=== PATIENT | male | born 1945 | race Caucasian/White ===

== ENCOUNTER 2021-02-05 11:53 | Inpatient (IN) | payer MEDICARE, SELFPAY ==
[2021-02-05] VITALS (17 sets, daily range): BP systolic 107–157; BP diastolic 66–109; PULSE 69–83; RESP 18–24; TEMP 36.6–36.8; O2SAT 72–93
--- NOTE | 2021-02-05 12:38 | ECG_ITS ---
[facility] ED Test Date: 2021-02-05 Pat Name: Arjun Rios Department: Room: Gender: Male Pediatric Genetic Counselor: : 1945 Requested By: Brian Gann Order Number: [id number] Ramona MD: Devi Raya M.D. Measurements Intervals [place] Rate: 79 P: 47 CA: 166 QRS: 4 QRSD: 105 T: 7 QT: 376 QTc: 433 Interpretive Statements SINUS RHYTHM No previous ECG available for comparison Electronically Signed On 02-07-2021 7:43:56 CDT by Devi Raya M.D. [id number]
--- NOTE | 2021-02-05 12:38 | XRR_ITS ---
PROCEDURE INFORMATION: Exam: XR Chest Exam date and time: 02/05/2021 12:38 PM Age: 75 years old Clinical indication: Cough and dyspnea; Additional info: Dyspnea/cough TECHNIQUE: Imaging protocol: XR of the chest. Views: 1 view. COMPARISON: No relevant prior studies available. FINDINGS: Lungs: There are extensive diffuse bilateral interstitial pulmonary infiltrates. These could be due to interstitial pulmonary fibrosis but based on this 1 radiograph an interstitial pneumonia cannot be excluded. Pleural spaces: Unremarkable. No pleural effusion. No pneumothorax. Heart/Mediastinum: Unremarkable. No cardiomegaly. Bones/joints: Unremarkable. XR/XR chest 1V portable [id number] IMPRESSION: Diffuse bilateral interstitial pulmonary infiltrates which may be due to interstitial fibrosis though acute interstitial pneumonia cannot be excluded. Clinical correlation and follow-up radiographs are suggested.
--- NOTE | 2021-02-05 12:54 | W.ED.COVID ---
HPI - COVID General: Chief Complaint: COVID symptoms Stated Complaint: covid + low o2 Time Seen by Provider: 02/05/21 12:38 Triage information: Has fever, cough or shortness of breath. No known COVID + exposure last 14 days History of Present Illness: HPI Narrative: 75-year-old male presents to the emergency room with complaints of shortness of breath. Patient was diagnosed Covid +4 days ago he did so onset of symptoms 3 to 4 days prior to that he had a positive Covid test at a drive-through clinic in a [facility] in [place]. He has noticed worsening breathing since then. On arrival here he was at 70 to 73% oxygen saturation on 4 L. Patient has a history of pulmonary fibrosis but is not chronically on oxygen was started on oxygen because of his Covid. He did not receive any monoclonal antibodies nor is he been vaccinated. He does have a history of hypertension and diabetes as well as coronary artery disease and his last stenting was just 4 to 5 months ago he denies any chest pain today. He has had anosmia myalgias headache fever nonproductive cough and diarrhea although the diarrhea has relented to some degree. MD complaint: known COVID positive Prior covid testing: yes, results known Prior testing date: 02/02/21 COVID 19 common symptoms: positive fever(s), chills, cough, non-productive cough, dyspnea, fatigue, body aches, loss of sense of smell and/or taste, throat pain, nasal congestion, nausea and diarrhea COVID 19 other sytmptoms: positive requiring oxygen; negative chest pain Onset (ago): day(s) (7 to 8 days) Severity: severe Pertinent comorbid conditions: diabetes, hypertension, heart disease, COPD/respiratory disease (Interstitial pulmonary fibrosis) and immunocompromised state (Chronically on prednisone) Treatment prior to arrival: oxygen COVID Results: No Data to Display Review of Systems Const: Reports: fever(s), chills, body aches and fatigue ENMT: Reports: throat pain and nasal congestion Card: Denies: chest pain, edema, dyspnea on exertion or orthopnea Resp: Reports: dyspnea and non-productive cough GI: Reports: nausea and diarrhea : Denies: flank pain, dysuria, urinary frequency or urinary urgency Skin/Breast: Denies: rash or pruritus PFSH ED PFSH: Medical History CAD (coronary artery disease) HTN (hypertension) Type 2 diabetes mellitus Surgical History History of coronary artery stent placement Social History Smoking and tobacco status: never smoked Alcohol intake: never Substance/Drug Use: never Lives independently: Yes Household members: spouse Housing: House Physical Exam Const: COMMON NORMALS: no acute distress GENERAL APPEARANCE: cooperative and comfortable ORIENTATION/CONSCIOUSNESS: Yes awake, Yes oriented to person, Yes oriented to place and Yes oriented to time HENMT: COMMON NORMALS: normocephalic, atraumatic and hearing grossly normal bilaterally HEAD & SCALP: normocephalic and atraumatic Neck/C-Spine: COMMON NORMALS: no JVD Resp: AUSCULTATION: crackles and wheezes Cardio: COMMON NORMALS: no JVD and regular rhythm RATE: tachycardic RHYTHM: regular rhythm GI: COMMON NORMALS: Soft to palpation and No hepatosplenomegaly present AUSCULTATION: Yes normoactive bowel sounds PALPATION: Yes Soft to palpation, No Tenderness to palpation present (GI), No Guarding due to palpation present (GI) and Yes No hepatosplenomegaly present Extremity: COMMON NORMALS: normal to inspection, capillary refill normal and no calf tenderness Neuro: SENSORIUM/ORIENTATION: Yes oriented to person, Yes oriented to place and Yes oriented to time Skin: COMMON NORMALS: no rashes or lesions noted GENERAL SKIN EXAM: no rashes or lesions noted Course Vital Signs: Vital signs: Vital Signs Temperature 98.8 F 02/12/21 04:00 Pulse Rate 64 02/12/21 06:00 Respiratory Rate 20 H 02/12/21 03:46 Blood Pressure 132/80 02/12/21 06:00 Pulse Oximetry 93 02/12/21 06:00 MDM - COVID MDM Narrative: Medical decision making narrative: Reviewed findings on the chart including x-rays and laboratory studies.Patient will be admitted for Covid pneumonitis complicated by pulmonary interstitial fibrosis. Is currently on high flow oxygen. Lab Data: Labs: Lab Results 02/05/21 02/05/21 02/05/21 Range/Units 12:42 12:42 12:42 WBC 9.9 (4.0-10.0) 10^3/ uL RBC 5.16 (4.1-5.3) 10^6/u L Hgb 14.7 (11.7-16.6) g/dL Hct 46.4 (42.0-52.0) % MCV 89.9 (80-94) fL MCH 28.5 (28.0-34.0) pg MCHC 31.7 (30.0-36.0) g/dL RDW 13.9 (12.1-15.1) % Plt Count 217 (130-400) 10^3/c mm MPV 9.2 (7.4-10.4) fL Neut % (Auto) 87.9 % Lymph % (Auto) 7.3 % Norton % (Auto) 4.1 % Eos % (Auto) 0.0 % Baso % (Auto) 0.1 % Neut # (Auto) 8.67 H (1.8-7.7) 10^3/u L Lymph # (Auto) 0.7 L (0.8-4.8) 10^3/u L Norton # (Auto) 0.4 (0.2-0.9) 10^3/u L Eos # (Auto) 0.0 (0.0-0.8) 10^3/u L Baso # (Auto) 0.0 (0.0-0.1) 10^3/u L Nucleated RBC % (a uto) 0 % Nucleated RBCs # 0.0 /100WBC D-Dimer 7.21 H (0-0.59) ug/mIFE U Specimen Type Sample Site ABG pH (7.35-7.45) ABG pCO2 (35-45) mmHg ABG pO2 (80.0-100.0) mmH g ABG HCO3 (22-26) mmol/L ABG Base Excess (-2.0-2.0) mmol/ L Davion Test Hematocrit (42-52) % O2 Delivery Device O2 Liters/Min % FiO2 % Front Office Director ID Sodium 133 L (136-145) mmol/L Potassium 5.1 (3.5-5.1) mmol/L Chloride 99 (98-107) mmol/L Carbon Dioxide 25 (22-29) mmol/L Anion Gap 14.1 (5-19) BUN 21 (8-23) mg/dL Creatinine 1.0 (0.7-1.2) mg/dL GFR Calculation Not Reportable Glucose 261 H (65-115) mg/dL Calculated Osmolal ity 288 (285-295) mOsm/k g Lactic Acid (0.5-2.2) mmol/L Calcium 9.0 (8.5-10.5) mg/dL Iron (59-158) ug/dL TIBC mcg/dl % Saturation (20-50) % Unsat Iron Binding (112-347) ug/dL Total Bilirubin 0.3 (0.15-1.2) mg/dL AST 41 H (0-40) U/L ALT 13 (0-41) U/L Alkaline Phosphata se 79 (40-130) IU/L C-Reactive Protein 105.3 H (0.0-4.9) mg/L NT-Pro-B Natriuret Pep (0-125) pg/mL Total Protein 6.2 L (6.6-8.7) g/dL Albumin 3.8 (3.5-5.2) g/dL Globulin 2.4 (1.3-4.6) g/dL Procalcitonin (0-0.5) ng/mL TSH (0.27-4.20) uIU/ mL 02/05/21 02/05/21 02/05/21 Range/Units 12:42 12:42 12:42 WBC (4.0-10.0) 10^3/ uL RBC (4.1-5.3) 10^6/u L Hgb (11.7-16.6) g/dL Hct (42.0-52.0) % MCV (80-94) fL MCH (28.0-34.0) pg MCHC (30.0-36.0) g/dL RDW (12.1-15.1) % Plt Count (130-400) 10^3/c mm MPV (7.4-10.4) fL Neut % (Auto) % Lymph % (Auto) % Norton % (Auto) % Eos % (Auto) % Baso % (Auto) % Neut # (Auto) (1.8-7.7) 10^3/u L Lymph # (Auto) (0.8-4.8) 10^3/u L Norton # (Auto) (0.2-0.9) 10^3/u L Eos # (Auto) (0.0-0.8) 10^3/u L Baso # (Auto) (0.0-0.1) 10^3/u L Nucleated RBC % (a uto) % Nucleated RBCs # /100WBC D-Dimer (0-0.59) ug/mIFE U Specimen Type Sample Site ABG pH (7.35-7.45) ABG pCO2 (35-45) mmHg ABG pO2 (80.0-100.0) mmH g ABG HCO3 (22-26) mmol/L ABG Base Excess (-2.0-2.0) mmol/ L Davion Test Hematocrit (42-52) % O2 Delivery Device O2 Liters/Min % FiO2 % Front Office Director ID Sodium (136-145) mmol/L Potassium (3.5-5.1) mmol/L Chloride (98-107) mmol/L Carbon Dioxide (22-29) mmol/L Anion Gap (5-19) BUN (8-23) mg/dL Creatinine (0.7-1.2) mg/dL GFR Calculation Glucose (65-115) mg/dL Calculated Osmolal ity (285-295) mOsm/k g Lactic Acid 1.4 (0.5-2.2) mmol/L Calcium (8.5-10.5) mg/dL Iron 37 L (59-158) ug/dL TIBC 195 mcg/dl % Saturation 18.9 L (20-50) % Unsat Iron Binding 158 (112-347) ug/dL Total Bilirubin (0.15-1.2) mg/dL AST (0-40) U/L ALT (0-41) U/L Alkaline Phosphata se (40-130) IU/L C-Reactive Protein (0.0-4.9) mg/L NT-Pro-B Natriuret Pep 225 H (0-125) pg/mL Total Protein (6.6-8.7) g/dL Albumin (3.5-5.2) g/dL Globulin (1.3-4.6) g/dL Procalcitonin 0.08 (0-0.5) ng/mL TSH 1.72 (0.27-4.20) uIU/ mL 02/05/21 02/05/21 Range/Units 12:45 16:39 WBC (4.0-10.0) 10^3/ uL RBC (4.1-5.3) 10^6/u L Hgb (11.7-16.6) g/dL Hct (42.0-52.0) % MCV (80-94) fL MCH (28.0-34.0) pg MCHC (30.0-36.0) g/dL RDW (12.1-15.1) % Plt Count (130-400) 10^3/c mm MPV (7.4-10.4) fL Neut % (Auto) % Lymph % (Auto) % Norton % (Auto) % Eos % (Auto) % Baso % (Auto) % Neut # (Auto) (1.8-7.7) 10^3/u L Lymph # (Auto) (0.8-4.8) 10^3/u L Norton # (Auto) (0.2-0.9) 10^3/u L Eos # (Auto) (0.0-0.8) 10^3/u L Baso # (Auto) (0.0-0.1) 10^3/u L Nucleated RBC % (a uto) % Nucleated RBCs # /100WBC D-Dimer (0-0.59) ug/mIFE U Specimen Type Arterial Arterial Sample Site Radial, right Radial, left ABG pH 7.41 7.41 (7.35-7.45) ABG pCO2 39.7 40.2 (35-45) mmHg ABG pO2 54.2 L 59.9 L (80.0-100.0) mmH g ABG HCO3 25.1 25.1 (22-26) mmol/L ABG Base Excess 0.5 0.4 (-2.0-2.0) mmol/ L Davion Test Pos Pos Hematocrit 44.3 44.0 (42-52) % O2 Delivery Device [place]rb Hag O2 Liters/Min 10.0 45.0 % FiO2 60.0 % Front Office Director ID glc glc Sodium (136-145) mmol/L Potassium (3.5-5.1) mmol/L Chloride (98-107) mmol/L Carbon Dioxide (22-29) mmol/L Anion Gap (5-19) BUN (8-23) mg/dL Creatinine (0.7-1.2) mg/dL GFR Calculation Glucose (65-115) mg/dL Calculated Osmolal ity (285-295) mOsm/k g Lactic Acid (0.5-2.2) mmol/L Calcium (8.5-10.5) mg/dL Iron (59-158) ug/dL TIBC mcg/dl % Saturation (20-50) % Unsat Iron Binding (112-347) ug/dL Total Bilirubin (0.15-1.2) mg/dL AST (0-40) U/L ALT (0-41) U/L Alkaline Phosphata se (40-130) IU/L C-Reactive Protein (0.0-4.9) mg/L NT-Pro-B Natriuret Pep (0-125) pg/mL Total Protein (6.6-8.7) g/dL Albumin (3.5-5.2) g/dL Globulin (1.3-4.6) g/dL Procalcitonin (0-0.5) ng/mL TSH (0.27-4.20) uIU/ mL COVID Results: No Data to Display Discharge Plan Discharge Patient Disposition: Admitted As Inpatient Admit Provider: Jonny Sage Clinical Impression: Pneumonia due to 2019-nCoV, Idiopathic interstitial fibrosis Condition: Stable Coding Level of Care Code ED Business Process Manager for Chg Fwd Exam Comprehensive
[2021-02-05 12:55] LABS: Basophils % 0.1 %; Hematocrit 46.4 % (42.0-52.0); Hemoglobin 14.7 g/dL (11.7-16.6); Lymphocytes # 0.7 10^3/uL (0.8-4.8); Lymphocytes % 7.3 %; Mean Corpuscular HGB Conc 31.7 g/dL (30.0-36.0); Mean Corpuscular Hemoglobin 28.5 pg (28.0-34.0); Mean Corpuscular Volume 89.9 fL (80-94); Mean Platelet Volume 9.2 fL (7.4-10.4); Monocytes # 0.4 10^3/uL (0.2-0.9); Monocytes % 4.1 %; Neutrophils # 8.67 10^3/uL (1.8-7.7); Neutrophils % 87.9 %; Nucleated Red Blood Cells % 0 %; Platelet Count 217 10^3/cmm (130-400); Red Blood Count 5.16 10^6/uL (4.1-5.3); Red Cell Distribution Width 13.9 % (12.1-15.1); White Blood Count 9.9 10^3/uL (4.0-10.0)
[2021-02-05 12:56] LABS: ABG PCO2 39.7 mmHg (35-45); ABG PH Result 7.41 (7.35-7.45); Arterial Blood Gas Hematocrit 44.3 % (42-52); Base Excess ABG 0.5 mmol/L (-2.0-2.0); Blood Gas Allen Test Pos; Blood Gas Operator Identificat glc; Blood Gas Sample Site Radial, right; Blood Gas Sample Type Arterial; HCO3 ABG 25.1 mmol/L (22-26); Oxygen Device NRB; PO2 ABG 54.2 mmHg (80.0-100.0)
[2021-02-05 13:17] LABS: Alanine Aminotransferase 13 U/L (0-41); Albumin Level 3.8 g/dL (3.5-5.2); Alkaline Phosphatase 79 IU/L (40-130); Anion Gap 14.1 (5-19); Aspartate Amino Transferase 41 U/L (0-40); Blood Urea Nitrogen 21 mg/dL (8-23); C Reactive Protein 105.3 mg/L (0.0-4.9); Carbon Dioxide 25 mmol/L (22-29); Chloride 99 mmol/L (98-107); Globulin 2.4 g/dL (1.3-4.6); Glucose 261 mg/dL (65-115); Lactic Sepsis W/Reflex 1.4 mmol/L (0.5-2.2); Osmolality Calculated 288 mOsm/kg (285-295); Potassium 5.1 mmol/L (3.5-5.1); Sodium 133 mmol/L (136-145); Total Bilirubin 0.3 mg/dL (0.15-1.2); Total Protein 6.2 g/dL (6.6-8.7)
[2021-02-05 13:18] LABS: D Dimer 7.21 ug/mIFEU (0-0.59)
--- NOTE | 2021-02-05 13:24 | CT_ITS ---
WS: [id number] CT CHEST ANGIOGRAPHY WITH REFORMATS HISTORY: Covid, hypoxia TECHNIQUE: Contiguous axial images are obtained through the chest during arterial injection of intrav enous contrast. Images are reconstructed to evaluate the pulmonary arteries. MIP imaging also reviewe d. All CT scans at [facility] use at least one of these dose optimization techniques: aut omated exposure control; mA and/or kV adjustment per patient size (includes targeted exams where dose is matched to clinical indication); or iterative reconstruction. CONTRAST: Omnipaque 350; 95 mL IV. DLP: 640.45 mGy.cm COMPARISON: None available. Excellent opacification of the pulmonary arteries. No pulmonary embolism. Pulmonary artery size is no rmal. Moderate atherosclerotic disease within the thoracic aorta. Calcified plaque and intimal thicke evaristo with no aneurysm. Bilateral hilar lymphadenopathy. The largest lymph node on the LEFT measures 1 2 mm. Smaller paratracheal lymph nodes bilaterally. There is extensive interstitial thickening throughout both lungs. This is predominantly in the ventri cular and/or honeycombing pattern. May be superimposed: On changes of pulmonary fibrosis. There are a few scattered areas of groundglass attenuation. No areas of very dense consolidation. No pericardial or pleural effusions. Visualized upper abdominal structures are negative. No adrenal mass. Mild pancreatic fatty replacemen t. No destructive bone lesions. CT/CT angio chest PE protcl [id number] IMPRESSION: 1. No pulmonary embolism. 2. Diffusely abnormal lungs. Diffuse scattered groundglass attenuation, thicke eloy reticulations and honeycombing. Suspect superimposed Covid on chronic pulmo nary fibrosis. 3. Bilateral hilar adenopathy with the largest lymph node on the LEFT measurin g 12 mm. Probably reactive.
--- NOTE | 2021-02-05 13:38 | PC.PHAR ---
PTS COY VERIFIED MEDICATIONS-NOTES ARE MADE IN THE PHARMACY COMMENTS-PTS STATES THEY BUY THE PTS INSULIN OTC AT [facility]-PTS STATES THE PT IS NOT TAKING THE 5MG PREDNISONE WHILE TAKING THE 14 DAYS OF PREDNISONE 40MG DAILY FOR 7 DAYS THEN 20MG DAILY FOR 7 DAYS FILLED ON 02/01/21
[2021-02-05] MEDS: iohexol 350 mg/mL 100 mL Btl IV (14:15)
[2021-02-05] MEDS: dexamethasone 10 mg/mL INJ IVP (14:21)
[2021-02-05] MEDS: remdesivir 200 MG in sodium chloride 0.9% (100 ml) 100 ML 100 MG IV (14:24)
--- NOTE | 2021-02-05 16:33 | PM.HP ---
Providers/Chief Complaint Primary Care Provider: Ag Menjivar MD Chief Complaint: covid + low o2 History of Present Illness Arjun Rios is a 75 year old male with past medical history of CAD, hypertension, type 2 diabetes mellitus, interstitial pulmonary fibrosis who is not previously on supplemental oxygen other than when he has to go on high altitude at which time he requires 3 to 4 L as needed, not vaccinated for COVID-19 presents to the ER today with worsening shortness of breath for last 3 days. Patient states he has been having symptoms for last 7 days and was tested positive for COVID-[address] in [place] on Thursday. Today is Thursday. Patient states he has been using his oxygen at home up to 4 L for last 2 days and was not feeling well so came to the ER. In the ER he was saturating 70% on 4 L and was put onto heated high flow. He states he has been taking steroids at home for Covid and his sugars have been going up to 400s. Currently patient is on heated high flow 50 L 60% saturating 92%. He states he is feels feeling tight in his chest. Review of Systems General: Reports: 10 or more systems reviewed and unremarkable except in HPI and below Const: Denies: fever(s), chills, body aches, change in appetite, change in weight, malaise, night sweats, diaphoresis, change in sleep pattern, daytime sleepiness or snoring Eyes: Denies: change in vision, blurry vision, photophobia, eye discomfort or eye discharge ENMT: Denies: throat pain, enlarged tonsils, hoarseness, mouth pain, oral sores, dry mouth, tinnitus, nasal congestion or post nasal drip Card: Denies: chest pain, palpitations, irregular heart rhythm, edema, swelling of feet/ankles, lightheadedness, syncope, pre-syncope, dyspnea on exertion, orthopnea, leg pain with exertion or acrocyanosis Resp: Denies: dyspnea, productive cough, non-productive cough, wheezing, stridor, pain on inspiration, change in phlegm color, hemoptysis or chest congestion GI: Denies: abdominal pain, nausea, vomiting, hematemesis, coffee ground emesis, dysphagia, heartburn, diarrhea, constipation, bloating, GI cramping, change in bowel habits, pain on defecation, hematochezia or melena : Denies: flank pain, difficulty urinating, dysuria, urinary frequency, urinary urgency, urinary hesitancy, urinary dribbling, difficulty starting urination, change in urine stream, nocturia or hematuria Musc: Denies: neck pain, back pain, extremity pain, joint pain, joint swelling, joint redness, joint stiffness or limited range of motion Neuro: Denies: headache(s), numbness in extremities, weakness in extremities, sensory changes, lack of coordination, difficulty walking, frequent falls, dizziness, vertigo, confusion, Slurred speech present, difficulty communicating thoughts or seizure-like activity Psych: Denies: anxiety, depression, mood swings, panic attacks, hopelessness or irritability Endo: Denies: polyuria, polydipsia, tired all the time, cold intolerance, excessive sweating, flushing or heat intolerance Jarett/Lymph: Denies: easy bruising or easy bleeding All/Imm: Denies: tongue swelling, facial swelling or acute wheezing Medications/Allergies Home Medications Medication Instructions Recorded Confirmed Last Taken Type Colloidal Silver 1 ml PO BID 02/05/21 02/05/21 Unknown History Vitamin B-12 1 ml PO DAILY 02/05/21 02/05/21 Unknown History albuterol sulfate [Ventolin HFA] 2 puff INHALATION Q6H PRN 02/05/21 02/05/21 02/05/21 10:00 History 2 PUFFS alprazolam 0.25 mg PO BID PRN 02/05/21 02/05/21 02/04/21 History ascorbic acid (vitamin C) [Vitamin 500 mg PO DAILY 02/05/21 02/05/21 02/05/21 History C] aspirin [Aspir-81] 81 mg PO DAILY 02/05/21 02/05/21 Unknown History azithromycin 250 mg PO .MON,WED,FRI 02/05/21 02/05/21 02/04/21 History budesonide-formoterol [Symbicort] 2 puff INHALATION PRN 02/05/21 02/05/21 02/04/21 History carvedilol 3.125 mg PO BID 02/05/21 02/05/21 02/05/21 History cholecalciferol (vitamin D3) 125 mcg PO BID 02/05/21 02/05/21 02/04/21 History [Vitamin D3] clopidogrel 75 mg PO QAM 02/05/21 02/05/21 02/05/21 History cyanocobalamin (vitamin B-12) 1,000 mcg IM Q30D 02/05/21 02/05/21 Unknown History ezetimibe 10 mg PO DAILY 02/05/21 02/05/21 Unknown History guaifenesin 400 mg PO QID 02/05/21 02/05/21 Unknown History insulin NPH-regular hum s-syn See Rx Instructions .ROUTE .COMPLEX 02/05/21 02/05/21 Unknown History [Novolin 70/30 U-100 Insulin] insulin regular human [Novolin R See Rx Instructions .ROUTE .COMPLEX 02/05/21 02/05/21 Unknown History Regular U-100 Insuln] ipratropium-albuterol 3 ml INHALATION TID PRN 02/05/21 02/05/21 02/05/21 04:00 History levofloxacin 500 mg PO DAILY 02/05/21 02/05/21 02/05/21 History multivitamin 1 tab PO DAILY 02/05/21 02/05/21 02/05/21 History pramipexole 0.25 mg PO BEDTIME 02/05/21 02/05/21 Unknown History prednisone 5 mg PO .DAILY DIRECTED 02/05/21 02/05/21 Unknown History prednisone See Rx Instructions .ROUTE .COMPLEX 02/05/21 02/05/21 02/05/21 History 40 MG tadalafil 5 mg PO QAM 02/05/21 02/05/21 Unknown History tamsulosin 0.4 mg PO DAILY 02/05/21 02/05/21 Unknown History zinc acetate-sweetleaf [zinc 1 sarina PO DAILY 02/05/21 02/05/21 02/04/21 History (acetate) lozenges] Allergies Allergy/AdvReac Type Severity Reaction Status Date / Time Penicillins Allergy ALGY-Anaphy Verified 02/05/21 12:40 laxis PFSH Acute PFSH: Medical History (Updated 02/05/21 @ 16:35 by Jonny Sage MD) CAD (coronary artery disease) HTN (hypertension) Type 2 diabetes mellitus Surgical History (Updated 02/05/21 @ 16:35 by Jonny Sage MD) History of coronary artery stent placement Social History (Updated 02/05/21 @ 16:54 by Jonny Sage MD) Smoking and tobacco status: never smoked Alcohol intake: never Substance/Drug Use: never Lives independently: Yes Household members: spouse Housing: House Vitals/I&O/Wt Last Vital Signs Temp 97.9 F 02/05/21 12:40 Pulse 73 02/05/21 16:20 Resp 19 H 02/05/21 13:44 BP 157/109 02/05/21 16:20 Pulse Ox 92 02/05/21 16:20 02/05/21 02/05/21 02/05/21 06:59 14:59 22:59 Intake Total 100 / 100 Balance 100 / 100 Weight last 48 hrs Weight 99.79 kg Physical Exam Narrative: EXAM NARRATIVE: General: No acute distress, AO x3 HEENT: PERRLA, pupils bilaterally equal and reactive Chest: Bilateral bronchial breath sounds all over the lung mckee, occasional rhonchi over the lung mckee, crackles all over the lung mckee, decreased air entry bilaterally CVS: S1-S2 regular, no murmurs, no tachycardia, no gallops, no rubs Abdomen: Soft, nontender, no organomegaly, bowel sounds present Neuro: No focal deficits, no facial deformity, AO x3, power 5/5 in all limbs Data : 02/05/21 12:42 02/05/21 12:42 Micro: Microbiology 02/05/21 13:00 Blood Culture - Preliminary Blood SPECIMEN COLLECTED 02/05/21 12:49 Blood Culture - Preliminary Blood SPECIMEN COLLECTED A&P Assessment and plan (1) Pneumonia due to 2019-nCoV: Status: Acute (2) Idiopathic interstitial fibrosis: Status: Acute (3) ARDS (adult respiratory distress syndrome): Status: Acute (4) COVID-19 vaccination not done: Status: Acute (5) HTN (hypertension): Status: Acute (6) Type 2 diabetes mellitus: Status: Acute (7) CAD (coronary artery disease): Status: Acute Additional A&P Information ARDS secondary to COVID-19 pneumonia in setting of idiopathic interstitial pulmonary fibrosis: Severe disease Oxygen supplementation keeping saturation over 88%. Repeat ABG. Dexamethasone 6 mg daily. Remdesivir to finish a 5-day course. Vitamin C, zinc. DuoNebs every 6 hour, budesonide twice daily. Pulmonary toilet with incentive spirometry flutter valve. We will monitor inflammatory markers including ferritin, ESR, CRP, D-dimer, fibrinogen. If getting elevated will dose Actemra. Patient was made aware of the same and he has given verbal consent. D-dimer elevated. Check CTA to rule out pulmonary embolism. For now we will start patient on full dose anticoagulation as he is requiring high oxygen supplementation. Will monitor for anemia or blood loss. Check sputum culture, procalcitonin, urine Legionella, bacterial antigen, blood culture. Procalcitonin negative. Low suspicion of bacterial infection for now. For now hold off on antibiotics. Given hypoxia will try to keep patient as negative as possible. Patient history of CAD. Echocardiogram. Start patient on IV Lasix 40 mg stat. Strict input output charting, daily weights. Fluid restriction up to 1500 cc. We will monitor BMP. Ram catheterization. Hypertension: Goal blood pressure less than 140/90 mmHg. Continue to monitor blood pressures for now. Continue home dose of carvedilol. If needed will add amlodipine 10 mg daily. Type 2 diabetes mellitus: Check HbA1c. Insulin sliding scale at moderate dose. Will uptitrate insulin sliding scale oral add Lantus depending on blood sugar levels. CAD: No active chest pain. Recent stent placement. Continue with aspirin, Plavix, statin. Check lipid panel. Continue beta-too. Full code. Full dose Lovenox will help with DVT prophylaxis as well. Famotidine for PUD prophylaxis. Cardiac carb consistent diet mechanical soft. Attestations Medical Necessity Statement*: More than 2 midnights for management of ARDS secondary to COVID-19 pneumonia Time Spent in Patient Care: Greater than 35 minutes (>than 50% of time spent in counselling and/or direct pt care on unit). Coding Level of Care Code Acute [employer] Worker for [facility] Fwd Diagnoses Pneumonia due to 2019-nCoV U07.1; J12.82 Idiopathic interstitial fibrosis J84.112 ARDS (adult respiratory distress syndrome) J80 COVID-19 vaccination not done Z28.9 HTN (hypertension) I10 Type 2 diabetes mellitus E11.9 CAD (coronary artery disease) I25.10
[2021-02-05 16:44] LABS: Procalcitonin 0.08 ng/mL (0-0.5); Thyroid Stimulating Hormone 1.72 uIU/mL (0.27-4.20)
[2021-02-05 16:51] LABS: ABG PCO2 40.2 mmHg (35-45); ABG PH Result 7.41 (7.35-7.45); Base Excess ABG 0.4 mmol/L (-2.0-2.0); Blood Gas Allen Test Pos; Blood Gas Operator Identificat glc; Blood Gas Sample Site Radial, left; Blood Gas Sample Type Arterial; HCO3 ABG 25.1 mmol/L (22-26); Oxygen Device HAG; PO2 ABG 59.9 mmHg (80.0-100.0)
[2021-02-05 16:55] LABS: Iron 37 ug/dL (59-158); Percent Saturation 18.9 % (20-50); Total Iron Binding Capacity 195 mcg/dl; Unsaturated Iron Binding 158 ug/dL (112-347)
[2021-02-05] MEDS: benzonatate 100 mg Capsule PO ×2 (17:06→22:11)
[2021-02-05] MEDS: carvedilol 3.125 mg Tablet PO (17:07)
[2021-02-05] MEDS: ferrous gluconate 324 mg Tablet PO (17:09)
[2021-02-05] MEDS: FUROsemide 10 mg/mL SDV 4mL 40 MG IVP (17:17)
[2021-02-05] MEDS: enoxaparin 100 mg/mL Syringe SUBCUT (17:25)
[2021-02-05] MEDS: famotidine 20 mg/2 mL INJ IVP (17:27)
[2021-02-05 18:50] LABS: Add Urine Microscopic? NO; Charge for UA Resulting for Rev
[2021-02-05 19:02] LABS: Bilirubin Urine Neg (Negative); Blood Urine Neg (Negative); Glucose Urine UA 2+ (Normal); Ketones Urine Negative (Negative); Leukocyte Esterase Urine Negative (Negative); Nitrate Urine Negative (Negative); Protein Urine Neg (Negative); Specific Gravity, Urine 1.005 (1.005-1.030); Urine Appearance Clear (CLEAR); Urine Color Straw (Yellow); Urobilinogen Urine Norm (Negative); pH Urine 5 (5-7)
--- NOTE | 2021-02-05 19:34 | PC.NURSE ---
attempted to call report. no answer on 2a. will try again to reach unit.
[2021-02-05 19:36] LABS: NT Pro B Type Natriuretic Pept 225 pg/mL (0-125)
[2021-02-05 19:37] LABS: Potassium, Radom Urine 11 mmol/L; Urine Random Chloride 104 mmol/L; Urine Random Sodium 101 mmol/L
--- NOTE | 2021-02-05 19:48 | PC.NURSE ---
attempted to call report. no answer on unit. will reattempt calling report.
--- NOTE | 2021-02-05 19:57 | PC.NURSE ---
Report called to SUNIL Singleton
--- NOTE | 2021-02-05 20:36 | PC.NURSE ---
pt given update.
[2021-02-05] MEDS: budesonide 0.5 mg/2 mL Neb INHALATION (20:46)
[2021-02-05] MEDS: ipratropium-albuterol 3 mL Neb INHALATION (20:48)
[2021-02-05 21:35] LABS: Glucose Point of Care 378 mg/dL (70-110)
[2021-02-06] VITALS (14 sets, daily range): BP systolic 102–132; BP diastolic 65–78; PULSE 62–98; RESP 18–25; TEMP 36.3–36.8; O2SAT 79–96; BMI 32.5
--- NOTE | 2021-02-06 01:36 | PC.NURSE ---
assisted pt into bathroom at this time. pt did not get below 81%. recovered well. pt stat lock changed at this time becasue pt states it was pulling and leaking.
[2021-02-06] MEDS: ipratropium-albuterol 3 mL Neb INHALATION ×3 (02:26→19:37)
[2021-02-06] MEDS: ALPRAZolam 0.5 mg Tablet 0.25 MG PO ×2 (03:33→21:30)
--- NOTE | 2021-02-06 04:00 | USCV_ITS ---
Arjun Rios Age: 75 Gender: M : 1945 Exam Date: 02/06/2021 06:23 Ordering Phys: Jonny Sage MD Technologist: Shwetha Arzola [place] [facility] [place]: COVID BP: 124 / 65 HR: 76 Rhythm: Sinus Technical Quality: Adequate MEASUREMENTS (Male / Female) Normal Values 2D ECHO LV Diastolic Diameter PLAX 4.4 cm 4.2 - 5.9 / 3.9 - 5.3 cm LV Systolic Diameter PLAX 3.1 cm IVS Diastolic Thickness 1.3 cm 0.6 - 1.0 / 0.6 - 0.9 cm IVS Systolic Thickness 1.5 cm LVPW Diastolic Thickness 1.0 cm 0.6 - 1.0 / 0.6 - 0.9 cm LVPW Systolic Thickness 1.4 cm RV Chamber Size 2.9 cm LVOT Diameter 2.0 cm LV Ejection Fraction 2D Teich 56.5 % LV Ejection Fraction MOD 2C 59.9 % LV Ejection Fraction 2C AL 60.5 % LA Diameter 3.1 cm LA Width 3.5 cm LA Height 4.4 cm RA Width 3.8 cm RA Height 4.9 cm Aorta at Sinotubular Diameter 2.2 cm M-MODE Aortic Annulus Diameter 3.1 cm LA Ao Ratio MM 1.1 MV E Point Septal Separation 0.5 cm DOPPLER AV Peak Velocity 129.0 cm/s LVOT Peak Velocity 96.0 cm/s AV Area Cont Eq vti 2.5 cm squared AV Area Cont Eq pk 2.3 cm squared MV Area PHT 10.5 cm squared Mitral E to A Ratio 0.5 MV E' Velocity 35.0 cm/s Mitral E to MV E' Ratio 7.4 Mitral E to LV E' Lateral Ratio 9.5 Mitral E to LV E' Septal Ratio 6.0 TR Peak Velocity 326.3 cm/s TR Peak Gradient 42.6 mmHg TV Peak E Velocity 41.0 cm/s Right Atrial Pressure 3.0 mmHg Pulmonary Artery Systolic Pressu 45.6 mmHg PV Peak Velocity 100.0 cm/s RV Acceleration Time 0.1 s RV Ejection Time 0.3 s RV AcT/ET 0.4 FINDINGS Left Ventricle Normal left ventricular cavity size. Normal left ventricular systolic function. No regional wall motion abnormalities. Left ventricular ejection fraction is estimated at 60 %. Grade I/IV diastolic dysfunction (abnormal relaxation filling pattern), normal to mildly elevated filling pressures. Right Ventricle The right ventricle is normal in size and function. Moderate pulmonary hypertension, RVSP 45.6 mmHg. Right Atrium The right atrium is normal in size. Left Atrium The left atrium is normal in size. Mitral Valve Structurally normal mitral valve without significant stenosis or prolapse. There is no mitral regurgitation. Aortic Valve Moderate aortic valve calcification. No aortic valve stenosis. No aortic valve regurgitation. Tricuspid Valve Structurally normal tricuspid valve without significant stenosis or regurgitation. Pulmonic Valve Structurally normal pulmonic valve without significant stenosis. There is no pulmonic regurgitation. Pericardium Normal pericardium without effusion. Aorta Normal ascending aorta dimension. CONCLUSIONS 1-Normal left ventricular cavity size. Normal left ventricular systolic function. No regional wall motion abnormalities. Left ventricular ejection fraction is estimated at 60 %. Grade I/IV diastolic dysfunction (abnormal relaxation filling pattern), normal to mildly elevated filling pressures. 2-Moderate aortic valve calcification. No aortic valve stenosis. No aortic valve regurgitation. 3-There is no pericardial effusion. 4-The right ventricle is normal in size and function. Moderate pulmonary hypertension, RVSP 45.6 mmHg. 5-Right atrial pressure is around 5 mm of mercury. 6-There are no prior echocardiogram studies to compare. Conner Joseph MD (Electronically Signed) Final Date: 06 February 2021 19:07 S
[2021-02-06] MEDS: enoxaparin 100 mg/mL Syringe SUBCUT ×2 (05:36→15:53)
[2021-02-06] MEDS: clopidogrel 75 mg Tablet PO (05:36)
[2021-02-06] MEDS: famotidine 20 mg/2 mL INJ IVP ×2 (05:38→17:05)
[2021-02-06] MEDS: dexamethasone 4 mg/mL INJ 6 MG IVP (05:41)
--- NOTE | 2021-02-06 06:00 | XR_ITS ---
WS: [id number] Portable AP upright chest, 02/06/2021 Clinical Data: covid Comparison: Portable chest, 02/05/2021 Findings: There are extensive bilateral pulmonary opacities which have increased moderately since yes terday. The heart is at the upper limits of normal. The aortic arch shows minimal calcification and t ortuosity. XR/XR chest 1V portable [id number] Impression: 1. Moderate worsening of bilateral pulmonary opacities consistent with pneumoni a. 2. Atherosclerosis.
[2021-02-06 07:04] LABS: Glucose Point of Care 256 mg/dL (70-110)
[2021-02-06 07:05] LABS: Basophils % 0.1 %; Hemoglobin 14.3 g/dL (11.7-16.6); Lymphocytes # 0.6 10^3/uL (0.8-4.8); Lymphocytes % 8.5 %; Mean Corpuscular HGB Conc 32.5 g/dL (30.0-36.0); Mean Corpuscular Hemoglobin 29.1 pg (28.0-34.0); Mean Corpuscular Volume 89.6 fL (80-94); Mean Platelet Volume 9.5 fL (7.4-10.4); Monocytes # 0.5 10^3/uL (0.2-0.9); Monocytes % 6.8 %; Neutrophils # 6.01 10^3/uL (1.8-7.7); Nucleated Red Blood Cells % 0 %; Platelet Count 245 10^3/cmm (130-400); Red Blood Count 4.91 10^6/uL (4.1-5.3); White Blood Count 7.2 10^3/uL (4.0-10.0)
[2021-02-06 07:16] LABS: Estmated Average Glucose 223; Hemoglobin A1C 9.4 % (4.0-6.0)
[2021-02-06 07:24] LABS: D Dimer 4.85 ug/mIFEU (0-0.59)
[2021-02-06 07:27] LABS: Alanine Aminotransferase 11 U/L (0-41); Albumin Level 3.6 g/dL (3.5-5.2); Alkaline Phosphatase 80 IU/L (40-130); Anion Gap 19.3 (5-19); Aspartate Amino Transferase 27 U/L (0-40); Blood Urea Nitrogen 29 mg/dL (8-23); Calcium 8.8 mg/dL (8.5-10.5); Carbon Dioxide 24 mmol/L (22-29); Chloride 99 mmol/L (98-107); Globulin 2.7 g/dL (1.3-4.6); Glucose 262 mg/dL (65-115); Lactate Dehydrogenase 583 U/L (135-225); Magnesium 2.3 mg/dL (1.7-2.3); Osmolality Calculated 301 mOsm/kg (285-295); Phosphorus 3.3 mg/dL (2.5-4.5); Potassium 4.3 mmol/L (3.5-5.1); Sodium 138 mmol/L (136-145); Total Bilirubin 0.3 mg/dL (0.15-1.2); Total Protein 6.3 g/dL (6.6-8.7)
[2021-02-06 07:39] LABS: Chol HDL Ratio 3.16 mg/dL (1.0-5.00); Cholesterol 142 mg/dL (0-200); Creatine Phosphokinase 68 U/L (39-308); HDL Cholesterol 45 mg/dL (60-100); LDL Cholesterol Calculated 65 mg/dL (50-129); NT Pro B Type Natriuretic Pept 227 pg/mL (0-125); Triglycerides 162 mg/dL (0-150); VLDL Cholestrol Calculation 32 mg/dL (0-30)
[2021-02-06 07:53] LABS: Ferritin 1073 ng/mL (30-400)
[2021-02-06] MEDS: budesonide 0.5 mg/2 mL Neb INHALATION ×2 (08:00→19:36)
[2021-02-06] MEDS: carvedilol 3.125 mg Tablet PO ×2 (08:24→17:49)
[2021-02-06] MEDS: zinc gluconate 50 mg Tablet PO (08:24)
[2021-02-06] MEDS: ferrous gluconate 324 mg Tablet PO ×2 (08:24→17:49)
[2021-02-06] MEDS: benzonatate 100 mg Capsule PO ×3 (08:24→20:29)
[2021-02-06] MEDS: aspirin 81 mg EC Tablet PO (08:24)
[2021-02-06] MEDS: ascorbic acid 500 mg Tablet PO (08:24)
[2021-02-06] MEDS: tamsulosin 0.4 mg Capsule PO (08:24)
[2021-02-06 08:31] LABS: Erythrocyte Sedimentation Rate 24 mm/hr (0-10)
--- NOTE | 2021-02-06 08:40 | P.PN_ITS ---
Subjective Subjective: Interval history: No acute events overnight. Patient today morning had an event of desaturation when he tried to get up to go to the bathroom. Currently is on 45 L 90% saturating 91%. Denies any nausea, vomiting, headache. States he feels weak. Discussed with him in detail for need to do incentive spirometry and flutter valve. Vitals/I&O/Wt Last Vital Signs Temp 98.1 F 02/06/21 08:00 Pulse 81 02/06/21 08:00 Resp 18 02/06/21 08:00 BP 126/78 02/06/21 08:00 Pulse Ox 92 02/06/21 08:00 02/05/21 02/06/21 02/06/21 22:59 06:59 14:59 Intake Total 100 / 100 440 / 540 Output Total 1600 / 1600 Balance 100 / 100 -1160 / -1060 Weight last 48 hrs Weight 96.797 kg Weight 100.01 kg Weight 99.79 kg Physical Exam Narrative: EXAM NARRATIVE: General: No acute distress, AO x3 HEENT: PERRLA, pupils bilaterally equal and reactive Chest: Bilateral bronchial breath sounds all over the lung mckee, occasional rhonchi over the lung mckee, crackles all over the lung mckee, decreased air entry bilaterally CVS: S1-S2 regular, no murmurs, no tachycardia, no gallops, no rubs Abdomen: Soft, nontender, no organomegaly, bowel sounds present Neuro: No focal deficits, no facial deformity, AO x3, power 5/5 in all limbs Urinary Catheter Management^: Ram: Cath Placed During This Visit: yes Reason for Continuing Indwelling Catheter: Other Urinary Catheter Date of Insertion: 02/05/21 Urinary Catheter Time of Insertion: 18:34 Data : 02/06/21 05:45 02/06/21 05:45 Micro: Microbiology 02/05/21 13:00 Blood Culture - Preliminary Blood SPECIMEN COLLECTED 02/05/21 12:49 Blood Culture - Preliminary Blood SPECIMEN COLLECTED A&P Assessment and plan (1) Pneumonia due to 2019-nCoV: Status: Acute (2) Idiopathic interstitial fibrosis: Status: Acute (3) ARDS (adult respiratory distress syndrome): Status: Acute (4) COVID-19 vaccination not done: Status: Acute (5) HTN (hypertension): Status: Acute (6) Type 2 diabetes mellitus: Status: Acute (7) CAD (coronary artery disease): Status: Acute Additional A&P Information ARDS secondary to COVID-19 pneumonia in setting of idiopathic interstitial pulmonary fibrosis: Cannot rule out ILD exacerbation as well in setting of COVID-19 pneumonia. Severe disease Oxygen supplementation keeping saturation over 88%. PF ratio 67 which is worsening than yesterday. ABG results appreciated. Dexamethasone 6 mg daily. Remdesivir to finish a 5-day course. Vitamin C, zinc. DuoNebs every 4 hour, budesonide twice daily. Pulmonary toilet with incentive spirometry flutter valve. We will monitor inflammatory markers including ferritin, ESR, CRP, D-dimer, fibrinogen. If getting elevated will dose Actemra. Patient was made aware of the same and he has given verbal consent. D-dimer elevated. CTA negative for pulmonary embolism. For now we will start patient on full dose anticoagulation as he is requiring high oxygen supplementation. Will monitor for anemia or blood loss. Procalcitonin negative, urine Legionella bacterial antigen negative. Blood culture preliminary negative. Sputum culture results awaited. Given patient requiring high oxygen supplementation for now start patient on ceftriaxone. Continue with home dose of azithromycin prophylaxis. Patient has a history of idiopathic pulmonary fibrosis and has been on steroids for last 6 months. He has history of recent travel to [place] and [place]. Check PCP PCR, histoplasma antigen, Aspergillus antigen. Given hypoxia will try to keep patient as negative as possible. Patient history of CAD. Echocardiogram. 1 more dose of IV Lasix 40 mg stat. Target 1 L negative in next 24 hours. Strict input output charting, daily weights. Fluid restriction up to 1500 cc. We will monitor BMP. Ram catheterization. Hypertension: Goal blood pressure less than 140/90 mmHg. Continue to monitor blood pressures for now. Continue home dose of carvedilol. If needed will add amlodipine 10 mg daily. Type 2 diabetes mellitus: HbA1c 9.4. Insulin sliding scale at moderate dose. Add Lantus 10 units every morning. CAD: No active chest pain. Recent stent placement. Continue with aspirin, Plavix, statin. Check lipid panel. Continue beta-too. Full code. Full dose Lovenox will help with DVT prophylaxis as well. Famotidine for PUD prophylaxis. Cardiac carb consistent diet mechanical soft. Attestations Medical Necessity Statement*: Patient requires further hospitalization for management of severe ARDS secondary to COVID-19 pneumonia requiring high heated high flow oxygen supplementation. Critical Care Time: The high probability of a clinically significant, sudden or life threatening deterioration of the patient's [respiratory] system(s) required my full and direct attention, intervention and personal management. The critical care time is as shown. 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
[2021-02-06] MEDS: cefTRIAXone 1,000 MG in sodium chloride 0.9% (plus) 50 ML 100 MG IV (09:17)
[2021-02-06] MEDS: insulin glargine 100 units/1 mL 10 UNIT SUBCUT (09:22)
[2021-02-06 09:41] LABS: ABG PCO2 41.6 mmHg (35-45); ABG PH Result 7.41 (7.35-7.45); Arterial Blood Gas Hematocrit 46.4 % (42-52); Base Excess ABG 1.5 mmol/L (-2.0-2.0); Blood Gas Allen Test Pos; Blood Gas Sample Site Radial, right; Blood Gas Sample Type Arterial; HCO3 ABG 26.4 mmol/L (22-26); PO2 ABG 67.4 mmHg (80.0-100.0)
[2021-02-06] MEDS: ezetimibe 10 mg Tablet PO (10:41)
--- NOTE | 2021-02-06 10:50 | PC.CHAP ---
Pastoral Care Encounter/Spiritual Assessment Type of Contact [] Declined hatch boss visit [] Patient/Family/Request visit [] Outpatient visit [] Follow-up visit [] Physician referral [] Code/Alert [x] Routine visit [] Staff referral [] Actively dying [] Patient sleeping [] Family support [] [] Out of room [] Palliative care [] [] Receiving care in room [] Pre-surgical visit [] Trauma [] Long length of stay [] ICU visit [x] Other: 2A Relational/Emotional Strength [] Patient feels connected with others/family/visitors/staff [] Distress [] Loneliness/isolation [] Abandonment Spirituality of Patient [] Person of Heidy [] Attends Gnosticism of their Heidy [] Believes in Prayer [] Reads Bible or Alevism materials [] There are Spiritual issues to be addressed Forger Helper Interventions [x] Prayer [] Active listening [] Non-anxious presence [] Spiritual/emotional support [] Crisis/trauma care [] Spiritual counseling [] Bereavement support [] Provided bereavement packet [] Provided Bible/devotional materials [] Provided toy/stuffed animal, coloring book to patient or family member [] Provided Communion [] Anointing/[place] [] Salvation [x] Completed spiritual assessment [] Other: Impact on Illness or Injury [] Angry [] Fearful [] Anxious [] Often cries [] Exhaustion [] Unable to work [] Unable to attend jain [] Unable to walk/stand [] Unable to read [] Unable to drive [] Unable to eat/drink [] Unable to sleep [] Unable to be with family [] Patient intubated [] Other: Summary Time spent with patient
[2021-02-06 11:36] LABS: Glucose Point of Care 303 mg/dL (70-110)
[2021-02-06] MEDS: FUROsemide 10 mg/mL SDV 4mL 40 MG IVP (13:15)
--- NOTE | 2021-02-06 13:27 | PC.NURSE ---
pt has taken high flow oxygen off twice today to go into the restroom, patient has been educated on the importance of keeping oxygen on. Bed alarm has been set.
[2021-02-06] MEDS: azithromycin 250 mg Tablet PO (14:51)
--- NOTE | 2021-02-06 16:47 | PC.NURSE ---
Shift Note Frequent safety and comfort rounds continue. Orders and/or nursing care completed as indicated. Patient monitored for response to intervention and treatment(s). Education provided includes fall risk, oxygen safety, importance of using the call vincent when needing help, IS and flutter valve use. Patient and/or loan representative needs reinforcement to teaching. Will continue to monitor.
[2021-02-06 17:17] LABS: Glucose Point of Care 166 mg/dL (70-110)
--- NOTE | 2021-02-06 17:33 | PC.RESP ---
RT Shift Note Frequent safety and respiratory rounds continue. Orders completed as indicated. Patient monitored pre and post treatments throughout shift. Patient tolerated treatments appropriately. Condition did not change. Patient and/or insurance account representative educated on respiratory treatment and medications. Patient and/or insurance account representative verbalized understanding, although reinforcement needed to instruct patient to leave heated high flow oxygen in place. Will continue to monitor patient progress.
[2021-02-06] MEDS: remdesivir 100 MG in sodium chloride 0.9% (100 ml) 100 ML IV (17:50)
[2021-02-06 20:27] LABS: Glucose Point of Care 273 mg/dL (70-110)
[2021-02-06] MEDS: cetylpyridinium Lozenge 1 EACH MUCOUS MEM (20:29)
--- NOTE | 2021-02-06 20:33 | PC.RESP ---
RT Shift Note Frequent safety and respiratory rounds continue. Orders completed as indicated. Patient monitored pre and post treatments throughout shift. Patient [Did. tolerate treatments appropriately. Condition [.DidNotChange]. Patient and/or floor representative educated on respiratory treatment and medications. Patient and/or floor representative [ResponseToTeaching]. Will continue to monitor patient progress.
[2021-02-07] VITALS (23 sets, daily range): BP systolic 119–144; BP diastolic 70–92; PULSE 66–113; RESP 18–26; TEMP 36.4–36.6; O2SAT 83–96
[2021-02-07] MEDS: ipratropium-albuterol 3 mL Neb INHALATION ×7 (00:25→23:34)
[2021-02-07] MEDS: enoxaparin 100 mg/mL Syringe SUBCUT ×2 (03:39→14:28)
[2021-02-07] MEDS: cetylpyridinium Lozenge 1 EACH MUCOUS MEM (03:44)
[2021-02-07] MEDS: famotidine 20 mg/2 mL INJ IVP ×2 (06:12→17:58)
[2021-02-07 06:23] LABS: Glucose Point of Care 252 mg/dL (70-110)
[2021-02-07] MEDS: insulin glargine 100 units/1 mL 10 UNIT SUBCUT ×2 (06:26→19:43)
[2021-02-07] MEDS: clopidogrel 75 mg Tablet PO (06:26)
[2021-02-07 07:47] LABS: Creatine Phosphokinase 66 U/L (39-308); Ferritin 897 ng/mL (30-400); NT Pro B Type Natriuretic Pept 106 pg/mL (0-125)
[2021-02-07] MEDS: budesonide 0.5 mg/2 mL Neb INHALATION ×2 (08:17→20:27)
[2021-02-07] MEDS: cefTRIAXone 1,000 MG in sodium chloride 0.9% (plus) 50 ML 100 MG IV (08:27)
[2021-02-07] MEDS: aspirin 81 mg EC Tablet PO (08:27)
[2021-02-07] MEDS: ezetimibe 10 mg Tablet PO (08:28)
[2021-02-07] MEDS: carvedilol 3.125 mg Tablet PO ×2 (08:28→17:58)
[2021-02-07] MEDS: tamsulosin 0.4 mg Capsule PO (08:28)
[2021-02-07] MEDS: zinc gluconate 50 mg Tablet PO (08:28)
[2021-02-07] MEDS: benzonatate 100 mg Capsule PO ×2 (08:28→14:29)
[2021-02-07] MEDS: ferrous gluconate 324 mg Tablet PO ×2 (08:28→17:58)
[2021-02-07] MEDS: ascorbic acid 500 mg Tablet PO (08:51)
[2021-02-07] MEDS: azithromycin 250 mg Tablet 500 MG PO (08:51)
[2021-02-07 08:55] LABS: Basophils % 0.1 %; Hematocrit 46.6 % (42.0-52.0); Hemoglobin 14.9 g/dL (11.7-16.6); Lymphocytes # 0.7 10^3/uL (0.8-4.8); Lymphocytes % 7.4 %; Mean Corpuscular Hemoglobin 29.1 pg (28.0-34.0); Mean Platelet Volume 9.5 fL (7.4-10.4); Monocytes # 0.4 10^3/uL (0.2-0.9); Monocytes % 3.8 %; Neutrophils # 8.83 10^3/uL (1.8-7.7); Neutrophils % 88.1 %; Nucleated Red Blood Cells % 0 %; Platelet Count 262 10^3/cmm (130-400); Red Blood Count 5.12 10^6/uL (4.1-5.3); Red Cell Distribution Width 13.9 % (12.1-15.1)
[2021-02-07 09:14] LABS: Alanine Aminotransferase 10 U/L (0-41); Albumin Level 3.4 g/dL (3.5-5.2); Alkaline Phosphatase 80 IU/L (40-130); Anion Gap 19.5 (5-19); Aspartate Amino Transferase 27 U/L (0-40); Blood Urea Nitrogen 42 mg/dL (8-23); Calcium 8.8 mg/dL (8.5-10.5); Carbon Dioxide 24 mmol/L (22-29); Chloride 98 mmol/L (98-107); Globulin 2.8 g/dL (1.3-4.6); Glucose 286 mg/dL (65-115); Osmolality Calculated 305 mOsm/kg (285-295); Potassium 4.5 mmol/L (3.5-5.1); Sodium 137 mmol/L (136-145); Total Bilirubin 0.3 mg/dL (0.15-1.2); Total Protein 6.2 g/dL (6.6-8.7)
[2021-02-07 09:18] LABS: Procalcitonin 0.06 ng/mL (0-0.5)
[2021-02-07 11:36] LABS: Glucose Point of Care 293 mg/dL (70-110)
--- NOTE | 2021-02-07 14:49 | PM.PN ---
Subjective Subjective: Interval history: Patient seen multiple times during the day. On examination early in the morning he was on 50 L 95% saturating 91%. Desaturating down to 85 to 88% on minimal ambulation but recovering within 2 minutes. During the day patient continued to desaturate and on reexamination in the afternoon was desaturating into mid 80s even 100% heated high flow at that NRB was placed and so was transferred to ICU and he was intubated. Prior to intubation goals of care discussion were done with patient and his over the phone. As per patient he would want to be intubated for 1 week and if he is not having any clinical improvement at that point he would want to have terminal extubation. He would not want to stay on life support. Vitals/I&O/Wt Last Vital Signs Temp 97.6 F 02/07/21 11:03 Pulse 86 02/07/21 12:24 Resp 24 H 02/07/21 12:24 BP 123/75 02/07/21 11:03 Pulse Ox 91 02/07/21 12:24 02/06/21 02/07/21 02/07/21 22:59 06:59 14:59 Intake Total 460 / 1230 530 / 530 Output Total 1800 / 1800 600 / 2400 Balance -1340 / -570 -600 / -1170 530 / 530 Weight last 48 hrs Weight 95.436 kg Weight 96.797 kg Weight 100.01 kg Physical Exam Narrative: EXAM NARRATIVE: General: No acute distress, AO x3 HEENT: PERRLA, pupils bilaterally equal and reactive Chest: Bilateral bronchial breath sounds all over the lung mckee, occasional rhonchi over the lung mckee, crackles all over the lung mckee, decreased air entry bilaterally CVS: S1-S2 regular, no murmurs, no tachycardia, no gallops, no rubs Abdomen: Soft, nontender, no organomegaly, bowel sounds present Neuro: No focal deficits, no facial deformity, AO x3, power 5/5 in all limbs Urinary Catheter Management^: Ram: Cath Placed During This Visit: yes Reason for Continuing Indwelling Catheter: Other Urinary Catheter Date of Insertion: 02/05/21 Urinary Catheter Time of Insertion: 18:34 Data : 02/07/21 05:30 02/07/21 05:30 Micro: Microbiology 02/05/21 18:25 Gram Stain - Final Sputum - Expectorated Sputum 02/05/21 18:17 MRSA Culture - Final Nose 02/05/21 13:00 Blood Culture - Preliminary Blood NEGATIVE TO DATE 02/05/21 12:49 Blood Culture - Preliminary Blood NEGATIVE TO DATE 02/05/21 18:17 Bacterial Antigens - Final Urine Kidney 02/05/21 18:17 Legionella Urinary Antigen - Final Urine Catheterized A&P Assessment and plan (1) Pneumonia due to 2019-nCoV: Status: Acute (2) Idiopathic interstitial fibrosis: Status: Acute (3) ARDS (adult respiratory distress syndrome): Status: Acute (4) COVID-19 vaccination not done: Status: Acute (5) HTN (hypertension): Status: Acute (6) Type 2 diabetes mellitus: Status: Acute (7) CAD (coronary artery disease): Status: Acute Additional A&P Information ARDS secondary to COVID-19 pneumonia in setting of idiopathic interstitial pulmonary fibrosis: Cannot rule out ILD exacerbation as well in setting of COVID-19 pneumonia. Severe disease Oxygen supplementation keeping saturation over 88%. PF ratio 67 which is worsening than yesterday. ABG results appreciated. Prednisone 40 mg every 8 hourly. Remdesivir to finish a 5-day course. Vitamin C, zinc. DuoNebs every 4 hour, budesonide twice daily. Pulmonary toilet with incentive spirometry flutter valve. We will monitor inflammatory markers including ferritin, ESR, CRP, D-dimer, fibrinogen. If getting elevated will dose Actemra. Patient was made aware of the same and he has given verbal consent. D-dimer elevated. CTA negative for pulmonary embolism. For now we will start patient on full dose anticoagulation as he is requiring high oxygen supplementation. Will monitor for anemia or blood loss. Procalcitonin negative, urine Legionella bacterial antigen negative. Blood culture preliminary negative. Sputum culture results awaited. Given patient requiring high oxygen supplementation for now start patient on ceftriaxone. Continue with home dose of azithromycin prophylaxis. Patient has a history of idiopathic pulmonary fibrosis and has been on steroids for last 6 months. He has history of recent travel to [place] and [place]. Check PCP PCR, histoplasma antigen, Aspergillus antigen. Given hypoxia will try to keep patient as negative as possible. Patient history of CAD. Echocardiogram done shows an EF 60% with grade 1 diastolic dysfunction with moderate pulmonary hypertension with RVSP of 46. Hold Lasix today. Strict input output charting, daily weights. Fluid restriction up to 1500 cc. We will monitor BMP. Ram catheterization. Hypertension: Goal blood pressure less than 140/90 mmHg. Continue to monitor blood pressures for now. Continue home dose of carvedilol. If needed will add amlodipine 10 mg daily. Type 2 diabetes mellitus: HbA1c 9.4. Insulin sliding scale at moderate dose. Lantus 10 U BID. CAD: No active chest pain. Recent stent placement. Continue with aspirin, Plavix, statin. Check lipid panel. Continue beta-too. Full code. Full dose Lovenox will help with DVT prophylaxis as well. Famotidine for PUD prophylaxis. Cardiac carb consistent diet mechanical soft. Attestations Medical Necessity Statement*: Requires further hospitalization for management of ARDS secondary COVID-19 pneumonia, possible IPF exacerbation needing intubation. Critical Care Time: The high probability of a clinically significant, sudden or life threatening deterioration of the patient's [respiratory, multiple goals of care discussion] system(s) required my full and direct attention, intervention and personal management. The critical care time is as shown. 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
--- NOTE | 2021-02-07 15:28 | PC.NURSE ---
RN entered room noting that patient oxygen saturations were decreasing. Patient on high flow at 55L and 95%. Notified Dr. Sage concerning patients change in condition. Provider entered room while nurse was at bedside obtaining vital signs. Provider instructed nurse to contact and update patient's , message left. Provider notified nurse that patient will be transferring patient down to ICU.
--- NOTE | 2021-02-07 15:32 | XRR_ITS ---
PROCEDURE INFORMATION: Exam: XR Chest Exam date and time: 02/07/2021 3:32 PM Age: 75 years old Clinical indication: Device placement; Ett placement (vent status); Additional info: Post-intubation TECHNIQUE: Imaging protocol: XR of the chest. Views: 1 view. COMPARISON: CR XR chest 1V portable [id number] 02/06/2021 7:04 AM FINDINGS: Tubes, catheters and devices: Enteric tube in the gastric body. Endotracheal tube is in the proximal thoracic trachea about 9 cm above rickie. Lungs: Diffuse interstitial fibrosis. No focal airspace consolidation identified. Pleural spaces: Unremarkable. No pleural effusion. No pneumothorax. Heart/Mediastinum: Mild cardiac enlargement. Bones/joints: Unremarkable. XR/XR chest 1V portable [id number] IMPRESSION: Endotracheal tube is well above the rickie at least 9 cm.
[2021-02-07] MEDS: propofol 1,000 MG/100 ML INJ 5.73 MG IV (15:50)
[2021-02-07] MEDS: rocuronium 10 mg/mL INJ 5mL 100 MG IV (16:59)
[2021-02-07] MEDS: midazolam 1 mg/mL INJ 2 mL 5 MG IVP (16:59)
[2021-02-07] MEDS: sodium chloride 0.9% 1,000 ML 30 ML (17:00)
[2021-02-07] MEDS: sodium chloride 0.9% 500 ML XX (17:42)
--- NOTE | 2021-02-07 17:44 | PC.RESP ---
RT Shift Note Frequent safety and respiratory rounds continue. Orders completed as indicated. Patient monitored pre and post treatments throughout shift. Patient [Did.] tolerate treatments appropriately. Condition [.DidNotChange]. Patient and/or field representative/health education educated on respiratory treatment and medications. Patient and/or field representative/health education [unable to comprehend]. Will continue to monitor patient progress.
[2021-02-07 18:03] LABS: Glucose Point of Care 272 mg/dL (70-110)
[2021-02-07] MEDS: cisatracurium 100 MG in sodium chloride 0.9% 50 ML IV (18:03)
[2021-02-07] MEDS: remdesivir 100 MG in sodium chloride 0.9% (100 ml) 100 ML IV (18:06)
[2021-02-07 18:19] LABS: ABG PCO2 56.2 mmHg (35-45); ABG PH Result 7.31 (7.35-7.45); Arterial Blood Gas Hematocrit 46.1 % (42-52); Base Excess ABG 0.7 mmol/L (-2.0-2.0); Blood Gas Operator Identificat AMH; Blood Gas Sample Site Not specified; Blood Gas Sample Type Arterial; Blood Gas Tidal Volume 0.45; HCO3 ABG 28.3 mmol/L (22-26); Oxygen Device VENT; PO2 ABG 94.9 mmHg (80.0-100.0)
--- NOTE | 2021-02-07 18:41 | P.PCN_ITS ---
Procedure/Consent Time out: Time Out Performed: Yes Consent: Consent for Procedure: Consent obtained from patient (verbal), Emergency procedure, Risks & Benefits reviewed and Agrees to proceed with procedure Procedure Narrative: Time of intubation: 1530 Endotracheal Intubation Procedure Note: Indication for endotracheal intubation: Acute hypoxic respiratory failure secondary to ARDS due to COVID-19 pneumonia in patient with underlying interstitial pulmonary fibrosis Consent: The patient was in immediate danger, and required the procedure emergently, patient has given verbal consent as witnessed by the staff. Sedation: Etomidate 10, Versed 4, Paralytic: Rocuronium 100 Equipment: Westpoint scope View: Grade 1 Cricoid Pressure: No Number of attempts: 1 ETT location confirmed by colorimetric change, fogging of ET tube, bilateral breath sounds, chest x-ray. Helder DatarMD Pulm/Critical Care Medicine Acute Procedures Epistaxis Control: Time out performed: Yes
--- NOTE | 2021-02-07 18:43 | P.PCN_ITS ---
Procedure/Consent Time out: Time Out Performed: Yes Consent: Consent for Procedure: Emergency procedure Procedure Narrative: Procedure: Arterial line placement Indication: Need for invasive BP monitoring Consent: Emergency Site: Right radial Arterial line Description: Area prepped with chlorhexidine and draped in a sterile manner. Catheter inserted using Seldinger technique. Arterial waveform obtained. Ultrasound guidance used:yes. EBL: 5 cc Complications: None Helder Navarro MD Pulmonary Critical Care [facility] Acute Procedures 2 Epistaxis Control: Time out performed: Yes
--- NOTE | 2021-02-07 18:43 | P.PCN_ITS ---
Procedure/Consent Time out: Time Out Performed: Yes Consent: Consent for Procedure: Emergency procedure Procedure Narrative: Procedure time: 1600 Procedure: Right internal jugular Central venous access placement Indication: Vasopressors infusion Operations Developer(s): Helder Navarro MD Consent: Emergent Time out called. [place] precautions applied. Site: Right Internal Jugular Catheter: 7 Fr, 20 cm, Triple Lumen Sutured at: 17 cm Anesthesia: 5 cc 1% lidocaine without epinephrine Description: Area prepped with chlorhexidine and draped in a universal sterile manner. The vessel anatomy and patency was examined by ultrasound probe which was covered with sterile probe cover. The needle was inserted into the vessel under ultrasound guidance, after venous blood aspirated the guidewire was inserted through the needle and kept in situ while the needle was removed. Placement of guidewire in the vein and in relation to the adjacent artery was verified by ultrasound. Catheter was then advanced over the guidewire after dilation and guidewire successfully removed.The catheter was sutured to the skin and sterile dressing with chlorhexidine patch placed. Number of attempts:1 Dilator applied: 1 number of Dilations: 1 Placement Verified by: Blood draw from all ports and Ultrasound exam and Chest Xray EBL: 5-10 cc Complications: None Ultrasound guidance used:yes Acute Procedures Epistaxis Control: Time out performed: Yes
--- NOTE | 2021-02-07 18:43 | PM.CONSULT ---
Providers/Reason For Consult Consulting Physician/Specialty*: Helder Navarro MD / Pulmonary Critical Care Reason for Consult*: Acute hypoxic respiratory failure secondary to ARDS due to COVID-19 pneumonia and patient with underlying idiopathic pulmonary fibrosis Requesting Physician: Jonny Sage MD Attending Physician: Jonny Sage MD Primary Care Provider: Ag Menjivar MD History of Present Illness History of Present Illness Arjun Rios is a 75-year-old male diabetes, hypertension, heart disease, COPD/respiratory disease (Interstitial pulmonary fibrosis) and immunocompromised state (Chronically on prednisone) presents to the emergency room with complaints of shortness of breath. Patient was diagnosed with Covid 02/02/21 he did so onset of symptoms 3 to 4 days prior to that he had a positive Covid test at a drive-through clinic in a [facility] (formerly [facility] in [place]. He has noticed worsening breathing since then. On arrival here he was at 70 to 73% oxygen saturation on 4 L. Patient has a history of pulmonary fibrosis but is not chronically on oxygen was started on oxygen because of his Covid. He did not receive any monoclonal antibodies nor is vaccinated. He does have a history of hypertension and diabetes as well as coronary artery disease and his last stenting was just 4 to 5 months ago he denies any chest pain today. He has had anosmia myalgias headache fever nonproductive cough and diarrhea although the diarrhea has relented to some degree. Today patient was saturating in the low 80s despite being on 100% FiO2 on high flow nasal cannula. When discussed about his wishes to be intubated , patient expressed wishes to be intubated only to give a trial for 7 days and if he does not improve he wanted to be off ventilator. Pulmonary critical care consulted for acute hypoxic respiratory failure secondary to ARDS due to COVID-19 pneumonia. Review of Systems General: Reports: 10 or more systems reviewed and unremarkable except in HPI and below Const: Denies: fever(s), chills, body aches, change in appetite, change in weight, malaise, night sweats, diaphoresis, change in sleep pattern, daytime sleepiness or snoring Eyes: Denies: change in vision, blurry vision, photophobia, eye discomfort or eye discharge ENMT: Denies: throat pain, enlarged tonsils, hoarseness, mouth pain, oral sores, dry mouth, tinnitus, nasal congestion or post nasal drip Card: Denies: chest pain, palpitations, irregular heart rhythm, edema, swelling of feet/ankles, lightheadedness, syncope, pre-syncope, dyspnea on exertion, orthopnea, leg pain with exertion or acrocyanosis Resp: Denies: dyspnea, productive cough, non-productive cough, wheezing, stridor, pain on inspiration, change in phlegm color, hemoptysis or chest congestion GI: Denies: abdominal pain, nausea, vomiting, hematemesis, coffee ground emesis, dysphagia, heartburn, diarrhea, constipation, bloating, GI cramping, change in bowel habits, pain on defecation, hematochezia or melena : Denies: flank pain, difficulty urinating, dysuria, urinary frequency, urinary urgency, urinary hesitancy, urinary dribbling, difficulty starting urination, change in urine stream, nocturia or hematuria Musc: Denies: neck pain, back pain, extremity pain, joint pain, joint swelling, joint redness, joint stiffness or limited range of motion Neuro: Denies: headache(s), numbness in extremities, weakness in extremities, sensory changes, lack of coordination, difficulty walking, frequent falls, dizziness, vertigo, confusion, Slurred speech present, difficulty communicating thoughts or seizure-like activity Psych: Denies: anxiety, depression, mood swings, panic attacks, hopelessness or irritability Endo: Denies: polyuria, polydipsia, tired all the time, cold intolerance, excessive sweating, flushing or heat intolerance Jarett/Lymph: Denies: easy bruising or easy bleeding All/Imm: Denies: tongue swelling, facial swelling or acute wheezing Meds/Allergies Home Medications and Allergies Home Medications Medication Instructions Recorded Confirmed Last Taken Type Colloidal Silver 1 ml PO BID 02/05/21 02/05/21 Unknown History Vitamin B-12 1 ml PO DAILY 02/05/21 02/05/21 Unknown History albuterol sulfate [Ventolin HFA] 2 puff INHALATION Q6H PRN 02/05/21 02/05/21 02/05/21 10:00 History 2 PUFFS alprazolam 0.25 mg PO BID PRN 02/05/21 02/05/21 02/04/21 History ascorbic acid (vitamin C) [Vitamin 500 mg PO DAILY 08/04/1802/05/21 02/05/21 History C] aspirin [Aspir-81] 81 mg PO DAILY 02/05/21 02/05/21 Unknown History azithromycin 250 mg PO .MON,WED,FRI 02/05/21 02/05/21 02/04/21 History budesonide-formoterol [Symbicort] 2 puff INHALATION PRN 02/05/21 02/05/21 02/04/21 History carvedilol 3.125 mg PO BID 02/05/21 02/05/21 02/05/21 History cholecalciferol (vitamin D3) 125 mcg PO BID 02/05/21 02/05/21 02/04/21 History [Vitamin D3] clopidogrel 75 mg PO QAM 02/05/21 02/05/21 02/05/21 History cyanocobalamin (vitamin B-12) 1,000 mcg IM Q30D 02/05/21 02/05/21 Unknown History ezetimibe 10 mg PO DAILY 02/05/21 02/05/21 Unknown History guaifenesin 400 mg PO QID 02/05/21 02/05/21 Unknown History insulin NPH-regular hum s-syn See Rx Instructions .ROUTE .COMPLEX 02/05/21 02/05/21 Unknown History [Novolin 70/30 U-100 Insulin] insulin regular human [Novolin R See Rx Instructions .ROUTE .COMPLEX 02/05/21 02/05/21 Unknown History Regular U-100 Insuln] ipratropium-albuterol 3 ml INHALATION TID PRN 02/05/21 02/05/21 02/05/21 04:00 History levofloxacin 500 mg PO DAILY 02/05/21 02/05/21 02/05/21 History multivitamin 1 tab PO DAILY 02/05/21 02/05/21 02/05/21 History pramipexole 0.25 mg PO BEDTIME 02/05/21 02/05/21 Unknown History prednisone 5 mg PO .DAILY DIRECTED 02/05/21 02/05/21 Unknown History prednisone See Rx Instructions .ROUTE .COMPLEX 02/05/21 02/05/21 02/05/21 History 40 MG tadalafil 5 mg PO QAM 02/05/21 02/05/21 Unknown History tamsulosin 0.4 mg PO DAILY 02/05/21 02/05/21 Unknown History zinc acetate-sweetleaf [zinc 1 sarina PO DAILY 02/05/21 02/05/21 02/04/21 History (acetate) lozenges] Allergies Allergy/AdvReac Type Severity Reaction Status Date / Time coconut Allergy Intermediate Unknown Verified 02/07/21 12:21 Penicillins Allergy ALGY-Anaphy Verified 02/05/21 12:40 laxis Current Medications Current Medications Generic Name Dose Route Start Last Admin Trade Name Freq PRN Reason Stop Dose Admin Albuterol/Ipratropium 3 ml 02/06/21 12:00 02/07/21 17:28 Ipratropium-Albuterol 3 Ml Neb INHALATION 3 ml Q4H.RESPIRATORY CALLY Administration Alprazolam 0.25 mg 02/05/21 15:01 02/06/21 21:30 Alprazolam 0.5 Mg Tablet PO 0.25 mg BID PRN Administration Anxiety Ascorbic Acid 500 mg 02/06/21 09:00 02/07/21 08:51 Ascorbic Acid 500 Mg Tablet PO 500 mg DAILY CALLY Administration Aspirin 81 mg 02/06/21 09:00 02/07/21 08:27 Aspirin 81 Mg Ec Tablet PO 81 mg DAILY CALLY Administration Azithromycin 500 mg 02/07/21 09:00 02/07/21 08:51 Azithromycin 250 Mg Tablet PO 500 mg DAILY CALLY Administration Protocol Benzocaine 1 each 02/06/21 17:45 02/07/21 03:44 Cetylpyridinium Lozenge MUCOUS MEM 1 each Q2H PRN Administration SORE THROAT Benzonatate 100 mg 02/05/21 15:00 02/07/21 14:29 Benzonatate 100 Mg Capsule PO 100 mg TID CALLY Administration Budesonide 0.5 mg 02/05/21 18:00 02/07/21 08:17 Budesonide 0.5 Mg/2 Ml Neb INHALATION 0.5 mg BID CALLY Administration Carvedilol 3.125 mg 02/05/21 18:00 02/07/21 17:58 Carvedilol 3.125 Mg Tablet PO 3.125 mg BID CALLY Administration Clopidogrel Bisulfate 75 mg 02/06/21 06:00 02/07/21 06:26 Clopidogrel 75 Mg Tablet PO 75 mg QAM CLALY Administration Ezetimibe 10 mg 02/06/21 09:00 02/07/21 08:28 Ezetimibe 10 Mg Tablet PO 10 mg DAILY CALLY Administration Enoxaparin Sodium 100 mg 02/05/21 16:00 02/07/21 14:28 Enoxaparin 100 Mg/Ml Syringe 1 mg/kg (100 mg) 100 mg SUBCUT Administration Q12H CALLY Famotidine 20 mg 02/05/21 16:00 02/07/21 17:58 Famotidine 20 Mg/2 Ml Inj IVP 20 mg Q12H CALLY Administration Ferrous Gluconate 324 mg 02/05/21 18:00 02/07/21 17:58 Ferrous Gluconate 324 Mg Tablet PO 324 mg BIDWM CALLY Administration Remdesivir 100 mg/ Sodium 100 mls @ 100 mls/hr 02/06/21 18:00 02/07/21 18:06 Chloride IV 02/09/21 18:59 100 mls/hr Q24H CALLY Administration Ceftriaxone Sodium 1,000 mg/ 50 mls @ 100 mls/hr 02/06/21 09:00 02/07/21 08:57 Sodium Chloride IV Infused Q24H CALLY Infusion Protocol Fentanyl 1,000 mcg/ Sodium 100 mls @ 0 mls/hr 02/07/21 15:45 02/07/21 15:56 Chloride IV 25 mcg/hr .Q0M CALLY 2.5 mls/hr Administration Protocol Per Protocol Midazolam HCl 100 mg/ Sodium 100 mls @ 0 mls/hr 02/07/21 15:45 02/07/21 15:56 Chloride IV 2 mg/hr .Q0M CALLY 2 mls/hr Administration Protocol Per Protocol Norepinephrine Bitartrate 4 mg 254 mls @ 0 mls/hr 02/07/21 15:45 02/07/21 15:55 / Dextrose IV 2 mcg/min .Q0M CALLY 7.62 mls/hr Administration Protocol Per Protocol Sodium Chloride 500 mls @ 3 mls/hr 02/07/21 16:30 02/07/21 17:42 Sodium Chloride 0.9% XX 3 mls/hr .Q24H CALLY Administration Cisatracurium Besylate 100 mg/ 100 mls @ 0 mls/hr 02/07/21 17:45 02/07/21 18:03 Sodium Chloride IV 0.3 mcg/kg/min .Q0M CALLY 1.72 mls/hr Administration Protocol Per Protocol Insulin Aspart 0 unit 02/05/21 18:00 02/07/21 17:58 Insulin Aspart 100 Unit/1 Ml SUBCUT 8 unit WM&BEDTIME CALLY Administration Protocol Methylprednisolone Sodium Succinate 40 mg 02/06/21 16:00 02/07/21 17:58 Methylprednisolone Sod Succ 40 Mg/Ml Inj IVP 40 mg Q8H CALLY Administration Non-Formulary Medication 5 mg 02/06/21 06:00 02/07/21 05:57 Tadalafil PO Not Given QAM CALLY Tamsulosin HCl 0.4 mg 02/06/21 09:00 02/07/21 08:28 Tamsulosin 0.4 Mg Capsule PO 0.4 mg DAILY CALLY Administration Zinc Gluconate 50 mg 02/06/21 09:00 02/07/21 08:28 Zinc Gluconate 50 Mg Tablet PO 50 mg DAILY CALLY Administration PFSH Acute PFSH: Medical History CAD (coronary artery disease) HTN (hypertension) Type 2 diabetes mellitus Surgical History History of coronary artery stent placement Social History Smoking and tobacco status: never smoked Alcohol intake: never Substance/Drug Use: never Lives independently: Yes Household members: spouse Housing: House Vitals/I&O/Wt Last Vital Signs Temp 97.6 F 02/07/21 11:03 Pulse 113 H 02/07/21 17:29 Resp 18 02/07/21 17:29 BP 144/92 02/07/21 15:12 Pulse Ox 94 02/07/21 17:29 02/07/21 02/07/21 02/07/21 06:59 14:59 22:59 Intake Total 530 / 530 Output Total 600 / 2400 750 / 750 Balance -600 / -1170 530 / 530 -750 / -220 Weight last 48 hrs Weight 210 lb 6.4 oz Weight 213 lb 6.4 oz Weight 220 lb 7.76 oz Physical Exam Narrative: EXAM NARRATIVE: General: alert, in severe respiratory distress, saturating 84% on 100% FiO2 HEENT: conj clear, EOMI, PERRL, mmm, Neck: supple, no meningismus Heme: no cervical LAP Pulmonary: Bilateral diffuse crepitations Cardiovascular: rrr, nl s1s2, no mrg Abdomen: soft, nt, nd, no r/g, bs+ Extremities: pulses +, no edema, no c/c : no CVA tenderness Skin: intact, no rash MSK: no back or neck pain Neurologic: grossly intact Urinary Catheter Management^: Ram: Cath Placed During This Visit: yes Reason for Continuing Indwelling Catheter: Other Urinary Catheter Date of Insertion: 02/05/21 Urinary Catheter Time of Insertion: 18:34 Data Labs: Other Labs: Laboratory Results WBC 10.0 10^3/uL (4.0 -10.0) 02/07/21 05:30 RBC 5.12 10^6/uL (4.1 -5.3) 02/07/21 05:30 Hgb 14.9 g/dL (11.7-1 6.6) 02/07/21 05:30 Hct 46.6 % (42.0-52.0 ) 02/07/21 05:30 MCV 91.0 fL (80-94) 02/07/21 05:30 MCH 29.1 pg (28.0-34. 0) 02/07/21 05:30 MCHC 32.0 g/dL (30.0-3 6.0) 02/07/21 05:30 RDW 13.9 % (12.1-15.1 ) 02/07/21 05:30 Plt Count 262 10^3/cmm (130 -400) 02/07/21 05:30 MPV 9.5 fL (7.4-10.4) 02/07/21 05:30 Neut % (Auto) 88.1 % 02/07/21 05:30 Lymph % (Auto) 7.4 % 02/07/21 05:30 [place] % (Auto) 3.8 % 02/07/21 05:30 Eos % (Auto) 0.0 % 02/07/21 05:30 Baso % (Auto) 0.1 % 02/07/21 05:30 Neut # (Auto) 8.83 10^3/uL (1.8 -7.7) H 02/07/21 05:30 Lymph # (Auto) 0.7 10^3/uL (0.8- 4.8) L 02/07/21 05:30 [place] # (Auto) 0.4 10^3/uL (0.2- 0.9) 02/07/21 05:30 Eos # (Auto) 0.0 10^3/uL (0.0- 0.8) 02/07/21 05:30 Baso # (Auto) 0.0 10^3/uL (0.0- 0.1) 02/07/21 05:30 Nucleated RBC % (a uto) 0 % 02/07/21 05:30 Nucleated RBCs # 0.0 /100WBC 02/07/21 05:30 ESR 24 mm/hr (0-10) H 02/06/21 05:45 D-Dimer 2.20 ug/mIFEU (0- 0.59) H 02/07/21 05:30 Specimen Type Arterial 02/07/21 18:07 Sample Site Not specified 02/07/21 18:07 ABG pH 7.31 (7.35-7.45) L 02/07/21 18:07 ABG pCO2 56.2 mmHg (35-45) H 02/07/21 18:07 ABG pO2 94.9 mmHg (80.0-1 00.0) 02/07/21 18:07 ABG HCO3 28.3 mmol/L (22-2 6) H 02/07/21 18:07 ABG Base Excess 0.7 mmol/L (-2.0- 2.0) 02/07/21 18:07 Davion Test N/a 02/07/21 18:07 Hematocrit 46.1 % (42-52) 02/07/21 18:07 O2 Delivery Device Vent 02/07/21 18:07 O2 Liters/Min 55.0 % 02/06/21 09:30 FiO2 100.0 % 02/07/21 18:07 Tidal Volume 0.45 02/07/21 18:07 PEEP 10.0 cmH20 02/07/21 18:07 Test Borer ID Amh 02/07/21 18:07 Sodium 137 mmol/L (136-1 45) 02/07/21 05:30 Potassium 4.5 mmol/L (3.5-5 .1) 02/07/21 05:30 Chloride 98 mmol/L (98-107 ) 02/07/21 05:30 Carbon Dioxide 24 mmol/L (22-29) 02/07/21 05:30 Anion Gap 19.5 (5-19) H 02/07/21 05:30 BUN 42 mg/dL (8-23) H 02/07/21 05:30 Creatinine 1.1 mg/dL (0.7-1. 2) 02/07/21 05:30 GFR Calculation Not Reportable 02/07/21 05:30 Glucose 286 mg/dL (65-115 ) H 02/07/21 05:30 POC Glucose 337 mg/dL (70-110 ) H 02/07/21 20:21 Estimat Average Gl ucose 223 02/06/21 05:45 Hemoglobin A1c 9.4 % (4.0-6.0) H 02/06/21 05:45 Calculated Osmolal ity 305 mOsm/kg (285- 295) H 02/07/21 05:30 Lactic Acid 1.4 mmol/L (0.5-2 .2) 02/05/21 12:42 Calcium 8.8 mg/dL (8.5-10 .5) 02/07/21 05:30 Phosphorus 3.3 mg/dL (2.5-4. 5) 02/06/21 05:45 Magnesium 2.3 mg/dL (1.7-2. 3) 02/06/21 05:45 Iron 37 ug/dL (59-158) L 02/05/21 12:42 TIBC 195 mcg/dl 02/05/21 12:42 % Saturation 18.9 % (20-50) L 02/05/21 12:42 Unsat Iron Binding 158 ug/dL (112-34 7) 02/05/21 12:42 Ferritin 897 ng/mL (30-400 ) H 02/07/21 05:30 Total Bilirubin 0.3 mg/dL (0.15-1 .2) 02/07/21 05:30 AST 27 U/L (0-40) 02/07/21 05:30 ALT 10 U/L (0-41) 02/07/21 05:30 Alkaline Phosphata se 80 IU/L (40-130) 02/07/21 05:30 Lactate Dehydrogen ase 583 U/L (135-225) H 02/06/21 05:45 Creatine Kinase 66 U/L (39-308) 02/07/21 05:30 C-Reactive Protein 45.0 mg/L (0.0-4. 9) H 02/07/21 05:30 NT-Pro-B Natriuret Pep 106 pg/mL (0-125) 02/07/21 05:30 Total Protein 6.2 g/dL (6.6-8.7 ) L 02/07/21 05:30 Albumin 3.4 g/dL (3.5-5.2 ) L 02/07/21 05:30 Globulin 2.8 g/dL (1.3-4.6 ) 02/07/21 05:30 Triglycerides 162 mg/dL (0-150) H 02/06/21 05:45 Cholesterol 142 mg/dL (0-200) 02/06/21 05:45 LDL Cholesterol, C alc 65 mg/dL (50-129) 02/06/21 05:45 Total VLDL Cholest garo 32 mg/dL (0-30) H 02/06/21 05:45 HDL Cholesterol 45 mg/dL (60-100) L 02/06/21 05:45 Cholesterol/HDL Ra eduar 3.16 mg/dL (1.0-5 .00) 02/06/21 05:45 Procalcitonin 0.06 ng/mL (0-0.5 ) 02/07/21 05:30 TSH 1.72 uIU/mL (0.27 -4.20) 02/05/21 12:42 Urine Color Straw (Yellow) 02/05/21 18:17 Urine Appearance Clear (CLEAR) 02/05/21 18:17 Urine pH 5 (5-7) 02/05/21 18:17 Ur Specific Gravit y 1.005 (1.005-1.0 30) 02/05/21 18:17 Urine Protein Neg (Negative) 02/05/21 18:17 Urine Glucose (UA) 2+ (Normal) 02/05/21 18:17 Urine Ketones Negative (Negati ve) 02/05/21 18:17 Urine Blood Neg (Negative) 02/05/21 18:17 Urine Nitrate Negative (Negati ve) 02/05/21 18:17 Urine Bilirubin Neg (Negative) 02/05/21 18:17 Urine Urobilinogen Norm mg/dL (Negat amy) 02/05/21 18:17 Ur Leukocyte Lizett ase Negative (Negati ve) 02/05/21 18:17 Ur Random Sodium 101 mmol/L 02/05/21 18:17 Ur Random Potassiu m 11 mmol/L 02/05/21 18:17 Ur Random Chloride 104 mmol/L 02/05/21 18:17 Impressions Chest CTA 02/05/21 13:24 IMPRESSION: 1. No pulmonary embolism. 2. Diffusely abnormal lungs. Diffuse scattered groundglass attenuation, thickened reticulations and honeycombing. Suspect superimposed Covid on chronic pulmonary fibrosis. 3. Bilateral hilar adenopathy with the largest lymph node on the LEFT measuring 12 mm. Probably reactive. Chest X-Ray 02/07/21 15:32 IMPRESSION: Endotracheal tube is well above the rickie at least 9 cm. Micro: Micro: Microbiology 02/05/21 18:25 Gram Stain - Final Sputum - Expector ated Sputum Sputum Culture - P reliminary 02/05/21 18:17 MRSA Culture - Fin al Nose 02/05/21 13:00 Blood Culture - Pr eliminary Blood NEGATIVE TO ANGELA E A&P Assessment and plan (1) Acute respiratory failure with hypoxia: Status: Acute (2) Acute respiratory distress syndrome (ARDS) due to 2019 novel coronavirus: Status: Acute (3) Idiopathic interstitial fibrosis: Status: Acute (4) CAD (coronary artery disease): Status: Acute Qualifiers: Coronary Disease-Associated Artery/Lesion type: [place] artery Tribe vs. transplanted heart: [place] heart Associated angina: unspecified whether angina present Qualified Code(s): I25.10 - Atherosclerotic heart disease of [place] coronary artery without angina pectoris (5) Type 2 diabetes mellitus: Status: Acute Qualifiers: Diabetes mellitus [employer] insulin use: unspecified nursing home insulin use status Diabetes mellitus complication status: with other specified complication Qualified Code(s): E11.69 - Type 2 diabetes mellitus with other specified complication (6) HTN (hypertension): Status: Acute Qualifiers: Hypertension type: unspecified Qualified Code(s): I10 - Essential (primary) hypertension (7) COVID-19 vaccination not done: Status: Acute (8) WHO group 2 pulmonary arterial hypertension: Status: Acute -Patient was requiring 100% FiO2 and saturating 82%-transfer to ICU and intubated and sedated-connected to mechanical ventilator; -Plan is paralyzed and prone daily necessity for further proning -Post intubation chest x-ray ET tube was 9 cm-recommended respiratory therapist to advance at least 2 to 3 cm-already @ 27 -We will repeat chest x-ray to make sure ET tube is appropriately placed before proning -With underlying idiopathic interstitial pulmonary fibrosis:possible ILD exacerbation - Prednisone 40 mg every 8 hourly. - Remdesivir to finish a 5-day course. - DuoNebs every 4 hour, budesonide twice daily. - Pulmonary toilet with incentive spirometry flutter valve. - Monitor inflammatory markers including ferritin, ESR, CRP, D-dimer, fibrinogen - If getting elevated will dose Actemra. Patient was made aware of the same and he has given verbal consent. - CTA negative for pulmonary embolism. - on full dose anticoagulation as he is requiring high oxygen supplementation - Procalcitonin negative, urine Legionella bacterial antigen negative,Blood culture preliminary negative. Sputum culture results awaited. -On empiric ceftriaxone - Continue with home dose of azithromycin prophylaxis - Patient has a history of idiopathic pulmonary fibrosis and has been on steroids for last 6 months. He has history of recent travel to [place] and [place]. - Check PCP PCR, histoplasma antigen, Aspergillus antigen. - Given hypoxia will try to keep patient as negative as possible. - Patient history of CAD. Echocardiogram done shows an EF 60% with grade 1 diastolic dysfunction with moderate pulmonary hypertension with RVSP of 46. -Monitor monitor input and output, daily weights/ fluid restriction up to 1500 cc. - Hypertension: Goal blood pressure less than 140/90 mmHg. - Continue home dose of carvedilol - Type 2 diabetes mellitus: HbA1c 9.4.Insulin sliding scale at moderate dose. Lantus 10 U BID. - Continue with aspirin, Plavix, statin. Full code. Full dose Lovenox will help with DVT prophylaxis as well. Famotidine for PUD prophylaxis. N.p.o. for today updated Consult Attestations Medical Necessity Statement: Acute hypoxic respiratory failure secondary to ARDS due to COVID-19 pneumonia in patient with underlying group 2 pulmonary hypertension secondary to idiopathic pulmonary fibrosis and underlying CAD with recent stent placement-requiring mechanical ventilation and proning-needs close ICU monitoring Time Spent in Patient Care: Greater than 35 minutes (>than 50% of time spent in counselling and/or direct pt care on unit). Critical Care Time: The high probability of a clinically significant, sudden or life threatening deterioration of the patient's [respiratory, cardiac] system(s) required my full and direct attention, intervention and personal management. The critical care time is as shown. This time is in addition to time spent performing any reported procedures but includes the following: [x] Data and vital sign review and interpretation [x] Patient assessment, examination and intervention [x] Documentation [x] Medication orders and management Critical Care Time (min): 90 Coding Level of Care Code Acute [employer] [facility] for [facility] Fwd Diagnoses Acute respiratory failure with hypoxia J96.01 Acute respiratory distress syndrome (ARDS) due to 2019 novel coronavirus U07.1; J80 Idiopathic interstitial fibrosis J84.112 CAD (coronary artery disease) I25.10 Coronary Disease-Associated Artery/Lesion type: [place] artery [place] vs. transplanted heart: [place] heart Associated angina: unspecified whether angina present Type 2 diabetes mellitus E11.69 Diabetes mellitus [employer] insulin use: unspecified nursing home insulin use status Diabetes mellitus complication status: with other specified complication HTN (hypertension) I10 Hypertension type: unspecified COVID-19 vaccination not done Z28.9 WHO group 2 pulmonary arterial hypertension I27.22
--- NOTE | 2021-02-07 19:06 | PC.NURSE ---
Shift Note Frequent safety and comfort rounds continue. Orders and/or nursing care completed as indicated. Patient monitored for response to intervention and treatment(s). Education provided includes[intubation.]. Patient and/or auto service representative [Verbalized ResponseToTeaching before intubated]. Will continue to monitor. Patient was intubated at 1550 today. 27 armenian, 8 at the lip. Prior to intubation patient was given 5 mg of versed IVP, 10 mg of etomidate and [address] Navarro intubated patient on first attempt. Dr. Navarro also inserted a triple lumen central line right juglar space. He also placed an art line in his right wrist. Patient was also placed on Nibex for paralyzation. Report was handed off to Xenia BARBER administrative services assistant. She will continue to monitor and prone patient when indicated.
[2021-02-07 20:25] LABS: Glucose Point of Care 337 mg/dL (70-110)
[2021-02-07] MEDS: propofol 1,000 MG/100 ML INJ 28.63 MG IV (20:50)
--- NOTE | 2021-02-07 21:47 | XRR_ITS ---
PROCEDURE INFORMATION: Exam: XR Chest Exam date and time: 02/07/2021 9:47 PM Age: 75 years old Clinical indication: Device placement; Ett placement (vent status); Additional info: Et tube placement prior to proning TECHNIQUE: Imaging protocol: XR of the chest. Views: 1 view. COMPARISON: CR XR chest 1V portable [id number] 02/07/2021 4:42 PM FINDINGS: Tubes, catheters and devices: There is an endotracheal tube present, with distal tip 5 cm above the rickie. Right jugular central line and nasogastric tube are unchanged. Lungs: Diffuse bilateral infiltrates, predominantly interstitial, unchanged. Pleural spaces: No pleural effusion. No pneumothorax. Heart/Mediastinum: Mild cardiomegaly is noted. Bones/joints: Unremarkable. XR/XR chest 1V portable [id number] IMPRESSION: 1. There is an endotracheal tube present, with distal tip 5 cm above the rickie. Catheter has been advanced since the prior study of 02/07/2021 at 4:46 p.m.. 2. Mild cardiomegaly is noted. 3. Diffuse bilateral infiltrates, predominantly interstitial, unchanged.
[2021-02-08] VITALS (63 sets, daily range): BP systolic 86–146; BP diastolic 60–86; PULSE 50–65; RESP 0–20; TEMP 36.6; O2SAT 93–99; BMI 31.8
[2021-02-08] MEDS: propofol 1,000 MG/100 ML INJ 22.91 MG IV (00:59)
[2021-02-08] MEDS: enoxaparin 100 mg/mL Syringe SUBCUT ×2 (03:14→15:12)
[2021-02-08] MEDS: ipratropium-albuterol 3 mL Neb INHALATION ×6 (03:25→23:28)
[2021-02-08] MEDS: norepinephrine 8 MG in dextrose 5 % 500 ML 15.24 MG IV (04:14)
[2021-02-08 04:35] LABS: ABG PCO2 55.3 mmHg (35-45); ABG PH Result 7.32 (7.35-7.45); Arterial Blood Gas Hematocrit 46.1 % (42-52); Base Excess ABG 1.2 mmol/L (-2.0-2.0); Blood Gas Sample Site Not specified; Blood Gas Sample Type Arterial; Carboxyhemoglobin 0.4 %THgb (0.4-20.1); HCO3 ABG 28.6 mmol/L (22-26); HGB O2 Sat 97.1 % (95-100); Ionized Calcium Level - ABG 1.1 mmol/L (1.1-1.4); Methemoglobin 0.9 % (0.4-1.5); Oxygen Saturation ABG 98.4; Potassium Level - ABG 4.9 mmol/L (3.5-5.0)
[2021-02-08 04:36] LABS: Alveolar-Arterial Oxygen Gradi 68.9 mmHg (5-10); Blood Gas Operator Identificat JB; Blood Gas Tidal Volume 0.45; Oxygen Device VENT
[2021-02-08] MEDS: propofol 1,000 MG/100 ML INJ 28.63 MG IV (04:53)
[2021-02-08] MEDS: clopidogrel 75 mg Tablet PO (05:09)
[2021-02-08] MEDS: famotidine 20 mg/2 mL INJ IVP ×2 (05:09→17:28)
--- NOTE | 2021-02-08 05:55 | PC.NURSE ---
TOF 1900 - 4 2000 - 4 2100 - 2 2200 - 2 2300 - 1 0000 - 2 0100 - 2 0200 - 4 0300 - 2 0400 - 2 0500 - 2 0600 - 3
--- NOTE | 2021-02-08 06:00 | XR_ITS ---
WS: [id number] Portable AP semiupright chest, 02/08/2021 Clinical Data: covid Comparison: Portable chest, 02/07/2021 Findings: The bilateral pulmonary opacities remain the same. The endotracheal tube, nasogastric tube and right internal jugular venous catheter remain in position. The heart is slightly enlarged Monitor leads are on the chest wall. XR/XR chest 1V portable [id number] Impression: No change from yesterday's portable chest.
[2021-02-08 06:21] LABS: Basophils % 0.1 %; Hematocrit 44.9 % (42.0-52.0); Hemoglobin 14.1 g/dL (11.7-16.6); Lymphocytes # 0.8 10^3/uL (0.8-4.8); Lymphocytes % 6.6 %; Mean Corpuscular HGB Conc 31.4 g/dL (30.0-36.0); Mean Corpuscular Hemoglobin 29.1 pg (28.0-34.0); Mean Corpuscular Volume 92.6 fL (80-94); Mean Platelet Volume 9.4 fL (7.4-10.4); Monocytes # 0.6 10^3/uL (0.2-0.9); Monocytes % 4.8 %; Neutrophils # 10.62 10^3/uL (1.8-7.7); Neutrophils % 87.4 %; Nucleated Red Blood Cells % 0 %; Platelet Count 285 10^3/cmm (130-400); Red Blood Count 4.85 10^6/uL (4.1-5.3); Red Cell Distribution Width 13.9 % (12.1-15.1); White Blood Count 12.1 10^3/uL (4.0-10.0)
--- NOTE | 2021-02-08 06:24 | PC.NURSE ---
Shift Note Sedation and paralytic titrated throughout shift. BIS and TOF documented q1hr. Frequent safety and comfort rounds continue. Orders and/or nursing care completed as indicated. Patient monitored for response to intervention and treatment(s). Education provided includes vent settings and plan of care. Patient family responsive to teaching and asked questions. Will continue to monitor.
[2021-02-08 06:29] LABS: D Dimer 1.38 ug/mIFEU (0-0.59)
[2021-02-08 06:42] LABS: Alanine Aminotransferase 10 U/L (0-41); Albumin Level 3.2 g/dL (3.5-5.2); Alkaline Phosphatase 71 IU/L (40-130); Aspartate Amino Transferase 18 U/L (0-40); Blood Urea Nitrogen 50 mg/dL (8-23); Calcium 8.3 mg/dL (8.5-10.5); Carbon Dioxide 28 mmol/L (22-29); Chloride 96 mmol/L (98-107); Globulin 2.5 g/dL (1.3-4.6); Glucose 364 mg/dL (65-115); Osmolality Calculated 304 mOsm/kg (285-295); Sodium 133 mmol/L (136-145); Total Bilirubin 0.3 mg/dL (0.15-1.2); Total Protein 5.7 g/dL (6.6-8.7)
[2021-02-08 06:50] LABS: C Reactive Protein 27.3 mg/L (0.0-4.9); Creatine Phosphokinase 13 U/L (39-308); Ferritin 654 ng/mL (30-400); NT Pro B Type Natriuretic Pept 81 pg/mL (0-125)
[2021-02-08 07:36] LABS: Slide Review Slide Review Perform
[2021-02-08 07:52] LABS: Erythrocyte Sedimentation Rate 15 mm/hr (0-10)
[2021-02-08 07:57] LABS: Glucose Point of Care 336 mg/dL (70-110)
[2021-02-08] MEDS: budesonide 0.5 mg/2 mL Neb INHALATION ×2 (08:04→20:25)
[2021-02-08] MEDS: ascorbic acid 500 mg Tablet PO (08:07)
[2021-02-08] MEDS: aspirin 81 mg EC Tablet PO (08:07)
[2021-02-08] MEDS: tamsulosin 0.4 mg Capsule PO (08:07)
[2021-02-08] MEDS: zinc gluconate 50 mg Tablet PO (08:07)
[2021-02-08] MEDS: ferrous gluconate 324 mg Tablet PO ×2 (08:07→17:24)
[2021-02-08] MEDS: azithromycin 250 mg Tablet 500 MG PO (08:08)
[2021-02-08] MEDS: cefTRIAXone 1,000 MG in sodium chloride 0.9% (plus) 50 ML 100 MG IV (08:10)
[2021-02-08] MEDS: insulin glargine 100 units/1 mL 10 UNIT SUBCUT ×2 (08:13→20:27)
[2021-02-08] MEDS: carvedilol 3.125 mg Tablet PO ×2 (09:41→17:24)
[2021-02-08] MEDS: ezetimibe 10 mg Tablet PO (09:41)
[2021-02-08] MEDS: propofol 1,000 MG/100 ML INJ 14.32 MG IV (09:44)
[2021-02-08] MEDS: cisatracurium 100 MG in sodium chloride 0.9% 50 ML IV (11:30)
[2021-02-08 11:48] LABS: Glucose Point of Care 310 mg/dL (70-110)
--- NOTE | 2021-02-08 13:41 | PC.NUTR ---
Tube feeding recommendations: Orders in place for Glucerna 1.2, beginning at 20 ml/hr, increasing by 10 ml/hr q 4 hrs, with 100 H2O flushes q 4 hrs. Agree with MD goal for TF, as it will provide approximately 80% estimated kcal needs and over 90% protein needs. Suggest rate increase q6 or q8 hours rather than q4, to monitor for tolerance. Propofol at current rate providing additional 227 kcal/day--may be beneficial to hold TF at 40 ml (or lower if propofol increases) to avoid overfeeding. If renal function not improving, may consider change to Nepro. See full RD assessment for further details.
--- NOTE | 2021-02-08 14:44 | PC.SOCIAL ---
IMM update IMM not updated as patient is still intubated and not expected to Dc in the next 24-48 hours.
--- NOTE | 2021-02-08 15:07 | PM.PN ---
Subjective Subjective: Interval history: -Patient seen multiple times at bedside today -Plan is to do first proning session today -Labs and imaging reviewed Medications: Reviewed: Yes Vitals/I&O/Wt Last Vital Signs Temp 97.8 F 02/08/21 08:00 Pulse 56 L 02/08/21 14:00 Resp 16 02/08/21 14:00 BP 116/78 02/08/21 14:00 Pulse Ox 99 02/08/21 14:00 02/08/21 02/08/21 02/08/21 06:59 14:59 22:59 Intake Total 486.450 / 1310.040 247.304 / 247.304 Output Total 475 / 1225 Balance 11.450 / 85.040 247.304 / 247.304 Weight last 48 hrs Weight 216 lb Weight 210 lb 6.4 oz Physical Exam Narrative: EXAM NARRATIVE: PHYSICAL EXAM: General: lying in bed, sedated and intubated. HEENT:NCAT, PERRLA, EOMI Neck: Supple Lungs: Clear, Heart: s1/s2, RRR Abd: soft, NT, ND, BS + Normoactive Extremities: No edema STENCILER: sedated and limited STENCILER exam possible. SKIN: no rash LDA: # CVC: Right IJ line 02/07/2021 # A line: Right radial arterial line 02/07/2021 Urinary Catheter Management^: Ram: Cath Placed During This Visit: yes Reason for Continuing Indwelling Catheter: Accurate Measurement of Urinary Output in Critically Ill Patients Urinary Catheter Date of Insertion: 02/05/21 Urinary Catheter Time of Insertion: 18:34 Data : 02/08/21 05:47 02/08/21 05:47 Other Labs: Laboratory Results WBC 12.1 10^3/uL (4.0-10.0) H 02/08/21 05:47 RBC 4.85 10^6/uL (4.1-5.3) 02/08/21 05:47 Hgb 14.1 g/dL (11.7-16.6) 02/08/21 05:47 Hct 44.9 % (42.0-52.0) 02/08/21 05:47 MCV 92.6 fL (80-94) 02/08/21 05:47 MCH 29.1 pg (28.0-34.0) 02/08/21 05:47 MCHC 31.4 g/dL (30.0-36.0) 02/08/21 05:47 RDW 13.9 % (12.1-15.1) 02/08/21 05:47 Plt Count 285 10^3/cmm (130-400) 02/08/21 05:47 MPV 9.4 fL (7.4-10.4) 02/08/21 05:47 Neut % (Auto) 87.4 % 02/08/21 05:47 Lymph % (Auto) 6.6 % 02/08/21 05:47 [place] % (Auto) 4.8 % 02/08/21 05:47 Eos % (Auto) 0.0 % 02/08/21 05:47 Baso % (Auto) 0.1 % 02/08/21 05:47 Neut # (Auto) 10.62 10^3/uL (1.8-7.7) H 02/08/21 05:47 Lymph # (Auto) 0.8 10^3/uL (0.8-4.8) 02/08/21 05:47 [place] # (Auto) 0.6 10^3/uL (0.2-0.9) 02/08/21 05:47 Eos # (Auto) 0.0 10^3/uL (0.0-0.8) 02/08/21 05:47 Baso # (Auto) 0.0 10^3/uL (0.0-0.1) 02/08/21 05:47 Nucleated RBC % (auto) 0 % 02/08/21 05:47 Nucleated RBCs # 0.0 /100WBC 02/08/21 05:47 ESR 15 mm/hr (0-10) H 02/08/21 05:47 D-Dimer 1.38 ug/mIFEU (0-0.59) H 02/08/21 05:47 Specimen Type Arterial 02/08/21 04:32 Sample Site Not specified 02/08/21 04:32 ABG pH 7.32 (7.35-7.45) L 02/08/21 04:32 ABG pCO2 55.3 mmHg (35-45) H 02/08/21 04:32 ABG pO2 118.0 mmHg (80.0-100.0) H 02/08/21 04:32 ABG HCO3 28.6 mmol/L (22-26) H 02/08/21 04:32 ABG O2 Saturation 98.4 02/08/21 04:32 ABG Base Excess 1.2 mmol/L (-2.0-2.0) 02/08/21 04:32 Davion Test N/a 02/08/21 04:32 A-a O2 Gradient 68.9 mmHg (5-10) H 02/08/21 04:32 Hematocrit 46.1 % (42-52) 02/08/21 04:32 Hgb O2 Saturation 97.1 % (95-100) 02/08/21 04:32 Carboxyhemoglobin 0.4 %THgb (0.4-20.1) 02/08/21 04:32 Methemoglobin 0.9 % (0.4-1.5) 02/08/21 04:32 Total Hemoglobin 15.0 g/dL (14-18) 02/08/21 04:32 Sodium 136.0 mmol/L (131-143) 02/08/21 04:32 Potassium 4.9 mmol/L (3.5-5.0) 02/08/21 04:32 Glucose 365.0 mg/dL (70-115) H 02/08/21 04:32 Ionized Calcium 1.1 mmol/L (1.1-1.4) 02/08/21 04:32 O2 Delivery Device Vent 02/08/21 04:32 O2 Liters/Min 55.0 % 02/06/21 09:30 FiO2 100.0 % 02/08/21 04:32 Tidal Volume 0.45 02/08/21 04:32 PEEP 12.0 cmH20 02/08/21 04:32 Hand Woven Carpet And Rug Mender ID Isaias 02/08/21 04:32 Sodium 133 mmol/L (136-145) L 02/08/21 05:47 Potassium 5.0 mmol/L (3.5-5.1) 02/08/21 05:47 Chloride 96 mmol/L (98-107) L 02/08/21 05:47 Carbon Dioxide 28 mmol/L (22-29) 02/08/21 05:47 Anion Gap 14.0 (5-19) 02/08/21 05:47 BUN 50 mg/dL (8-23) H 02/08/21 05:47 Creatinine 1.4 mg/dL (0.7-1.2) H 02/08/21 05:47 GFR Calculation Not Reportable 02/08/21 05:47 Glucose 364 mg/dL (65-115) H 02/08/21 05:47 POC Glucose 310 mg/dL (70-110) H 02/08/21 11:45 Estimat Average Glucose 223 02/06/21 05:45 Hemoglobin A1c 9.4 % (4.0-6.0) H 02/06/21 05:45 Calculated Osmolality 304 mOsm/kg (285-295) H 02/08/21 05:47 Lactic Acid 1.4 mmol/L (0.5-2.2) 02/05/21 12:42 Calcium 8.3 mg/dL (8.5-10.5) L 02/08/21 05:47 Phosphorus 3.3 mg/dL (2.5-4.5) 02/06/21 05:45 Magnesium 2.3 mg/dL (1.7-2.3) 02/06/21 05:45 Iron 37 ug/dL (59-158) L 02/05/21 12:42 TIBC 195 mcg/dl 02/05/21 12:42 % Saturation 18.9 % (20-50) L 02/05/21 12:42 Unsat Iron Binding 158 ug/dL (112-347) 02/05/21 12:42 Ferritin 654 ng/mL (30-400) H 02/08/21 05:47 Total Bilirubin 0.3 mg/dL (0.15-1.2) 02/08/21 05:47 AST 18 U/L (0-40) 02/08/21 05:47 ALT 10 U/L (0-41) 02/08/21 05:47 Alkaline Phosphatase 71 IU/L (40-130) 02/08/21 05:47 Lactate Dehydrogenase 583 U/L (135-225) H 02/06/21 05:45 Creatine Kinase 13 U/L (39-308) L 02/08/21 05:47 C-Reactive Protein 27.3 mg/L (0.0-4.9) H 02/08/21 05:47 NT-Pro-B Natriuret Pep 81 pg/mL (0-125) 02/08/21 05:47 Total Protein 5.7 g/dL (6.6-8.7) L 02/08/21 05:47 Albumin 3.2 g/dL (3.5-5.2) L 02/08/21 05:47 Globulin 2.5 g/dL (1.3-4.6) 02/08/21 05:47 Triglycerides 162 mg/dL (0-150) H 02/06/21 05:45 Cholesterol 142 mg/dL (0-200) 02/06/21 05:45 LDL Cholesterol, Calc 65 mg/dL (50-129) 02/06/21 05:45 Total VLDL Cholesterol 32 mg/dL (0-30) H 02/06/21 05:45 HDL Cholesterol 45 mg/dL (60-100) L 02/06/21 05:45 Cholesterol/HDL Ratio 3.16 mg/dL (1.0-5.00) 02/06/21 05:45 Procalcitonin 0.06 ng/mL (0-0.5) 02/07/21 05:30 TSH 1.72 uIU/mL (0.27-4.20) 02/05/21 12:42 Urine Color Straw (Yellow) 02/05/21 18:17 Urine Appearance Clear (CLEAR) 02/05/21 18:17 Urine pH 5 (5-7) 02/05/21 18:17 Ur Specific [place] 1.005 (1.005-1.030) 02/05/21 18:17 Urine Protein Neg (Negative) 02/05/21 18:17 Urine Glucose (UA) 2+ (Normal) 02/05/21 18:17 Urine Ketones Negative (Negative) 02/05/21 18:17 Urine Blood Neg (Negative) 02/05/21 18:17 Urine Nitrate Negative (Negative) 02/05/21 18:17 Urine Bilirubin Neg (Negative) 02/05/21 18:17 Urine Urobilinogen Norm mg/dL (Negative) 02/05/21 18:17 Ur Leukocyte Esterase Negative (Negative) 02/05/21 18:17 Ur Random Sodium 101 mmol/L 02/05/21 18:17 Ur Random Potassium 11 mmol/L 02/05/21 18:17 Ur Random Chloride 104 mmol/L 02/05/21 18:17 Impressions Chest CTA 02/05/21 13:24 IMPRESSION: 1. No pulmonary embolism. 2. Diffusely abnormal lungs. Diffuse scattered groundglass attenuation, thickened reticulations and honeycombing. Suspect superimposed Covid on chronic pulmonary fibrosis. 3. Bilateral hilar adenopathy with the largest lymph node on the LEFT measuring 12 mm. Probably reactive. Chest X-Ray 02/08/21 06:00 Impression: No change from yesterday's portable chest. Micro: Microbiology 02/05/21 18:25 Gram Stain - Final Sputum - Expectorated Sputum Sputum Culture - Final 02/07/21 Unknown Gram Stain - Final Sputum - Endotracheal Tube Aspirate A&P Assessment and plan (1) Acute respiratory failure with hypoxia: Status: Acute (2) Acute respiratory distress syndrome (ARDS) due to 2019 novel coronavirus: Status: Acute (3) Idiopathic interstitial fibrosis: Status: Acute (4) CAD (coronary artery disease): Status: Acute Qualifiers: Coronary Disease-Associated Artery/Lesion type: [place] artery [place] vs. transplanted heart: [place] heart Associated angina: unspecified whether angina present Qualified Code(s): I25.10 - Atherosclerotic heart disease of [place] coronary artery without angina pectoris (5) Type 2 diabetes mellitus: Status: Acute Qualifiers: Diabetes mellitus intermediate designer insulin use: unspecified intermediate designer insulin use status Diabetes mellitus complication status: with other specified complication Qualified Code(s): E11.69 - Type 2 diabetes mellitus with other specified complication (6) HTN (hypertension): Status: Acute Qualifiers: Hypertension type: unspecified Qualified Code(s): I10 - Essential (primary) hypertension (7) COVID-19 vaccination not done: Status: Acute (8) WHO group 2 pulmonary arterial hypertension: Status: Acute -Intubated 02/07/2021 -Sedated and paralyzed and plan is to prone for session today -With underlying idiopathic interstitial pulmonary fibrosis:possible ILD exacerbation - Prednisone 40 mg every 8 hourly. - Remdesivir to finish a 5-day course -Patient CRP is already 27-no need for Actemra - DuoNebs every 4 hour, budesonide twice daily. - Pulmonary toilet with incentive spirometry flutter valve. - Monitor inflammatory markers including ferritin, ESR, CRP, D-dimer, fibrinogen - If getting elevated will dose Actemra. Patient was made aware of the same and he has given verbal consent. - CTA negative for pulmonary embolism. - Procalcitonin negative, urine Legionella bacterial antigen negative,Blood culture preliminary negative. Sputum culture results awaited. -On empiric ceftriaxone - Continue with home dose of azithromycin prophylaxis - Patient has a history of idiopathic pulmonary fibrosis and has been on steroids for last 6 months. He has history of recent travel to [place] and [place]. - PCP PCR, histoplasma antigen, Aspergillus antigen pending as pt his on steroids at home - Given hypoxia will try to keep patient as negative as possible. - Patient history of CAD. Echocardiogram done shows an EF 60% with grade 1 diastolic dysfunction with moderate pulmonary hypertension with RVSP of 46. -Monitor monitor input and output, daily weights - Hypertension: Goal blood pressure less than 140/90 mmHg. - Continue home dose of carvedilol - Type 2 diabetes mellitus: HbA1c 9.4.Insulin sliding scale at moderate dose. Lantus 10 U BID. - Continue with aspirin, Plavix, statin. Full code. Lovenox DVT prophylaxis Famotidine for PUD prophylaxis. trickle tube feeding today as pt will proned and goal feeding when supine updated Recommendations conveyed to hospitalist, RN, RT taking care of the patient Attestations Medical Necessity Statement*: Acute hypoxic respiratory failure secondary to ARDS due to COVID-19 pneumonia in patient with underlying interstitial fibrosis Time Spent in Patient Care: Greater than 35 minutes (>than 50% of time spent in counselling and/or direct pt care on unit). Critical Care Time: The high probability of a clinically significant, sudden or life threatening deterioration of the patient's [respiratory] system(s) required my full and direct attention, intervention and personal management. The critical care time is as shown. This time is in addition to time spent performing any reported procedures but includes the following: [x] Data and vital sign review and interpretation [x] Patient assessment, examination and intervention [x] Documentation [x] Medication orders and management Critical Care Time (min): 45 Coding Level of Care Code Established Pt Acute Incoming Inspector for Chg Fwd Patient Type Established History Comprehensive Exam Comprehensive Medical Decision Making High Complexity Diagnoses Acute respiratory failure with hypoxia J96.01 Acute respiratory distress syndrome (ARDS) due to 2019 novel coronavirus U07.1; J80 Idiopathic interstitial fibrosis J84.112 CAD (coronary artery disease) I25.10 Coronary Disease-Associated Artery/Lesion type: [place] artery [place] vs. transplanted heart: [place] heart Associated angina: unspecified whether angina present Type 2 diabetes mellitus E11.69 Diabetes mellitus intermediate designer insulin use: unspecified [facility] insulin use status Diabetes mellitus complication status: with other specified complication HTN (hypertension) I10 Hypertension type: unspecified COVID-19 vaccination not done Z28.9 WHO group 2 pulmonary arterial hypertension I27.22 Time Spent (min) 45
--- NOTE | 2021-02-08 15:12 | PC.RESP ---
RT Shift Note Frequent safety and respiratory rounds continue. Orders completed as indicated. Patient monitored pre and post treatments throughout shift. Patient [Did.] tolerate treatments appropriately. Condition DidNotChange]. Patient and/or financial sales representative educated on respiratory treatment and medications. Patient and/or financial sales representative [unable to comprehend]. Will continue to monitor patient progress.
--- NOTE | 2021-02-08 16:44 | PM.PN ---
Subjective Subjective: Interval history: In last 24 hours patient was intubated yesterday because of persistent hypoxia even though he was 100% heated high flow along with additional nonrebreather 15 L. She tolerated the procedure well. Overnight patient has remained hemodynamically stable with saturations over 90%. ABG appreciated. Currently on sedation with fentanyl and propofol and plan paralyzed. Currently on ventilator setting off 100% FiO2, tidal volume 450, PEEP of 12 Medications: Reviewed: Yes Vitals/I&O/Wt Last Vital Signs Temp 97.8 F 02/08/21 08:00 Pulse 55 L 02/08/21 15:07 Resp 20 H 02/08/21 15:07 BP 116/78 02/08/21 14:00 Pulse Ox 99 02/08/21 15:07 02/08/21 02/08/21 02/08/21 06:59 14:59 22:59 Intake Total 486.450 / 1310.040 324.286 / 324.286 19 / 343.286 Output Total 475 / 1225 Balance 11.450 / 85.040 324.286 / 324.286 19 / 343.286 Weight last 48 hrs Weight 97.976 kg Weight 95.436 kg Physical Exam Narrative: EXAM NARRATIVE: General: Intubated, paralyzed HEENT: PERRLA, pupils bilaterally equal and reactive Chest: Bilateral bronchial breath sounds all over the lung [place], occasional rhonchi over the lung [place], crackles all over the lung [place], decreased air entry bilaterally CVS: S1-S2 regular, no murmurs, no tachycardia, no gallops, no rubs Abdomen: Soft, nontender, no organomegaly, bowel sounds present Neuro: Intubated, paralyzed Urinary Catheter Management^: Ram: Cath Placed During This Visit: yes Reason for Continuing Indwelling Catheter: Accurate Measurement of Urinary Output in Critically Ill Patients Urinary Catheter Date of Insertion: 02/05/21 Urinary Catheter Time of Insertion: 18:34 Data : 02/08/21 05:47 02/08/21 05:47 Micro: Microbiology 02/05/21 18:25 Gram Stain - Final Sputum - Expectorated Sputum Sputum Culture - Final 02/07/21 Unknown Gram Stain - Final Sputum - Endotracheal Tube Aspirate A&P Assessment and plan (1) Pneumonia due to 2019-nCoV: Status: Acute (2) Idiopathic interstitial fibrosis: Status: Acute (3) ARDS (adult respiratory distress syndrome): Status: Acute (4) COVID-19 vaccination not done: Status: Acute (5) HTN (hypertension): Status: Acute Qualifiers: Hypertension type: unspecified Qualified Code(s): I10 - Essential (primary) hypertension (6) Type 2 diabetes mellitus: Status: Acute Qualifiers: Diabetes mellitus rat exterminator insulin use: unspecified longterm insulin use status Diabetes mellitus complication status: with other specified complication Qualified Code(s): E11.69 - Type 2 diabetes mellitus with other specified complication (7) CAD (coronary artery disease): Status: Acute Qualifiers: Coronary Disease-Associated Artery/Lesion type: [place] artery [place] vs. transplanted heart: [place] heart Associated angina: unspecified whether angina present Qualified Code(s): I25.10 - Atherosclerotic heart disease of [place] coronary artery without angina pectoris Additional A&P Information ARDS secondary to COVID-19 pneumonia in setting of idiopathic interstitial pulmonary fibrosis: Cannot rule out ILD exacerbation as well in setting of COVID-19 pneumonia. Severe disease. Intubated on February 07. Continue with Solu-Medrol 40 mg every 8 hourly. Remdesivir to finish a 5-day course. Vitamin C, zinc. DuoNebs every 4 hour, budesonide twice daily. Pulmonary toilet with incentive spirometry flutter valve. We will monitor inflammatory markers including ferritin, ESR, CRP, D-dimer, fibrinogen. Patient's inflammatory markers are trending down. D-dimer elevated. CTA negative for pulmonary embolism. For now continue with full dose anticoagulation as he is requiring high oxygen supplementation. Will monitor for anemia or blood loss. Procalcitonin negative, urine Legionella, MRSA negative, bacterial antigen negative. Blood culture preliminary negative. Sputum culture results awaited. Additional testing for atypical pneumonia, fungal pneumonia awaited. For now continue with ceftriaxone and azithromycin. Will ask to bring in home dose of tadalafil. Given hypoxia will try to keep patient as negative as possible. Patient history of CAD. Echocardiogram done shows an EF 60% with grade 1 diastolic dysfunction with moderate pulmonary hypertension with RVSP of 46. Hold Lasix today. Strict input output charting, daily weights. Fluid restriction up to 1500 cc. We will monitor BMP. Ram catheterization. Hypertension: Goal blood pressure less than 140/90 mmHg. Continue to monitor blood pressures for now. Continue home dose of carvedilol. If needed will add amlodipine 10 mg daily. Type 2 diabetes mellitus: HbA1c 9.4. Insulin sliding scale at moderate dose. Lantus 10 U BID. CAD: No active chest pain. Recent stent placement. Continue with aspirin, Plavix, statin. Check lipid panel. Continue beta-too. Full code. Full dose Lovenox will help with DVT prophylaxis as well. Famotidine for PUD prophylaxis. Cardiac carb consistent diet mechanical soft. Attestations Medical Necessity Statement*: For management of ARDS secondary to COVID-19 pneumonia, possible IPF exacerbation, ventilator dependent Critical Care Time: The high probability of a clinically significant, sudden or life threatening deterioration of the patient's [pulmonary] system(s) required my full and direct attention, intervention and personal management. The critical care time is as shown. This time is in addition to time spent performing any reported procedures but includes the following: [x] Data and vital sign review and interpretation [x] Patient assessment, examination and intervention [x] Documentation [x] Medication orders and management Critical Care Time (min): 40 Coding Level of Care Code Acute [place] [employer] Weaver for [facility] Fwd Diagnoses Pneumonia due to 2019-nCoV U07.1; J12.82 Idiopathic interstitial fibrosis J84.112 ARDS (adult respiratory distress syndrome) J80 COVID-19 vaccination not done Z28.9 HTN (hypertension) I10 Hypertension type: unspecified Type 2 diabetes mellitus E11.69 Diabetes mellitus rat exterminator insulin use: unspecified rat exterminator insulin use status Diabetes mellitus complication status: with other specified complication CAD (coronary artery disease) I25.10 Coronary Disease-Associated Artery/Lesion type: [place] artery [place] vs. transplanted heart: elim [place] heart Associated angina: unspecified whether angina present
--- NOTE | 2021-02-08 17:12 | PC.NURSE ---
Feeding pump alarming when room entered. Tube feeding noted pooling around pt's face while he is proning. OG to LIS. Tube feeding off. Pt cleaned up as needed. Artline not reading on monitor. Flushing difficult. repositioned arm, flushed art line, monitor now reading. Noted art line insertion site and central line oozing, dressing filling with blood. Dr Navarro in unit, notified of tube feeding pooling and suction, also notified of oozing blood around CVL and Art line. Dr Dale OG to suction, low intermittent. and going to decrease Lovenox administrations. Primary nurse notified and assisted.
[2021-02-08 17:23] LABS: Glucose Point of Care 266 mg/dL (70-110)
[2021-02-08] MEDS: remdesivir 100 MG in sodium chloride 0.9% (100 ml) 100 ML IV (17:25)
--- NOTE | 2021-02-08 18:33 | PC.NURSE ---
Shift Note Frequent safety and comfort rounds continue. Orders and nursing care completed as indicated. Pt started on tube feedings today. Pt turned prone at 1000. Lovenox order changed from BID to Once a day. Patient monitored for response to intervention and treatments. Education provided to about patient's status. verbalized understanding. Will continue to monitor.
--- NOTE | 2021-02-08 18:52 | PC.NURSE ---
TOF BIS 0700- 0 12 0800- 2 28 0900- 3 38 1000- 2 42 1100-3 38 1200- 2 40 1300-2 48 1400-2 40 1500-1 46 1600-4 49 1700-3 51 1800-3 38
[2021-02-08 20:24] LABS: Glucose Point of Care 224 mg/dL (70-110)
[2021-02-09] VITALS (66 sets, daily range): BP systolic 122–192; BP diastolic 64–94; PULSE 63–99; RESP 0–20; TEMP 35.1–36.9; O2SAT 90–95
--- NOTE | 2021-02-09 01:29 | PC.NURSE ---
Patient placed in supine position with RT and 4 nurses. Patient tolerated well. Tube feeding restarted at 20 mL/hr. Will continue to monitor.
--- NOTE | 2021-02-09 02:15 | PC.NURSE ---
Dr. Waite at bedside notified of high blood pressure, new orders received and followed through. Will continue to monitor.
[2021-02-09] MEDS: hyDRALAzine 20 mg/mL INJ 1 mL 10 MG IVP (02:28)
[2021-02-09] MEDS: ipratropium-albuterol 3 mL Neb INHALATION ×5 (03:37→19:57)
[2021-02-09 04:07] LABS: Basophils % 0.1 %; Hematocrit 50.3 % (42.0-52.0); Lymphocytes # 0.4 10^3/uL (0.8-4.8); Lymphocytes % 4.9 %; Mean Corpuscular HGB Conc 31.8 g/dL (30.0-36.0); Mean Corpuscular Hemoglobin 28.8 pg (28.0-34.0); Mean Corpuscular Volume 90.6 fl (80-94); Mean Platelet Volume 9.3 fL (7.4-10.4); Monocytes # 0.6 10^3/uL (0.2-0.9); Monocytes % 7.2 %; Neutrophils # 7.64 10^3/uL (1.8-7.7); Neutrophils % 86.9 %; Nucleated Red Blood Cells % 0 %; Platelet Count 259 10^3/cmm (130-400); Red Blood Count 5.55 10^6/uL (4.1-5.3); Red Cell Distribution Width 13.8 % (12.1-15.1); White Blood Count 8.8 10^3/uL (4.0-10.0)
[2021-02-09 04:57] LABS: Alanine Aminotransferase 15 U/L (0-41); Albumin Level 3.3 g/dL (3.5-5.2); Alkaline Phosphatase 84 IU/L (40-130); Anion Gap 16.1 (5-19); Aspartate Amino Transferase 24 U/L (0-40); Blood Urea Nitrogen 43 mg/dL (8-23); Calcium 8.5 mg/dL (8.5-10.5); Carbon Dioxide 25 mmol/L (22-29); Chloride 103 mmol/L (98-107); Globulin 2.6 g/dL (1.3-4.6); Glucose 221 mg/dL (65-115); Osmolality Calculated 308 mOsm/kg (285-295); Potassium 4.1 mmol/L (3.5-5.1); Sodium 140 mmol/L (136-145); Total Bilirubin 0.3 mg/dL (0.15-1.2); Total Protein 5.9 g/dL (6.6-8.7)
[2021-02-09] MEDS: famotidine 20 mg/2 mL INJ IVP ×2 (05:48→17:28)
[2021-02-09] MEDS: clopidogrel 75 mg Tablet PO (05:48)
--- NOTE | 2021-02-09 06:17 | PC.NURSE ---
Shift Note Frequent safety and comfort rounds continue. Orders and/or nursing care completed as indicated. Patient monitored for response to intervention and treatment(s). Education provided includes[]. Patient and/or charter representative [ResponseToTeaching]. Will continue to monitor. Unable to educate patient at this time, patient is sedated and paralyzed on the vent. TOF BIS 2 45 3 41 3 40 3 41 3 47 3 42 4 65 4 47 3 41 3 50 4 53
[2021-02-09 07:18] LABS: Glucose Point of Care 243 mg/dL (70-110)
[2021-02-09] MEDS: insulin glargine 100 units/1 mL 10 UNIT SUBCUT (07:33)
[2021-02-09] MEDS: ferrous gluconate 324 mg Tablet PO ×2 (07:34→17:28)
[2021-02-09] MEDS: cefTRIAXone 1,000 MG in sodium chloride 0.9% (plus) 50 ML 100 MG IV (07:59)
[2021-02-09] MEDS: tamsulosin 0.4 mg Capsule PO (07:59)
[2021-02-09] MEDS: azithromycin 250 mg Tablet 500 MG PO (07:59)
[2021-02-09] MEDS: ascorbic acid 500 mg Tablet PO (07:59)
[2021-02-09] MEDS: aspirin 81 mg EC Tablet PO (07:59)
[2021-02-09] MEDS: carvedilol 3.125 mg Tablet PO ×2 (07:59→17:28)
[2021-02-09] MEDS: zinc gluconate 50 mg Tablet PO (07:59)
[2021-02-09] MEDS: propofol 1,000 MG/100 ML INJ 8.59 MG IV ×2 (08:00→19:41)
[2021-02-09] MEDS: enoxaparin 40 mg/0.4 mL Syringe SUBCUT (08:00)
[2021-02-09] MEDS: ezetimibe 10 mg Tablet PO (08:01)
--- NOTE | 2021-02-09 08:53 | PM.PN ---
Subjective Subjective: Interval history: - afebrile - -1.1 L last 24 hours/ - 3.3 L since admission - drips: proprofol - 15, versed 2, fentanyl 50, nimbex 0.75 - due for second proing session - 11 am - sugars uncontrolled - started on home medication tadalafil 5 mg daily once for pulmonary hypertension and pirfenidone for his IPF -Labs and imaging reviewed Medications: Reviewed: Yes Vitals/I&O/Wt Last Vital Signs Temp 97.8 F 02/08/21 08:00 Pulse 95 02/09/21 08:30 Resp 16 02/09/21 08:16 BP 150/77 02/09/21 08:30 Pulse Ox 91 02/09/21 08:16 02/08/21 02/09/21 02/09/21 22:59 06:59 14:59 Intake Total 137.891 / 462.177 Output Total 1000 / 1000 650 / 1650 Balance -862.109 / -537.823 -650 / -1187.823 Weight last 48 hrs Weight 216 lb Weight 216 lb Physical Exam Narrative: EXAM NARRATIVE: PHYSICAL EXAM: General: lying in bed, sedated and intubated. HEENT:NCAT, PERRLA, EOMI Neck: Supple Lungs: Clear, Heart: s1/s2, RRR Abd: soft, NT, ND, BS + Normoactive Extremities: No edema REGIONAL ACCOUNT EXECUTIVE: sedated and limited REGIONAL ACCOUNT EXECUTIVE exam possible. SKIN: no rash LDA: # CVC: Right IJ line 02/07/2021 # A line: Right radial arterial line 02/07/2021 Urinary Catheter Management^: Ram: Cath Placed During This Visit: yes Reason for Continuing Indwelling Catheter: Accurate Measurement of Urinary Output in Critically Ill Patients Urinary Catheter Date of Insertion: 02/05/21 Urinary Catheter Time of Insertion: 18:34 Data : 02/10/21 03:16 02/10/21 12:10 Other Labs: Laboratory Results WBC 8.8 10^3/uL (4.0-10.0) 02/09/21 03:20 RBC 5.55 10^6/uL (4.1-5.3) H 02/09/21 03:20 Hgb 16.0 g/dL (11.7-16.6) 02/09/21 03:20 Hct 50.3 % (42.0-52.0) 02/09/21 03:20 MCV 90.6 fl (80-94) 02/09/21 03:20 MCH 28.8 pg (28.0-34.0) 02/09/21 03:20 MCHC 31.8 g/dL (30.0-36.0) 02/09/21 03:20 RDW 13.8 % (12.1-15.1) 02/09/21 03:20 Plt Count 259 10^3/cmm (130-400) 02/09/21 03:20 MPV 9.3 fL (7.4-10.4) 02/09/21 03:20 Neut % (Auto) 86.9 % 02/09/21 03:20 Lymph % (Auto) 4.9 % 02/09/21 03:20 [place] % (Auto) 7.2 % 02/09/21 03:20 Eos % (Auto) 0.0 % 02/09/21 03:20 Baso % (Auto) 0.1 % 02/09/21 03:20 Neut # (Auto) 7.64 10^3/uL (1.8-7.7) 02/09/21 03:20 Lymph # (Auto) 0.4 10^3/uL (0.8-4.8) L 02/09/21 03:20 [place] # (Auto) 0.6 10^3/uL (0.2-0.9) 02/09/21 03:20 Eos # (Auto) 0.0 10^3/uL (0.0-0.8) 02/09/21 03:20 Baso # (Auto) 0.0 10^3/uL (0.0-0.1) 02/09/21 03:20 Nucleated RBC % (auto) 0 % 02/09/21 03:20 Nucleated RBCs # 0.0 /100WBC 02/09/21 03:20 ESR 15 mm/hr (0-10) H 02/08/21 05:47 D-Dimer 1.38 ug/mIFEU (0-0.59) H 02/08/21 05:47 Specimen Type Arterial 02/09/21 13:56 Sample Site Not specified 02/09/21 13:56 ABG pH 7.36 (7.35-7.45) 02/09/21 13:56 ABG pCO2 52.9 mmHg (35-45) H 02/09/21 13:56 ABG pO2 81.8 mmHg (80.0-100.0) 02/09/21 13:56 ABG HCO3 29.9 mmol/L (22-26) H 02/09/21 13:56 ABG O2 Saturation 96.0 02/09/21 13:56 ABG Base Excess 3.0 mmol/L (-2.0-2.0) H 02/09/21 13:56 [place] Test N/a 02/09/21 13:56 A-a O2 Gradient 22.9 mmHg (5-10) H 02/09/21 13:56 Hematocrit 50.1 % (42-52) 02/09/21 13:56 Hgb O2 Saturation 94.6 % (95-100) L 02/09/21 13:56 Carboxyhemoglobin 0.6 %THgb (0.4-20.1) 02/09/21 13:56 Methemoglobin 0.9 % (0.4-1.5) 02/09/21 13:56 Total Hemoglobin 16.3 g/dL (14-18) 02/09/21 13:56 Sodium 139.0 mmol/L (131-143) 02/09/21 13:56 Potassium 4.4 mmol/L (3.5-5.0) 02/09/21 13:56 Glucose 306.0 mg/dL (70-115) H 02/09/21 13:56 Ionized Calcium 1.2 mmol/L (1.1-1.4) 02/09/21 13:56 O2 Delivery Device Vent 02/09/21 13:56 O2 Liters/Min 55.0 % 02/06/21 09:30 FiO2 45.0 % 02/09/21 13:56 Tidal Volume 0.45 02/09/21 13:56 PEEP 12.0 cmH20 02/09/21 13:56 Cardboard Cutter ID Ck 02/09/21 13:56 Sodium 140 mmol/L (136-145) 02/09/21 03:20 Potassium 4.1 mmol/L (3.5-5.1) 02/09/21 03:20 Chloride 103 mmol/L (98-107) 02/09/21 03:20 Carbon Dioxide 25 mmol/L (22-29) 02/09/21 03:20 Anion Gap 16.1 (5-19) 02/09/21 03:20 BUN 43 mg/dL (8-23) H 02/09/21 03:20 Creatinine 0.9 mg/dL (0.7-1.2) 02/09/21 03:20 GFR Calculation Not Reportable 02/09/21 03:20 Glucose 221 mg/dL (65-115) H 02/09/21 03:20 POC Glucose 264 mg/dL (70-110) H 02/09/21 19:34 Estimat Average Glucose 223 02/06/21 05:45 Hemoglobin A1c 9.4 % (4.0-6.0) H 02/06/21 05:45 Calculated Osmolality 308 mOsm/kg (285-295) H 02/09/21 03:20 Lactic Acid 1.4 mmol/L (0.5-2.2) 02/05/21 12:42 Calcium 8.5 mg/dL (8.5-10.5) 02/09/21 03:20 Phosphorus 3.3 mg/dL (2.5-4.5) 02/06/21 05:45 Magnesium 2.3 mg/dL (1.7-2.3) 02/06/21 05:45 Iron 37 ug/dL (59-158) L 02/05/21 12:42 TIBC 195 mcg/dl 02/05/21 12:42 % Saturation 18.9 % (20-50) L 02/05/21 12:42 Unsat Iron Binding 158 ug/dL (112-347) 02/05/21 12:42 Ferritin 654 ng/mL (30-400) H 02/08/21 05:47 Total Bilirubin 0.3 mg/dL (0.15-1.2) 02/09/21 03:20 AST 24 U/L (0-40) 02/09/21 03:20 ALT 15 U/L (0-41) 02/09/21 03:20 Alkaline Phosphatase 84 IU/L (40-130) 02/09/21 03:20 Lactate Dehydrogenase 583 U/L (135-225) H 02/06/21 05:45 Creatine Kinase 13 U/L (39-308) L 02/08/21 05:47 C-Reactive Protein 27.3 mg/L (0.0-4.9) H 02/08/21 05:47 NT-Pro-B Natriuret Pep 81 pg/mL (0-125) 02/08/21 05:47 Total Protein 5.9 g/dL (6.6-8.7) L 02/09/21 03:20 Albumin 3.3 g/dL (3.5-5.2) L 02/09/21 03:20 Globulin 2.6 g/dL (1.3-4.6) 02/09/21 03:20 Triglycerides 162 mg/dL (0-150) H 02/06/21 05:45 Cholesterol 142 mg/dL (0-200) 02/06/21 05:45 LDL Cholesterol, Calc 65 mg/dL (50-129) 02/06/21 05:45 Total VLDL Cholesterol 32 mg/dL (0-30) H 02/06/21 05:45 HDL Cholesterol 45 mg/dL (60-100) L 02/06/21 05:45 Cholesterol/HDL Ratio 3.16 mg/dL (1.0-5.00) 02/06/21 05:45 Procalcitonin 0.06 ng/mL (0-0.5) 02/07/21 05:30 TSH 1.72 uIU/mL (0.27-4.20) 02/05/21 12:42 Urine Color Straw (Yellow) 02/05/21 18:17 Urine Appearance Clear (CLEAR) 02/05/21 18:17 Urine pH 5 (5-7) 02/05/21 18:17 Ur Specific [place] 1.005 (1.005-1.030) 02/05/21 18:17 Urine Protein Neg (Negative) 02/05/21 18:17 Urine Glucose (UA) 2+ (Normal) 02/05/21 18:17 Urine Ketones Negative (Negative) 02/05/21 18:17 Urine Blood Neg (Negative) 02/05/21 18:17 Urine Nitrate Negative (Negative) 02/05/21 18:17 Urine Bilirubin Neg (Negative) 02/05/21 18:17 Urine Urobilinogen Norm mg/dL (Negative) 02/05/21 18:17 Ur Leukocyte Esterase Negative (Negative) 02/05/21 18:17 Ur Random Sodium 101 mmol/L 02/05/21 18:17 Ur Random Potassium 11 mmol/L 02/05/21 18:17 Ur Random Chloride 104 mmol/L 02/05/21 18:17 Impressions Chest CTA 02/05/21 13:24 IMPRESSION: 1. No pulmonary embolism. 2. Diffusely abnormal lungs. Diffuse scattered groundglass attenuation, thickened reticulations and honeycombing. Suspect superimposed Covid on chronic pulmonary fibrosis. 3. Bilateral hilar adenopathy with the largest lymph node on the LEFT measuring 12 mm. Probably reactive. Chest X-Ray 02/09/21 09:03 IMPRESSION: Stable extensive bilateral pulmonary infiltrates. Micro: Microbiology 02/05/21 18:25 Gram Stain - Final Sputum - Expectorated Sputum Sputum Culture - Final 02/07/21 Unknown Gram Stain - Final Sputum - Endotracheal Tube Aspirate A&P Assessment and plan (1) Acute respiratory failure with hypoxia: Status: Acute (2) Acute respiratory distress syndrome (ARDS) due to 2019 novel coronavirus: Status: Acute (3) Idiopathic interstitial fibrosis: Status: Acute (4) CAD (coronary artery disease): Status: Acute Qualifiers: Coronary Disease-Associated Artery/Lesion type: [place] artery [place] vs. 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 insulin use: unspecified halfway insulin use status Diabetes mellitus complication status: with other specified complication Qualified Code(s): E11.69 - Type 2 diabetes mellitus with other specified complication (6) HTN (hypertension): Status: Acute Qualifiers: Hypertension type: unspecified Qualified Code(s): I10 - Essential (primary) hypertension (7) COVID-19 vaccination not done: Status: Acute (8) WHO group 2 pulmonary arterial hypertension: Status: Acute -Intubated 02/07/2021 -Sedated and paralyzed and plan is to prone for second session today - drips: proprofol - 15, versed 2, fentanyl 50, nimbex 0.75 -ABG 7.3 /81/20 9/96% on 45% FiO2/450/12 -With underlying idiopathic interstitial pulmonary fibrosis:possible ILD exacerbation - started on home medication tadalafil 5 mg daily once for pulmonary hypertension and pirfenidone for his IPF - Prednisone 40 mg every 8 hourly. - Remdesivir to finish a 5-day course - Patient CRP is already low-no need for Actemra - DuoNebs every 4 hour, budesonide twice daily. - Pulmonary toilet with incentive spirometry flutter valve. - Monitor inflammatory markers including ferritin, ESR, CRP, D-dimer, fibrinogen every 48 hour - CTA negative for pulmonary embolism. - afebrile , Procalcitonin negative, urine Legionella bacterial antigen negative,Blood culture preliminary negative. Sputum culture results awaited. -On empiric ceftriaxone and Continue with home dose of azithromycin prophylaxis - Patient has a history of idiopathic pulmonary fibrosis and has been on steroids for last 6 months. He has history of recent travel to [place] and [place]. - PCP PCR, histoplasma antigen, Aspergillus antigen pending as pt his on steroids at home - Given hypoxia will try to keep patient as negative as possible.-1.1 L last 24 hours/ - 3.3 L since admission - Patient history of CAD. Echocardiogram done shows an EF 60% with grade 1 diastolic dysfunction with moderate pulmonary hypertension with RVSP of 46. -Monitor monitor input and output, daily weights - Hypertension: Goal blood pressure less than 140/90 mmHg. - Continue home dose of carvedilol - Type 2 diabetes mellitus: HbA1c 9.4.Insulin sliding scale at moderate dose. sugars uncontrolled , Lantus 10 U BID. - Continue with aspirin, Plavix, statin. Full code. Lovenox DVT prophylaxis Famotidine for PUD prophylaxis. To restart feeding when patient is in supine position updated Recommendations conveyed to hospitalist, RN, RT taking care of the patient Attestations Medical Necessity Statement*: Acute hypoxic respiratory failure secondary to ARDS due to COVID-19 pneumonia in patient with underlying interstitial fibrosis requiring mechanical ventilation Time Spent in Patient Care: Greater than 35 minutes (>than 50% of time spent in counselling and/or direct pt care on unit). Critical Care Time: The high probability of a clinically significant, sudden or life threatening deterioration of the patient's [pulmonary, endocrine, neurological] system(s) required my full and direct attention, intervention and personal management. The critical care time is as shown. This time is in addition to time spent performing any reported procedures but includes the following: [x] Data and vital sign review and interpretation [x] Patient assessment, examination and intervention [x] Documentation [x] Medication orders and management Critical Care Time (min): 45 Coding Level of Care Code Established Pt Acute General Teller for Chg Fwd Patient Type Established History Comprehensive Exam Comprehensive Medical Decision Making High Complexity Diagnoses Acute respiratory failure with hypoxia J96.01 Acute respiratory distress syndrome (ARDS) due to 2019 novel coronavirus U07.1; J80 Idiopathic interstitial fibrosis J84.112 CAD (coronary artery disease) I25.10 Coronary Disease-Associated Artery/Lesion type: [place] artery [place] vs. transplanted heart: [place] heart Associated angina: unspecified whether angina present Type 2 diabetes mellitus E11.69 Diabetes mellitus intermediate school teacher insulin use: unspecified intermediate school teacher insulin use status Diabetes mellitus complication status: with other specified complication HTN (hypertension) I10 Hypertension type: unspecified COVID-19 vaccination not done Z28.9 WHO group 2 pulmonary arterial hypertension I27.22 Time Spent (min) 45
--- NOTE | 2021-02-09 09:03 | XRR_ITS ---
PROCEDURE INFORMATION: Exam: XR Chest Exam date and time: 02/09/2021 9:03 AM Age: 75 years old Clinical indication: Condition or disease; Lung condition and disease; Pneumonia; Viral TECHNIQUE: Imaging protocol: XR of the chest. Views: 1 view. COMPARISON: CR XR chest 1V portable [id number] 02/08/2021 5:28 AM FINDINGS: Tubes, catheters and devices: An endotracheal tube, nasogastric tube and central venous catheter projects in satisfactory position. Lungs: There are extensive bilateral pulmonary infiltrates which have not significantly changed since previous study. Pleural spaces: Unremarkable. No pleural effusion. No pneumothorax. Heart/Mediastinum: Unremarkable. No cardiomegaly. Bones/joints: Unremarkable. XR/XR chest 1V portable [id number] IMPRESSION: Stable extensive bilateral pulmonary infiltrates.
[2021-02-09] MEDS: budesonide 0.5 mg/2 mL Neb INHALATION ×2 (09:37→19:53)
[2021-02-09] MEDS: insulin glargine 100 units/1 mL 5 UNIT SUBCUT (10:11)
[2021-02-09 11:07] LABS: Glucose Point of Care 288 mg/dL (70-110)
[2021-02-09] MEDS: cisatracurium 100 MG in sodium chloride 0.9% 50 ML 5.73 MG IV (13:05)
[2021-02-09 14:15] LABS: ABG PCO2 52.9 mmHg (35-45); ABG PH Result 7.36 (7.35-7.45); Alveolar-Arterial Oxygen Gradi 22.9 mmHg (5-10); Arterial Blood Gas Hematocrit 50.1 % (42-52); Blood Gas Operator Identificat CK; Blood Gas Sample Site Not specified; Blood Gas Sample Type Arterial; Blood Gas Tidal Volume 0.45; Carboxyhemoglobin 0.6 %THgb (0.4-20.1); HCO3 ABG 29.9 mmol/L (22-26); HGB O2 Sat 94.6 % (95-100); Ionized Calcium Level - ABG 1.2 mmol/L (1.1-1.4); Methemoglobin 0.9 % (0.4-1.5); Oxygen Device VENT; PO2 ABG 81.8 mmHg (80.0-100.0); Potassium Level - ABG 4.4 mmol/L (3.5-5.0); Total Hemoglobin 16.3 g/dL (14-18)
--- NOTE | 2021-02-09 15:47 | PM.PN ---
Subjective Subjective: Interval history: No acute events overnight. Patient has remained hemodynamically stable. Ventilator settings coming down. Currently he is on 45% FiO2, tidal volume 450, PEEP of 12. Patient is been prone today. Maintaining saturation over 90%. Hemodynamically stable. Documented urine output in last 24 hours 1100 cc. Currently on propofol of 15, Versed 2, fentanyl 50, Nimbex of 0.75. Medications: Reviewed: Yes Vitals/I&O/Wt Last Vital Signs Temp 97.6 F 02/09/21 11:30 Pulse 88 02/09/21 14:00 Resp 20 H 02/09/21 14:39 BP 153/91 02/09/21 14:00 Pulse Ox 94 02/09/21 14:39 02/09/21 02/09/21 02/09/21 06:59 14:59 22:59 Intake Total 193.833 / 193.833 Output Total 650 / 1650 Balance -650 / -1087.823 193.833 / 193.833 Weight last 48 hrs Weight 97.976 kg Weight 97.976 kg Physical Exam Narrative: EXAM NARRATIVE: General: Intubated, paralyzed HEENT: PERRLA, pupils bilaterally equal and reactive Chest: Bilateral bronchial breath sounds all over the lung [place], occasional rhonchi over the lung [place], crackles all over the lung [place], decreased air entry bilaterally CVS: S1-S2 regular, no murmurs, no tachycardia, no gallops, no rubs Abdomen: Soft, nontender, no organomegaly, bowel sounds present Neuro: Intubated, paralyzed Urinary Catheter Management^: Ram: Cath Placed During This Visit: yes Reason for Continuing Indwelling Catheter: Accurate Measurement of Urinary Output in Critically Ill Patients Urinary Catheter Date of Insertion: 02/05/21 Urinary Catheter Time of Insertion: 18:34 Data : 02/09/21 03:20 02/09/21 03:20 Micro: Microbiology 02/07/21 Unknown Gram Stain - Final Sputum - Endotracheal Tube Aspirate 02/05/21 18:25 Gram Stain - Final Sputum - Expectorated Sputum Sputum Culture - Final A&P Assessment and plan (1) Pneumonia due to 2019-nCoV: Status: Acute (2) Idiopathic interstitial fibrosis: Status: Acute (3) ARDS (adult respiratory distress syndrome): Status: Acute (4) COVID-19 vaccination not done: Status: Acute (5) HTN (hypertension): Status: Acute Qualifiers: Hypertension type: unspecified Qualified Code(s): I10 - Essential (primary) hypertension (6) Type 2 diabetes mellitus: Status: Acute Qualifiers: Diabetes mellitus halfway insulin use: unspecified halfway insulin use status Diabetes mellitus complication status: with other specified complication Qualified Code(s): E11.69 - Type 2 diabetes mellitus with other specified complication (7) CAD (coronary artery disease): Status: Acute Qualifiers: Coronary Disease-Associated Artery/Lesion type: [place] artery [place] vs. transplanted heart: [place] heart Associated angina: unspecified whether angina present Qualified Code(s): I25.10 - Atherosclerotic heart disease of [place] coronary artery without angina pectoris Additional A&P Information ARDS secondary to COVID-19 pneumonia in setting of idiopathic interstitial pulmonary fibrosis: Cannot rule out ILD exacerbation as well in setting of COVID-19 pneumonia. Severe disease. Intubated on February 07. Patient being prone today. Continue with Solu-Medrol 40 mg every 8 hourly. Remdesivir to finish a 5-day course. Vitamin C, zinc. DuoNebs every 4 hour, budesonide twice daily. Pulmonary toilet with incentive spirometry flutter valve. We will monitor inflammatory markers including ferritin, ESR, CRP, D-dimer, fibrinogen. Patient's inflammatory markers are trending down. D-dimer elevated. CTA negative for pulmonary embolism. Lovenox changed to prophylactic dose. We will continue to monitor D-dimer trending up. Will monitor for anemia or blood loss. Procalcitonin negative, urine Legionella, MRSA negative, bacterial antigen negative. Blood culture preliminary negative. Sputum culture results awaited. Additional testing for atypical pneumonia, fungal pneumonia awaited. For now continue with ceftriaxone and azithromycin. Will ask to bring in home dose of tadalafil. Given hypoxia will try to keep patient as negative as possible. Patient history of CAD. Echocardiogram done shows an EF 60% with grade 1 diastolic dysfunction with moderate pulmonary hypertension with RVSP of 46. Hold Lasix today. Net 3 L negative since admission. Strict input output charting, daily weights. Fluid restriction up to 1500 cc. We will monitor BMP. Ram catheterization. Hypertension: Goal blood pressure less than 140/90 mmHg. Continue to monitor blood pressures for now. Continue home dose of carvedilol. If needed will add amlodipine 10 mg daily. Type 2 diabetes mellitus: HbA1c 9.4. Insulin sliding scale at high-dose protocol. Increase Lantus to 15 units twice daily. CAD: No active chest pain. Recent stent placement. Continue with aspirin, Plavix, statin. Check lipid panel. Continue beta-too. Full code. Full dose Lovenox will help with DVT prophylaxis as well. Famotidine for PUD prophylaxis. Cardiac carb consistent diet mechanical soft. Attestations Medical Necessity Statement*: Patient requires further hospitalization for management of severe ARDS secondary COVID-19 pneumonia, IPF exacerbation, ventilator dependent while proning sessions were done. Critical Care Time: The high probability of a clinically significant, sudden or life threatening deterioration of the patient's [pulmonary] system(s) required my full and direct attention, intervention and personal management. The critical care time is as shown. 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 [facility] Fwd Diagnoses Pneumonia due to 2019-nCoV U07.1; J12.82 Idiopathic interstitial fibrosis J84.112 ARDS (adult respiratory distress syndrome) J80 COVID-19 vaccination not done Z28.9 HTN (hypertension) I10 Hypertension type: unspecified Type 2 diabetes mellitus E11.69 Diabetes mellitus tank terminal gauger insulin use: unspecified tank terminal gauger insulin use status Diabetes mellitus complication status: with other specified complication CAD (coronary artery disease) I25.10 Coronary Disease-Associated Artery/Lesion type: [place] artery [place] vs. transplanted heart: [place] heart Associated angina: unspecified whether angina present
[2021-02-09 17:24] LABS: Glucose Point of Care 264 mg/dL (70-110)
[2021-02-09] MEDS: remdesivir 100 MG in sodium chloride 0.9% (100 ml) 100 ML IV (17:29)
--- NOTE | 2021-02-09 19:05 | PC.NURSE ---
TOF AND BIS RECORDED ON WINDOW OF DOOR. 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
[2021-02-09 19:37] LABS: Glucose Point of Care 264 mg/dL (70-110)
[2021-02-09] MEDS: insulin glargine 100 units/1 mL 15 UNIT SUBCUT (20:03)
--- NOTE | 2021-02-09 20:28 | PC.NURSE ---
During my assessment patient was noted to have a rectal temperature of 95.2. This nurse inserted rectal temp probe and place bear hugger on patient. Will continue to monitor.
--- NOTE | 2021-02-09 23:56 | PC.NURSE ---
Addendum entered by Pam Barba RN 02/09/21 23:57: Will continue to monitor. Original Note: Rectal temp 98.4, bear hugger removed.
[2021-02-10] VITALS (64 sets, daily range): BP systolic 97–154; BP diastolic 54–80; PULSE 76–106; RESP 16–22; TEMP 36.1–37.3; O2SAT 90–94
[2021-02-10] MEDS: ipratropium-albuterol 3 mL Neb INHALATION ×5 (00:43→20:31)
--- NOTE | 2021-02-10 02:25 | PC.NURSE ---
Patient placed in supine position with RT and 4 nursess. Patient tolerated well. Tube feed restarted at 20 ml/hr. Full bed bath linen change luz care completed. Will continue to monitor.
[2021-02-10 03:58] LABS: Basophils % 0.1 %; Hematocrit 51.7 % (42.0-52.0); Hemoglobin 15.9 g/dL (11.7-16.6); Lymphocytes # 0.3 10^3/uL (0.8-4.8); Lymphocytes % 1.8 %; Mean Corpuscular HGB Conc 30.8 g/dL (30.0-36.0); Mean Corpuscular Hemoglobin 28.8 pg (28.0-34.0); Mean Corpuscular Volume 93.5 fl (80-94); Mean Platelet Volume 9.3 fL (7.4-10.4); Monocytes # 1.1 10^3/uL (0.2-0.9); Monocytes % 7.1 %; Neutrophils % 89.9 %; Nucleated Red Blood Cells % 0 %; Platelet Count 307 10^3/cmm (130-400); Red Blood Count 5.53 10^6/uL (4.1-5.3); Red Cell Distribution Width 13.9 % (12.1-15.1); White Blood Count 14.8 10^3/uL (4.0-10.0)
[2021-02-10 04:29] LABS: NT Pro B Type Natriuretic Pept 110 pg/mL (0-125); Procalcitonin 0.09 ng/mL (0-0.5)
[2021-02-10 04:41] LABS: Alanine Aminotransferase 19 U/L (0-41); Albumin Level 3.2 g/dL (3.5-5.2); Alkaline Phosphatase 91 IU/L (40-130); Anion Gap 13.5 (5-19); Aspartate Amino Transferase 25 U/L (0-40); Blood Urea Nitrogen 50 mg/dL (8-23); C Reactive Protein 14.3 mg/L (0.0-4.9); Calcium 8.6 mg/dL (8.5-10.5); Carbon Dioxide 28 mmol/L (22-29); Chloride 102 mmol/L (98-107); Globulin 2.7 g/dL (1.3-4.6); Glucose 221 mg/dL (65-115); Osmolality Calculated 306 mOsm/kg (285-295); Potassium 5.5 mmol/L (3.5-5.1); Sodium 138 mmol/L (136-145); Total Bilirubin 0.3 mg/dL (0.15-1.2); Total Protein 5.9 g/dL (6.6-8.7)
[2021-02-10 04:44] LABS: Erythrocyte Sedimentation Rate 10 mm/hr (0-10)
[2021-02-10] MEDS: NON-FORMULARY MEDICATION (Tadalafil 5 mg tablet) 5 EACH PO (05:46)
[2021-02-10] MEDS: clopidogrel 75 mg Tablet PO (05:46)
[2021-02-10] MEDS: famotidine 20 mg/2 mL INJ IVP ×2 (05:46→17:33)
--- NOTE | 2021-02-10 06:00 | XRR_ITS ---
PROCEDURE INFORMATION: Exam: XR Chest Exam date and time: 02/10/2021 6:00 AM Age: 75 years old Clinical indication: Shortness of breath; Additional info: Covid TECHNIQUE: Imaging protocol: XR of the chest. Views: 1 view. Total images: 1 COMPARISON: CR (CHEST, ) 02/09/2021 10:31 AM FINDINGS: Tubes, catheters and devices: Tubes and catheters are unchanged from the prior exam. Lungs: Click pulmonary opacities unchanged Pleural spaces: Unremarkable. No pleural effusion. No pneumothorax. Heart/Mediastinum: Heart size is stable when compared to the prior exam. Bones/joints: Osseous structures are unchanged from the prior exam. XR/XR chest 1V portable [id number] IMPRESSION: Tubes and catheters are unchanged from the prior exam.
--- NOTE | 2021-02-10 06:13 | PC.NURSE ---
Shift Note Frequent safety and comfort rounds continue. Orders and/or nursing care completed as indicated. Patient monitored for response to intervention and treatment(s). Unable to educate patient at this time, he remains paralyzed and sedated on vent. Will continue to monitor. TOF BIS 19 4 45 20 4 41 21 4 53 22 4 45 23 3 52 00 4 42 01 4 38 02 4 61 03 4 38 04 4 34 05 4 37 06 4 40
[2021-02-10] MEDS: ferrous gluconate 324 mg Tablet PO ×2 (08:55→17:32)
[2021-02-10] MEDS: enoxaparin 40 mg/0.4 mL Syringe SUBCUT (08:55)
[2021-02-10] MEDS: aspirin 81 mg EC Tablet PO (08:56)
[2021-02-10] MEDS: tamsulosin 0.4 mg Capsule PO (08:56)
[2021-02-10] MEDS: zinc gluconate 50 mg Tablet PO (08:56)
[2021-02-10] MEDS: azithromycin 250 mg Tablet 500 MG PO (08:56)
[2021-02-10] MEDS: insulin glargine 100 units/1 mL 15 UNIT SUBCUT (08:56)
[2021-02-10] MEDS: ascorbic acid 500 mg Tablet PO (08:56)
[2021-02-10] MEDS: carvedilol 3.125 mg Tablet PO ×2 (08:56→17:32)
[2021-02-10 08:57] LABS: Glucose Point of Care 265 mg/dL (70-110)
[2021-02-10] MEDS: propofol 1,000 MG/100 ML INJ 8.59 MG IV (08:57)
[2021-02-10] MEDS: dextrose 50% syringe 50 mL IVP (08:57)
[2021-02-10] MEDS: cefTRIAXone 1,000 MG in sodium chloride 0.9% (plus) 50 ML 100 MG IV (08:57)
[2021-02-10] MEDS: insulin regular-human 10 UNIT in SYRINGE 1 EACH IVP (08:58)
[2021-02-10] MEDS: ezetimibe 10 mg Tablet PO (08:58)
[2021-02-10] MEDS: budesonide 0.5 mg/2 mL Neb INHALATION ×2 (09:46→20:31)
[2021-02-10 11:03] LABS: ABG PCO2 57.6 mmHg (35-45); ABG PH Result 7.34 (7.35-7.45); Alveolar-Arterial Oxygen Gradi 24.6 mmHg (5-10); Arterial Blood Gas Hematocrit 40.6 % (42-52); Base Excess ABG 3.4 mmol/L (-2.0-2.0); Blood Gas Allen Test Pos; Blood Gas Operator Identificat CAK; Blood Gas Sample Site ALINE; Blood Gas Sample Type Arterial; Blood Gas Tidal Volume 0.43; Carboxyhemoglobin 0.8 %THgb (0.4-20.1); HCO3 ABG 30.7 mmol/L (22-26); HGB O2 Sat 91.4 % (95-100); Ionized Calcium Level - ABG 1.1 mmol/L (1.1-1.4); Methemoglobin 0.5 % (0.4-1.5); Oxygen Device VENT; Oxygen Saturation ABG 92.6; PO2 ABG 63.5 mmHg (80.0-100.0); Potassium Level - ABG 4.9 mmol/L (3.5-5.0); Total Hemoglobin 13.2 g/dL (14-18)
--- NOTE | 2021-02-10 12:40 | PC.SOCIAL ---
IMM not updated IMM not updated. Patient is still intubated and not expected to D/c in the next 24-48 hours.
[2021-02-10 13:00] LABS: Glucose Point of Care 298 mg/dL (70-110)
[2021-02-10 13:01] LABS: Anion Gap 12.6 (5-19); Blood Urea Nitrogen 68 mg/dL (8-23); Calcium 8.2 mg/dL (8.5-10.5); Carbon Dioxide 30 mmol/L (22-29); Chloride 101 mmol/L (98-107); Glucose 356 mg/dL (65-115); Osmolality Calculated 320 mOsm/kg (285-295); Potassium 5.6 mmol/L (3.5-5.1); Sodium 138 mmol/L (136-145)
--- NOTE | 2021-02-10 13:31 | PM.PN ---
Subjective Subjective: Interval history: No acute events overnight. Patient was proned yesterday. Has remained hemodynamically stable and afebrile. Currently on 45% FiO2, 430 of tidal volume with PEEP of 10 saturating 92%. Appropriate urine output. Creatinine 1.3 today. Documented urine output of 1175 in last 24 hours. Medications: Reviewed: Yes Vitals/I&O/Wt Last Vital Signs Temp 97.7 F 02/10/21 08:30 Pulse 89 02/10/21 13:01 Resp 16 02/10/21 12:59 BP 133/62 02/10/21 09:30 Pulse Ox 93 02/10/21 12:59 02/09/21 02/10/21 02/10/21 22:59 06:59 14:59 Intake Total 700 / 893.833 468.627 / 468.627 Output Total 700 / 700 475 / 1175 Balance 0 / 193.833 -475 / -281.167 468.627 / 468.627 Weight last 48 hrs Weight 89.953 kg Weight 97.976 kg Physical Exam Narrative: EXAM NARRATIVE: General: Intubated, paralyzed HEENT: PERRLA, pupils bilaterally equal and reactive Chest: Bilateral bronchial breath sounds all over the lung [place], occasional rhonchi over the lung [place], crackles all over the lung [place], decreased air entry bilaterally CVS: S1-S2 regular, no murmurs, no tachycardia, no gallops, no rubs Abdomen: Soft, nontender, no organomegaly, bowel sounds present Neuro: Intubated, paralyzed Urinary Catheter Management^: Ram: Cath Placed During This Visit: yes Reason for Continuing Indwelling Catheter: Accurate Measurement of Urinary Output in Critically Ill Patients Urinary Catheter Date of Insertion: 02/05/21 Urinary Catheter Time of Insertion: 18:34 Data : 02/10/21 03:16 02/10/21 12:10 Micro: Microbiology 02/05/21 12:49 Blood Culture - Final Blood NO GROWTH AFTER 5 DAYS 02/07/21 Unknown Gram Stain - Final Sputum - Endotracheal Tube Aspirate Sputum Culture - Final A&P Assessment and plan (1) Pneumonia due to 2019-nCoV: Status: Acute (2) Idiopathic interstitial fibrosis: Status: Acute (3) ARDS (adult respiratory distress syndrome): Status: Acute (4) COVID-19 vaccination not done: Status: Acute (5) HTN (hypertension): Status: Acute Qualifiers: Hypertension type: unspecified Qualified Code(s): I10 - Essential (primary) hypertension (6) Type 2 diabetes mellitus: Status: Acute Qualifiers: Diabetes mellitus joint terminal attack controller insulin use: unspecified joint terminal attack controller insulin use status Diabetes mellitus complication status: with other specified complication Qualified Code(s): E11.69 - Type 2 diabetes mellitus with other specified complication (7) CAD (coronary artery disease): Status: Acute Qualifiers: Coronary Disease-Associated Artery/Lesion type: [place] artery [place] vs. transplanted heart: [place] heart Associated angina: unspecified whether angina present Qualified Code(s): I25.10 - Atherosclerotic heart disease of [place] coronary artery without angina pectoris (8) WHO group 2 pulmonary arterial hypertension: Status: Acute (9) Acute respiratory distress syndrome (ARDS) due to 2019 novel coronavirus: Status: Acute Additional A&P Information ARDS secondary to COVID-19 pneumonia in setting of idiopathic interstitial pulmonary fibrosis: Cannot rule out ILD exacerbation as well in setting of COVID-19 pneumonia. Severe disease. Intubated on February 07. Plan for sedation vacation and waking up trial for possible extubation soon. Continue with Solu-Medrol 40 mg every 8 hourly. Remdesivir to finish a 5-day course. Vitamin C, zinc. DuoNebs every 4 hour, budesonide twice daily. Pulmonary toilet with incentive spirometry flutter valve. We will monitor inflammatory markers including ferritin, ESR, CRP, D-dimer, fibrinogen. Patient's inflammatory markers are trending down. D-dimer elevated. CTA negative for pulmonary embolism. Lovenox changed to prophylactic dose. We will continue to monitor D-dimer trending up. Will monitor for anemia or blood loss. Procalcitonin negative, urine Legionella, MRSA negative, bacterial antigen negative. Blood culture preliminary negative. Sputum culture results awaited. Additional testing for atypical pneumonia, fungal pneumonia awaited. For now continue with ceftriaxone and azithromycin. Will ask to bring in home dose of tadalafil. Given hypoxia will try to keep patient as negative as possible. Patient history of CAD. Echocardiogram done shows an EF 60% with grade 1 diastolic dysfunction with moderate pulmonary hypertension with RVSP of 46. Hold Lasix today. Net 3 L negative since admission. Strict input output charting, daily weights. Fluid restriction up to 1500 cc. We will monitor BMP. Ram catheterization. Hypertension: Goal blood pressure less than 140/90 mmHg. Continue to monitor blood pressures for now. Continue home dose of carvedilol. If needed will add amlodipine 10 mg daily. Type 2 diabetes mellitus: HbA1c 9.4. Insulin sliding scale at high-dose protocol. Increase Lantus to 15 units twice daily. CAD: No active chest pain. Recent stent placement. Continue with aspirin, Plavix, statin. Check lipid panel. Continue beta-too. Plan for today: Gradual weaning of sedation, waking trials for possible extubation within next 24 hours. Continue supportive care and tube feeds. Full code. Full dose Lovenox will help with DVT prophylaxis as well. Famotidine for PUD prophylaxis. Tube feeds. Attestations Medical Necessity Statement*: Requires further hospitalization for management of ARDS secondary COVID-19 pneumonia in setting of idiopathic pulmonary fibrosis, stage II pulmonary hypertension, waking up trials Time Spent in Patient Care: Greater than 35 minutes (>than 50% of time spent in counselling and/or direct pt care on unit). 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 transplanted heart: [place] heart Associated angina: unspecified whether angina present WHO group 2 pulmonary arterial hypertension I27.22 Acute respiratory distress syndrome (ARDS) due to 2019 novel coronavirus U07.1; J80
[2021-02-10] MEDS: sodium polystyrene sulfonate 15 gm/60 mL Btl 30 GM PO (13:48)
--- NOTE | 2021-02-10 17:10 | P.PN_ITS ---
Subjective Subjective: Interval history: -Patient completed to proning patient -FiO2 down to 45% -Today we will plan to decrease sedation and awaken patient -Labs and imaging reviewed Medications: Reviewed: Yes Vitals/I&O/Wt Last Vital Signs Temp 98.6 F 02/10/21 12:30 Pulse 90 02/10/21 15:00 Resp 19 H 02/10/21 15:41 BP 116/73 02/10/21 15:00 Pulse Ox 94 02/10/21 15:41 02/10/21 02/10/21 02/10/21 06:59 14:59 22:59 Intake Total 468.627 / 468.627 Output Total 475 / 1175 425 / 425 Balance -475 / -281.167 468.627 / 468.627 -425 / 43.627 Weight last 48 hrs Weight 198 lb 5 oz Weight 216 lb Physical Exam Narrative: EXAM NARRATIVE: PHYSICAL EXAM: General: lying in bed, sedated and intubated. HEENT:NCAT, PERRLA, EOMI Neck: Supple Lungs: Bilateral coarse crepitations and intermittent crackles Heart: s1/s2, RRR Abd: soft, NT, ND, BS + Normoactive Extremities: No edema RN MDS COORDINATOR: sedated and limited RN MDS COORDINATOR exam possible. SKIN: no rash Urinary Catheter Management^: Ram: Cath Placed During This Visit: yes Reason for Continuing Indwelling Catheter: Accurate Measurement of Urinary Output in Critically Ill Patients Urinary Catheter Date of Insertion: 02/05/21 Urinary Catheter Time of Insertion: 18:34 Data : 02/10/21 03:16 02/10/21 12:10 Other Labs: Laboratory Results WBC 14.8 10^3/uL (4.0-10.0) H 02/10/21 03:16 RBC 5.53 10^6/uL (4.1-5.3) H 02/10/21 03:16 Hgb 15.9 g/dL (11.7-16.6) 02/10/21 03:16 Hct 51.7 % (42.0-52.0) 02/10/21 03:16 MCV 93.5 fl (80-94) 02/10/21 03:16 MCH 28.8 pg (28.0-34.0) 02/10/21 03:16 MCHC 30.8 g/dL (30.0-36.0) 02/10/21 03:16 RDW 13.9 % (12.1-15.1) 02/10/21 03:16 Plt Count 307 10^3/cmm (130-400) 02/10/21 03:16 MPV 9.3 fL (7.4-10.4) 02/10/21 03:16 Neut % (Auto) 89.9 % 02/10/21 03:16 Lymph % (Auto) 1.8 % 02/10/21 03:16 [place] % (Auto) 7.1 % 02/10/21 03:16 Eos % (Auto) 0.0 % 02/10/21 03:16 Baso % (Auto) 0.1 % 02/10/21 03:16 Neut # (Auto) 13.30 10^3/uL (1.8-7.7) H 02/10/21 03:16 Lymph # (Auto) 0.3 10^3/uL (0.8-4.8) L 02/10/21 03:16 [place] # (Auto) 1.1 10^3/uL (0.2-0.9) H 02/10/21 03:16 Eos # (Auto) 0.0 10^3/uL (0.0-0.8) 02/10/21 03:16 Baso # (Auto) 0.0 10^3/uL (0.0-0.1) 02/10/21 03:16 Nucleated RBC % (auto) 0 % 02/10/21 03:16 Nucleated RBCs # 0.0 /100WBC 02/10/21 03:16 ESR 10 mm/hr (0-10) 02/10/21 03:16 D-Dimer 1.38 ug/mIFEU (0-0.59) H 02/08/21 05:47 Specimen Type Arterial 02/10/21 10:49 Sample Site Marilyn 02/10/21 10:49 ABG pH 7.34 (7.35-7.45) L 02/10/21 10:49 ABG pCO2 57.6 mmHg (35-45) H 02/10/21 10:49 ABG pO2 63.5 mmHg (80.0-100.0) L 02/10/21 10:49 ABG HCO3 30.7 mmol/L (22-26) H 02/10/21 10:49 ABG O2 Saturation 92.6 02/10/21 10:49 ABG Base Excess 3.4 mmol/L (-2.0-2.0) H 02/10/21 10:49 Davion Test Pos 02/10/21 10:49 A-a O2 Gradient 24.6 mmHg (5-10) H 02/10/21 10:49 Hematocrit 40.6 % (42-52) L 02/10/21 10:49 Hgb O2 Saturation 91.4 % (95-100) L 02/10/21 10:49 Carboxyhemoglobin 0.8 %THgb (0.4-20.1) 02/10/21 10:49 Methemoglobin 0.5 % (0.4-1.5) 02/10/21 10:49 Total Hemoglobin 13.2 g/dL (14-18) L 02/10/21 10:49 Sodium 140.0 mmol/L (131-143) 02/10/21 10:49 Potassium 4.9 mmol/L (3.5-5.0) 02/10/21 10:49 Glucose 350.0 mg/dL (70-115) H 02/10/21 10:49 Ionized Calcium 1.1 mmol/L (1.1-1.4) 02/10/21 10:49 O2 Delivery Device Vent 02/10/21 10:49 O2 Liters/Min 55.0 % 02/06/21 09:30 FiO2 45.0 % 02/10/21 10:49 Tidal Volume 0.43 02/10/21 10:49 PEEP 10.0 cmH20 02/10/21 10:49 Brigadier ID Cak 02/10/21 10:49 Sodium 138 mmol/L (136-145) 02/10/21 12:10 Potassium 5.6 mmol/L (3.5-5.1) H 02/10/21 12:10 Chloride 101 mmol/L (98-107) 02/10/21 12:10 Carbon Dioxide 30 mmol/L (22-29) H 02/10/21 12:10 Anion Gap 12.6 (5-19) 02/10/21 12:10 BUN 68 mg/dL (8-23) H 02/10/21 12:10 Creatinine 1.3 mg/dL (0.7-1.2) H 02/10/21 12:10 GFR Calculation Not Reportable 02/10/21 12:10 Glucose 356 mg/dL (65-115) H 02/10/21 12:10 POC Glucose 298 mg/dL (70-110) H 02/10/21 12:56 Estimat Average Glucose 223 02/06/21 05:45 Hemoglobin A1c 9.4 % (4.0-6.0) H 02/06/21 05:45 Calculated Osmolality 320 mOsm/kg (285-295) H 02/10/21 12:10 Lactic Acid 1.4 mmol/L (0.5-2.2) 02/05/21 12:42 Calcium 8.2 mg/dL (8.5-10.5) L 02/10/21 12:10 Phosphorus 3.3 mg/dL (2.5-4.5) 02/06/21 05:45 Magnesium 2.3 mg/dL (1.7-2.3) 02/06/21 05:45 Iron 37 ug/dL (59-158) L 02/05/21 12:42 TIBC 195 mcg/dl 02/05/21 12:42 % Saturation 18.9 % (20-50) L 02/05/21 12:42 Unsat Iron Binding 158 ug/dL (112-347) 02/05/21 12:42 Ferritin 654 ng/mL (30-400) H 02/08/21 05:47 Total Bilirubin 0.3 mg/dL (0.15-1.2) 02/10/21 03:16 AST 25 U/L (0-40) 02/10/21 03:16 ALT 19 U/L (0-41) 02/10/21 03:16 Alkaline Phosphatase 91 IU/L (40-130) 02/10/21 03:16 Lactate Dehydrogenase 583 U/L (135-225) H 02/06/21 05:45 Creatine Kinase 13 U/L (39-308) L 02/08/21 05:47 C-Reactive Protein 14.3 mg/L (0.0-4.9) H 02/10/21 03:16 NT-Pro-B Natriuret Pep 110 pg/mL (0-125) 02/10/21 03:16 Total Protein 5.9 g/dL (6.6-8.7) L 02/10/21 03:16 Albumin 3.2 g/dL (3.5-5.2) L 02/10/21 03:16 Globulin 2.7 g/dL (1.3-4.6) 02/10/21 03:16 Triglycerides 162 mg/dL (0-150) H 02/06/21 05:45 Cholesterol 142 mg/dL (0-200) 02/06/21 05:45 LDL Cholesterol, Calc 65 mg/dL (50-129) 02/06/21 05:45 Total VLDL Cholesterol 32 mg/dL (0-30) H 02/06/21 05:45 HDL Cholesterol 45 mg/dL (60-100) L 02/06/21 05:45 Cholesterol/HDL Ratio 3.16 mg/dL (1.0-5.00) 02/06/21 05:45 Procalcitonin 0.09 ng/mL (0-0.5) 02/10/21 03:16 TSH 1.72 uIU/mL (0.27-4.20) 02/05/21 12:42 Urine Color Straw (Yellow) 02/05/21 18:17 Urine Appearance Clear (CLEAR) 02/05/21 18:17 Urine pH 5 (5-7) 02/05/21 18:17 Ur Specific [place] 1.005 (1.005-1.030) 02/05/21 18:17 Urine Protein Neg (Negative) 02/05/21 18:17 Urine Glucose (UA) 2+ (Normal) 02/05/21 18:17 Urine Ketones Negative (Negative) 02/05/21 18:17 Urine Blood Neg (Negative) 02/05/21 18:17 Urine Nitrate Negative (Negative) 02/05/21 18:17 Urine Bilirubin Neg (Negative) 02/05/21 18:17 Urine Urobilinogen Norm mg/dL (Negative) 02/05/21 18:17 Ur Leukocyte Esterase Negative (Negative) 02/05/21 18:17 Ur Random Sodium 101 mmol/L 02/05/21 18:17 Ur Random Potassium 11 mmol/L 02/05/21 18:17 Ur Random Chloride 104 mmol/L 02/05/21 18:17 Impressions Chest CTA 02/05/21 13:24 IMPRESSION: 1. No pulmonary embolism. 2. Diffusely abnormal lungs. Diffuse scattered groundglass attenuation, thickened reticulations and honeycombing. Suspect superimposed Covid on chronic pulmonary fibrosis. 3. Bilateral hilar adenopathy with the largest lymph node on the LEFT measuring 12 mm. Probably reactive. Chest X-Ray 02/10/21 06:00 IMPRESSION: Tubes and catheters are unchanged from the prior exam. ADDENDUM: 02/10/21 0834 Bilateral pulmonary opacities are again noted and appear unchanged. Micro: Microbiology 02/05/21 13:00 Blood Culture - Final Blood NO GROWTH AFTER 5 DAYS 02/05/21 12:49 Blood Culture - Final Blood NO GROWTH AFTER 5 DAYS 02/07/21 Unknown Gram Stain - Final Sputum - Endotracheal Tube Aspirate Sputum Culture - Final A&P Assessment and plan (1) Acute respiratory failure with hypoxia: Status: Acute (2) Acute respiratory distress syndrome (ARDS) due to 2019 novel coronavirus: Status: Acute (3) Idiopathic interstitial fibrosis: Status: Acute (4) CAD (coronary artery disease): Status: Acute Qualifiers: Coronary Disease-Associated Artery/Lesion type: [place] artery [place] vs. transplanted heart: [place] heart Associated angina: unspecified whether angina present Qualified Code(s): I25.10 - Atherosclerotic heart disease of [place] coronary artery without angina pectoris (5) Type 2 diabetes mellitus: Status: Acute Qualifiers: Diabetes mellitus care home insulin use: unspecified care home insulin use status Diabetes mellitus complication status: with other specified complica tion Qualified Code(s): E11.69 - Type 2 diabetes mellitus with other specified complication (6) HTN (hypertension): Status: Acute Qualifiers: Hypertension type: unspecified Qualified Code(s): I10 - Essential (primary) hypertension (7) COVID-19 vaccination not done: Status: Acute (8) WHO group 2 pulmonary arterial hypertension: Status: Acute (9) Hyperkalemia: Status: Acute (10) MIKA (acute kidney injury): Status: Acute -Intubated 02/07/2021 -Sedated and paralyzed and completed 2 proning sessions - drips: proprofol - 15, versed 2, fentanyl 50, nimbex 0.75-Taper off sedation and start awakening trial -ABG 7.3 4/57/63/30/92% on CMV 45% FiO2/430/10 -With underlying idiopathic interstitial pulmonary fibrosis:possible ILD exacerbation - on home medication tadalafil 5 mg daily once for pulmonary hypertension and pirfenidone for his IPF - Prednisone 40 mg every 8 hourly-taper down to 40 every 12 daily -Completed on remdesivir 5 days - Patient CRP is already low and oxygenation improved after 2 proning sessions- no need for Actemra - DuoNebs every 4 hour, budesonide twice daily. - Pulmonary toilet with incentive spirometry flutter valve. - Monitor inflammatory markers including ferritin, ESR, CRP, D-dimer, fibrinogen every 48 hour - CTA negative for pulmonary embolism. - afebrile , Procalcitonin negative, urine Legionella bacterial antigen negative,Blood culture preliminary negative. Sputum culture results awaited. - On empiric ceftriaxone and Continue with home dose of azithromycin prophylaxis - Patient has a history of idiopathic pulmonary fibrosis and has been on steroids for last 6 months. He has history of recent travel to [place] and [place]. - PCP PCR, histoplasma antigen, Aspergillus antigen pending as pt his on steroids at home - MIKA-likely secondary to COVID-19 pneumonia versus prerenal - Given hypoxia will try to keep patient as negative as possible. -280 cc last 24 hours / -3.4 L since admission; will hold off Lasix - Potassium 5.6-s/p insulin regular 10 units given and D50 given, Kayexalate 30 g p.o. given once-repeat BMP & CK pending - Patient history of CAD. Echocardiogram done shows an EF 60% with grade 1 diastolic dysfunction with moderate pulmonary hypertension with RVSP of 46. -Monitor monitor input and output, daily weights - Hypertension: Goal blood pressure less than 140/90 mmHg. - Continue home dose of carvedilol - Type 2 diabetes mellitus: HbA1c 9.4.Insulin sliding scale at moderate dose. sugars uncontrolled , increase Lantus to 20 units twice daily - Continue with aspirin, Plavix, statin. Full code. Lovenox DVT prophylaxis Famotidine for PUD prophylaxis. To restart feeding when patient is in supine position updated Recommendations conveyed to hospitalist, RN, RT taking care of the patient Attestations Medical Necessity Statement*: Acute hypoxic respiratory failure secondary to ARDS due to COVID-19 pneumonia in patient with underlying interstitial fibrosis requiring mechanical ventilation Time Spent in Patient Care: Greater than 35 minutes (>than 50% of time spent in counselling and/or direct pt care on unit) . Critical Care Time: The high probability of a clinically significant, sudden or life threatening deterioration of the patient's [pulmonary, endocrine, renal, neurological] system(s) required my full and direct attention, intervention and personal management. The critical care time is as shown. 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 transplanted heart: [place] heart Associated angina: unspecified whether angina present Type 2 diabetes mellitus E11.69 Diabetes mellitus care home insulin use: unspecified long term care phlebotomist insulin use status Diabetes mellitus complication status: with other specified complication HTN (hypertension) I10 Hypertension type: unspecified COVID-19 vaccination not done Z28.9 WHO group 2 pulmonary arterial hypertension I27.22 Hyperkalemia E87.5 MIKA (acute kidney injury) N17.9 Time Spent (min) 45
[2021-02-10 17:12] LABS: Glucose Point of Care 346 mg/dL (70-110)
[2021-02-10 17:34] LABS: Anion Gap 13.2 (5-19); Blood Urea Nitrogen 69 mg/dL (8-23); Calcium 8.4 mg/dL (8.5-10.5); Carbon Dioxide 30 mmol/L (22-29); Chloride 103 mmol/L (98-107); Creatine Phosphokinase 113 U/L (39-308); Glucose 338 mg/dL (65-115); Osmolality Calculated 325 mOsm/kg (285-295); Potassium 5.2 mmol/L (3.5-5.1); Sodium 141 mmol/L (136-145)
[2021-02-10 18:12] LABS: Aspergillus AG,EIA,Serum NOT DETECTED; Aspergillus Galactomannan Inde <0.50
--- NOTE | 2021-02-10 19:15 | PC.NURSE ---
Shift Note Frequent safety and comfort rounds continue. Orders and/or nursing care completed as indicated. Patient monitored for response to intervention and treatment. Uneventful shift. Patient rested in bed thorughout the day. Decision was made by Dr Navarro to discontinue proning sessions at this time. Nimbex was stopped. Nurse started Sedation vacation. During the sedation vacation the nurse was as able to turn off versed and keep fentanyl at 50 and propofol at 10 with patient being comfortable. After vacation completed fentanyl was increased to 75, and propofol to 20. Versed remains off. Tube feeds were restarted and we have reached our goal rate of 50cc/hour. Residuals throughout the day were 50cc or less. Family has been updated on pt condition and treatment plan.
--- NOTE | 2021-02-10 19:24 | PC.NURSE ---
Nurse Peyman Em witnessed wasting of 18.167 mL of versed.
[2021-02-10 19:57] LABS: Glucose Point of Care 303 mg/dL (70-110)
[2021-02-10] MEDS: benzonatate 100 mg Capsule PO (20:17)
[2021-02-10] MEDS: insulin glargine 100 units/1 mL 20 UNIT SUBCUT (20:17)
[2021-02-10] MEDS: propofol 1,000 MG/100 ML INJ 11.45 MG IV (21:31)
[2021-02-11] VITALS (69 sets, daily range): BP systolic 74–162; BP diastolic 46–97; PULSE 58–108; RESP 16–24; TEMP 36.3–37.3; O2SAT 87–96
[2021-02-11 00:06] LABS: Glucose Point of Care 245 mg/dL (70-110)
[2021-02-11] MEDS: ipratropium-albuterol 3 mL Neb INHALATION ×7 (00:28→23:47)
--- NOTE | 2021-02-11 03:21 | PC.NURSE ---
Complete bath, linen change and luz care done. Patient tolerated well, will continue to monitor.
[2021-02-11 03:54] LABS: Glucose Point of Care 218 mg/dL (70-110)
[2021-02-11] MEDS: propofol 1,000 MG/100 ML INJ 17.18 MG IV (04:12)
[2021-02-11 05:20] LABS: ABG PCO2 56.9 mmHg (35-45); ABG PH Result 7.39 (7.35-7.45); Arterial Blood Gas Hematocrit 45.8 % (42-52); Base Excess ABG 7.1 mmol/L (-2.0-2.0); Blood Gas Sample Type Arterial; Blood Gas Tidal Volume 0.43; HCO3 ABG 34.2 mmol/L (22-26); Oxygen Device VENT; PO2 ABG 63.8 mmHg (80.0-100.0)
[2021-02-11] MEDS: clopidogrel 75 mg Tablet PO (05:53)
[2021-02-11] MEDS: famotidine 20 mg/2 mL INJ IVP ×2 (05:53→19:04)
[2021-02-11] MEDS: NON-FORMULARY MEDICATION (Tadalafil 5 mg tablet) 5 EACH PO (05:54)
[2021-02-11 05:59] LABS: C Reactive Protein 11.3 mg/L (0.0-4.9); NT Pro B Type Natriuretic Pept 130 pg/mL (0-125)
[2021-02-11 07:40] LABS: Glucose Point of Care 185 mg/dL (70-110)
[2021-02-11] MEDS: budesonide 0.5 mg/2 mL Neb INHALATION ×2 (07:45→19:51)
[2021-02-11] MEDS: aspirin 81 mg EC Tablet PO (08:23)
[2021-02-11] MEDS: zinc gluconate 50 mg Tablet PO (08:23)
[2021-02-11] MEDS: enoxaparin 40 mg/0.4 mL Syringe SUBCUT (08:23)
[2021-02-11] MEDS: azithromycin 250 mg Tablet 500 MG PO (08:23)
[2021-02-11] MEDS: cefTRIAXone 1,000 MG in sodium chloride 0.9% (plus) 50 ML 100 MG IV (08:23)
[2021-02-11] MEDS: carvedilol 3.125 mg Tablet PO ×2 (08:23→19:04)
[2021-02-11] MEDS: tamsulosin 0.4 mg Capsule PO (08:23)
[2021-02-11] MEDS: ascorbic acid 500 mg Tablet PO (08:23)
[2021-02-11] MEDS: ferrous gluconate 324 mg Tablet PO ×2 (08:23→19:04)
[2021-02-11] MEDS: ezetimibe 10 mg Tablet PO (08:29)
[2021-02-11] MEDS: insulin glargine 100 units/1 mL 20 UNIT SUBCUT ×2 (08:36→20:32)
--- NOTE | 2021-02-11 08:52 | PC.CHAP ---
Pastoral Care Encounter/Spiritual Assessment Type of Contact [] Declined sack sewer visit [] Patient/Family/Request visit [] Outpatient visit [] Follow-up visit [] Physician referral [] Code/Alert [x] Routine visit [] Staff referral [] Actively dying [] Patient sleeping [] Family support [] [] Out of room [] Palliative care [] [] Receiving care in room [] Pre-surgical visit [] Trauma [] Long length of stay [x] ICU visit [x] Other: vent Relational/Emotional Strength [] Patient feels connected with others/family/visitors/staff [] Distress [] Loneliness/isolation [] Abandonment Spirituality of Patient [] Person of Heidy [] Attends Anglican of their Heidy [] Believes in Prayer [] Reads Bible or Lutheran materials [] There are Spiritual issues to be addressed P[place] Interventions [x] Prayer [] Active listening [] Non-anxious presence [] Spiritual/emotional support [] Crisis/trauma care [] Spiritual counseling [] Bereavement support [] Provided bereavement packet [] Provided Bible/devotional materials [] Provided toy/stuffed animal, coloring book to patient or family member [] Provided Communion [] Anointing/[place] [] Salvation [x] Completed spiritual assessment [] Other: Impact on Illness or Injury [] Angry [] Fearful [] Anxious [] Often cries [] Exhaustion [] Unable to work [] Unable to attend anglican [] Unable to walk/stand [] Unable to read [] Unable to drive [] Unable to eat/drink [] Unable to sleep [] Unable to be with family [] Patient intubated [] Other: Summary Time spent with patient
[2021-02-11 09:50] LABS: Basophils % 0.1 %; Hematocrit 45.8 % (42.0-52.0); Hemoglobin 14.5 g/dL (11.7-16.6); Lymphocytes # 0.6 10^3/uL (0.8-4.8); Lymphocytes % 3.6 %; Mean Corpuscular HGB Conc 31.7 g/dL (30.0-36.0); Mean Corpuscular Hemoglobin 29.3 pg (28.0-34.0); Mean Corpuscular Volume 92.5 fl (80-94); Mean Platelet Volume 9.3 fL (7.4-10.4); Monocytes # 1.7 10^3/uL (0.2-0.9); Monocytes % 10.3 %; Neutrophils # 13.86 10^3/uL (1.8-7.7); Neutrophils % 85.1 %; Nucleated Red Blood Cells % 0 %; Platelet Count 252 10^3/cmm (130-400); Red Blood Count 4.95 10^6/uL (4.1-5.3); Red Cell Distribution Width 14.3 % (12.1-15.1); White Blood Count 16.3 10^3/uL (4.0-10.0)
[2021-02-11 10:21] LABS: Alanine Aminotransferase 23 U/L (0-41); Albumin Level 3.1 g/dL (3.5-5.2); Alkaline Phosphatase 87 IU/L (40-130); Anion Gap 11.6 (5-19); Aspartate Amino Transferase 28 U/L (0-40); Blood Urea Nitrogen 71 mg/dL (8-23); Calcium 8.4 mg/dL (8.5-10.5); Carbon Dioxide 33 mmol/L (22-29); Chloride 105 mmol/L (98-107); Globulin 2.2 g/dL (1.3-4.6); Glucose 211 mg/dL (65-115); Osmolality Calculated 327 mOsm/kg (285-295); Potassium 4.6 mmol/L (3.5-5.1); Sodium 145 mmol/L (136-145); Total Bilirubin 0.3 mg/dL (0.15-1.2); Total Protein 5.3 g/dL (6.6-8.7)
[2021-02-11] MEDS: propofol 1,000 MG/100 ML INJ 14.32 MG IV (10:28)
--- NOTE | 2021-02-11 11:01 | PC.NURSE ---
Per Dr Navarro, possible extubation today. Nurse paused the tube feeding and has started reducing sedation.
[2021-02-11] MEDS: dexmedetomidine 400 MCG in sodium chloride 0.9% (100 ml) 100 ML IV (12:07)
[2021-02-11 12:48] LABS: Glucose Point of Care 217 mg/dL (70-110)
--- NOTE | 2021-02-11 16:19 | PC.RESP ---
PULMONARY REHAB INFORMATION SENT TO PATIENT.
[2021-02-11 16:37] LABS: Glucose Point of Care 225 mg/dL (70-110)
[2021-02-11 18:06] LABS: Fungitell 1-3-B Glucan Assay <31 pg/mL; Interpretation NEGATIVE
[2021-02-11] MEDS: docusate sodium 100 mg Capsule PO (19:04)
--- NOTE | 2021-02-11 19:28 | PC.NURSE ---
Shift Note Frequent safety and comfort rounds continue. Orders and/or nursing care completed as indicated. Patient monitored for response to intervention and treatment. Uneventful shift. Started weaning process. Propofol reduced, fentanyl reduced, and preceex started. At shift change, propofol is at a rate of 15 mcg, and fentanyl at 50, and precedex at 0.3. pt rested in bed throughout the day. fmaily has been updated.
[2021-02-11 19:56] LABS: Glucose Point of Care 207 mg/dL (70-110)
[2021-02-11] MEDS: benzonatate 100 mg Capsule PO (20:33)
[2021-02-11] MEDS: sennosides-docusate Tablet 1 TAB PO (20:33)
--- NOTE | 2021-02-11 21:46 | P.PN_ITS ---
Subjective Subjective: Interval history: Intubated, sedated. Vitals/I&O/Wt Last Vital Signs Temp 97.3 F L 02/11/21 20:00 Pulse 61 02/11/21 21:00 Resp 18 02/11/21 19:54 BP 108/55 02/11/21 21:00 Pulse Ox 91 02/11/21 21:00 02/11/21 02/11/21 02/11/21 06:59 14:59 22:59 Intake Total 1312.715 / 2276.805 71.181 / 71.181 192.390 / 263.571 Output Total 550 / 550 Balance 1312.715 / 1701.805 -478.819 / -478.819 192.390 / -286.429 Weight last 48 hrs Weight 90.7 kg Weight 90.2 kg Weight 89.953 kg Physical Exam Const: COMMON NORMALS: no acute distress GENERAL APPEARANCE: patient mechanically ventilated HENMT: COMMON NORMALS: oropharynx normal Neck/C-Spine: COMMON NORMALS: no JVD Resp: COMMON NORMALS: normal respiratory effort and clear to auscultation bilaterally AUSCULTATION: clear to auscultation bilaterally Cardio: COMMON NORMALS: no JVD, regular rhythm, S1 normal heart sound present, S2 normal heart sound present and No murmurs present (Cardio) RHYTHM: regular rhythm HEART SOUNDS: S1 normal heart sound present and S2 normal heart sound present GI: COMMON NORMALS: Normal to inspection, nondistended, normoactive bowel sounds present and Soft to palpation PALPATION: Yes Soft to palpation Extremity: COMMON NORMALS: no joint enlargement and no pedal edema Neuro: COMMON NORMALS: moves all extremities Skin: COMMON NORMALS: no rashes or lesions noted GENERAL SKIN EXAM: no ra shes or lesions noted Urinary Catheter Management^: Ram: Cath Placed During This Visit: yes Reason for Continuing Indwelling Catheter: Accurate Measurement of Urinary Output in Critically Ill Patients Urinary Catheter Date of Insertion: 02/05/21 Urinary Catheter Time of Insertion: 18:34 Data : 02/11/21 09:35 02/11/21 09:35 Micro: Microbiology 02/10/21 18:45 Gram Stain - Final Sputum - Endotracheal Tube Aspirate A&P Assessment and plan (1) Pneumonia due to 2019-nCoV: Continue prednisone with taper. He has completed a course of remdesivir. Prophylactic Lovenox. Illness complicated by underlying ILD with possible exacerbation. Wean mechanical ventilatory support. Status: Acute (2) Idiopathic interstitial fibrosis: Continue prednisone with taper as above. Continue [place] ceftriaxone, azithromycin prophylaxis. Status: Acute (3) ARDS (adult respiratory distress syndrome): Weaning trial with aggressive sedation, spontaneous breathing trial in the morning. Status: Acute (4) COVID-19 vaccination not done: Status: Acute (5) HTN (hypertension): Status: Acute Qualifiers: Hypertension type: unspecified Qualified Code(s): I10 - Essential (primary) hypertension (6) Type 2 diabetes mellitus: Status: Acute Qualifiers: Diabetes mellitus intermediate accountant insulin use: unspecified assisted insulin use status Diabetes mellitus complication status: with other specified complication Qualified Code(s): E11.69 - Type 2 diabetes mellitus with other specified complication (7) CAD (coronary artery disease): Recent stent placement. Continue aspirin, Plavix, beta-too, statin. Status: Acute Qualifiers: Coronary Disease-Associated Artery/Lesion type: [place] artery [place] vs. transplanted heart: [place] heart Associated angina: unspecified whether angina present Qualified Code(s): I25.10 - Atherosclerotic heart disease of [place] coronary artery without angina pectoris (8) WHO group 2 pulmonary arterial hypertension: Status: Acute (9) Acute respiratory distress syndrome (ARDS) due to 2019 novel coronavirus: Status: Acute Attestations Medical Necessity Statement*: Continue admission for weaning of mechanical ventilatory support, sedation with hypoxic respiratory failure secondary to severe COVID-19 with underlying angiopathic interstitial fibrosis with possible exacerbation, with underlying CAD and a number of additional comorbidities. Coding Level of Care Code Acute Wood Router for [facility] Diagnoses Pneumonia due to 2019-nCoV U07.1; J12.82 Idiopathic interstitial fibrosis J84.112 ARDS (adult respiratory distress syndrome) J80 COVID-19 vaccination not done Z28.9 HTN (hypertension) I10 Hypertension type: unspecified Type 2 diabetes mellitus E11.69 Diabetes mellitus assisted insulin use: unspecified intermediate accountant insulin use status Diabetes mellitus complication status: with other specified complication CAD (coronary artery disease) I25.10 Coronary Disease-Associated Artery/Lesion type: [place] artery [place] vs. transplanted heart: [place] heart Associated angina: unspecified whether angina present WHO group 2 pulmonary arterial hypertension I27.22 Acute respiratory distress syndrome (ARDS) due to 2019 novel coronavirus U07.1; J80
--- NOTE | 2021-02-11 23:06 | PM.PN ---
Subjective Subjective: Interval history: -Patient completed 2 proning sessions and FiO2 down to 45% -We will taper off sedation and and try spontaneous awakening trial -Labs and imaging reviewed Medications: Reviewed: Yes Vitals/I&O/Wt Last Vital Signs Temp 97.3 F L 02/11/21 20:00 Pulse 61 02/11/21 21:00 Resp 18 02/11/21 19:54 BP 108/55 02/11/21 21:00 Pulse Ox 91 02/11/21 21:00 02/11/21 02/11/21 02/12/21 14:59 22:59 06:59 Intake Total 71.181 / 71.181 192.390 / 263.571 Output Total 550 / 550 Balance -478.819 / -478.819 192.390 / -286.429 Weight last 48 hrs Weight 199 lb 15.348 oz Weight 198 lb 13.711 oz Weight 198 lb 5 oz Physical Exam Narrative: EXAM NARRATIVE: General: lying in bed, sedated and intubated. HEENT:NCAT, PERRLA, EOMI Neck: Supple Lungs: Bilateral coarse crepitations and intermittent crackles Heart: s1/s2, RRR Abd: soft, NT, ND, BS + Normoactive Extremities: No edema DIRECTOR OF PEDIATRIC REHABILITATION: sedated and limited DIRECTOR OF PEDIATRIC REHABILITATION exam possible. SKIN: no rash Urinary Catheter Management^: Ram: Cath Placed During This Visit: yes Reason for Continuing Indwelling Catheter: Accurate Measurement of Urinary Output in Critically Ill Patients Urinary Catheter Date of Insertion: 02/05/21 Urinary Catheter Time of Insertion: 18:34 Data : 02/12/21 04:56 02/12/21 04:56 Other Labs: Laboratory Results WBC 16.3 10^3/uL (4.0-10.0) H 02/11/21 09:35 RBC 4.95 10^6/uL (4.1-5.3) 02/11/21 09:35 Hgb 14.5 g/dL (11.7-16.6) 02/11/21 09:35 Hct 45.8 % (42.0-52.0) 02/11/21 09:35 MCV 92.5 fl (80-94) 02/11/21 09:35 MCH 29.3 pg (28.0-34.0) 02/11/21 09:35 MCHC 31.7 g/dL (30.0-36.0) 02/11/21 09:35 RDW 14.3 % (12.1-15.1) 02/11/21 09:35 Plt Count 252 10^3/cmm (130-400) 02/11/21 09:35 MPV 9.3 fL (7.4-10.4) 02/11/21 09:35 Neut % (Auto) 85.1 % 02/11/21 09:35 Lymph % (Auto) 3.6 % 02/11/21 09:35 [place] % (Auto) 10.3 % 02/11/21 09:35 Eos % (Auto) 0.0 % 02/11/21 09:35 Baso % (Auto) 0.1 % 02/11/21 09:35 Neut # (Auto) 13.86 10^3/uL (1.8-7.7) H 02/11/21 09:35 Lymph # (Auto) 0.6 10^3/uL (0.8-4.8) L 02/11/21 09:35 [place] # (Auto) 1.7 10^3/uL (0.2-0.9) H 02/11/21 09:35 Eos # (Auto) 0.0 10^3/uL (0.0-0.8) 02/11/21 09:35 Baso # (Auto) 0.0 10^3/uL (0.0-0.1) 02/11/21 09:35 Nucleated RBC % (auto) 0 % 02/11/21 09:35 Nucleated RBCs # 0.0 /100WBC 02/11/21 09:35 ESR 10 mm/hr (0-10) 02/10/21 03:16 D-Dimer 1.38 ug/mIFEU (0-0.59) H 02/08/21 05:47 Specimen Type Arterial 02/11/21 05:10 Sample Site [place] 02/10/21 10:49 ABG pH 7.39 (7.35-7.45) 02/11/21 05:10 ABG pCO2 56.9 mmHg (35-45) H 02/11/21 05:10 ABG pO2 63.8 mmHg (80.0-100.0) L 02/11/21 05:10 ABG HCO3 34.2 mmol/L (22-26) H 02/11/21 05:10 ABG O2 Saturation 92.6 02/10/21 10:49 ABG Base Excess 7.1 mmol/L (-2.0-2.0) H 02/11/21 05:10 [place] Test N/a 02/11/21 05:10 A-a O2 Gradient 24.6 mmHg (5-10) H 02/10/21 10:49 Hematocrit 45.8 % (42-52) 02/11/21 05:10 Hgb O2 Saturation 91.4 % (95-100) L 02/10/21 10:49 Carboxyhemoglobin 0.8 %THgb (0.4-20.1) 02/10/21 10:49 Methemoglobin 0.5 % (0.4-1.5) 02/10/21 10:49 Total Hemoglobin 13.2 g/dL (14-18) L 02/10/21 10:49 Sodium 140.0 mmol/L (131-143) 02/10/21 10:49 Potassium 4.9 mmol/L (3.5-5.0) 02/10/21 10:49 Glucose 350.0 mg/dL (70-115) H 02/10/21 10:49 Ionized Calcium 1.1 mmol/L (1.1-1.4) 02/10/21 10:49 O2 Delivery Device Vent 02/11/21 05:10 O2 Liters/Min 55.0 % 02/06/21 09:30 FiO2 45.0 % 02/11/21 05:10 Tidal Volume 0.43 02/11/21 05:10 PEEP 10.0 cmH20 02/11/21 05:10 Deck Steward ID Hinja 02/11/21 05:10 Sodium 145 mmol/L (136-145) 02/11/21 09:35 Potassium 4.6 mmol/L (3.5-5.1) 02/11/21 09:35 Chloride 105 mmol/L (98-107) 02/11/21 09:35 Carbon Dioxide 33 mmol/L (22-29) H 02/11/21 09:35 Anion Gap 11.6 (5-19) 02/11/21 09:35 BUN 71 mg/dL (8-23) H 02/11/21 09:35 Creatinine 1.1 mg/dL (0.7-1.2) 02/11/21 09:35 GFR Calculation Not Reportable 02/11/21 09:35 Glucose 211 mg/dL (65-115) H 02/11/21 09:35 POC Glucose 207 mg/dL (70-110) H 02/11/21 19:51 Estimat Average Glucose 223 02/06/21 05:45 Hemoglobin A1c 9.4 % (4.0-6.0) H 02/06/21 05:45 Calculated Osmolality 327 mOsm/kg (285-295) H 02/11/21 09:35 Lactic Acid 1.4 mmol/L (0.5-2.2) 02/05/21 12:42 Calcium 8.4 mg/dL (8.5-10.5) L 02/11/21 09:35 Phosphorus 3.3 mg/dL (2.5-4.5) 02/06/21 05:45 Magnesium 2.3 mg/dL (1.7-2.3) 02/06/21 05:45 Iron 37 ug/dL (59-158) L 02/05/21 12:42 TIBC 195 mcg/dl 02/05/21 12:42 % Saturation 18.9 % (20-50) L 02/05/21 12:42 Unsat Iron Binding 158 ug/dL (112-347) 02/05/21 12:42 Ferritin 654 ng/mL (30-400) H 02/08/21 05:47 Total Bilirubin 0.3 mg/dL (0.15-1.2) 02/11/21 09:35 AST 28 U/L (0-40) 02/11/21 09:35 ALT 23 U/L (0-41) 02/11/21 09:35 Alkaline Phosphatase 87 IU/L (40-130) 02/11/21 09:35 Lactate Dehydrogenase 583 U/L (135-225) H 02/06/21 05:45 Creatine Kinase 113 U/L (39-308) 02/10/21 16:50 C-Reactive Protein 11.3 mg/L (0.0-4.9) H 02/11/21 05:10 NT-Pro-B Natriuret Pep 130 pg/mL (0-125) H 02/11/21 05:10 Total Protein 5.3 g/dL (6.6-8.7) L 02/11/21 09:35 Albumin 3.1 g/dL (3.5-5.2) L 02/11/21 09:35 Globulin 2.2 g/dL (1.3-4.6) 02/11/21 09:35 Triglycerides 162 mg/dL (0-150) H 02/06/21 05:45 Cholesterol 142 mg/dL (0-200) 02/06/21 05:45 LDL Cholesterol, Calc 65 mg/dL (50-129) 02/06/21 05:45 Total VLDL Cholesterol 32 mg/dL (0-30) H 02/06/21 05:45 HDL Cholesterol 45 mg/dL (60-100) L 02/06/21 05:45 Cholesterol/HDL Ratio 3.16 mg/dL (1.0-5.00) 02/06/21 05:45 Procalcitonin 0.09 ng/mL (0-0.5) 02/10/21 03:16 TSH 1.72 uIU/mL (0.27-4.20) 02/05/21 12:42 Urine Color Straw (Yellow) 02/05/21 18:17 Urine Appearance Clear (CLEAR) 02/05/21 18:17 Urine pH 5 (5-7) 02/05/21 18:17 Ur Specific [place] 1.005 (1.005-1.030) 02/05/21 18:17 Urine Protein Neg (Negative) 02/05/21 18:17 Urine Glucose (UA) 2+ (Normal) 02/05/21 18:17 Urine Ketones Negative (Negative) 02/05/21 18:17 Urine Blood Neg (Negative) 02/05/21 18:17 Urine Nitrate Negative (Negative) 02/05/21 18:17 Urine Bilirubin Neg (Negative) 02/05/21 18:17 Urine Urobilinogen Norm mg/dL (Negative) 02/05/21 18:17 Ur Leukocyte Esterase Negative (Negative) 02/05/21 18:17 Ur Random Sodium 101 mmol/L 02/05/21 18:17 Ur Random Potassium 11 mmol/L 02/05/21 18:17 Ur Random Chloride 104 mmol/L 02/05/21 18:17 A. galactomannan Ag EIA Not detected 02/05/21 18:25 A. galactomannan Ag Idx <0.50 02/05/21 18:25 Beta-(1,3)-D-Glucan <31 pg/mL 02/07/21 05:30 B-(1,3)-D-Glucan Intrp Negative 02/07/21 05:30 Impressions Chest CTA 02/05/21 13:24 IMPRESSION: 1. No pulmonary embolism. 2. Diffusely abnormal lungs. Diffuse scattered groundglass attenuation, thickened reticulations and honeycombing. Suspect superimposed Covid on chronic pulmonary fibrosis. 3. Bilateral hilar adenopathy with the largest lymph node on the LEFT measuring 12 mm. Probably reactive. Chest X-Ray 02/10/21 06:00 IMPRESSION: Tubes and catheters are unchanged from the prior exam. ADDENDUM: 02/10/21 0834 Bilateral pulmonary opacities are again noted and appear unchanged. Micro: Microbiology 02/10/21 18:45 Gram Stain - Final Sputum - Endotracheal Tube Aspirate A&P Assessment and plan (1) Acute respiratory failure with hypoxia: Status: Acute (2) Acute respiratory distress syndrome (ARDS) due to 2019 novel coronavirus: Status: Acute (3) Idiopathic interstitial fibrosis: Status: Acute (4) CAD (coronary artery disease): Status: Acute Qualifiers: Coronary Disease-Associated Artery/Lesion type: [place] artery [place] vs. transplanted heart: [place] heart Associated angina: unspecified whether angina present Qualified Code(s): I25.10 - Atherosclerotic heart disease of [place] coronary artery without angina pectoris (5) Type 2 diabetes mellitus: Status: Acute Qualifiers: Diabetes mellitus intermediate teacher insulin use: unspecified skilled nursing insulin use status Diabetes mellitus complication status: with other specified complication Qualified Code(s): E11.69 - Type 2 diabetes mellitus with other specified complication (6) HTN (hypertension): Status: Acute Qualifiers: Hypertension type: unspecified Qualified Code(s): I10 - Essential (primary) hypertension (7) COVID-19 vaccination not done: Status: Acute (8) WHO group 2 pulmonary arterial hypertension: Status: Acute (9) Hyperkalemia: Status: Acute (10) MIKA (acute kidney injury): Status: Acute -Intubated 02/07/2021 -Sedated and paralyzed and completed 2 proning sessions - drips: proprofol - 15, versed 2, fentanyl 50, nimbex 0.75-Taper off sedation and start awakening trial -ABG 7.3 9/53/63/34 on CMV 45% FiO2/430/10 -With underlying idiopathic interstitial pulmonary fibrosis:possible ILD exacerbation - on home medication tadalafil 5 mg daily once for pulmonary hypertension and pirfenidone for his IPF - Prednisone 40 mg every 8 hourly-taper down to 40 every 12 daily -Completed on remdesivir 5 days - Patient CRP is already low and oxygenation improved after 2 proning sessions-no need for Actemra - DuoNebs every 4 hour, budesonide twice daily. - Pulmonary toilet with incentive spirometry flutter valve. - Monitor inflammatory markers including ferritin, ESR, CRP, D-dimer, fibrinogen every 48 hour - CTA negative for pulmonary embolism. - afebrile , Procalcitonin negative, urine Legionella bacterial antigen negative,Blood culture preliminary negative. Sputum culture results awaited. - On empiric ceftriaxone and Continue with home dose of azithromycin prophylaxis - Patient has a history of idiopathic pulmonary fibrosis and has been on steroids for last 6 months. He has history of recent travel to [place] and [place]. - PCP PCR, histoplasma antigen, Aspergillus antigen pending as pt his on steroids at home - MIKA-likely secondary to COVID-19 pneumonia versus prerenal - Given hypoxia will try to keep patient as negative as possible. +1.7 L 24 hours / -3.4 L since admission; 1 dose Lasix 40 mg given - Patient history of CAD. Echocardiogram done shows an EF 60% with grade 1 diastolic dysfunction with moderate pulmonary hypertension with RVSP of 46. -Monitor monitor input and output, daily weights - Hypertension: Goal blood pressure less than 140/90 mmHg. - Continue home dose of carvedilol - Type 2 diabetes mellitus: HbA1c 9.4.Insulin sliding scale at moderate dose. sugars uncontrolled , increase Lantus to 20 units twice daily - Continue with aspirin, Plavix, statin.-Recent cardiac stent placement Full code. Lovenox DVT prophylaxis Famotidine for PUD prophylaxis. To restart feeding when patient is in supine position updated Recommendations conveyed to hospitalist, RN, RT taking care of the patient Attestations Medical Necessity Statement*: Acute hypoxic respiratory failure secondary to ARDS due to COVID-19 pneumonia in patient with underlying interstitial fibrosis requiring mechanical ventilation Time Spent in Patient Care: Greater than 35 minutes (>than 50% of time spent in counselling and/or direct pt care on unit). Critical Care Time: The high probability of a clinically significant, sudden or life threatening deterioration of the patient's [pulmonary, endocrine, renal, neurological] system(s) required my full and direct attention, intervention and personal management. The critical care time is as shown. This time is in addition to time spent performing any reported procedures but includes the following: [x] Data and vital sign review and interpretation [x] Patient assessment, examination and intervention [x] Documentation [x] Medication orders and management Critical Care Time (min): 45 Coding Level of Care Code Established Pt Acute Supervisor [employer] for [facility] Patient Type Established History Comprehensive Exam Comprehensive Medical Decision Making High Complexity Diagnoses Acute respiratory failure with hypoxia J96.01 Acute respiratory distress syndrome (ARDS) due to 2019 novel coronavirus U07.1; J80 Idiopathic interstitial fibrosis J84.112 CAD (coronary artery disease) I25.10 Coronary Disease-Associated Artery/Lesion type: [place] artery [place] vs. transplanted heart: [place] heart Associated angina: unspecified whether angina present Type 2 diabetes mellitus E11.69 Diabetes mellitus intermediate teacher insulin use: unspecified intermediate teacher insulin use status Diabetes mellitus complication status: with other specified complication HTN (hypertension) I10 Hypertension type: unspecified COVID-19 vaccination not done Z28.9 WHO group 2 pulmonary arterial hypertension I27.22 Hyperkalemia E87.5 MIKA (acute kidney injury) N17.9 Time Spent (min) 45
[2021-02-11] MEDS: propofol 1,000 MG/100 ML INJ 11.45 MG IV (23:24)
[2021-02-12] VITALS (60 sets, daily range): BP systolic 104–144; BP diastolic 57–85; PULSE 56–74; RESP 18–20; TEMP 36.4–37.4; O2SAT 88–94
[2021-02-12] MEDS: dexmedetomidine 400 MCG in sodium chloride 0.9% (100 ml) 100 ML 7.08 MCG IV (01:19)
[2021-02-12 02:11] LABS: Glucose Point of Care 202 mg/dL (70-110)
[2021-02-12] MEDS: ipratropium-albuterol 3 mL Neb INHALATION ×5 (03:40→23:36)
[2021-02-12 04:16] LABS: Glucose Point of Care 210 mg/dL (70-110)
[2021-02-12 04:44] LABS: ABG PCO2 52.7 mmHg (35-45); ABG PH Result 7.43 (7.35-7.45); Arterial Blood Gas Hematocrit 43.7 % (42-52); Base Excess ABG 8.6 mmol/L (-2.0-2.0); Blood Gas Allen Test Pos; Blood Gas Sample Type Arterial; Carboxyhemoglobin 0.5 %THgb (0.4-20.1); HCO3 ABG 34.8 mmol/L (22-26); HGB O2 Sat 94.8 % (95-100); Ionized Calcium Level - ABG 1.2 mmol/L (1.1-1.4); Methemoglobin 0.5 % (0.4-1.5); Oxygen Saturation ABG 95.7; PO2 ABG 73.4 mmHg (80.0-100.0); Total Hemoglobin 14.3 g/dL (14-18)
[2021-02-12 04:46] LABS: Alveolar-Arterial Oxygen Gradi 26.5 mmHg (5-10); Blood Gas Operator Identificat MONRO; Blood Gas Sample Site ARTLINE; Blood Gas Tidal Volume 0.43; Oxygen Device VENT
[2021-02-12 05:27] LABS: Basophils % 0.2 %; Hematocrit 44.9 % (42.0-52.0); Hemoglobin 13.9 g/dL (11.7-16.6); Lymphocytes # 0.5 10^3/uL (0.8-4.8); Mean Corpuscular Volume 93.7 fl (80-94); Monocytes # 0.9 10^3/uL (0.2-0.9); Neutrophils # 10.09 10^3/uL (1.8-7.7); Neutrophils % 86.9 %; Nucleated Red Blood Cells % 0 %; Platelet Count 207 10^3/cmm (130-400); Red Blood Count 4.79 10^6/uL (4.1-5.3); Red Cell Distribution Width 14.2 % (12.1-15.1); White Blood Count 11.6 10^3/uL (4.0-10.0)
[2021-02-12 05:45] LABS: Alanine Aminotransferase 22 U/L (0-41); Albumin Level 2.9 g/dL (3.5-5.2); Alkaline Phosphatase 81 IU/L (40-130); Aspartate Amino Transferase 28 U/L (0-40); Blood Urea Nitrogen 71 mg/dL (8-23); Calcium 8.5 mg/dL (8.5-10.5); Carbon Dioxide 33 mmol/L (22-29); Chloride 104 mmol/L (98-107); Globulin 2.8 g/dL (1.3-4.6); Glucose 238 mg/dL (65-115); Osmolality Calculated 327 mOsm/kg (285-295); Sodium 144 mmol/L (136-145); Total Bilirubin 0.4 mg/dL (0.15-1.2); Total Protein 5.7 g/dL (6.6-8.7)
[2021-02-12] MEDS: clopidogrel 75 mg Tablet PO (05:53)
[2021-02-12] MEDS: famotidine 20 mg/2 mL INJ IVP ×2 (05:54→18:15)
[2021-02-12] MEDS: NON-FORMULARY MEDICATION (Tadalafil 5 mg tablet) 5 EACH PO (05:55)
--- NOTE | 2021-02-12 06:00 | XRR_ITS ---
PROCEDURE INFORMATION: Exam: XR Chest Exam date and time: 02/12/2021 6:00 AM Age: 75 years old Clinical indication: Condition or disease; Lung condition and disease; Patient HX: F/u covid. Intubated. TECHNIQUE: Imaging protocol: XR of the chest. Views: 1 view. COMPARISON: CR (CHEST, ) 02/10/2021 7:45 AM FINDINGS: Tubes, catheters and devices: NG tube courses below the diaphragm with nonvisualization of the tip. Right IJ catheter tip projects over the SVC. Endotracheal tube projects above the level of the rickie. Lungs: Bilateral ground-glass opacities in keeping with viral pneumonia, slightly decreased allowing for differences in technique. Pleural spaces: Unremarkable. No pleural effusion. No pneumothorax. Heart/Mediastinum: No cardiomegaly. Bones/joints: No acute fracture. XR/XR chest 1V portable [id number] IMPRESSION: Bilateral ground-glass opacities in keeping with viral pneumonia, slightly decreased allowing for differences in technique.
[2021-02-12 06:08] LABS: C Reactive Protein 10.8 mg/L (0.0-4.9); Magnesium 3.4 mg/dL (1.7-2.3); NT Pro B Type Natriuretic Pept 90 pg/mL (0-125)
[2021-02-12 06:12] LABS: Erythrocyte Sedimentation Rate 14 mm/hr (0-10)
[2021-02-12 08:13] LABS: Glucose Point of Care 194 mg/dL (70-110)
[2021-02-12] MEDS: budesonide 0.5 mg/2 mL Neb INHALATION ×2 (08:13→20:10)
[2021-02-12] MEDS: propofol 1,000 MG/100 ML INJ 11.45 MG IV (08:23)
[2021-02-12] MEDS: cefTRIAXone 1,000 MG in sodium chloride 0.9% (plus) 50 ML 100 MG IV (08:24)
[2021-02-12] MEDS: insulin glargine 100 units/1 mL 20 UNIT SUBCUT (08:24)
[2021-02-12] MEDS: enoxaparin 40 mg/0.4 mL Syringe SUBCUT (08:25)
--- NOTE | 2021-02-12 09:05 | PC.SOCIAL ---
IMM update IMM not updated as patient is still intubated and not expected to Dc in the next 24-48 hours.
--- NOTE | 2021-02-12 09:37 | PC.CHAP ---
Pastoral Care Encounter/Spiritual Assessment Type of Contact [] Declined product applications engineer visit [] Patient/Family/Request visit [] Outpatient visit [] Follow-up visit [] Physician referral [] Code/Alert [x] Routine visit [] Staff referral [] Actively dying [] Patient sleeping [] Family support [] [] Out of room [] Palliative care [] [] Receiving care in room [] Pre-surgical visit [] Trauma [] Long length of stay [x] ICU visit [x] Other: vent Relational/Emotional Strength [] Patient feels connected with others/family/visitors/staff [] Distress [] Loneliness/isolation [] Abandonment Spirituality of Patient [] Person of Heidy [] Attends Nondenominational of their Heidy [] Believes in Prayer [] Reads Bible or Catholic materials [] There are Spiritual issues to be addressed Intake Nurse Interventions [x] Prayer [] Active listening [] Non-anxious presence [] Spiritual/emotional support [] Crisis/trauma care [] Spiritual counseling [] Bereavement support [] Provided bereavement packet [] Provided Bible/devotional materials [] Provided toy/stuffed animal, coloring book to patient or family member [] Provided Communion [] Anointing/[place] [] Salvation [x] Completed spiritual assessment [] Other: Impact on Illness or Injury [] Angry [] Fearful [] Anxious [] Often cries [] Exhaustion [] Unable to work [] Unable to attend anabaptism [] Unable to walk/stand [] Unable to read [] Unable to drive [] Unable to eat/drink [] Unable to sleep [] Unable to be with family [] Patient intubated [] Other: Summary Time spent with patient
--- NOTE | 2021-02-12 10:08 | PC.NUTR ---
Tube feeding follow up: Nurse reports feeding currently held and pt receiving low intermittent suction, as large amount of tube feeding was found in the tubing. Unclear plan for restarting feeds at this time. When appropriate, recommend resume Glucerna 1.2 at 20 ml/hr, increasing as tolerated to goal rate of 50 ml/hr, with 100 mL H2O flushes q 4 hours. to provide 1440 kcal, 72 g protein, 1566 ml H2O. Currently receiving additional 378 kcal/day from propofol at current rate. Recommend check Phos and triglycerides when possible. See full RD assessment for further details.
--- NOTE | 2021-02-12 11:07 | XRR_ITS ---
PROCEDURE INFORMATION: Exam: XR Chest Exam date and time: 02/12/2021 11:07 AM Age: 75 years old Clinical indication: Device placement; Other: Verify og tube placement TECHNIQUE: Imaging protocol: XR of the chest. Views: 1 view. Total images: 1 COMPARISON: CR XR chest 1V portable [id number] 02/12/2021 5:48 AM FINDINGS: Tubes, catheters and devices: Nasogastric tube has its proximal port in the lower esophagus, recommend advancement by 7-10 cm. Tubes and catheters are otherwise unchanged from the prior exam. Lungs: Bilateral pulmonary opacities are again noted and appear unchanged. Pleural spaces: Unremarkable. No pleural effusion. No pneumothorax. Heart/Mediastinum: Heart size is stable when compared to the prior exam. Bones/joints: Osseous structures are unchanged from the prior exam. XR/XR chest 1V portable [id number] IMPRESSION: 1. Nasogastric tube has its proximal port in the lower esophagus, recommend advancement by 7-10 cm. Tubes and catheters are otherwise unchanged from the prior exam. 2. Bilateral pulmonary opacities are again noted and appear unchanged.
[2021-02-12] MEDS: aztreonam 1,000 MG in sodium chloride 0.9% (plus) 50 ML 100 MG IV (12:01)
[2021-02-12 12:03] LABS: Glucose Point of Care 152 mg/dL (70-110)
--- NOTE | 2021-02-12 12:18 | XRR_ITS ---
PROCEDURE INFORMATION: Exam: XR Chest Exam date and time: 02/12/2021 12:18 PM Age: 75 years old Clinical indication: Device placement; Patient HX: Og tube placement, on vent, covid; Additional info: Og tube advanced TECHNIQUE: Imaging protocol: XR of the chest. Views: 1 view. COMPARISON: 1. CR (CHEST, ) 02/10/2021 7:45:55 AM 2. CR XR chest 1V portable [id number] 02/07/2021 4:42:30 PM 3. CR XR chest 1V portable [id number] 02/12/2021 11:[address] angio chest PE protcl [id number] 02/05/2021 2:09:52 PM FINDINGS: Tubes, catheters and devices: A nasogastric tube is seen terminating within the stomach. A right internal jugular central venous catheter terminates within the SVC. An endotracheal tube is present, terminating approximately 5.5 cm above the rickie. Lungs: Severe interstitial lung disease and centrilobular emphysema is again noted. Superimposed edema or infection is difficult to exclude. Overall, the appearance has not significantly changed in the past seven days given differences in technique between exams. Pleural spaces: Unremarkable. No pleural effusion. No pneumothorax. Heart/Mediastinum: Unremarkable. No cardiomegaly. Bones/joints: Unremarkable. XR/XR chest 1V portable [id number] IMPRESSION: Stable appearance of the chest as discussed above
--- NOTE | 2021-02-12 13:00 | PC.NURSE ---
[address] Navarro. Reported tube feeding in vent tubing. Orders to replace OGT. ABX changed. Orders to hold tube feeding at this time. [address] Navarro. Reviewed labs and medications. Discussed plan of care.
[2021-02-12] MEDS: propofol 1,000 MG/100 ML INJ 20.04 MG IV ×3 (13:04→23:47)
[2021-02-12] MEDS: tamsulosin 0.4 mg Capsule PO (14:17)
[2021-02-12] MEDS: zinc gluconate 50 mg Tablet PO (14:17)
[2021-02-12] MEDS: aspirin 81 mg EC Tablet PO (14:17)
[2021-02-12] MEDS: ascorbic acid 500 mg Tablet PO (14:17)
[2021-02-12] MEDS: ezetimibe 10 mg Tablet PO (14:19)
--- NOTE | 2021-02-12 14:50 | PC.NURSE ---
Patient Pain Assessment Patient sedated and ventilated. Patient unable to report pain at this time.
[2021-02-12 16:38] LABS: Glucose Point of Care 163 mg/dL (70-110)
[2021-02-12 17:18] LABS: P. Jirovecii DNA QL PCR NOT DETECTED; P. Jirovecii DNA QL PCR Source SPUTUM
--- NOTE | 2021-02-12 17:29 | P.PN_ITS ---
Subjective Subjective: Interval history: Intubated, sedated. Vitals/I&O/Wt Last Vital Signs Temp 98.8 F 02/12/21 11:00 Pulse 57 L 02/12/21 14:30 Resp 18 02/12/21 10:41 BP 124/78 02/12/21 14:30 Pulse Ox 92 02/12/21 14:30 02/12/21 02/12/21 02/12/21 06:59 14:59 22:59 Intake Total 45.133 / 360.682 382.548 / 382.548 Output Total 250 / 800 400 / 400 Balance -204.867 / -439.318 -17.452 / -17.452 Weight last 48 hrs Weight 90.1 kg Weight 90.7 kg Weight 90.2 kg Physical Exam Const: COMMON NORMALS: no acute distress GENERAL APPEARANCE: patient mechanically ventilated HENMT: COMMON NORMALS: oropharynx normal Neck/C-Spine: COMMON NORMALS: no JVD Resp: COMMON NORMALS: normal respiratory effort and clear to auscultation bilaterally AUSCULTATION: clear to auscultation bilaterally Cardio: COMMON NORMALS: no JVD, regular rhythm, S1 normal heart sound present, S2 normal heart sound present and No murmurs present (Cardio) RHYTHM: regular rhythm HEART SOUNDS: S1 normal heart sound present and S2 normal heart sound present GI: COMMON NORMALS: Normal to inspection, nondistended, normoactive bowel sounds present and Soft to palpation PALPATION: Yes Soft to palpation Extremity: COMMON NORMALS: no joint enlargement and no pedal edema Skin: COMMON NORMALS: no rashes or lesions noted GENERAL SKIN EXAM: no rashes or lesions noted Urinary Catheter Management^: Ram: Cath Placed During This Visit: yes Reason for Continuing Indwelling Catheter: Accurate Measurement of Urinary Output in Critically Ill Patients Urinary Catheter Date of Insertion: 02/05/21 Urinary Catheter Time of Insertion: 18:34 Data : 02/12/21 04:56 02/12/21 04:56 Micro: Microbiology 02/10/21 18:45 Gram Stain - Final Sputum - Endotracheal Tube Aspirate Sputum Culture - Preliminary A&P Assessment and plan (1) Pneumonia due to 2019-nCoV: Requiring 48% FiO2. Continue to wean of ventilatory support as tolerating. Wake up and breathe in the morning. Continue Solu-Medrol. He has completed a course of remdesivir. Prophylactic Lovenox. Illness complicated by underlying ILD with possible exacerbation. Wean mechanical ventilatory support. Status: Acute (2) Idiopathic interstitial fibrosis: Continue prednisone with taper as above. Continue [place] ceftriaxone, azithromycin prophylaxis. Status: Acute (3) ARDS (adult respiratory distress syndrome): Weaning trial with aggressive sedation, spontaneous breathing trial in the morning. Status: Acute (4) COVID-19 vaccination not done: Status: Acute (5) HTN (hypertension): Status: Acute Qualifiers: Hypertension type: unspecified Qualified Code(s): I10 - Essential (primary) hypertension (6) Type 2 diabetes mellitus: Status: Acute Qualifiers: Diabetes mellitus complication status: with other specified complication Diabetes mellitus joint terminal attack controller insulin use: unspecified joint terminal attack controller insulin use status Qualified Code(s): E11.69 - Type 2 diabetes mellitus with other specified complication (7) CAD (coronary artery disease): Recent stent placement. Continue aspirin, Plavix, beta-too, statin. Status: Acute Qualifiers: Associated angina: unspecified whether angina present Coronary Disease- Associated Artery/Lesion type: [place] artery [place] vs. transplanted heart: [place] heart Qualified Code(s): I25.10 - Atherosclerotic heart disease of [place] coronary artery without angina pectoris (8) WHO group 2 pulmonary arterial hypertension: Status: Acute (9) Acute respiratory distress syndrome (ARDS) due to 2019 novel coronavirus: Status: Acute Attestations Medical Necessity Statement*: Continue admission for hypoxic respite failure, weaning of mechanical ventilatory support, in the setting of severe COVID-19, ARDS. Underlying ILD. 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 Exam Comprehensive Diagnoses Pneumonia due to 2019-nCoV U07.1; J12.82 Idiopathic interstitial fibrosis J84.112 ARDS (adult respiratory distress syndrome) J80 COVID-19 vaccination not done Z28.9 HTN (hypertension) I10 Hypertension type: unspecified Type 2 diabetes mellitus E11.69 Diabetes mellitus complication status: with other specified complication Diabetes mellitus joint terminal attack controller insulin use: unspecified retirement insulin use status CAD (coronary artery disease) I25.10 Associated angina: unspecified whether angina present Coronary Disease-Associated Artery/Lesion type: [place] artery [place] vs. transplanted heart: [place] heart WHO group 2 pulmonary arterial hypertension I27.22 Acute respiratory distress syndrome (ARDS) due to 2019 novel coronavirus U07.1; J80
[2021-02-12 20:16] LABS: Glucose Point of Care 158 mg/dL (70-110)
[2021-02-12] MEDS: sennosides-docusate Tablet 1 TAB PO (20:29)
[2021-02-12] MEDS: benzonatate 100 mg Capsule PO (20:29)
[2021-02-12] MEDS: insulin glargine 100 units/1 mL 25 UNIT SUBCUT (20:30)
--- NOTE | 2021-02-12 20:50 | PC.NURSE ---
Pt is on Plavix and Eliquis for VTE. SCD not required at this time. Will be taken off worklist
[2021-02-12] MEDS: dexmedetomidine 400 MCG in sodium chloride 0.9% (100 ml) 100 ML IV (21:31)
--- NOTE | 2021-02-12 22:07 | PM.PN ---
Subjective Subjective: Interval history: -Patient seen multiple times at bedside today -Off paralytic and Versed yesterday: Moves all his limbs but does not follow commands -Taper off fentanyl and propofol today and continue with awakening trial -Patient had tube feeds aspirated into the ET tube and ventilator circuit yesterday night. ventilator circuit changed -Tube feeds held and the antibiotic coverage broadened to vancomycin and aztreonam; ceftriaxone and azithromycin discontinued -Labs and imaging reviewed Medications: Reviewed: Yes Vitals/I&O/Wt Last Vital Signs Temp 98.0 F 02/12/21 20:00 Pulse 63 02/12/21 20:21 Resp 20 H 02/12/21 20:08 BP 112/72 02/12/21 20:00 Pulse Ox 89 L 02/12/21 20:08 02/12/21 02/12/21 02/12/21 06:59 14:59 22:59 Intake Total 45.133 / 360.682 382.548 / 382.548 199.295 / 581.843 Output Total 250 / 800 400 / 400 Balance -204.867 / -439.318 -17.452 / -17.452 199.295 / 181.843 Weight last 48 hrs Weight 198 lb 10.184 oz Weight 199 lb 15.348 oz Physical Exam Narrative: EXAM NARRATIVE: General: lying in bed, sedated and intubated. HEENT:NCAT, PERRLA, EOMI Neck: Supple Lungs: Bilateral coarse crepitations and intermittent crackles Heart: s1/s2, RRR Abd: soft, NT, ND, BS + Normoactive Extremities: No edema AIRFREIGHT OPERATIONS AGENT: sedated and limited AIRFREIGHT OPERATIONS AGENT exam possible. SKIN: no rash LDA: # CVC: Right IJ line 02/07/2021 # A line: Right radial arterial line 02/07/2021 Urinary Catheter Management^: Ram: Cath Placed During This Visit: yes Reason for Continuing Indwelling Catheter: Accurate Measurement of Urinary Output in Critically Ill Patients Urinary Catheter Date of Insertion: 02/05/21 Urinary Catheter Time of Insertion: 18:34 Data : 02/12/21 04:56 02/12/21 04:56 Other Labs: Laboratory Results WBC 11.6 10^3/uL (4.0-10.0) H 02/12/21 04:56 RBC 4.79 10^6/uL (4.1-5.3) 02/12/21 04:56 Hgb 13.9 g/dL (11.7-16.6) 02/12/21 04:56 Hct 44.9 % (42.0-52.0) 02/12/21 04:56 MCV 93.7 fl (80-94) 02/12/21 04:56 MCH 29.0 pg (28.0-34.0) 02/12/21 04:56 MCHC 31.0 g/dL (30.0-36.0) 02/12/21 04:56 RDW 14.2 % (12.1-15.1) 02/12/21 04:56 Plt Count 207 10^3/cmm (130-400) 02/12/21 04:56 MPV 10.0 fL (7.4-10.4) 02/12/21 04:56 Neut % (Auto) 86.9 % 02/12/21 04:56 Lymph % (Auto) 4.0 % 02/12/21 04:56 [place] % (Auto) 8.0 % 02/12/21 04:56 Eos % (Auto) 0.0 % 02/12/21 04:56 Baso % (Auto) 0.2 % 02/12/21 04:56 Neut # (Auto) 10.09 10^3/uL (1.8-7.7) H 02/12/21 04:56 Lymph # (Auto) 0.5 10^3/uL (0.8-4.8) L 02/12/21 04:56 [place] # (Auto) 0.9 10^3/uL (0.2-0.9) 02/12/21 04:56 Eos # (Auto) 0.0 10^3/uL (0.0-0.8) 02/12/21 04:56 Baso # (Auto) 0.0 10^3/uL (0.0-0.1) 02/12/21 04:56 Nucleated RBC % (auto) 0 % 02/12/21 04:56 Nucleated RBCs # 0.0 /100WBC 02/12/21 04:56 ESR 14 mm/hr (0-10) H 02/12/21 04:56 D-Dimer 1.38 ug/mIFEU (0-0.59) H 02/08/21 05:47 Specimen Type Arterial 02/12/21 04:32 Sample Site Artline 02/12/21 04:32 ABG pH 7.43 (7.35-7.45) 02/12/21 04:32 ABG pCO2 52.7 mmHg (35-45) H 02/12/21 04:32 ABG pO2 73.4 mmHg (80.0-100.0) L 02/12/21 04:32 ABG HCO3 34.8 mmol/L (22-26) H 02/12/21 04:32 ABG O2 Saturation 95.7 02/12/21 04:32 ABG Base Excess 8.6 mmol/L (-2.0-2.0) H 02/12/21 04:32 [place] Test Pos 02/12/21 04:32 A-a O2 Gradient 26.5 mmHg (5-10) H 02/12/21 04:32 Hematocrit 43.7 % (42-52) 02/12/21 04:32 Hgb O2 Saturation 94.8 % (95-100) L 02/12/21 04:32 Carboxyhemoglobin 0.5 %THgb (0.4-20.1) 02/12/21 04:32 Methemoglobin 0.5 % (0.4-1.5) 02/12/21 04:32 Total Hemoglobin 14.3 g/dL (14-18) 02/12/21 04:32 Sodium 146.0 mmol/L (131-143) H 02/12/21 04:32 Potassium 5.0 mmol/L (3.5-5.0) 02/12/21 04:32 Glucose 244.0 mg/dL (70-115) H 02/12/21 04:32 Ionized Calcium 1.2 mmol/L (1.1-1.4) 02/12/21 04:32 O2 Delivery Device Vent 02/12/21 04:32 O2 Liters/Min 55.0 % 02/06/21 09:30 FiO2 48.0 % 02/12/21 04:32 Tidal Volume 0.43 02/12/21 04:32 PEEP 10.0 cmH20 02/12/21 04:32 Heel [place] ID [place] 02/12/21 04:32 Sodium 144 mmol/L (136-145) 02/12/21 04:56 Potassium 5.0 mmol/L (3.5-5.1) 02/12/21 04:56 Chloride 104 mmol/L (98-107) 02/12/21 04:56 Carbon Dioxide 33 mmol/L (22-29) H 02/12/21 04:56 Anion Gap 12.0 (5-19) 02/12/21 04:56 BUN 71 mg/dL (8-23) H 02/12/21 04:56 Creatinine 1.2 mg/dL (0.7-1.2) 02/12/21 04:56 GFR Calculation Not Reportable 02/12/21 04:56 Glucose 238 mg/dL (65-115) H 02/12/21 04:56 POC Glucose 158 mg/dL (70-110) H 02/12/21 20:02 Estimat Average Glucose 223 02/06/21 05:45 Hemoglobin A1c 9.4 % (4.0-6.0) H 02/06/21 05:45 Calculated Osmolality 327 mOsm/kg (285-295) H 02/12/21 04:56 Lactic Acid 1.4 mmol/L (0.5-2.2) 02/05/21 12:42 Calcium 8.5 mg/dL (8.5-10.5) 02/12/21 04:56 Phosphorus 3.3 mg/dL (2.5-4.5) 02/06/21 05:45 Magnesium 3.4 mg/dL (1.7-2.3) H 02/12/21 04:56 Iron 37 ug/dL (59-158) L 02/05/21 12:42 TIBC 195 mcg/dl 02/05/21 12:42 % Saturation 18.9 % (20-50) L 02/05/21 12:42 Unsat Iron Binding 158 ug/dL (112-347) 02/05/21 12:42 Ferritin 654 ng/mL (30-400) H 02/08/21 05:47 Total Bilirubin 0.4 mg/dL (0.15-1.2) 02/12/21 04:56 AST 28 U/L (0-40) 02/12/21 04:56 ALT 22 U/L (0-41) 02/12/21 04:56 Alkaline Phosphatase 81 IU/L (40-130) 02/12/21 04:56 Lactate Dehydrogenase 583 U/L (135-225) H 02/06/21 05:45 Creatine Kinase 113 U/L (39-308) 02/10/21 16:50 C-Reactive Protein 10.8 mg/L (0.0-4.9) H 02/12/21 04:56 NT-Pro-B Natriuret Pep 90 pg/mL (0-125) 02/12/21 04:56 Total Protein 5.7 g/dL (6.6-8.7) L 02/12/21 04:56 Albumin 2.9 g/dL (3.5-5.2) L 02/12/21 04:56 Globulin 2.8 g/dL (1.3-4.6) 02/12/21 04:56 Triglycerides 162 mg/dL (0-150) H 02/06/21 05:45 Cholesterol 142 mg/dL (0-200) 02/06/21 05:45 LDL Cholesterol, Calc 65 mg/dL (50-129) 02/06/21 05:45 Total VLDL Cholesterol 32 mg/dL (0-30) H 02/06/21 05:45 HDL Cholesterol 45 mg/dL (60-100) L 02/06/21 05:45 Cholesterol/HDL Ratio 3.16 mg/dL (1.0-5.00) 02/06/21 05:45 Procalcitonin 0.09 ng/mL (0-0.5) 02/10/21 03:16 TSH 1.72 uIU/mL (0.27-4.20) 02/05/21 12:42 Urine Color Straw (Yellow) 02/05/21 18:17 Urine Appearance Clear (CLEAR) 02/05/21 18:17 Urine pH 5 (5-7) 02/05/21 18:17 Ur Specific [place] 1.005 (1.005-1.030) 02/05/21 18:17 Urine Protein Neg (Negative) 02/05/21 18:17 Urine Glucose (UA) 2+ (Normal) 02/05/21 18:17 Urine Ketones Negative (Negative) 02/05/21 18:17 Urine Blood Neg (Negative) 02/05/21 18:17 Urine Nitrate Negative (Negative) 02/05/21 18:17 Urine Bilirubin Neg (Negative) 02/05/21 18:17 Urine Urobilinogen Norm mg/dL (Negative) 02/05/21 18:17 Ur Leukocyte Esterase Negative (Negative) 02/05/21 18:17 Ur Random Sodium 101 mmol/L 02/05/21 18:17 Ur Random Potassium 11 mmol/L 02/05/21 18:17 Ur Random Chloride 104 mmol/L 02/05/21 18:17 Pneumocystis Source Sputum 02/05/21 18:25 Pneumocyst jiroveci PCR Not detected 02/05/21 18:25 A. galactomannan Ag EIA Not detected 02/05/21 18:25 A. galactomannan Ag Idx <0.50 02/05/21 18:25 Beta-(1,3)-D-Glucan <31 pg/mL 02/07/21 05:30 B-(1,3)-D-Glucan Intrp Negative 02/07/21 05:30 Impressions Chest CTA 02/05/21 13:24 IMPRESSION: 1. No pulmonary embolism. 2. Diffusely abnormal lungs. Diffuse scattered groundglass attenuation, thickened reticulations and honeycombing. Suspect superimposed Covid on chronic pulmonary fibrosis. 3. Bilateral hilar adenopathy with the largest lymph node on the LEFT measuring 12 mm. Probably reactive. Chest X-Ray 02/12/21 12:18 IMPRESSION: Stable appearance of the chest as discussed above Micro: Microbiology 02/10/21 18:45 Gram Stain - Final Sputum - Endotracheal Tube Aspirate Sputum Culture - Preliminary A&P Assessment and plan (1) Acute respiratory failure with hypoxia: Status: Acute (2) Acute respiratory distress syndrome (ARDS) due to 2019 novel coronavirus: Status: Acute (3) Idiopathic interstitial fibrosis: Status: Acute (4) CAD (coronary artery disease): Status: Acute Qualifiers: Coronary Disease-Associated Artery/Lesion type: [place] artery [place] vs. transplanted heart: [place] heart Associated angina: unspecified whether angina present Qualified Code(s): I25.10 - Atherosclerotic heart disease of [place] coronary artery without angina pectoris (5) Type 2 diabetes mellitus: Status: Acute Qualifiers: Diabetes mellitus buttermaker continuous churn insulin use: unspecified buttermaker continuous churn insulin use status Diabetes mellitus complication status: with other specified complication Qualified Code(s): E11.69 - Type 2 diabetes mellitus with other specified complication (6) HTN (hypertension): Status: Acute Qualifiers: Hypertension type: unspecified Qualified Code(s): I10 - Essential (primary) hypertension (7) COVID-19 vaccination not done: Status: Acute (8) WHO group 2 pulmonary arterial hypertension: Status: Acute (9) Hyperkalemia: Status: Acute (10) IMKA (acute kidney injury): Status: Acute -Intubated 02/07/2021 -Sedated and paralyzed and completed 2 proning sessions -Off paralytic and Versed yesterday, taper of fentanyl and propofol today and start awakening trial -ABG 7.4 3/73/30 4/95% on CMV 430/10/40 8% FiO2 -With underlying idiopathic interstitial pulmonary fibrosis:possible ILD exacerbation - on home medication tadalafil 5 mg daily once for pulmonary hypertension and pirfenidone for his IPF - Prednisone 40 mg every 12 daily -will taper down to dexamethasone 6 mg IV daily from tomorrow -Completed on remdesivir 5 days - Patient CRP is already low and oxygenation improved after 2 proning sessions-no need for Actemra - DuoNebs every 4 hour, budesonide twice daily. - Pulmonary toilet with incentive spirometry flutter valve. - Monitor inflammatory markers including ferritin, ESR, CRP, D-dimer, fibrinogen every 48 hour - CTA negative for pulmonary embolism. - afebrile , Procalcitonin negative, urine Legionella bacterial antigen negative,Blood culture preliminary negative. Sputum culture results-preliminary negative - On empiric ceftriaxone and Continue with home dose of azithromycin prophylaxis; discontinued and started on aztreonam as patient has significant aspiration event yesterday night-patient is allergic to penicillin could not give Zosyn - Patient has a history of idiopathic pulmonary fibrosis and has been on steroids for last 6 months. He has history of recent travel to [place] and [place]. - PCP PCR, histoplasma antigen, Aspergillus antigen pending as pt his on steroids at home - MIKA-likely secondary to COVID-19 pneumonia versus prerenal-improving - Given hypoxia will try to keep patient as negative as possible. -430 cc 24 hours /-2.2 L since admission; - Patient history of CA Recent cardiac stent placement. Echocardiogram done shows an EF 60% with grade 1 diastolic dysfunction with moderate pulmonary hypertension with RVSP of 46. - Continue with aspirin, Plavix, statin.- -Monitor monitor input and output, daily weights - Hypertension: Goal blood pressure less than 140/90 mmHg. - Continue home dose of carvedilol - Type 2 diabetes mellitus: HbA1c 9.4.Insulin sliding scale at moderate dose. sugars uncontrolled , increase Lantus to 20 units twice daily Full code. Lovenox DVT prophylaxis Famotidine for PUD prophylaxis. To restart feeding when patient is in supine position updated Recommendations conveyed to hospitalist, RN, RT taking care of the patient Attestations Medical Necessity Statement*: Acute hypoxic respiratory failure secondary to ARDS due to COVID-19 pneumonia in patient with underlying interstitial fibrosis requiring mechanical ventilation Time Spent in Patient Care: Greater than 35 minutes (>than 50% of time spent in counselling and/or direct pt care on unit). Critical Care Time: The high probability of a clinically significant, sudden or life threatening deterioration of the patient's [pulmonary, endocrine, renal, neurological] system(s) required my full and direct attention, intervention and personal management. The critical care time is as shown. 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 transplanted heart: [place] heart Associated angina: unspecified whether angina present Type 2 diabetes mellitus E11.69 Diabetes mellitus alf insulin use: unspecified alf insulin use status Diabetes mellitus complication status: with other specified complication HTN (hypertension) I10 Hypertension type: unspecified COVID-19 vaccination not done Z28.9 WHO group 2 pulmonary arterial hypertension I27.22 Hyperkalemia E87.5 MIKA (acute kidney injury) N17.9 Time Spent (min) 45
[2021-02-13] VITALS (58 sets, daily range): BP systolic 99–156; BP diastolic 64–80; PULSE 60–86; RESP 18–19; TEMP 36.4–37.6; O2SAT 88–96
--- NOTE | 2021-02-13 02:31 | PC.NURSE ---
spoke with pt . Answered all questions. At this time when suctioning, there is evident tube feeding still being removed from lungs. light cream in color. will continue to monitor.
[2021-02-13 02:49] LABS: Glucose Point of Care 137 mg/dL (70-110)
[2021-02-13] MEDS: aztreonam 1,000 MG in sodium chloride 0.9% (plus) 50 ML 100 MG IV ×3 (02:49→23:56)
[2021-02-13] MEDS: ipratropium-albuterol 3 mL Neb INHALATION ×5 (03:05→20:31)
[2021-02-13 04:34] LABS: Basophils % 0.1 %; Hematocrit 44.9 % (42.0-52.0); Hemoglobin 14.3 g/dL (11.7-16.6); Lymphocytes # 0.4 10^3/uL (0.8-4.8); Lymphocytes % 2.3 %; Mean Corpuscular HGB Conc 31.8 g/dL (30.0-36.0); Mean Corpuscular Hemoglobin 29.1 pg (28.0-34.0); Mean Corpuscular Volume 91.3 fl (80-94); Mean Platelet Volume 9.7 fL (7.4-10.4); Monocytes # 1.3 10^3/uL (0.2-0.9); Monocytes % 7.7 %; Neutrophils # 14.53 10^3/uL (1.8-7.7); Nucleated Red Blood Cells % 0 %; Platelet Count 189 10^3/cmm (130-400); Red Blood Count 4.92 10^6/uL (4.1-5.3); Red Cell Distribution Width 14.3 % (12.1-15.1); White Blood Count 16.3 10^3/uL (4.0-10.0)
[2021-02-13] MEDS: famotidine 20 mg/2 mL INJ IVP ×2 (04:45→17:33)
[2021-02-13] MEDS: clopidogrel 75 mg Tablet PO (04:45)
[2021-02-13] MEDS: NON-FORMULARY MEDICATION (Tadalafil 5 mg tablet) 5 EACH PO (04:46)
[2021-02-13] MEDS: propofol 1,000 MG/100 ML INJ 20.04 MG IV ×3 (04:50→19:09)
[2021-02-13 04:52] LABS: Alanine Aminotransferase 19 U/L (0-41); Albumin Level 2.9 g/dL (3.5-5.2); Alkaline Phosphatase 76 IU/L (40-130); Anion Gap 10.2 (5-19); Aspartate Amino Transferase 21 U/L (0-40); Blood Urea Nitrogen 57 mg/dL (8-23); Calcium 8.6 mg/dL (8.5-10.5); Carbon Dioxide 34 mmol/L (22-29); Chloride 109 mmol/L (98-107); Globulin 3.1 g/dL (1.3-4.6); Glucose 160 mg/dL (65-115); Magnesium 3.3 mg/dL (1.7-2.3); Osmolality Calculated 325 mOsm/kg (285-295); Potassium 5.2 mmol/L (3.5-5.1); Sodium 148 mmol/L (136-145); Total Bilirubin 0.4 mg/dL (0.15-1.2)
[2021-02-13 05:14] LABS: Glucose Point of Care 145 mg/dL (70-110)
[2021-02-13 06:45] LABS: ABG PCO2 55.3 mmHg (35-45); Arterial Blood Gas Hematocrit 44.6 % (42-52); Base Excess ABG 7.5 mmol/L (-2.0-2.0); Blood Gas Operator Identificat JB; Blood Gas Sample Type Arterial; HCO3 ABG 34.2 mmol/L (22-26); PO2 ABG 57.5 mmHg (80.0-100.0)
[2021-02-13 06:46] LABS: Blood Gas Tidal Volume 0.43; Oxygen Device VENT
[2021-02-13 07:44] LABS: Glucose Point of Care 155 mg/dL (70-110)
[2021-02-13] MEDS: budesonide 0.5 mg/2 mL Neb INHALATION ×2 (08:19→20:31)
[2021-02-13] MEDS: zinc gluconate 50 mg Tablet PO (08:54)
[2021-02-13] MEDS: enoxaparin 40 mg/0.4 mL Syringe SUBCUT (08:54)
[2021-02-13] MEDS: tamsulosin 0.4 mg Capsule PO (08:54)
[2021-02-13] MEDS: ascorbic acid 500 mg Tablet PO (08:54)
[2021-02-13] MEDS: aspirin 81 mg EC Tablet PO (08:54)
[2021-02-13] MEDS: insulin glargine 100 units/1 mL 25 UNIT SUBCUT ×2 (08:55→20:58)
[2021-02-13] MEDS: ezetimibe 10 mg Tablet PO (09:04)
[2021-02-13 11:54] LABS: Glucose Point of Care 172 mg/dL (70-110)
[2021-02-13] MEDS: propofol 1,000 MG/100 ML INJ 22.91 MG IV ×2 (13:49→23:55)
[2021-02-13] MEDS: cisatracurium 100 MG in sodium chloride 0.9% 50 ML IV (14:04)
--- NOTE | 2021-02-13 15:20 | PC.RESP ---
RT Shift Note Frequent safety and respiratory rounds continue. Orders completed as indicated. Patient monitored pre and post treatments throughout shift. Patient [Did.] tolerate treatments appropriately. Condition [.DidNotChange]. Patient and/or event representative educated on respiratory treatment and medications. Patient and/or event representative unable to comprehend. Will continue to monitor patient progress.
--- NOTE | 2021-02-13 16:00 | PM.PN ---
Subjective Subjective: Interval history: Intubated, sedated, paralyzed. Vitals/I&O/Wt Last Vital Signs Temp 97.7 F 02/13/21 11:30 Pulse 66 02/13/21 15:19 Resp 18 02/13/21 15:19 BP 112/68 02/13/21 13:00 Pulse Ox 91 02/13/21 15:19 02/13/21 02/13/21 02/13/21 06:59 14:59 22:59 Intake Total 250 / 831.843 406.998 / 406.998 4.621 / 411.619 Output Total 450 / 850 550 / 550 Balance -200 / -18.157 -143.002 / -143.002 4.621 / -138.381 Weight last 48 hrs Weight 90.322 kg Weight 90.1 kg Physical Exam Const: COMMON NORMALS: no acute distress GENERAL APPEARANCE: patient mechanically ventilated HENMT: COMMON NORMALS: oropharynx normal Neck/C-Spine: COMMON NORMALS: no JVD Resp: COMMON NORMALS: clear to auscultation bilaterally AUSCULTATION: clear to auscultation bilaterally Cardio: COMMON NORMALS: no JVD, regular rhythm, S1 normal heart sound present, S2 normal heart sound present and No murmurs present (Cardio) RHYTHM: regular rhythm HEART SOUNDS: S1 normal heart sound present and S2 normal heart sound present GI: COMMON NORMALS: Normal to inspection, nondistended, normoactive bowel sounds present and Soft to palpation PALPATION: Yes Soft to palpation Extremity: COMMON NORMALS: no joint enlargement and no pedal edema Skin: COMMON NORMALS: no rashes or lesions noted GENERAL SKIN EXAM: no rashes or lesions noted Urinary Catheter Management^: Ram: Cath Placed During This Visit: yes Reason for Continuing Indwelling Catheter: Accurate Measurement of Urinary Output in Critically Ill Patients Urinary Catheter Date of Insertion: 02/05/21 Urinary Catheter Time of Insertion: 18:34 Data : 02/13/21 04:30 02/13/21 04:30 Micro: Microbiology 02/10/21 18:45 Gram Stain - Final Sputum - Endotracheal Tube Aspirate Sputum Culture - Final A&P Assessment and plan (1) Pneumonia due to 2019-nCoV: Worsened FiO2 requirement, increasing leukocytosis. Additional session of proning with paralytics. Yesterday also noted to have regurgitation of tube feeding with possible aspiration. These had to be held. Started on aztreonam. Sputum cultures requested. Continue Solu-Medrol. He has completed a course of remdesivir. Prophylactic Lovenox. Illness complicated by underlying ILD with possible exacerbation. Wean mechanical ventilatory support. Status: Acute (2) Idiopathic interstitial fibrosis: Continue prednisone with taper as above. Antibiotic changed to Azactam. Previously also on azithromycin prophylaxis. Status: Acute (3) ARDS (adult respiratory distress syndrome): Weaning trial with aggressive sedation, spontaneous breathing trial in the morning. Status: Acute (4) COVID-19 vaccination not done: Status: Acute (5) HTN (hypertension): Status: Acute Qualifiers: Hypertension type: unspecified Qualified Code(s): I10 - Essential (primary) hypertension (6) Type 2 diabetes mellitus: Status: Acute Qualifiers: Diabetes mellitus middle or intermediate school principal insulin use: unspecified middle or intermediate school principal insulin use status Diabetes mellitus complication status: with other specified complication Qualified Code(s): E11.69 - Type 2 diabetes mellitus with other specified complication (7) CAD (coronary artery disease): Recent stent placement. Continue aspirin, Plavix, beta-too, statin. Status: Acute Qualifiers: Coronary Disease-Associated Artery/Lesion type: [place] artery [place] vs. transplanted heart: [place] heart Associated angina: unspecified whether angina present Qualified Code(s): I25.10 - Atherosclerotic heart disease of [place] coronary artery without angina pectoris (8) WHO group 2 pulmonary arterial hypertension: Status: Acute (9) Acute respiratory distress syndrome (ARDS) due to 2019 novel coronavirus: Status: Acute Attestations Medical Necessity Statement*: Continue admission for assessment management of hypoxic respiratory failure with severe COVID-19, possible aspiration requiring continued mechanical ventilator support, proning, paralytics. Coding Level of Care Code Acute Foreign Languages Department Chair for [facility] Diagnoses Pneumonia due to 2019-nCoV U07.1; J12.82 Idiopathic interstitial fibrosis J84.112 ARDS (adult respiratory distress syndrome) J80 COVID-19 vaccination not done Z28.9 HTN (hypertension) I10 Hypertension type: unspecified Type 2 diabetes mellitus E11.69 Diabetes mellitus middle or intermediate school principal insulin use: unspecified middle or intermediate school principal insulin use status Diabetes mellitus complication status: with other specified complication CAD (coronary artery disease) I25.10 Coronary Disease-Associated Artery/Lesion type: [place] artery [place] vs. transplanted heart: [place] heart Associated angina: unspecified whether angina present WHO group 2 pulmonary arterial hypertension I27.22 Acute respiratory distress syndrome (ARDS) due to 2019 novel coronavirus U07.1; J80
[2021-02-13 16:37] LABS: Glucose Point of Care 181 mg/dL (70-110)
[2021-02-13 18:04] LABS: Histoplasma Antigen (Quant) NONE DETECTED; Histoplasma Antigen Interpreta NEGATIVE; Histoplasma Antigen Specimen URINE
--- NOTE | 2021-02-13 18:37 | PC.NURSE ---
BIS TOF [id number] 80 [id number] 88 1300 66 4/4 1400 52 3/4 1500 38 1530 20 1600 24 3/4 1700 26 4/4 1800 39 2/4
[2021-02-13] MEDS: benzonatate 100 mg Capsule PO (20:57)
[2021-02-13 20:58] LABS: Glucose Point of Care 181 mg/dL (70-110)
[2021-02-13] MEDS: sennosides-docusate Tablet 1 TAB PO (21:00)
--- NOTE | 2021-02-13 21:47 | PM.PN ---
Subjective Subjective: Interval history: -Patient seen at bedside today morning -Plan is to prone 1 more time today -Labs and imaging reviewed Medications: Reviewed: Yes Vitals/I&O/Wt Last Vital Signs Temp 97.5 F L 02/13/21 15:00 Pulse 75 02/13/21 20:31 Resp 18 02/13/21 20:31 BP 119/69 02/13/21 18:30 Pulse Ox 96 02/13/21 20:31 02/13/21 02/13/21 02/13/21 06:59 14:59 22:59 Intake Total 250 / 831.843 406.998 / 406.998 114.422 / 521.420 Output Total 450 / 850 550 / 550 200 / 750 Balance -200 / -18.157 -143.002 / -143.002 -85.578 / -228.580 Weight last 48 hrs Weight 199 lb 2 oz Weight 198 lb 10.184 oz Physical Exam Narrative: EXAM NARRATIVE: General: lying in bed, sedated and intubated. HEENT:NCAT, PERRLA, EOMI Neck: Supple Lungs: Bilateral coarse crepitations and intermittent crackles Heart: s1/s2, RRR Abd: soft, NT, ND, BS + Normoactive Extremities: No edema PROGRAM MANAGEMENT ANALYST: sedated and limited PROGRAM MANAGEMENT ANALYST exam possible. SKIN: no rash LDA: # CVC: Right IJ line 02/07/2021 # A line: Right radial arterial line 02/07/2021 Urinary Catheter Management^: Ram: Cath Placed During This Visit: yes Reason for Continuing Indwelling Catheter: Accurate Measurement of Urinary Output in Critically Ill Patients Urinary Catheter Date of Insertion: 02/05/21 Urinary Catheter Time of Insertion: 18:34 Data : 02/13/21 04:30 02/13/21 04:30 Other Labs: Laboratory Results WBC 16.3 10^3/uL (4.0-10.0) H 02/13/21 04:30 RBC 4.92 10^6/uL (4.1-5.3) 02/13/21 04:30 Hgb 14.3 g/dL (11.7-16.6) 02/13/21 04:30 Hct 44.9 % (42.0-52.0) 02/13/21 04:30 MCV 91.3 fl (80-94) 02/13/21 04:30 MCH 29.1 pg (28.0-34.0) 02/13/21 04:30 MCHC 31.8 g/dL (30.0-36.0) 02/13/21 04:30 RDW 14.3 % (12.1-15.1) 02/13/21 04:30 Plt Count 189 10^3/cmm (130-400) 02/13/21 04:30 MPV 9.7 fL (7.4-10.4) 02/13/21 04:30 Neut % (Auto) 89.0 % 02/13/21 04:30 Lymph % (Auto) 2.3 % 02/13/21 04:30 Cook % (Auto) 7.7 % 02/13/21 04:30 Eos % (Auto) 0.0 % 02/13/21 04:30 Baso % (Auto) 0.1 % 02/13/21 04:30 Neut # (Auto) 14.53 10^3/uL (1.8-7.7) H 02/13/21 04:30 Lymph # (Auto) 0.4 10^3/uL (0.8-4.8) L 02/13/21 04:30 Cook # (Auto) 1.3 10^3/uL (0.2-0.9) H 02/13/21 04:30 Eos # (Auto) 0.0 10^3/uL (0.0-0.8) 02/13/21 04:30 Baso # (Auto) 0.0 10^3/uL (0.0-0.1) 02/13/21 04:30 Nucleated RBC % (auto) 0 % 02/13/21 04:30 Nucleated RBCs # 0.0 /100WBC 02/13/21 04:30 ESR 14 mm/hr (0-10) H 02/12/21 04:56 D-Dimer 1.38 ug/mIFEU (0-0.59) H 02/08/21 05:47 Specimen Type Arterial 02/13/21 06:30 Sample Site Artline 02/12/21 04:32 ABG pH 7.40 (7.35-7.45) 02/13/21 06:30 ABG pCO2 55.3 mmHg (35-45) H 02/13/21 06:30 ABG pO2 57.5 mmHg (80.0-100.0) L 02/13/21 06:30 ABG HCO3 34.2 mmol/L (22-26) H 02/13/21 06:30 ABG O2 Saturation 95.7 02/12/21 04:32 ABG Base Excess 7.5 mmol/L (-2.0-2.0) H 02/13/21 06:30 Davion Test N/a 02/13/21 06:30 A-a O2 Gradient 26.5 mmHg (5-10) H 02/12/21 04:32 Hematocrit 44.6 % (42-52) 02/13/21 06:30 Hgb O2 Saturation 94.8 % (95-100) L 02/12/21 04:32 Carboxyhemoglobin 0.5 %THgb (0.4-20.1) 02/12/21 04:32 Methemoglobin 0.5 % (0.4-1.5) 02/12/21 04:32 Total Hemoglobin 14.3 g/dL (14-18) 02/12/21 04:32 Sodium 146.0 mmol/L (131-143) H 02/12/21 04:32 Potassium 5.0 mmol/L (3.5-5.0) 02/12/21 04:32 Glucose 244.0 mg/dL (70-115) H 02/12/21 04:32 Ionized Calcium 1.2 mmol/L (1.1-1.4) 02/12/21 04:32 O2 Delivery Device Vent 02/13/21 06:30 O2 Liters/Min 55.0 % 02/06/21 09:30 Mechanical Rate 18.0 02/13/21 06:30 FiO2 48.0 % 02/13/21 06:30 Tidal Volume 0.43 02/13/21 06:30 PEEP 10.0 cmH20 02/13/21 06:30 Organizational Research Consultant ID Isaias 02/13/21 06:30 Sodium 148 mmol/L (136-145) H 02/13/21 04:30 Potassium 5.2 mmol/L (3.5-5.1) H 02/13/21 04:30 Chloride 109 mmol/L (98-107) H 02/13/21 04:30 Carbon Dioxide 34 mmol/L (22-29) H 02/13/21 04:30 Anion Gap 10.2 (5-19) 02/13/21 04:30 BUN 57 mg/dL (8-23) H 02/13/21 04:30 Creatinine 0.9 mg/dL (0.7-1.2) 02/13/21 04:30 GFR Calculation Not Reportable 02/13/21 04:30 Glucose 160 mg/dL (65-115) H 02/13/21 04:30 POC Glucose 181 mg/dL (70-110) H 02/13/21 20:47 Estimat Average Glucose 223 02/06/21 05:45 Hemoglobin A1c 9.4 % (4.0-6.0) H 02/06/21 05:45 Calculated Osmolality 325 mOsm/kg (285-295) H 02/13/21 04:30 Lactic Acid 1.4 mmol/L (0.5-2.2) 02/05/21 12:42 Calcium 8.6 mg/dL (8.5-10.5) 02/13/21 04:30 Phosphorus 3.3 mg/dL (2.5-4.5) 02/06/21 05:45 Magnesium 3.3 mg/dL (1.7-2.3) H 02/13/21 04:30 Iron 37 ug/dL (59-158) L 02/05/21 12:42 TIBC 195 mcg/dl 02/05/21 12:42 % Saturation 18.9 % (20-50) L 02/05/21 12:42 Unsat Iron Binding 158 ug/dL (112-347) 02/05/21 12:42 Ferritin 654 ng/mL (30-400) H 02/08/21 05:47 Total Bilirubin 0.4 mg/dL (0.15-1.2) 02/13/21 04:30 AST 21 U/L (0-40) 02/13/21 04:30 ALT 19 U/L (0-41) 02/13/21 04:30 Alkaline Phosphatase 76 IU/L (40-130) 02/13/21 04:30 Lactate Dehydrogenase 583 U/L (135-225) H 02/06/21 05:45 Creatine Kinase 113 U/L (39-308) 02/10/21 16:50 C-Reactive Protein 10.8 mg/L (0.0-4.9) H 02/12/21 04:56 NT-Pro-B Natriuret Pep 90 pg/mL (0-125) 02/12/21 04:56 Total Protein 6.0 g/dL (6.6-8.7) L 02/13/21 04:30 Albumin 2.9 g/dL (3.5-5.2) L 02/13/21 04:30 Globulin 3.1 g/dL (1.3-4.6) 02/13/21 04:30 Triglycerides 162 mg/dL (0-150) H 02/06/21 05:45 Cholesterol 142 mg/dL (0-200) 02/06/21 05:45 LDL Cholesterol, Calc 65 mg/dL (50-129) 02/06/21 05:45 Total VLDL Cholesterol 32 mg/dL (0-30) H 02/06/21 05:45 HDL Cholesterol 45 mg/dL (60-100) L 02/06/21 05:45 Cholesterol/HDL Ratio 3.16 mg/dL (1.0-5.00) 02/06/21 05:45 Procalcitonin 0.09 ng/mL (0-0.5) 02/10/21 03:16 TSH 1.72 uIU/mL (0.27-4.20) 02/05/21 12:42 Urine Color Straw (Yellow) 02/05/21 18:17 Urine Appearance Clear (CLEAR) 02/05/21 18:17 Urine pH 5 (5-7) 02/05/21 18:17 Ur Specific [place] 1.005 (1.005-1.030) 02/05/21 18:17 Urine Protein Neg (Negative) 02/05/21 18:17 Urine Glucose (UA) 2+ (Normal) 02/05/21 18:17 Urine Ketones Negative (Negative) 02/05/21 18:17 Urine Blood Neg (Negative) 02/05/21 18:17 Urine Nitrate Negative (Negative) 02/05/21 18:17 Urine Bilirubin Neg (Negative) 02/05/21 18:17 Urine Urobilinogen Norm mg/dL (Negative) 02/05/21 18:17 Ur Leukocyte Esterase Negative (Negative) 02/05/21 18:17 Ur Random Sodium 101 mmol/L 02/05/21 18:17 Ur Random Potassium 11 mmol/L 02/05/21 18:17 Ur Random Chloride 104 mmol/L 02/05/21 18:17 Histoplasma Antigen Urine 02/06/21 10:23 Histoplasma Ag (Qnt) None detected ng/mL 02/06/21 10:23 Histoplasma Ag Interp Negative 02/06/21 10:23 Pneumocystis Source Sputum 02/05/21 18:25 Pneumocyst jiroveci PCR Not detected 02/05/21 18:25 A. galactomannan Ag EIA Not detected 02/05/21 18:25 A. galactomannan Ag Idx <0.50 02/05/21 18:25 Beta-(1,3)-D-Glucan <31 pg/mL 02/07/21 05:30 B-(1,3)-D-Glucan Intrp Negative 02/07/21 05:30 Impressions Chest CTA 02/05/21 13:24 IMPRESSION: 1. No pulmonary embolism. 2. Diffusely abnormal lungs. Diffuse scattered groundglass attenuation, thickened reticulations and honeycombing. Suspect superimposed Covid on chronic pulmonary fibrosis. 3. Bilateral hilar adenopathy with the largest lymph node on the LEFT measuring 12 mm. Probably reactive. Chest X-Ray 02/12/21 12:18 IMPRESSION: Stable appearance of the chest as discussed above Micro: Microbiology 02/10/21 18:45 Gram Stain - Final Sputum - Endotracheal Tube Aspirate Sputum Culture - Final A&P Assessment and plan (1) Acute respiratory failure with hypoxia: Status: Acute (2) Acute respiratory distress syndrome (ARDS) due to 2019 novel coronavirus: Status: Acute (3) Idiopathic interstitial fibrosis: Status: Acute (4) CAD (coronary artery disease): Status: Acute Qualifiers: Coronary Disease-Associated Artery/Lesion type: [place] artery [place] vs. transplanted heart: [place] heart Associated angina: unspecified whether angina present Qualified Code(s): I25.10 - Atherosclerotic heart disease of [place] coronary artery without angina pectoris (5) Type 2 diabetes mellitus: Status: Acute Qualifiers: Diabetes mellitus marine oil terminal superintendent insulin use: unspecified chcf insulin use status Diabetes mellitus complication status: with other specified complication Qualified Code(s): E11.69 - Type 2 diabetes mellitus with other specified complication (6) HTN (hypertension): Status: Acute Qualifiers: Hypertension type: unspecified Qualified Code(s): I10 - Essential (primary) hypertension (7) COVID-19 vaccination not done: Status: Acute (8) WHO group 2 pulmonary arterial hypertension: Status: Acute (9) Hyperkalemia: Status: Acute (10) MIKA (acute kidney injury): Status: Acute -Intubated 02/07/2021 -Sedated and paralyzed and completed 2 proning sessions-plan is to prone 1 more session today -Started back on Versed and paralytic for proning -ABG 7.4 0/55/57/34/95% on 18/48%/430/10 CMV -With underlying idiopathic interstitial pulmonary fibrosis:possible ILD exacerbation - on home medication tadalafil 5 mg daily once for pulmonary hypertension and pirfenidone for his IPF - Prednisone 40 mg every 12 daily -tapered to dexamethasone 6 mg IV daily -Completed on remdesivir 5 days - Patient CRP is already low and oxygenation improved after 2 proning sessions-no need for Actemra - DuoNebs every 4 hour, budesonide twice daily. - Pulmonary toilet with incentive spirometry flutter valve. - Monitor inflammatory markers including ferritin, ESR, CRP, D-dimer, fibrinogen every 48 hour - CTA negative for pulmonary embolism. - afebrile , Procalcitonin negative, urine Legionella bacterial antigen negative,Blood culture preliminary negative. Sputum culture results-preliminary negative - On empiric ceftriaxone and Continue with home dose of azithromycin prophylaxis; discontinued and started on aztreonam as patient has significant aspiration event yesterday night-patient is allergic to penicillin could not give Zosyn -I will follow x-rays and repeat sputum culture tomorrow and if negative will DC aztreonam - Patient has a history of idiopathic pulmonary fibrosis and has been on steroids for last 6 months. He has history of recent travel to [place] and [place]. - PCP PCR, histoplasma antigen, Aspergillus antigen, beta D glucan negative - MIKA-likely secondary to COVID-19 pneumonia versus prerenal-improving - Given hypoxia will try to keep patient as negative as possible. Please 380 cc over 24 hours / -1.8 L since admission -Sodium 148-Free water 150 every 6 hour; - Patient history of CAD Recent cardiac stent placement. Echocardiogram done shows an EF 60% with grade 1 diastolic dysfunction with moderate pulmonary hypertension with RVSP of 46. - Continue with aspirin, Plavix, statin.- -Monitor monitor input and output, daily weights - Hypertension: Goal blood pressure less than 140/90 mmHg. - Continue home dose of carvedilol - Type 2 diabetes mellitus: HbA1c 9.4.Insulin sliding scale at moderate dose. sugars uncontrolled , Lantus to 20 units twice daily Full code. Lovenox DVT prophylaxis Famotidine for PUD prophylaxis. To restart feeding when patient is in supine position updated Recommendations conveyed to hospitalist, RN, RT taking care of the patient Attestations Medical Necessity Statement*: Acute hypoxic respiratory failure secondary to ARDS due to COVID-19 pneumonia in patient with underlying interstitial fibrosis requiring mechanical ventilation Time Spent in Patient Care: Greater than 35 minutes (>than 50% of time spent in counselling and/or direct pt care on unit). Critical Care Time: The high probability of a clinically significant, sudden or life threatening deterioration of the patient's [pulmonary, endocrine, renal, neurological] system(s) required my full and direct attention, intervention and personal management. The critical care time is as shown. This time is in addition to time spent performing any reported procedures but includes the following: [x] Data and vital sign review and interpretation [x] Patient assessment, examination and intervention [x] Documentation [x] Medication orders and management Critical Care Time (min): 45 Coding Level of Care Code Established Pt Acute Furnace Combustion Analyst for Chg Fwd Patient Type Established History Comprehensive Exam Comprehensive Medical Decision Making High Complexity Diagnoses Acute respiratory failure with hypoxia J96.01 Acute respiratory distress syndrome (ARDS) due to 2019 novel coronavirus U07.1; J80 Idiopathic interstitial fibrosis J84.112 CAD (coronary artery disease) I25.10 Coronary Disease-Associated Artery/Lesion type: [place] artery [place] vs. transplanted heart: [place] heart Associated angina: unspecified whether angina present Type 2 diabetes mellitus E11.69 Diabetes mellitus marine oil terminal superintendent insulin use: unspecified chcf insulin use status Diabetes mellitus complication status: with other specified complication HTN (hypertension) I10 Hypertension type: unspecified COVID-19 vaccination not done Z28.9 WHO group 2 pulmonary arterial hypertension I27.22 Hyperkalemia E87.5 MIKA (acute kidney injury) N17.9 Time Spent (min) 45
[2021-02-14] VITALS (61 sets, daily range): BP systolic 98–169; BP diastolic 59–82; PULSE 81–101; RESP 16–18; TEMP 36.2–36.6; O2SAT 91–96
[2021-02-14 00:07] LABS: Glucose Point of Care 143 mg/dL (70-110)
[2021-02-14] MEDS: ipratropium-albuterol 3 mL Neb INHALATION ×6 (00:38→19:55)
[2021-02-14] MEDS: cisatracurium 100 MG in sodium chloride 0.9% 50 ML 8.13 MG IV ×2 (02:27→15:01)
[2021-02-14 03:46] LABS: Basophils % 0.2 %; Hematocrit 47.3 % (42.0-52.0); Hemoglobin 14.2 g/dL (11.7-16.6); Lymphocytes # 0.2 10^3/uL (0.8-4.8); Lymphocytes % 1.3 %; Mean Corpuscular Hemoglobin 28.8 pg (28.0-34.0); Mean Corpuscular Volume 95.9 fl (80-94); Mean Platelet Volume 9.9 fL (7.4-10.4); Monocytes # 1.2 10^3/uL (0.2-0.9); Neutrophils # 15.96 10^3/uL (1.8-7.7); Neutrophils % 90.7 %; Nucleated Red Blood Cells % 0 %; Platelet Count 199 10^3/cmm (130-400); Red Blood Count 4.93 10^6/uL (4.1-5.3); Red Cell Distribution Width 14.3 % (12.1-15.1); White Blood Count 17.6 10^3/uL (4.0-10.0)
[2021-02-14 03:47] LABS: Glucose Point of Care 131 mg/dL (70-110)
[2021-02-14 04:07] LABS: Alanine Aminotransferase 16 U/L (0-41); Albumin Level 2.8 g/dL (3.5-5.2); Alkaline Phosphatase 79 IU/L (40-130); Aspartate Amino Transferase 18 U/L (0-40); Blood Urea Nitrogen 51 mg/dL (8-23); Calcium 8.6 mg/dL (8.5-10.5); Carbon Dioxide 33 mmol/L (22-29); Chloride 108 mmol/L (98-107); Globulin 3.1 g/dL (1.3-4.6); Glucose 131 mg/dL (65-115); Magnesium 3.2 mg/dL (1.7-2.3); Osmolality Calculated 319 mOsm/kg (285-295); Sodium 147 mmol/L (136-145); Total Bilirubin 0.3 mg/dL (0.15-1.2); Total Protein 5.9 g/dL (6.6-8.7)
[2021-02-14 04:08] LABS: Anion Gap 11.2 (5-19); Potassium 5.2 mmol/L (3.5-5.1)
[2021-02-14 04:13] LABS: ABG PH Result 7.37 (7.35-7.45); Arterial Blood Gas Hematocrit 44.8 % (42-52); Base Excess ABG 9.2 mmol/L (-2.0-2.0); Blood Gas Sample Type Arterial; Blood Gas Tidal Volume 0.43; HCO3 ABG 37.3 mmol/L (22-26); Oxygen Device VENT; PO2 ABG 74.1 mmHg (80.0-100.0)
[2021-02-14] MEDS: propofol 1,000 MG/100 ML INJ 20.04 MG IV ×4 (05:10→21:17)
[2021-02-14] MEDS: NON-FORMULARY MEDICATION (Tadalafil 5 mg tablet) 5 EACH PO (05:30)
[2021-02-14] MEDS: clopidogrel 75 mg Tablet PO (05:30)
[2021-02-14] MEDS: famotidine 20 mg/2 mL INJ IVP ×2 (05:30→18:27)
[2021-02-14 06:12] LABS: ABG PCO2 65.1 mmHg (35-45)
--- NOTE | 2021-02-14 06:32 | PC.NURSE ---
Shift Note Frequent safety and comfort rounds continue. Orders and/or nursing care completed as indicated. Patient monitored for response to intervention and treatment(s). Education provided includes vent management, pronation and supination, current medications. Patient and/or data entry representative Unable to teach patient at present, no family present, patient sedated and intubated. Will continue to monitor. 2000 BIZ 32 TOF 2/4 2200 BIZ 35 TOF 2/4 0000 BIZ 20 TOF 2/4 0200 BIZ 24 TOF 2/4 0400 BIZ 26 TOF 2/4 0600 BIZ 21 TOF 2/4
[2021-02-14 07:45] LABS: Glucose Point of Care 122 mg/dL (70-110)
[2021-02-14] MEDS: budesonide 0.5 mg/2 mL Neb INHALATION ×2 (08:16→19:55)
[2021-02-14] MEDS: carvedilol 3.125 mg Tablet PO ×2 (10:23→18:27)
[2021-02-14] MEDS: dexamethasone 10 mg/mL INJ 6 MG IVP (10:23)
[2021-02-14] MEDS: ascorbic acid 500 mg Tablet PO (10:23)
[2021-02-14] MEDS: aspirin 81 mg EC Tablet PO (10:23)
[2021-02-14] MEDS: enoxaparin 40 mg/0.4 mL Syringe SUBCUT (10:23)
[2021-02-14] MEDS: docusate sodium 100 mg Capsule PO ×2 (10:24→18:27)
[2021-02-14] MEDS: tamsulosin 0.4 mg Capsule PO (10:25)
[2021-02-14] MEDS: zinc gluconate 50 mg Tablet PO (10:25)
[2021-02-14] MEDS: ezetimibe 10 mg Tablet PO (10:27)
[2021-02-14] MEDS: insulin glargine 100 units/1 mL 25 UNIT SUBCUT ×2 (10:27→20:21)
--- NOTE | 2021-02-14 11:12 | PC.NURSE ---
Sclera, whites of eyes, blood shot bilaterally.
[2021-02-14] MEDS: aztreonam 1,000 MG in sodium chloride 0.9% (plus) 50 ML 100 MG IV ×2 (11:44→23:56)
[2021-02-14 11:54] LABS: Glucose Point of Care 164 mg/dL (70-110)
--- NOTE | 2021-02-14 14:07 | PC.SOCIAL ---
IMM not Updated IMM not updated. Pt is still intubated & not expected to discharge within the next 24-48hrs.
--- NOTE | 2021-02-14 15:00 | XR_ITS ---
WS: [id number] Portable AP upright chest, 02/14/2021 Clinical Data: covid Comparison: Portable chest, 02/12/2021 Findings: The patchy bilateral pulmonary opacities remain the same. The endotracheal tube nasogastric tube and right internal jugular venous catheter remain in same position. Monitor leads are on the ch est wall. The heart size is normal. XR/XR chest 1V portable [id number] Impression: 1. No change in patchy bilateral pulmonary opacities. 2. No change in multiple tubes.
--- NOTE | 2021-02-14 15:30 | PC.NURSE ---
Supine at 1520 x5 staff members. No complications.
--- NOTE | 2021-02-14 15:55 | PC.NURSE ---
Teeth Noticed several front bottom teeth loose after placing patient supine. Patient has poor dental hygiene.
[2021-02-14 16:17] LABS: Glucose Point of Care 241 mg/dL (70-110)
[2021-02-14] MEDS: ferrous gluconate 324 mg Tablet PO (18:27)
[2021-02-14 19:39] LABS: Blood Urea Nitrogen 49 mg/dL (8-23); Calcium 8.4 mg/dL (8.5-10.5); Carbon Dioxide 33 mmol/L (22-29); Chloride 109 mmol/L (98-107); Glucose 202 mg/dL (65-115); Osmolality Calculated 325 mOsm/kg (285-295); Sodium 148 mmol/L (136-145)
[2021-02-14 19:47] LABS: Anion Gap 11.7 (5-19)
[2021-02-14 19:48] LABS: Potassium 5.7 mmol/L (3.5-5.1)
[2021-02-14 20:02] LABS: Glucose Point of Care 205 mg/dL (70-110)
[2021-02-14] MEDS: sennosides-docusate Tablet 1 TAB PO (20:16)
[2021-02-14] MEDS: benzonatate 100 mg Capsule PO (20:16)
--- NOTE | 2021-02-14 20:32 | P.PN_ITS ---
Subjective Subjective: Interval history: -Patient is prone in the morning -Plan is to supine him and after 8/2 for the prone exertion -Labs and reviewed imaging reviewed Vitals/I&O/Wt Last Vital Signs Temp 97.7 F 02/14/21 20:00 Pulse 86 02/14/21 20:22 Resp 18 02/14/21 20:00 BP 106/66 02/14/21 20:00 Pulse Ox 93 02/14/21 20:00 02/14/21 02/14/21 02/14/21 06:59 14:59 22:59 Intake Total 395.338 / 916.758 350 / 350 160.15 / 510.15 Output Total 800 / 1550 1000 / 1000 Balance -404.662 / -633.242 350 / 350 -839.85 / -489.85 Weight last 48 hrs Weight 187 lb Weight 199 lb 2 oz Physical Exam Narrative: EXAM NARRATIVE: EXAM NARRATIVE: General: lying in bed, sedated and intubated. HEENT:NCAT, PERRLA, EOMI Neck: Supple Lungs: Bilateral coarse crepitations and intermittent crackles Heart: s1/s2, RRR Abd: soft, NT, ND, BS + Normoactive Extremities: No edema CREATIVE RESOURCE MANAGER: sedated and limited CREATIVE RESOURCE MANAGER exam possible. SKIN: no rash LDA: # CVC: Right IJ line 02/07/2021 # A line: Right radial arterial line 02/07/2021 Urinary Catheter Management^: Ram: Cath Placed During This Visit: yes Reason for Continuing Indwelling Catheter: Accurate Measurement of Urinary Output in Critically Ill Patients Urinary Catheter Date of Insertion: 02/05/21 Urinary Catheter Time of Insertion: 18:34 Data : 02/14/21 03:37 02/14/21 18:30 Other Labs: Laboratory Results WBC 17.6 10^3/uL (4.0-10.0) H 02/14/21 03:37 RBC 4.93 10^6/uL (4.1-5.3) 02/14/21 03:37 Hgb 14.2 g/dL (11.7-16.6) 02/14/21 03:37 Hct 47.3 % (42.0-52.0) 02/14/21 03:37 MCV 95.9 fl (80-94) H D 02/14/21 03:37 MCH 28.8 pg (28.0-34.0) 02/14/21 03:37 MCHC 30.0 g/dL (30.0-36.0) D 02/14/21 03:37 RDW 14.3 % (12.1-15.1) 02/14/21 03:37 Plt Count 199 10^3/cmm (130-400) 02/14/21 03:37 MPV 9.9 fL (7.4-10.4) 02/14/21 03:37 Neut % (Auto) 90.7 % 02/14/21 03:37 Lymph % (Auto) 1.3 % 02/14/21 03:37 [place] % (Auto) 7.0 % 02/14/21 03:37 Eos % (Auto) 0.0 % 02/14/21 03:37 Baso % (Auto) 0.2 % 02/14/21 03:37 Neut # (Auto) 15.96 10^3/uL (1.8-7.7) H 02/14/21 03:37 Lymph # (Auto) 0.2 10^3/uL (0.8-4.8) L 02/14/21 03:37 [place] # (Auto) 1.2 10^3/uL (0.2-0.9) H 02/14/21 03:37 Eos # (Auto) 0.0 10^3/uL (0.0-0.8) 02/14/21 03:37 Baso # (Auto) 0.0 10^3/uL (0.0-0.1) 02/14/21 03:37 Nucleated RBC % (auto) 0 % 02/14/21 03:37 Nucleated RBCs # 0.0 /100WBC 02/14/21 03:37 ESR 14 mm/hr (0-10) H 02/12/21 04:56 D-Dimer 1.38 ug/mIFEU (0-0.59) H 02/08/21 05:47 Specimen Type Arterial 02/14/21 04:00 Sample Site Artline 02/12/21 04:32 ABG pH 7.37 (7.35-7.45) 02/14/21 04:00 ABG pCO2 65.1 mmHg (35-45) H* 02/14/21 04:00 ABG pO2 74.1 mmHg (80.0-100.0) L 02/14/21 04:00 ABG HCO3 37.3 mmol/L (22-26) H 02/14/21 04:00 ABG O2 Saturation 95.7 02/12/21 04:32 ABG Base Excess 9.2 mmol/L (-2.0-2.0) H 02/14/21 04:00 Davion Test N/a 02/14/21 04:00 A-a O2 Gradient 26.5 mmHg (5-10) H 02/12/21 04:32 Hematocrit 44.8 % (42-52) 02/14/21 04:00 Hgb O2 Saturation 94.8 % (95-100) L 02/12/21 04:32 Carboxyhemoglobin 0.5 %THgb (0.4-20.1) 02/12/21 04:32 Methemoglobin 0.5 % (0.4-1.5) 02/12/21 04:32 Total Hemoglobin 14.3 g/dL (14-18) 02/12/21 04:32 Sodium 146.0 mmol/L (131-143) H 02/12/21 04:32 Potassium 5.0 mmol/L (3.5-5.0) 02/12/21 04:32 Glucose 244.0 mg/dL (70-115) H 02/12/21 04:32 Ionized Calcium 1.2 mmol/L (1.1-1.4) 02/12/21 04:32 O2 Delivery Device Vent 02/14/21 04:00 O2 Liters/Min 55.0 % 02/06/21 09:30 Mechanical Rate 18.0 02/13/21 06:30 FiO2 50.0 % 02/14/21 04:00 Tidal Volume 0.43 02/14/21 04:00 PEEP 10.0 cmH20 02/14/21 04:00 Organic Extractions Technician ID Teresa 02/14/21 04:00 Sodium 148 mmol/L (136-145) H 02/14/21 18:30 Potassium 5.7 mmol/L (3.5-5.1) H 02/14/21 18:30 Chloride 109 mmol/L (98-107) H 02/14/21 18:30 Carbon Dioxide 33 mmol/L (22-29) H 02/14/21 18:30 Anion Gap 11.7 (5-19) 02/14/21 18:30 BUN 49 mg/dL (8-23) H 02/14/21 18:30 Creatinine 0.9 mg/dL (0.7-1.2) 02/14/21 18:30 GFR Calculation Not Reportable 02/14/21 18:30 Glucose 202 mg/dL (65-115) H 02/14/21 18:30 POC Glucose 205 mg/dL (70-110) H 02/14/21 19:40 Estimat Average Glucose 223 02/06/21 05:45 Hemoglobin A1c 9.4 % (4.0-6.0) H 02/06/21 05:45 Calculated Osmolality 325 mOsm/kg (285-295) H 02/14/21 18:30 Lactic Acid 1.4 mmol/L (0.5-2.2) 02/05/21 12:42 Calcium 8.4 mg/dL (8.5-10.5) L 02/14/21 18:30 Phosphorus 3.3 mg/dL (2.5-4.5) 02/06/21 05:45 Magnesium 3.2 mg/dL (1.7-2.3) H 02/14/21 03:37 Iron 37 ug/dL (59-158) L 02/05/21 12:42 TIBC 195 mcg/dl 02/05/21 12:42 % Saturation 18.9 % (20-50) L 02/05/21 12:42 Unsat Iron Binding 158 ug/dL (112-347) 02/05/21 12:42 Ferritin 654 ng/mL (30-400) H 02/08/21 05:47 Total Bilirubin 0.3 mg/dL (0.15-1.2) 02/14/21 03:37 AST 18 U/L (0-40) 02/14/21 03:37 ALT 16 U/L (0-41) 02/14/21 03:37 Alkaline Phosphatase 79 IU/L (40-130) 02/14/21 03:37 Lactate Dehydrogenase 583 U/L (135-225) H 02/06/21 05:45 Creatine Kinase 113 U/L (39-308) 02/10/21 16:50 C-Reactive Protein 10.8 mg/L (0.0-4.9) H 02/12/21 04:56 NT-Pro-B Natriuret Pep 90 pg/mL (0-125) 02/12/21 04:56 Total Protein 5.9 g/dL (6.6-8.7) L 02/14/21 03:37 Albumin 2.8 g/dL (3.5-5.2) L 02/14/21 03:37 Globulin 3.1 g/dL (1.3-4.6) 02/14/21 03:37 Triglycerides 162 mg/dL (0-150) H 02/06/21 05:45 Cholesterol 142 mg/dL (0-200) 02/06/21 05:45 LDL Cholesterol, Calc 65 mg/dL (50-129) 02/06/21 05:45 Total VLDL Cholesterol 32 mg/dL (0-30) H 02/06/21 05:45 HDL Cholesterol 45 mg/dL (60-100) L 02/06/21 05:45 Cholesterol/HDL Ratio 3.16 mg/dL (1.0-5.00) 02/06/21 05:45 Procalcitonin 0.09 ng/mL (0-0.5) 02/10/21 03:16 TSH 1.72 uIU/mL (0.27-4.20) 02/05/21 12:42 Urine Color Straw (Yellow) 02/05/21 18:17 Urine Appearance Clear (CLEAR) 02/05/21 18:17 Urine pH 5 (5-7) 02/05/21 18:17 Ur Specific [place] 1.005 (1.005-1.030) 02/05/21 18:17 Urine Protein Neg (Negative) 02/05/21 18:17 Urine Glucose (UA) 2+ (Normal) 02/05/21 18:17 Urine Ketones Negative (Negative) 02/05/21 18:17 Urine Blood Neg (Negative) 02/05/21 18:17 Urine Nitrate Negative (Negative) 02/05/21 18:17 Urine Bilirubin Neg (Negative) 02/05/21 18:17 Urine Urobilinogen Norm mg/dL (Negative) 02/05/21 18:17 Ur Leukocyte Esterase Negative (Negative) 02/05/21 18:17 Ur Random Sodium 101 mmol/L 02/05/21 18:17 Ur Random Potassium 11 mmol/L 02/05/21 18:17 Ur Random Chloride 104 mmol/L 02/05/21 18:17 Histoplasma Antigen Urine 02/06/21 10:23 Histoplasma Ag (Qnt) None detected ng/mL 02/06/21 10:23 Histoplasma Ag Interp Negative 02/06/21 10:23 Pneumocystis Source Sputum 02/05/21 18:25 Pneumocyst jiroveci PCR Not detected 02/05/21 18:25 A. galactomannan Ag EIA Not detected 02/05/21 18:25 A. galactomannan Ag Idx <0.50 02/05/21 18:25 Beta-(1,3)-D-Glucan <31 pg/mL 02/07/21 05:30 B-(1,3)-D-Glucan Intrp Negative 02/07/21 05:30 Impressions Chest CTA 02/05/21 13:24 IMPRESSION: 1. No pulmonary embolism. 2. Diffusely abnormal lungs. Diffuse scattered groundglass attenuation, thicke eloy reticulations and honeycombing. Suspect superimposed Covid on chronic pulmonary fibrosis. 3. Bilateral hilar adenopathy with the largest lymph node on the LEFT measuring 12 mm. Probably reactive. Chest X-Ray 02/14/21 15:00 Impression: 1. No change in patchy bilateral pulmonary opacities. 2. No change in multiple tubes. Micro: Microbiology 02/13/21 13:10 Sputum Culture - Preliminary Sputum - Endotracheal Tube Aspirate A&P Assessment and plan (1) Acute respiratory failure with hypoxia: Status: Acute (2) Acute respiratory distress syndrome (ARDS) due to 2019 novel coronavirus: Status: Acute (3) Idiopathic interstitial fibrosis: Status: Acute (4) CAD (coronary artery disease): Status: Acute Qualifiers: Coronary Disease-Associated Artery/Lesion type: [place] artery [place] vs. transplanted heart: [place] heart Associated angina: unspecified whether angina present Qualified Code(s): I25.10 - Atherosclerotic heart disease of [place] coronary artery without angina pectoris (5) Type 2 diabetes mellitus: Status: Acute Qualifiers: Diabetes mellitus oil heaterman insulin use: unspecified oil heaterman insulin use status Diabetes mellitus complication status: with other specified complication Qualified Code(s): E11.69 - Type 2 diabetes mellitus with other specified complication (6) HTN (hypertension): Status: Acute Qualifiers: Hypertension type: unspecified Qualified Code(s): I10 - Essential (primary) hypertension (7) COVID-19 vaccination not done: Status: Acute (8) WHO group 2 pulmonary arterial hypertension: Status: Acute (9) Hyperkalemia: Status: Acute (10) MIKA (acute kidney injury): Status: Acute -Intubated 02/07/2021 -Sedated and paralyzed and completed 3 proning sessions-plan is to prone 1 more session today -On Versed, Nimbex, fentanyl and propofol -ABG 7.3 //30 7/90%-on CMV 430/04/15/50 percent- -With underlying idiopathic interstitial pulmonary fibrosis:possible ILD exacerbation - on home medication tadalafil 5 mg daily once for pulmonary hypertension and pirfenidone for his IPF -Started with prednisone 40 every 8 hours-gradually tapered to dexamethasone 6 mg IV daily -Completed on remdesivir 5 days - DuoNebs every 4 hour, budesonide twice daily. - Monitor inflammatory markers including ferritin, ESR, CRP, D-dimer, fibrinogen every 48 hour - CTA negative for pulmonary embolism. - afebrile , Procalcitonin negative, urine Legionella bacterial antigen negative,Blood culture negative. - Sputum culture 02/13/2021 results-preliminary negative - started on aztreonam as patient has significant aspiration event yesterday night-patient is allergic to penicillin could not give Zosyn; I will repeat sputum culture tomorrow and if negative will DC aztreonam - Patient has a history of idiopathic pulmonary fibrosis and has been on steroids for last 6 months. He has history of recent travel to [place] and [place]. - PCP PCR, histoplasma antigen, Aspergillus antigen, beta D glucan negative - MIKA-likely secondary to COVID-19 pneumonia versus prerenal-improving - Given hypoxia will try to keep patient as negative as possible. -633 cc over 24 hours /-2.9 L since admission -Sodium 147-Free water 150 every 6 hour; K 5.2 repeat BMP in am - Patient history of CAD Recent cardiac stent placement. Echocardiogram done shows an EF 60% with grade 1 diastolic dysfunction with moderate pulmonary hypertension with RVSP of 46. - Continue with aspirin, Plavix, statin.- -Monitor monitor input and output, daily weights - Hypertension: Goal blood pressure less than 140/90 mmHg. - Continue home dose of carvedilol - Type 2 diabetes mellitus: HbA1c 9.4.Insulin sliding scale at moderate dose. sugars uncontrolled , Lantus increased to 25 units twice daily Full code. Lovenox DVT prophylaxis Famotidine for PUD prophylaxis. To restart feeding when patient is in supine position updated Recommendations conveyed to hospitalist, RN, RT taking care of the patient Attestations Medical Necessity Statement*: Acute hypoxic respiratory failure secondary to ARDS due to COVID-19 pneumonia in patient with underlying interstitial fibrosis requiring mechanical ventilation Time Spent in Patient Care: Greater than 35 minutes (>than 50% of time spent in counselling and/or direct pt care on unit) . Critical Care Time: The high probability of a clinically significant, sudden or life threatening deterioration of the patient's [pulmonary, endocrine, renal, neurological] system(s) required my full and direct attention, intervention and personal management. The critical care time is as shown. This time is in addition to time spent performing any reported procedures but includes the following: [x] Data and vital sign review and interpretation [x] Patient assessment, examination and intervention [x] Documentation [x] Medication orders and management Critical Care Time (min): 45 Coding Level of Care Code Established Pt Acute Senior Product Development Manager for [facility] Patient Type Established History Comprehensive Exam Comprehensive Medical Decision Making High Complexity Diagnoses Acute respiratory failure with hypoxia J96.01 Acute respiratory distress syndrome (ARDS) due to 2019 novel coronavirus U07.1; J80 Idiopathic interstitial fibrosis J84.112 CAD (coronary artery disease) I25.10 Coronary Disease-Associated Artery/Lesion type: [place] artery [place] vs. transplanted heart: [place] heart Associated angina: unspecified whether angina present Type 2 diabetes mellitus E11.69 Diabetes mellitus residential insulin use: unspecified oil heaterman insulin use status Diabetes mellitus complication status: with other specified complication HTN (hypertension) I10 Hypertension type: unspecified COVID-19 vaccination not done Z28.9 WHO group 2 pulmonary arterial hypertension I27.22 Hyperkalemia E87.5 MIKA (acute kidney injury) N17.9 Time Spent (min) 45
--- NOTE | 2021-02-14 20:39 | PM.PN ---
Subjective Subjective: Interval history: Intubated, sedated. Paralyzed. Vitals/I&O/Wt Last Vital Signs Temp 97.7 F 02/14/21 20:00 Pulse 86 02/14/21 20:22 Resp 18 02/14/21 20:00 BP 106/66 02/14/21 20:00 Pulse Ox 93 02/14/21 20:00 02/14/21 02/14/21 02/14/21 06:59 14:59 22:59 Intake Total 395.338 / 916.758 350 / 350 160.15 / 510.15 Output Total 800 / 1550 1000 / 1000 Balance -404.662 / -633.242 350 / 350 -839.85 / -489.85 Weight last 48 hrs Weight 84.822 kg Weight 90.322 kg Physical Exam Const: COMMON NORMALS: no acute distress GENERAL APPEARANCE: patient mechanically ventilated HENMT: COMMON NORMALS: oropharynx normal Neck/C-Spine: COMMON NORMALS: no JVD Resp: COMMON NORMALS: clear to auscultation bilaterally AUSCULTATION: clear to auscultation bilaterally Cardio: COMMON NORMALS: no JVD, regular rhythm, S1 normal heart sound present, S2 normal heart sound present and No murmurs present (Cardio) RHYTHM: regular rhythm HEART SOUNDS: S1 normal heart sound present and S2 normal heart sound present GI: COMMON NORMALS: Normal to inspection, nondistended, normoactive bowel sounds present and Soft to palpation PALPATION: Yes Soft to palpation Extremity: COMMON NORMALS: no joint enlargement and no pedal edema Skin: COMMON NORMALS: no rashes or lesions noted GENERAL SKIN EXAM: no rashes or lesions noted Urinary Catheter Management^: Ram: Cath Placed During This Visit: yes Reason for Continuing Indwelling Catheter: Accurate Measurement of Urinary Output in Critically Ill Patients Urinary Catheter Date of Insertion: 02/05/21 Urinary Catheter Time of Insertion: 18:34 Data : 02/14/21 03:37 02/14/21 18:30 Micro: Microbiology 02/13/21 13:10 Sputum Culture - Preliminary Sputum - Endotracheal Tube Aspirate A&P Assessment and plan (1) Pneumonia due to 2019-nCoV: Continue mechanical ventilatory support. Additional proning session tonight. Caution with tube feeds due to episode of regurgitation on 02/12. Aztreonam. Sputum cultures requested. So far moderate mixed upper respiratory siobhan. Continue Solu-Medrol. He has completed a course of remdesivir. Prophylactic Lovenox. Illness complicated by underlying ILD with possible exacerbation. Wean mechanical ventilatory support. Status: Acute (2) Idiopathic interstitial fibrosis: Continue dexamethasone. Antibiotic changed to Azactam. Previously also on azithromycin prophylaxis. Status: Acute (3) ARDS (adult respiratory distress syndrome): As above. Status: Acute (4) COVID-19 vaccination not done: Status: Acute (5) HTN (hypertension): Status: Acute Qualifiers: Hypertension type: unspecified Qualified Code(s): I10 - Essential (primary) hypertension (6) Type 2 diabetes mellitus: Status: Acute Qualifiers: Diabetes mellitus long filler cigar roller machine insulin use: unspecified nursing home insulin use status Diabetes mellitus complication status: with other specified complication Qualified Code(s): E11.69 - Type 2 diabetes mellitus with other specified complication (7) CAD (coronary artery disease): Recent stent placement. Continue aspirin, Plavix, beta-too, statin. Status: Acute Qualifiers: Coronary Disease-Associated Artery/Lesion type: [place] artery [place] vs. transplanted heart: [place] heart Associated angina: unspecified whether angina present Qualified Code(s): I25.10 - Atherosclerotic heart disease of [place] coronary artery without angina pectoris (8) WHO group 2 pulmonary arterial hypertension: Status: Acute (9) Acute respiratory distress syndrome (ARDS) due to 2019 novel coronavirus: Status: Acute Additional A&P Information Hyperkalemia: Received insulin, calcium gluconate, dose of Kayexalate. Change tube feeds to Nepro. Attestations Medical Necessity Statement*: Continue admission for additional proning, mechanical ventilatory support with severe COVID-19, underlying ILD. Coding Level of Care Code Acute Coach Cleaner for [facility] Diagnoses Pneumonia due to 2019-nCoV U07.1; J12.82 Idiopathic interstitial fibrosis J84.112 ARDS (adult respiratory distress syndrome) J80 COVID-19 vaccination not done Z28.9 HTN (hypertension) I10 Hypertension type: unspecified Type 2 diabetes mellitus E11.69 Diabetes mellitus long filler cigar roller machine insulin use: unspecified long filler cigar roller machine insulin use status Diabetes mellitus complication status: with other specified complication CAD (coronary artery disease) I25.10 Coronary Disease-Associated Artery/Lesion type: [place] artery [place] vs. transplanted heart: [place] heart Associated angina: unspecified whether angina present WHO group 2 pulmonary arterial hypertension I27.22 Acute respiratory distress syndrome (ARDS) due to 2019 novel coronavirus U07.1; J80
[2021-02-14] MEDS: sodium polystyrene sulfonate 15 gm/60 mL Btl 30 GM PO (20:59)
[2021-02-14] MEDS: calcium chloride 10% Syr 10 mL 1 GM IVP (20:59)
[2021-02-14] MEDS: artificial tears Op Oint 3.5 gm 1 APPLIC EYE-BOTH (20:59)
--- NOTE | 2021-02-14 23:37 | PC.NURSE ---
2330 - Proned patient with RT and other nursing staff. Tolerated well.
[2021-02-14 23:58] LABS: Glucose Point of Care 134 mg/dL (70-110)
[2021-02-15] VITALS (58 sets, daily range): BP systolic 95–180; BP diastolic 54–113; PULSE 89–111; RESP 14–23; TEMP 35.7–37; O2SAT 91–97
--- NOTE | 2021-02-15 00:02 | PC.NURSE ---
Late Entry -- 02/13/21 @ 2300. Patient proned with RT and nursing staff. Tolerated well, v/s remain stable.
[2021-02-15] MEDS: ipratropium-albuterol 3 mL Neb INHALATION ×7 (00:20→23:45)
[2021-02-15] MEDS: propofol 1,000 MG/100 ML INJ 17.18 MG IV ×4 (02:25→23:19)
[2021-02-15 03:21] LABS: ABG PH Result 7.38 (7.35-7.45); Base Excess ABG 10.3 mmol/L (-2.0-2.0); Blood Gas Sample Type Arterial; Blood Gas Tidal Volume 0.43; HCO3 ABG 37.8 mmol/L (22-26); Oxygen Device VENT; PO2 ABG 72.7 mmHg (80.0-100.0)
[2021-02-15 03:47] LABS: ABG PCO2 63.7 mmHg (35-45)
[2021-02-15 03:51] LABS: Basophils % 0.2 %; Hematocrit 47.2 % (42.0-52.0); Hemoglobin 14.3 g/dL (11.7-16.6); Lymphocytes # 0.4 10^3/uL (0.8-4.8); Mean Corpuscular HGB Conc 30.3 g/dL (30.0-36.0); Mean Corpuscular Hemoglobin 29.2 pg (28.0-34.0); Mean Corpuscular Volume 96.3 fl (80-94); Mean Platelet Volume 10.5 fL (7.4-10.4); Monocytes # 1.5 10^3/uL (0.2-0.9); Monocytes % 10.5 %; Neutrophils # 11.95 10^3/uL (1.8-7.7); Neutrophils % 85.2 %; Nucleated Red Blood Cells % 0 %; Platelet Count 195 10^3/cmm (130-400); Red Cell Distribution Width 14.4 % (12.1-15.1)
[2021-02-15 03:57] LABS: Glucose Point of Care 129 mg/dL (70-110)
[2021-02-15 04:09] LABS: Alanine Aminotransferase 42 U/L (0-41); Albumin Level 2.7 g/dL (3.5-5.2); Alkaline Phosphatase 112 IU/L (40-130); Aspartate Amino Transferase 96 U/L (0-40); Blood Urea Nitrogen 51 mg/dL (8-23); Carbon Dioxide 35 mmol/L (22-29); Chloride 113 mmol/L (98-107); Globulin 3.1 g/dL (1.3-4.6); Glucose 145 mg/dL (65-115); Osmolality Calculated 328 mOsm/kg (285-295); Sodium 151 mmol/L (136-145); Total Bilirubin 0.5 mg/dL (0.15-1.2); Total Protein 5.8 g/dL (6.6-8.7)
[2021-02-15 04:11] LABS: Anion Gap 8.3 (5-19); Potassium 5.3 mmol/L (3.5-5.1)
[2021-02-15] MEDS: cisatracurium 100 MG in sodium chloride 0.9% 50 ML 8.13 MG IV (04:14)
[2021-02-15] MEDS: NON-FORMULARY MEDICATION (Tadalafil 5 mg tablet) 5 EACH PO (05:37)
[2021-02-15] MEDS: clopidogrel 75 mg Tablet PO (05:37)
[2021-02-15] MEDS: famotidine 20 mg/2 mL INJ IVP ×2 (05:37→17:40)
--- NOTE | 2021-02-15 07:19 | PC.NURSE ---
Shift Note Frequent safety and comfort rounds continue. Orders and/or nursing care completed as indicated. Patient monitored for response to intervention and treatment(s). Education provided includes plan of care, current medications, prone and supine schedule, and current v/s. Patient and/or pharmacy sales representative unable to teach patient, intubated and sedated. educated and updated on patient status via phone call. Will continue to monitor.
[2021-02-15] MEDS: budesonide 0.5 mg/2 mL Neb INHALATION ×2 (08:13→19:38)
[2021-02-15 08:19] LABS: Glucose Point of Care 155 mg/dL (70-110)
[2021-02-15] MEDS: dexamethasone 10 mg/mL INJ 6 MG IVP (08:22)
[2021-02-15] MEDS: enoxaparin 40 mg/0.4 mL Syringe SUBCUT (08:22)
[2021-02-15] MEDS: insulin glargine 100 units/1 mL 25 UNIT SUBCUT ×2 (08:31→20:26)
--- NOTE | 2021-02-15 10:50 | PC.NUTR ---
Tube Feeding FU: EMR showed Pt's NPO status 02/12 and 02/13 plus TF rate of zero on 02/14. When medically appropriate recommend resuming TF with Nepro 1.8 Carb Steady @ 20 ml/ hr with FW 150 Q6H with a 1500 ml fluid restiction, which will provide patient with 1276 kcal (864 kcal from Nepro and 412 kcals from Propofol 17.18. mls/hr), 39 g protein, 948 ml fluid (348 ml from Nepro plus 600 ml from FW).
[2021-02-15] MEDS: aztreonam 1,000 MG in sodium chloride 0.9% (plus) 50 ML 100 MG IV ×2 (11:32→23:19)
[2021-02-15 11:42] LABS: Glucose Point of Care 187 mg/dL (70-110)
[2021-02-15] MEDS: sodium chloride 0.9% 500 ML IV (11:51)
[2021-02-15] MEDS: benzonatate 100 mg Capsule PO ×2 (15:33→20:26)
[2021-02-15 16:03] LABS: Glucose Point of Care 207 mg/dL (70-110)
--- NOTE | 2021-02-15 16:14 | PC.NURSE ---
Patient placed supine at 1430. Turn was uneventful. Per Dr collins, nurse is starting to titrate down sedatives. Started tube feedings. ubaldo was updated.
[2021-02-15] MEDS: carvedilol 3.125 mg Tablet PO (17:40)
[2021-02-15] MEDS: docusate sodium 100 mg Capsule PO (17:40)
[2021-02-15] MEDS: ferrous gluconate 324 mg Tablet PO (17:40)
[2021-02-15 18:43] LABS: Anion Gap 11.1 (5-19); Blood Urea Nitrogen 50 mg/dL (8-23); Calcium 8.6 mg/dL (8.5-10.5); Carbon Dioxide 33 mmol/L (22-29); Chloride 110 mmol/L (98-107); Glucose 260 mg/dL (65-115); Osmolality Calculated 330 mOsm/kg (285-295); Potassium 5.1 mmol/L (3.5-5.1); Sodium 149 mmol/L (136-145)
--- NOTE | 2021-02-15 18:49 | P.PN_ITS ---
Subjective Subjective: Interval history: Intubated, sedated, paralyzed, just placed in supine positioning. Vitals/I&O/Wt Last Vital Signs Temp 98.6 F 02/15/21 17:00 Pulse 106 H 02/15/21 18:00 Resp 21 H 02/15/21 18:00 BP 121/54 02/15/21 18:00 Pulse Ox 94 02/15/21 18:00 02/15/21 02/15/21 02/15/21 06:59 14:59 22:59 Intake Total 735.878 / 1453.910 200 / 200 548.774 / 748.774 Output Total 725 / 1725 450 / 450 350 / 800 Balance 10.878 / -271.090 -250 / -250 198.774 / -51.226 Weight last 48 hrs Weight 86.545 kg Weight 84.822 kg Physical Exam Const: COMMON NORMALS: no acute distress GENERAL APPEARANCE: patient mechanically ventilated HENMT: COMMON NORMALS: oropharynx normal Neck/C-Spine: COMMON NORMALS: no JVD Resp: COMMON NORMALS: clear to auscultation bilaterally AUSCULTATION: clear to auscultation bilaterally Cardio: COMMON NORMALS: no JVD, regular rhythm, S1 normal heart sound present, S2 normal heart sound present and No murmurs present (Cardio) RHYTHM: regular rhythm HEART SOUNDS: S1 normal heart sound present and S2 normal heart sound present GI: COMMON NORMALS: Normal to inspection, nondistended, normoactive bowel sounds present and Soft to palpation PALPATION: Yes Soft to palpation Extremity: COMMON NORMALS: no joint enlargement and no pedal edema Skin: COMMON NORMALS: no rashes or lesions noted GENERAL SKIN EXAM: no rashes or lesions noted Urinary Catheter Management^: Ram: Cath Placed During This Visit: yes Reason for Continuing Indwelling Catheter: Accurate Measurement of Urinary Output in Critically Ill Patients Urinary Catheter Date of Insertion: 02/05/21 Urinary Catheter Time of Insertion: 18:34 Data : 02/15/21 03:05 02/15/21 17:45 Micro: Microbiology 02/13/21 13:10 Sputum Culture - Final Sputum - Endotracheal Tube Aspirate 02/15/21 05:35 Gram Stain - Final Sputum - Expectorated Sputum A&P Assessment and plan (1) Pneumonia due to 2019-nCoV: Underwent additional proning. Plan is for wean of paralytics, sedation, reassessment of mental status, oxygenation, weaning of mechanical ventilatory support. Caution with tube feeds due to episode of regurgitation on 02/12. Aztreonam. Sputum cultures requested. So far moderate mixed upper respiratory siobhan. Continue Decadron. He has completed a course of remdesivir. Prophylactic Lovenox. Illness complicated by underlying ILD with possible exacerbation. Wean mechanical ventilatory support. Status: Acute (2) Idiopathic interstitial fibrosis: Continue dexamethasone. Azactam. Previously also on azithromycin prophylaxis. Status: Acute (3) ARDS (adult respiratory distress syndrome): As above. Status: Acute (4) COVID-19 vaccination not done: Status: Acute (5) HTN (hypertension): Status: Acute Qualifiers: Hypertension type: unspecified Qualified Code(s): I10 - Essential (primary) hypertension (6) Type 2 diabetes mellitus: Status: Acute Qualifiers: Diabetes mellitus care home insulin use: unspecified care home insulin use status Diabetes mellitus complication status: with other specified c omplication Qualified Code(s): E11.69 - Type 2 diabetes mellitus with other specified complication (7) CAD (coronary artery disease): Recent stent placement. Continue aspirin, Plavix, beta-too, statin. Status: Acute Qualifiers: Coronary Disease-Associated Artery/Lesion type: [place] artery [place] vs. transplanted heart: [place] heart Associated angina: unspecified whether angina present Qualified Code(s): I25.10 - Atherosclerotic heart disease of [place] coronary artery without angina pectoris (8) WHO group 2 pulmonary arterial hypertension: Status: Acute (9) Acute respiratory distress syndrome (ARDS) due to 2019 novel coronavirus: Status: Acute Additional A&P Information Hyperkalemia: Improved. Received insulin, calcium gluconate, dose of Kayexalate. Changed tube feeds to Nepro. Attestations Medical Necessity Statement*: Continue admission for hypoxic respiratory failure with severe COVID-19, weaning of paralytics, sedation and mechanical ventilatory support. Coding Level of Care Code Acute Pit Manager for [facility] Diagnoses Pneumonia due to 2019-nCoV U07.1; J12.82 Idiopathic interstitial fibrosis J84.112 ARDS (adult respiratory distress syndrome) J80 COVID-19 vaccination not done Z28.9 HTN (hypertension) I10 Hypertension type: unspecified Type 2 diabetes mellitus E11.69 Diabetes mellitus termite exterminator helper insulin use: unspecified care home insulin use status Diabetes mellitus complication status: with other specified complication CAD (coronary artery disease) I25.10 Coronary Disease-Associated Artery/Lesion type: [place] artery [place] vs. transplanted heart: [place] heart Associated angina: unspecified whether angina present WHO group 2 pulmonary arterial hypertension I27.22 Acute respiratory distress syndrome (ARDS) due to 2019 novel coronavirus U07.1; J80
--- NOTE | 2021-02-15 18:59 | PC.NURSE ---
TO4/ BIS: 0700: 0900: 1100: 1300:
--- NOTE | 2021-02-15 19:05 | PC.NURSE ---
Shift Note Frequent safety and comfort rounds continue. Orders and/or nursing care completed as indicated. Patient monitored for response to intervention and treatment. Patient was placed supine today. Nurse started titrating down on sedation per Dr datar order. Tube feedings restarted. overall uneventful shift. Nurse updated Annita.
[2021-02-15] MEDS: sennosides-docusate Tablet 1 TAB PO (20:26)
[2021-02-15 20:44] LABS: Glucose Point of Care 216 mg/dL (70-110)
--- NOTE | 2021-02-15 21:25 | PC.NURSE ---
[employer] call done with , daughter, and grandson.
--- NOTE | 2021-02-15 22:18 | PM.PN ---
Subjective Subjective: Interval history: -Patient seen at bedside today -Proned for fourth time and plan is to make him supine today afternoon -Labs and imaging reviewed -Taper off paralytic and start feeding when not prone Medications: Reviewed: Yes Vitals/I&O/Wt Last Vital Signs Temp 97.7 F 02/15/21 20:00 Pulse 111 H 02/15/21 21:00 Resp 23 H 02/15/21 20:00 BP 137/79 02/15/21 21:00 Pulse Ox 93 02/15/21 21:00 02/15/21 02/15/21 02/15/21 06:59 14:59 22:59 Intake Total 735.878 / 1453.910 200 / 200 548.774 / 748.774 Output Total 725 / 1725 450 / 450 350 / 800 Balance 10.878 / -271.090 -250 / -250 198.774 / -51.226 Weight last 48 hrs Weight 190 lb 12.8 oz Weight 187 lb Physical Exam Narrative: EXAM NARRATIVE: General: lying in bed, sedated and intubated and proned. HEENT:NCAT, PERRLA, EOMI Neck: Supple Lungs: Bilateral coarse crepitations and intermittent crackles Heart: s1/s2, RRR Abd: soft, NT, ND, BS + Normoactive Extremities: No edema MANUFACTURING TEAM MEMBER: sedated and limited MANUFACTURING TEAM MEMBER exam possible. SKIN: no rash LDA: # CVC: Right IJ line 02/07/2021 # A line: Right radial arterial line 02/07/2021 Urinary Catheter Management^: Ram: Cath Placed During This Visit: yes Reason for Continuing Indwelling Catheter: Accurate Measurement of Urinary Output in Critically Ill Patients Urinary Catheter Date of Insertion: 02/05/21 Urinary Catheter Time of Insertion: 18:34 Data : 02/15/21 03:05 02/15/21 17:45 Other Labs: Laboratory Results WBC 14.0 10^3/uL (4.0-10.0) H 02/15/21 03:05 RBC 4.90 10^6/uL (4.1-5.3) 02/15/21 03:05 Hgb 14.3 g/dL (11.7-16.6) 02/15/21 03:05 Hct 47.2 % (42.0-52.0) 02/15/21 03:05 MCV 96.3 fl (80-94) H 02/15/21 03:05 MCH 29.2 pg (28.0-34.0) 02/15/21 03:05 MCHC 30.3 g/dL (30.0-36.0) 02/15/21 03:05 RDW 14.4 % (12.1-15.1) 02/15/21 03:05 Plt Count 195 10^3/cmm (130-400) 02/15/21 03:05 MPV 10.5 fL (7.4-10.4) H 02/15/21 03:05 Neut % (Auto) 85.2 % 02/15/21 03:05 Lymph % (Auto) 3.0 % 02/15/21 03:05 Mccone % (Auto) 10.5 % 02/15/21 03:05 Eos % (Auto) 0.0 % 02/15/21 03:05 Baso % (Auto) 0.2 % 02/15/21 03:05 Neut # (Auto) 11.95 10^3/uL (1.8-7.7) H 02/15/21 03:05 Lymph # (Auto) 0.4 10^3/uL (0.8-4.8) L 02/15/21 03:05 Mccone # (Auto) 1.5 10^3/uL (0.2-0.9) H 02/15/21 03:05 Eos # (Auto) 0.0 10^3/uL (0.0-0.8) 02/15/21 03:05 Baso # (Auto) 0.0 10^3/uL (0.0-0.1) 02/15/21 03:05 Nucleated RBC % (auto) 0 % 02/15/21 03:05 Nucleated RBCs # 0.0 /100WBC 02/15/21 03:05 ESR 14 mm/hr (0-10) H 02/12/21 04:56 D-Dimer 1.38 ug/mIFEU (0-0.59) H 02/08/21 05:47 Specimen Type Arterial 02/15/21 03:10 Sample Site artline 02/15/21 03:10 ABG pH 7.38 (7.35-7.45) 02/15/21 03:10 ABG pCO2 63.7 mmHg (35-45) H* 02/15/21 03:10 ABG pO2 72.7 mmHg (80.0-100.0) L 02/15/21 03:10 ABG HCO3 37.8 mmol/L (22-26) H 02/15/21 03:10 ABG O2 Saturation 95.7 02/12/21 04:32 ABG Base Excess 10.3 mmol/L (-2.0-2.0) H 02/15/21 03:10 Davion Test N/a 02/15/21 03:10 A-a O2 Gradient 26.5 mmHg (5-10) H 02/12/21 04:32 Hematocrit 39.0 % (42-52) L 02/15/21 03:10 Hgb O2 Saturation 94.8 % (95-100) L 02/12/21 04:32 Carboxyhemoglobin 0.5 %THgb (0.4-20.1) 02/12/21 04:32 Methemoglobin 0.5 % (0.4-1.5) 02/12/21 04:32 Total Hemoglobin 14.3 g/dL (14-18) 02/12/21 04:32 Sodium 146.0 mmol/L (131-143) H 02/12/21 04:32 Potassium 5.0 mmol/L (3.5-5.0) 02/12/21 04:32 Glucose 244.0 mg/dL (70-115) H 02/12/21 04:32 Ionized Calcium 1.2 mmol/L (1.1-1.4) 02/12/21 04:32 O2 Delivery Device Vent 02/15/21 03:10 O2 Liters/Min 55.0 % 02/06/21 09:30 Mechanical Rate 18.0 02/13/21 06:30 FiO2 45.0 % 02/15/21 03:10 Tidal Volume 0.43 02/15/21 03:10 PEEP 10.0 cmH20 02/15/21 03:10 Chief Juvenile Probation Officer ID Hinja 02/15/21 03:10 Sodium 149 mmol/L (136-145) H 02/15/21 17:45 Potassium 5.1 mmol/L (3.5-5.1) 02/15/21 17:45 Chloride 110 mmol/L (98-107) H 02/15/21 17:45 Carbon Dioxide 33 mmol/L (22-29) H 02/15/21 17:45 Anion Gap 11.1 (5-19) 02/15/21 17:45 BUN 50 mg/dL (8-23) H 02/15/21 17:45 Creatinine 0.9 mg/dL (0.7-1.2) 02/15/21 17:45 GFR Calculation Not Reportable 02/15/21 17:45 Glucose 260 mg/dL (65-115) H 02/15/21 17:45 POC Glucose 216 mg/dL (70-110) H 02/15/21 20:19 Estimat Average Glucose 223 02/06/21 05:45 Hemoglobin A1c 9.4 % (4.0-6.0) H 02/06/21 05:45 Calculated Osmolality 330 mOsm/kg (285-295) H 02/15/21 17:45 Lactic Acid 1.4 mmol/L (0.5-2.2) 02/05/21 12:42 Calcium 8.6 mg/dL (8.5-10.5) 02/15/21 17:45 Phosphorus 3.3 mg/dL (2.5-4.5) 02/06/21 05:45 Magnesium 3.2 mg/dL (1.7-2.3) H 02/14/21 03:37 Iron 37 ug/dL (59-158) L 02/05/21 12:42 TIBC 195 mcg/dl 02/05/21 12:42 % Saturation 18.9 % (20-50) L 02/05/21 12:42 Unsat Iron Binding 158 ug/dL (112-347) 02/05/21 12:42 Ferritin 654 ng/mL (30-400) H 02/08/21 05:47 Total Bilirubin 0.5 mg/dL (0.15-1.2) 02/15/21 03:05 AST 96 U/L (0-40) H 02/15/21 03:05 ALT 42 U/L (0-41) H 02/15/21 03:05 Alkaline Phosphatase 112 IU/L (40-130) 02/15/21 03:05 Lactate Dehydrogenase 583 U/L (135-225) H 02/06/21 05:45 Creatine Kinase 113 U/L (39-308) 02/10/21 16:50 C-Reactive Protein 10.8 mg/L (0.0-4.9) H 02/12/21 04:56 NT-Pro-B Natriuret Pep 90 pg/mL (0-125) 02/12/21 04:56 Total Protein 5.8 g/dL (6.6-8.7) L 02/15/21 03:05 Albumin 2.7 g/dL (3.5-5.2) L 02/15/21 03:05 Globulin 3.1 g/dL (1.3-4.6) 02/15/21 03:05 Triglycerides 162 mg/dL (0-150) H 02/06/21 05:45 Cholesterol 142 mg/dL (0-200) 02/06/21 05:45 LDL Cholesterol, Calc 65 mg/dL (50-129) 02/06/21 05:45 Total VLDL Cholesterol 32 mg/dL (0-30) H 02/06/21 05:45 HDL Cholesterol 45 mg/dL (60-100) L 02/06/21 05:45 Cholesterol/HDL Ratio 3.16 mg/dL (1.0-5.00) 02/06/21 05:45 Procalcitonin 0.09 ng/mL (0-0.5) 02/10/21 03:16 TSH 1.72 uIU/mL (0.27-4.20) 02/05/21 12:42 Urine Color Straw (Yellow) 02/05/21 18:17 Urine Appearance Clear (CLEAR) 02/05/21 18:17 Urine pH 5 (5-7) 02/05/21 18:17 Ur Specific [place] 1.005 (1.005-1.030) 02/05/21 18:17 Urine Protein Neg (Negative) 02/05/21 18:17 Urine Glucose (UA) 2+ (Normal) 02/05/21 18:17 Urine Ketones Negative (Negative) 02/05/21 18:17 Urine Blood Neg (Negative) 02/05/21 18:17 Urine Nitrate Negative (Negative) 02/05/21 18:17 Urine Bilirubin Neg (Negative) 02/05/21 18:17 Urine Urobilinogen Norm mg/dL (Negative) 02/05/21 18:17 Ur Leukocyte Esterase Negative (Negative) 02/05/21 18:17 Ur Random Sodium 101 mmol/L 02/05/21 18:17 Ur Random Potassium 11 mmol/L 02/05/21 18:17 Ur Random Chloride 104 mmol/L 02/05/21 18:17 Histoplasma Antigen Urine 02/06/21 10:23 Histoplasma Ag (Qnt) None detected ng/mL 02/06/21 10:23 Histoplasma Ag Interp Negative 02/06/21 10:23 Pneumocystis Source Sputum 02/05/21 18:25 Pneumocyst jiroveci PCR Not detected 02/05/21 18:25 A. galactomannan Ag EIA Not detected 02/05/21 18:25 A. galactomannan Ag Idx <0.50 02/05/21 18:25 Beta-(1,3)-D-Glucan <31 pg/mL 02/07/21 05:30 B-(1,3)-D-Glucan Intrp Negative 02/07/21 05:30 Impressions Chest CTA 02/05/21 13:24 IMPRESSION: 1. No pulmonary embolism. 2. Diffusely abnormal lungs. Diffuse scattered groundglass attenuation, thickened reticulations and honeycombing. Suspect superimposed Covid on chronic pulmonary fibrosis. 3. Bilateral hilar adenopathy with the largest lymph node on the LEFT measuring 12 mm. Probably reactive. Chest X-Ray 02/14/21 15:00 Impression: 1. No change in patchy bilateral pulmonary opacities. 2. No change in multiple tubes. Micro: Microbiology 02/13/21 13:10 Sputum Culture - Final Sputum - Endotracheal Tube Aspirate 02/15/21 05:35 Gram Stain - Final Sputum - Expectorated Sputum A&P Assessment and plan (1) Acute respiratory failure with hypoxia: Status: Acute (2) Acute respiratory distress syndrome (ARDS) due to 2019 novel coronavirus: Status: Acute (3) Idiopathic interstitial fibrosis: Status: Acute (4) CAD (coronary artery disease): Status: Acute Qualifiers: Coronary Disease-Associated Artery/Lesion type: [place] artery [place] vs. transplanted heart: [place] heart Associated angina: unspecified whether angina present Qualified Code(s): I25.10 - Atherosclerotic heart disease of [place] coronary artery without angina pectoris (5) Type 2 diabetes mellitus: Status: Acute Qualifiers: Diabetes mellitus moth exterminator insulin use: unspecified halfway insulin use status Diabetes mellitus complication status: with other specified complication Qualified Code(s): E11.69 - Type 2 diabetes mellitus with other specified complication (6) HTN (hypertension): Status: Acute Qualifiers: Hypertension type: unspecified Qualified Code(s): I10 - Essential (primary) hypertension (7) COVID-19 vaccination not done: Status: Acute (8) WHO group 2 pulmonary arterial hypertension: Status: Acute (9) Hyperkalemia: Status: Acute (10) MIKA (acute kidney injury): Status: Acute -Intubated 02/07/2021 -Sedated and paralyzed and completed 4 proning sessions -On Versed, Nimbex, fentanyl and propofol -Taper off paralytic and Versed followed by fentanyl -ABG 7.3 / on CMV 430/45%/10 -With underlying idiopathic interstitial pulmonary fibrosis:possible ILD exacerbation - on home medication tadalafil 5 mg daily once for pulmonary hypertension and pirfenidone for his IPF -Started with prednisone 40 every 8 hours-gradually tapered to dexamethasone 6 mg IV daily -Completed on remdesivir 5 days - DuoNebs every 4 hour, budesonide twice daily. - Monitor inflammatory markers including ferritin, ESR, CRP, D-dimer, fibrinogen every 48 hour - CTA negative for pulmonary embolism. - afebrile , Procalcitonin negative, urine Legionella bacterial antigen negative,Blood culture negative. - Sputum culture 02/13/2021 results-negative; - started on aztreonam as patient has significant aspiration event 02/14/2021-patient is allergic to penicillin could not give Zosyn; if repeat sputum culture is negative will DC aztreonam - Patient has a history of idiopathic pulmonary fibrosis and has been on steroids for last 6 months. He has history of recent travel to [place] and [place]. - PCP PCR, histoplasma antigen, Aspergillus antigen, beta D glucan negative - MIKA-likely secondary to COVID-19 pneumonia versus prerenal-improving - Given hypoxia will try to keep patient as negative as possible. -271 cc over 24 hours /-3 L since admission -Sodium 151-Free water 150 every 6 hour; K 5.3; patient receiving scale coverage insulin-repeat BMP in late afternoon potassium 5.1 and sodium 149-we will monitor - Patient history of CAD Recent cardiac stent placement. Echocardiogram done shows an EF 60% with grade 1 diastolic dysfunction with moderate pulmonary hypertension with RVSP of 46. - Continue with aspirin, Plavix, statin.- -Monitor monitor input and output, daily weights - Hypertension: Goal blood pressure less than 140/90 mmHg. - Continue home dose of carvedilol - Type 2 diabetes mellitus: HbA1c 9.4.Insulin sliding scale at moderate dose. sugars uncontrolled , Lantus increased to 25 units twice daily Full code. Lovenox DVT prophylaxis Famotidine for PUD prophylaxis. To restart feeding when patient is in supine position Updated medical condition to the Recommendations conveyed to hospitalist, RN, RT taking care of the patient Attestations Medical Necessity Statement*: Acute hypoxic respiratory failure secondary to ARDS due to COVID-19 pneumonia in patient with underlying interstitial fibrosis requiring mechanical ventilation Time Spent in Patient Care: Greater than 35 minutes (>than 50% of time spent in counselling and/or direct pt care on unit). Critical Care Time: The high probability of a clinically significant, sudden or life threatening deterioration of the patient's [pulmonary, endocrine, renal, neurological] system(s) required my full and direct attention, intervention and personal management. The critical care time is as shown. This time is in addition to time spent performing any reported procedures but includes the following: [x] Data and vital sign review and interpretation [x] Patient assessment, examination and intervention [x] Documentation [x] Medication orders and management Critical Care Time (min): 45 Coding Level of Care Code Established Pt Acute Processing Archivist for Chg Fwd Patient Type Established History Comprehensive Exam Comprehensive Medical Decision Making High Complexity Diagnoses Acute respiratory failure with hypoxia J96.01 Acute respiratory distress syndrome (ARDS) due to 2019 novel coronavirus U07.1; J80 Idiopathic interstitial fibrosis J84.112 CAD (coronary artery disease) I25.10 Coronary Disease-Associated Artery/Lesion type: [place] artery [place] vs. transplanted heart: [place] heart Associated angina: unspecified whether angina present Type 2 diabetes mellitus E11.69 Diabetes mellitus halfway insulin use: unspecified halfway insulin use status Diabetes mellitus complication status: with other specified complication HTN (hypertension) I10 Hypertension type: unspecified COVID-19 vaccination not done Z28.9 WHO group 2 pulmonary arterial hypertension I27.22 Hyperkalemia E87.5 MIKA (acute kidney injury) N17.9 Time Spent (min) 45
[2021-02-15] MEDS: artificial tears Op Oint 3.5 gm 1 APPLIC EYE-BOTH (22:59)
[2021-02-16] VITALS (43 sets, daily range): BP systolic 99–159; BP diastolic 58–89; PULSE 72–117; RESP 16–24; TEMP 36.3–36.9; O2SAT 90–95
[2021-02-16 00:04] LABS: Glucose Point of Care 184 mg/dL (70-110)
[2021-02-16] MEDS: ipratropium-albuterol 3 mL Neb INHALATION ×5 (04:27→21:32)
[2021-02-16 04:35] LABS: Glucose Point of Care 126 mg/dL (70-110)
[2021-02-16 04:47] LABS: ABG PH Result 7.42 (7.35-7.45); Arterial Blood Gas Hematocrit 46.3 % (42-52); Base Excess ABG 11.5 mmol/L (-2.0-2.0); Blood Gas Allen Test Pos; Blood Gas Sample Type Arterial; HCO3 ABG 38.9 mmol/L (22-26); PO2 ABG 74.8 mmHg (80.0-100.0)
[2021-02-16 04:49] LABS: Blood Gas Tidal Volume 0.43; Oxygen Device VENT
[2021-02-16 04:52] LABS: ABG PCO2 60.3 mmHg (35-45)
[2021-02-16 05:14] LABS: Basophils % 0.1 %; Eosinophils % 0.2 %; Hematocrit 48.6 % (42.0-52.0); Hemoglobin 14.4 g/dL (11.7-16.6); Lymphocytes # 0.5 10^3/uL (0.8-4.8); Lymphocytes % 3.7 %; Mean Corpuscular HGB Conc 29.6 g/dL (30.0-36.0); Mean Corpuscular Hemoglobin 29.1 pg (28.0-34.0); Mean Corpuscular Volume 98.2 fl (80-94); Mean Platelet Volume 10.4 fL (7.4-10.4); Monocytes # 1.5 10^3/uL (0.2-0.9); Monocytes % 10.2 %; Neutrophils # 12.22 10^3/uL (1.8-7.7); Nucleated Red Blood Cells % 0 %; Platelet Count 189 10^3/cmm (130-400); Red Blood Count 4.95 10^6/uL (4.1-5.3); Red Cell Distribution Width 14.5 % (12.1-15.1); White Blood Count 14.4 10^3/uL (4.0-10.0)
[2021-02-16] MEDS: propofol 1,000 MG/100 ML INJ 17.18 MG IV (05:15)
[2021-02-16] MEDS: famotidine 20 mg/2 mL INJ IVP ×2 (05:39→18:22)
[2021-02-16] MEDS: clopidogrel 75 mg Tablet PO (05:39)
[2021-02-16 05:40] LABS: Alanine Aminotransferase 42 U/L (0-41); Albumin Level 2.5 g/dL (3.5-5.2); Alkaline Phosphatase 110 IU/L (40-130); Anion Gap 7.6 (5-19); Aspartate Amino Transferase 59 U/L (0-40); Blood Urea Nitrogen 52 mg/dL (8-23); Calcium 8.9 mg/dL (8.5-10.5); Carbon Dioxide 35 mmol/L (22-29); Chloride 114 mmol/L (98-107); Globulin 3.3 g/dL (1.3-4.6); Glucose 133 mg/dL (65-115); Osmolality Calculated 330 mOsm/kg (285-295); Potassium 4.6 mmol/L (3.5-5.1); Sodium 152 mmol/L (136-145); Total Bilirubin 0.4 mg/dL (0.15-1.2); Total Protein 5.8 g/dL (6.6-8.7)
[2021-02-16] MEDS: NON-FORMULARY MEDICATION (Tadalafil 5 mg tablet) 5 EACH PO (05:42)
--- NOTE | 2021-02-16 06:41 | PC.NURSE ---
Shift Note Frequent safety and comfort rounds continue. Orders and/or nursing care completed as indicated. Patient monitored for response to intervention and treatment(s). Education provided includes current plan of care and current medications. Patient and/or fundraising sale representative patient sedated and intubated, no family at bedside. Will continue to monitor.
--- NOTE | 2021-02-16 07:46 | XRR_ITS ---
PROCEDURE INFORMATION: Exam: XR Chest Exam date and time: 02/16/2021 7:46 AM Age: 75 years old Clinical indication: Shortness of breath; Additional info: Pneumonia TECHNIQUE: Imaging protocol: XR of the chest. Views: 1 view. COMPARISON: CR XR chest 1V portable [id number] 02/14/2021 3:20 PM FINDINGS: Tubes, catheters and devices: Endotracheal tube is in satisfactory position. Feeding tube is in satisfactory position. Right IJ approach central line is in satisfactory position, with distal tip in the SVC, approximately 4 cm above the SVC/RA junction. Lungs: Persistent bilateral reticular opacities involving mainly the lower lungs. There is increased ground-glass opacification in the right lower lobe. Pleural spaces: Unremarkable. No pleural effusion. No pneumothorax. Heart/Mediastinum: Stable cardiomediastinal silhouette. Bones/joints: Unremarkable. XR/XR chest 1V portable [id number] IMPRESSION: Imaging findings concerning for pneumonia, in a background of interstitial lung disease.
[2021-02-16] MEDS: budesonide 0.5 mg/2 mL Neb INHALATION ×2 (08:09→21:32)
[2021-02-16] MEDS: aspirin 81 mg EC Tablet PO (09:17)
[2021-02-16] MEDS: enoxaparin 40 mg/0.4 mL Syringe SUBCUT (09:17)
[2021-02-16] MEDS: ascorbic acid 500 mg Tablet PO (09:17)
[2021-02-16] MEDS: docusate sodium 100 mg Capsule PO ×2 (09:17→18:22)
[2021-02-16] MEDS: zinc gluconate 50 mg Tablet PO (09:17)
[2021-02-16] MEDS: tamsulosin 0.4 mg Capsule PO (09:17)
[2021-02-16] MEDS: carvedilol 3.125 mg Tablet PO ×2 (09:17→18:22)
[2021-02-16] MEDS: ferrous gluconate 324 mg Tablet PO ×2 (09:18→18:22)
[2021-02-16] MEDS: sodium chloride 0.9% 250 ML IV (09:18)
[2021-02-16] MEDS: benzonatate 100 mg Capsule PO ×3 (09:19→20:49)
[2021-02-16] MEDS: insulin glargine 100 units/1 mL 25 UNIT SUBCUT ×2 (09:21→20:49)
[2021-02-16] MEDS: ezetimibe 10 mg Tablet PO (09:21)
[2021-02-16] MEDS: dexmedetomidine 400 MCG in sodium chloride 0.9% (100 ml) 100 ML IV (10:52)
--- NOTE | 2021-02-16 12:00 | PC.NURSE ---
Annita, called with an update.
[2021-02-16 12:14] LABS: Glucose Point of Care 142 mg/dL (70-110)
[2021-02-16] MEDS: artificial tears Op Oint 3.5 gm 1 APPLIC EYE-BOTH (13:07)
[2021-02-16] MEDS: aztreonam 1,000 MG in sodium chloride 0.9% (plus) 50 ML 100 MG IV (13:07)
--- NOTE | 2021-02-16 13:10 | PC.NURSE ---
Versed gtt that was just hanging in room, wasted. 68.5ml. Witnessed by BRYSON Louie RN.
--- NOTE | 2021-02-16 13:12 | PC.SOCIAL ---
IMM update IMM not updated. Patient is still intubated and no expected to dc in the next 24-48 hours.
--- NOTE | 2021-02-16 16:00 | PC.NURSE ---
Tube Feeding Patient coughed; suctioned thick shin secretions out of mouth. Airway suctioned, no secretions noted. Tube feeding stopped at this time.
[2021-02-16 16:05] LABS: Glucose Point of Care 115 mg/dL (70-110)
--- NOTE | 2021-02-16 16:20 | PC.RESP ---
RT Shift Note Frequent safety and respiratory rounds continue. Orders completed as indicated. Patient monitored pre and post treatments throughout shift. Patient tolerated treatments appropriately. Condition did not change. Patient and/or district sales representative educated on respiratory treatment and medications. Patient and/or district sales representative unable to comprehend. Will continue to monitor patient progress.
--- NOTE | 2021-02-16 17:20 | PC.NURSE ---
Annita called for an update. Pt remains intubated. Precede at 0.5mcg/kg/hr. Fentanyl at 25mcg/hr. He started yawnng and shaking his head , so sedation increased a little.
[2021-02-16 17:37] LABS: Blood Gas Sample Site ART LINE
--- NOTE | 2021-02-16 18:05 | PC.NURSE ---
Tube feedng restarted. Residual 5ml.
--- NOTE | 2021-02-16 19:09 | P.PN_ITS ---
Subjective Subjective: Interval history: Intubated, sedated. Intermittent cough. Intermittently turning his head. Vitals/I&O/Wt Last Vital Signs Temp 97.4 F L 02/16/21 00:00 Pulse 103 H 02/16/21 16:00 Resp 23 H 02/16/21 18:02 BP 137/71 02/16/21 16:00 Pulse Ox 92 02/16/21 18:02 02/16/21 02/16/21 02/16/21 06:59 14:59 22:59 Intake Total 807.860 / 1666.645 86.210 / 86.210 68.841 / 155.051 Output Total 725 / 1525 Balance 82.860 / 141.645 86.210 / 86.210 68.841 / 155.051 Weight last 48 hrs Weight 63.458 kg Weight 86.545 kg Physical Exam Const: COMMON NORMALS: no acute distress GENERAL APPEARANCE: patient mechanically ventilated OTHER: Weaning down on sedation. HENMT: COMMON NORMALS: oropharynx normal Neck/C-Spine: COMMON NORMALS: no JVD Resp: COMMON NORMALS: normal respiratory effort and clear to auscultation bilaterally AUSCULTATION: clear to auscultation bilaterally Cardio: COMMON NORMALS: no JVD, regular rhythm, S1 normal heart sound present, S2 normal heart sound present and No murmurs present (Cardio) RHYTHM: regular rhythm HEART SOUNDS: S1 normal heart sound present and S2 normal heart sound present GI: COMMON NORMALS: Normal to inspection, nondistended, normoactive bowel sounds present and Soft to palpation PALPATION: Yes Soft to palpation Extremity: COMMON NORMALS: no joint enlargement and no pedal edema Neuro: COMMON NORMALS: moves all extremities Skin: COMMON NORMALS: no rashes or lesions noted GENERAL SKIN EXAM: no rashes or lesions noted Urinary Catheter Management^: Ram: Cath Placed During This Visit: yes Reason for Continuing Indwelling Catheter: Accurate Measurement of Urinary Output in Critically Ill Patients Urinary Catheter Date of Insertion: 02/05/21 Urinary Catheter Time of Insertion: 18:34 Data : 02/16/21 04:20 02/16/21 04:20 Micro: Microbiology 02/15/21 05:35 Gram Stain - Final Sputum - Expectorated Sputum Sputum Culture - Preliminary Yeast 02/13/21 13:10 Sputum Culture - Final Sputum - Endotracheal Tube Aspirate A&P Assessment and plan (1) Pneumonia due to 2019-nCoV: After additional proning, trial of weaning down sedation. Copious secretions. Continue aztreonam. Yeast and respiratory culture. Add Diflucan. Caution with tube feeds due to episode of regurgitation on 02/12. Continue Decadron. He has completed a course of remdesivir. Prophylactic Lovenox. Illness complicated by underlying ILD with possible exacerbation. Wean mechanical ventilatory support. Status: Acute (2) Idiopathic interstitial fibrosis: Continue dexamethasone. Azactam. Previously also on azithromycin prophylaxis. Status: Acute (3) ARDS (adult respiratory distress syndrome): As above. Status: Acute (4) COVID-19 vaccination not done: Status: Acute (5) HTN (hypertension): Status: Acute Qualifiers: Hypertension type: unspecified Qualified Code(s): I10 - Essential (primary) hypertension (6) Type 2 diabetes mellitus: Status: Acute Qualifiers: Diabetes mellitus complication status: with other specified complication Diabetes mellitus fdc insulin use: unspecified director long term care insulin use status Qualified Code(s): E11.69 - Type 2 diabetes mellitus with other specified complication (7) CAD (coronary artery disease): Recent stent placement. Continue aspirin, Plavix, beta-too, statin. Status: Acute Qualifiers: Associated angina: unspecified whether angina present Coronary Disease- Associated Artery/Lesion type: [place] artery [place] vs. transplanted heart: [place] heart Qualified Code(s): I25.10 - Atherosclerotic heart disease of [place] coronary artery without angina pectoris (8) WHO group 2 pulmonary arterial hypertension: Status: Acute (9) Acute respiratory distress syndrome (ARDS) due to 2019 novel coronavirus: Status: Acute Additional A&P Information Hyperkalemia: Improved. Attestations Medical Necessity Statement*: Continue admission for hypoxic respiratory failure, weaning off sedation, mechanical ventilatory with severe COVID-19. Coding Level of Care Code Acute Straight Pin Making Machine Operator for [facility] Fwd Exam Comprehensive Diagnoses Pneumonia due to 2019-nCoV U07.1; J12.82 Idiopathic interstitial fibrosis J84.112 ARDS (adult respiratory distress syndrome) J80 COVID-19 vaccination not done Z28.9 HTN (hypertension) I10 Hypertension type: unspecified Type 2 diabetes mellitus E11.69 Diabetes mellitus complication status: with other specified complication Diabetes mellitus fdc insulin use: unspecified director long term care insulin use status CAD (coronary artery disease) I25.10 Associated angina: unspecified whether angina present Coronary Disease-Associated Artery/Lesion type: [place] artery [place] vs. transplanted heart: [place] heart WHO group 2 pulmonary arterial hypertension I27.22 Acute respiratory distress syndrome (ARDS) due to 2019 novel coronavirus U07.1; J80
--- NOTE | 2021-02-16 19:38 | PC.NURSE ---
Shift Note Frequent safety and comfort rounds continue. Orders and/or nursing care completed as indicated. Patient monitored for response to intervention and treatment(s). Education provided includes Sedation weaning, Precedex. verbalized understanding of care plan. Will continue to monitor.
[2021-02-16] MEDS: fluconazole premix 400 MG/200 ML PIGGYBACK 200 MG IV (20:33)
[2021-02-16 20:46] LABS: Glucose Point of Care 102 mg/dL (70-110)
[2021-02-16] MEDS: sennosides-docusate Tablet 1 TAB PO (20:49)
--- NOTE | 2021-02-16 21:03 | P.PN_ITS ---
Subjective Subjective: Interval history: -Patient seen at bedside today morning -Completed for proning sessions -Plan is to do awakening trial -Labs and imaging reviewed Medications: Reviewed: Yes Vitals/I&O/Wt Last Vital Signs Temp 98.4 F 02/16/21 17:00 Pulse 95 02/16/21 19:00 Resp 18 02/16/21 19:00 BP 120/71 02/16/21 19:00 Pulse Ox 91 02/16/21 19:00 02/16/21 02/16/21 02/16/21 06:59 14:59 22:59 Intake Total 807.860 / 1666.645 86.210 / 86.210 86.886 / 173.096 Output Total 725 / 1525 Balance 82.860 / 141.645 86.210 / 86.210 86.886 / 173.096 Weight last 48 hrs Weight 139 lb 14.4 oz Weight 190 lb 12.8 oz Physical Exam Narrative: EXAM NARRATIVE: General: lying in bed, sedated and intubated and proned. HEENT:NCAT, PERRLA, EOMI Neck: Supple Lungs: Bilateral coarse crepitations and intermittent crackles Heart: s1/s2, RRR Abd: soft, NT, ND, BS + Normoactive Extremities: No edema AMPOULE FILLER: sedated and limited AMPOULE FILLER exam possible. SKIN: no rash LDA: # CVC: Right IJ line 02/07/2021 # A line: Right radial arterial line 02/07/2021 Urinary Catheter Management^: Ram: Cath Placed During This Visit: yes Reason for Continuing Indwelling Catheter: Accurate Measurement of Urinary Output in Critically Ill Patients Urinary Catheter Date of Insertion: 02/05/21 Urinary Catheter Time of Insertion: 18:34 Data : 02/17/21 04:00 02/17/21 15:20 Other Labs: Laboratory Results WBC 14.4 10^3/uL (4.0-10.0) H 02/16/21 04:20 RBC 4.95 10^6/uL (4.1-5.3) 02/16/21 04:20 Hgb 14.4 g/dL (11.7-16.6) 02/16/21 04:20 Hct 48.6 % (42.0-52.0) 02/16/21 04:20 MCV 98.2 fl (80-94) H 02/16/21 04:20 MCH 29.1 pg (28.0-34.0) 02/16/21 04:20 MCHC 29.6 g/dL (30.0-36.0) L 02/16/21 04:20 RDW 14.5 % (12.1-15.1) 02/16/21 04:20 Plt Count 189 10^3/cmm (130-400) 02/16/21 04:20 MPV 10.4 fL (7.4-10.4) 02/16/21 04:20 Neut % (Auto) 85.0 % 02/16/21 04:20 Lymph % (Auto) 3.7 % 02/16/21 04:20 [place] % (Auto) 10.2 % 02/16/21 04:20 Eos % (Auto) 0.2 % 02/16/21 04:20 Baso % (Auto) 0.1 % 02/16/21 04:20 Neut # (Auto) 12.22 10^3/uL (1.8-7.7) H 02/16/21 04:20 Lymph # (Auto) 0.5 10^3/uL (0.8-4.8) L 02/16/21 04:20 [place] # (Auto) 1.5 10^3/uL (0.2-0.9) H 02/16/21 04:20 Eos # (Auto) 0.0 10^3/uL (0.0-0.8) 02/16/21 04:20 Baso # (Auto) 0.0 10^3/uL (0.0-0.1) 02/16/21 04:20 Nucleated RBC % (auto) 0 % 02/16/21 04:20 Nucleated RBCs # 0.0 /100WBC 02/16/21 04:20 ESR 14 mm/hr (0-10) H 02/12/21 04:56 D-Dimer 1.38 ug/mIFEU (0-0.59) H 02/08/21 05:47 Specimen Type Arterial 02/16/21 04:40 Sample Site art line 02/16/21 04:40 ABG pH 7.42 (7.35-7.45) 02/16/21 04:40 ABG pCO2 60.3 mmHg (35-45) H* 02/16/21 04:40 ABG pO2 74.8 mmHg (80.0-100.0) L 02/16/21 04:40 ABG HCO3 38.9 mmol/L (22-26) H 02/16/21 04:40 ABG O2 Saturation 95.7 02/12/21 04:32 ABG Base Excess 11.5 mmol/L (-2.0-2.0) H 02/16/21 04:40 Davion Test Pos 02/16/21 04:40 A-a O2 Gradient 26.5 mmHg (5-10) H 02/12/21 04:32 Hematocrit 46.3 % (42-52) 02/16/21 04:40 Hgb O2 Saturation 94.8 % (95-100) L 02/12/21 04:32 Carboxyhemoglobin 0.5 %THgb (0.4-20.1) 02/12/21 04:32 Methemoglobin 0.5 % (0.4-1.5) 02/12/21 04:32 Total Hemoglobin 14.3 g/dL (14-18) 02/12/21 04:32 Sodium 146.0 mmol/L (131-143) H 02/12/21 04:32 Potassium 5.0 mmol/L (3.5-5.0) 02/12/21 04:32 Glucose 244.0 mg/dL (70-115) H 02/12/21 04:32 Ionized Calcium 1.2 mmol/L (1.1-1.4) 02/12/21 04:32 O2 Delivery Device Vent 02/16/21 04:40 O2 Liters/Min 55.0 % 02/06/21 09:30 Mechanical Rate 18.0 02/16/21 04:40 FiO2 45.0 % 02/16/21 04:40 Tidal Volume 0.43 02/16/21 04:40 PEEP 10.0 cmH20 02/16/21 04:40 Automation Engineering Manager ID Drn 02/16/21 04:40 Sodium 152 mmol/L (136-145) H 02/16/21 04:20 Potassium 4.6 mmol/L (3.5-5.1) 02/16/21 04:20 Chloride 114 mmol/L (98-107) H 02/16/21 04:20 Carbon Dioxide 35 mmol/L (22-29) H 02/16/21 04:20 Anion Gap 7.6 (5-19) 02/16/21 04:20 BUN 52 mg/dL (8-23) H 02/16/21 04:20 Creatinine 0.9 mg/dL (0.7-1.2) 02/16/21 04:20 GFR Calculation Not Reportable 02/16/21 04:20 Glucose 133 mg/dL (65-115) H 02/16/21 04:20 POC Glucose 102 mg/dL (70-110) 02/16/21 20:36 Estimat Average Glucose 223 02/06/21 05:45 Hemoglobin A1c 9.4 % (4.0-6.0) H 02/06/21 05:45 Calculated Osmolality 330 mOsm/kg (285-295) H 02/16/21 04:20 Lactic Acid 1.4 mmol/L (0.5-2.2) 02/05/21 12:42 Calcium 8.9 mg/dL (8.5-10.5) 02/16/21 04:20 Phosphorus 3.3 mg/dL (2.5-4.5) 02/06/21 05:45 Magnesium 3.2 mg/dL (1.7-2.3) H 02/14/21 03:37 Iron 37 ug/dL (59-158) L 02/05/21 12:42 TIBC 195 mcg/dl 02/05/21 12:42 % Saturation 18.9 % (20-50) L 02/05/21 12:42 Unsat Iron Binding 158 ug/dL (112-347) 02/05/21 12:42 Ferritin 654 ng/mL (30-400) H 02/08/21 05:47 Total Bilirubin 0.4 mg/dL (0.15-1.2) 02/16/21 04:20 AST 59 U/L (0-40) H 02/16/21 04:20 ALT 42 U/L (0-41) H 02/16/21 04:20 Alkaline Phosphatase 110 IU/L (40-130) 02/16/21 04:20 Lactate Dehydrogenase 583 U/L (135-225) H 02/06/21 05:45 Creatine Kinase 113 U/L (39-308) 02/10/21 16:50 C-Reactive Protein 10.8 mg/L (0.0-4.9) H 02/12/21 04:56 NT-Pro-B Natriuret Pep 90 pg/mL (0-125) 02/12/21 04:56 Total Protein 5.8 g/dL (6.6-8.7) L 02/16/21 04:20 Albumin 2.5 g/dL (3.5-5.2) L 02/16/21 04:20 Globulin 3.3 g/dL (1.3-4.6) 02/16/21 04:20 Triglycerides 162 mg/dL (0-150) H 02/06/21 05:45 Cholesterol 142 mg/dL (0-200) 02/06/21 05:45 LDL Cholesterol, Calc 65 mg/dL (50-129) 02/06/21 05:45 Total VLDL Cholesterol 32 mg/dL (0-30) H 02/06/21 05:45 HDL Cholesterol 45 mg/dL (60-100) L 02/06/21 05:45 Cholesterol/HDL Ratio 3.16 mg/dL (1.0-5.00) 02/06/21 05:45 Procalcitonin 0.09 ng/mL (0-0.5) 02/10/21 03:16 TSH 1.72 uIU/mL (0.27-4.20) 02/05/21 12:42 Urine Color Straw (Yellow) 02/05/21 18:17 Urine Appearance Clear (CLEAR) 02/05/21 18:17 Urine pH 5 (5-7) 02/05/21 18:17 Ur Specific [place] 1.005 (1.005-1.030) 02/05/21 18:17 Urine Protein Neg (Negative) 02/05/21 18:17 Urine Glucose (UA) 2+ (Normal) 02/05/21 18:17 Urine Ketones Negative (Negative) 02/05/21 18:17 Urine Blood Neg (Negative) 02/05/21 18:17 Urine Nitrate Negative (Negative) 02/05/21 18:17 Urine Bilirubin Neg (Negative) 02/05/21 18:17 Urine Urobilinogen Norm mg/dL (Negative) 02/05/21 18:17 Ur Leukocyte Esterase Negative (Negative) 02/05/21 18:17 Ur Random Sodium 101 mmol/L 02/05/21 18:17 Ur Random Potassium 11 mmol/L 02/05/21 18:17 Ur Random Chloride 104 mmol/L 02/05/21 18:17 Histoplasma Antigen Urine 02/06/21 10:23 Histoplasma Ag (Qnt) None detected ng/mL 02/06/21 10:23 Histoplasma Ag Interp Negative 02/06/21 10:23 Pneumocystis Source Sputum 02/05/21 18:25 Pneumocyst jiroveci PCR Not detected 02/05/21 18:25 A. galactomannan Ag EIA Not detected 02/05/21 18:25 A. galactomannan Ag Idx <0.50 02/05/21 18:25 Beta-(1,3)-D-Glucan <31 pg/mL 02/07/21 05:30 B-(1,3)-D-Glucan Intrp Negative 02/07/21 05:30 Impressions Chest CTA 02/05/21 13:24 IMPRESSION: 1. No pulmonary embolism. 2. Diffusely abnormal lungs. Diffuse scattered groundglass attenuation, thickened reticulations and honeycombing. Suspect superimposed Covid on chronic pulmonary fibrosis. 3. Bilateral hilar adenopathy with the largest lymph node on the LEFT measuring 12 mm. Probably reactive. Chest X-Ray 02/16/21 07:46 IMPRESSION: Imaging findings concerning for pneumonia, in a background of interstitial lung disease. Micro: Microbiology 02/15/21 05:35 Gram Stain - Final Sputum - Expectorated Sputum Sputum Culture - Preliminary Yeast 02/13/21 13:10 Sputum Culture - Final Sputum - Endotracheal Tube Aspirate A&P Assessment and plan (1) Acute respiratory failure with hypoxia: Status: Acute (2) Acute respiratory distress syndrome (ARDS) due to 2019 novel coronavirus: Status: Acute (3) Idiopathic interstitial fibrosis: Status: Acute (4) CAD (coronary artery disease): Status: Acute Qualifiers: Associated angina: unspecified whether angina present Coronary Disease- Associated Artery/Lesion type: [place] artery [place] vs. 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 Qualified Code(s): E11.69 - Type 2 diabetes mellitus with other specified complication (6) HTN (hypertension): Status: Acute Qualifiers: Hypertension type: unspecified Qualified Code(s): I10 - Essential (primary) hypertension (7) COVID-19 vaccination not done: Status: Acute (8) WHO group 2 pulmonary arterial hypertension: Status: Acute (9) Hyperkalemia: Status: Acute (10) MIKA (acute kidney injury): Status: Acute -Intubated 02/07/2021 -Sedated and paralyzed and completed 4 proning sessions -On Versed, Nimbex, fentanyl and propofol -Taper off paralytic and Versed followed by fentanyl -ABG 7.4 60/74/38 on CMV 18/430/45%/10 -With underlying idiopathic interstitial pulmonary fibrosis:possible ILD exacerbation - on home medication tadalafil 5 mg daily once for pulmonary hypertension and pirfenidone for his IPF -Started with prednisone 40 every 8 hours-gradually tapered to dexamethasone 6 mg IV daily changed back to Solu-Medrol 40 every 12 as patient is in metabolic alkalosis-probably due to adrenal insufficiency -Completed on remdesivir 5 days - DuoNebs every 4 hour, budesonide twice daily. - Monitor inflammatory markers including ferritin, ESR, CRP, D-dimer, fibrinogen every 48 hour - CTA negative for pulmonary embolism. - afebrile , Procalcitonin negative, urine Legionella bacterial antigen negative,Blood culture negative. - Sputum culture 02/13/2021 results-negative; - started on aztreonam as patient has significant aspiration event 02/14/2021- patient is allergic to penicillin could not give Zosyn; if repeat sputum culture is negative will DC aztreonam -Latest sputum yeast-started on sent Diflucan - Patient has a history of idiopathic pulmonary fibrosis and has been on steroids for last 6 months. He has history of recent travel to [place] and [place]. - PCP PCR, histoplasma antigen, Aspergillus antigen, beta D glucan negative - MIKA-likely secondary to COVID-19 pneumonia versus prerenal-improving - Given hypoxia will try to keep patient as negative as possible. -271 cc over 24 hours /-3 L since admission -Sodium 152-Free water 150 every 6 hour; K4.6; patient receiving scale coverage insulin - Patient history of CAD Recent cardiac stent placement. Echocardiogram done shows an EF 60% with grade 1 diastolic dysfunction with moderate pulmonary hypertension with RVSP of 46. - Continue with aspirin, Plavix, statin.- -Monitor monitor input and output, daily weights - Hypertension: Goal blood pressure less than 140/90 mmHg. - Continue home dose of carvedilol - Type 2 diabetes mellitus: HbA1c 9.4.Insulin sliding scale at moderate dose. sugars controlled , Lantus 25 units twice daily Full code. Lovenox DVT prophylaxis Famotidine for PUD prophylaxis. To restart feeding when patient is in supine position Updated medical condition to the Recommendations conveyed to hospitalist, RN, RT taking care of the patient Attestations Medical Necessity Statement*: Acute hypoxic respiratory failure secondary to ARDS due to COVID-19 pneumonia in patient with underlying interstitial fibrosis requiring mechanical ventilation Time Spent in Patient Care: Greater than 35 minutes (>than 50% of time sp ent in counselling and/or direct pt care on unit) . Critical Care Time: The high probability of a clinically significant, sudden or life threatening deterioration of the patient's [pulmonary, endocrine, renal, neurological] system(s) required my full and direct attention, intervention and personal management. The critical care time is as shown. This time is in addition to time spent performing any reported procedures but includes the following: [x] Data and vital sign review and interpretation [x] Patient assessment, examination and intervention [x] Documentation [x] Medication orders and management Critical Care Time (min): 45 Coding Level of Care Code Established Pt Acute Market Sales Manager for [facility] Patient Type Established History Comprehensive Exam Comprehensive Medical Decision Making High Complexity Diagnoses Acute respiratory failure with hypoxia J96.01 Acute respiratory distress syndrome (ARDS) due to 2019 novel coronavirus U07.1; J80 Idiopathic interstitial fibrosis J84.112 CAD (coronary artery disease) I25.10 Associated angina: unspecified whether angina present Coronary Disease-Associated Artery/Lesion type: [place] artery [place] vs. 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
[2021-02-17] VITALS (31 sets, daily range): BP systolic 112–144; BP diastolic 62–80; PULSE 57–88; RESP 15–21; TEMP 36.9–38.1; O2SAT 89–97; BMI 29.5
[2021-02-17] MEDS: dexmedetomidine 400 MCG in sodium chloride 0.9% (100 ml) 100 ML 11.79 MCG IV ×3 (00:15→18:45)
[2021-02-17] MEDS: aztreonam 1,000 MG in sodium chloride 0.9% (plus) 50 ML 100 MG IV ×2 (00:33→13:03)
[2021-02-17 00:49] LABS: Glucose Point of Care 181 mg/dL (70-110)
[2021-02-17] MEDS: ipratropium-albuterol 3 mL Neb INHALATION ×6 (01:14→19:53)
[2021-02-17 04:10] LABS: Basophils % 0.1 %; Hematocrit 42.2 % (42.0-52.0); Hemoglobin 12.8 g/dL (11.7-16.6); Lymphocytes # 0.4 10^3/uL (0.8-4.8); Lymphocytes % 3.5 %; Mean Corpuscular HGB Conc 30.3 g/dL (30.0-36.0); Mean Corpuscular Hemoglobin 29.2 pg (28.0-34.0); Mean Corpuscular Volume 96.3 fl (80-94); Mean Platelet Volume 10.5 fL (7.4-10.4); Monocytes # 0.4 10^3/uL (0.2-0.9); Monocytes % 3.9 %; Neutrophils # 10.15 10^3/uL (1.8-7.7); Neutrophils % 92.1 %; Nucleated Red Blood Cells % 0 %; Platelet Count 145 10^3/cmm (130-400); Red Blood Count 4.38 10^6/uL (4.1-5.3); Red Cell Distribution Width 14.6 % (12.1-15.1)
[2021-02-17 04:40] LABS: Alanine Aminotransferase 38 U/L (0-41); Albumin Level 2.3 g/dL (3.5-5.2); Alkaline Phosphatase 101 IU/L (40-130); Anion Gap 9.9 (5-19); Aspartate Amino Transferase 48 U/L (0-40); Blood Urea Nitrogen 54 mg/dL (8-23); Calcium 8.7 mg/dL (8.5-10.5); Carbon Dioxide 34 mmol/L (22-29); Chloride 113 mmol/L (98-107); Globulin 3.1 g/dL (1.3-4.6); Glucose 210 mg/dL (65-115); Osmolality Calculated 335 mOsm/kg (285-295); Potassium 4.9 mmol/L (3.5-5.1); Sodium 152 mmol/L (136-145); Total Bilirubin 0.6 mg/dL (0.15-1.2); Total Protein 5.4 g/dL (6.6-8.7)
[2021-02-17] MEDS: famotidine 20 mg/2 mL INJ IVP ×2 (05:17→18:04)
[2021-02-17 05:18] LABS: Glucose Point of Care 181 mg/dL (70-110)
[2021-02-17] MEDS: clopidogrel 75 mg Tablet PO (05:18)
[2021-02-17] MEDS: NON-FORMULARY MEDICATION (Tadalafil 5 mg tablet) 5 EACH PO (05:19)
--- NOTE | 2021-02-17 06:35 | PC.NURSE ---
Shift Note Frequent safety and comfort rounds continue. Orders and/or nursing care completed as indicated. Patient monitored for response to intervention and treatment(s). Education provided includes medications and vent settings. Patient unable to comprehend due to being intubated, spoke with patient on the phone and she verbalized understanding of teaching. Patient has a right forearm IV that is saline locked. Right IJ central line has Fentanyl and Precedex infusing, please see MAR for infusion rates. Tube feedings infusing at 20 mls/hr with 150 mls free water flushes every six hours. Total tube feeding intake overnight was 219 mls with 200 mls free water flush. Ram catheter drained 750 mls clear bright yellow urine all evening. Vent settings are as follows; mode-CMV, fiO2-45%, VT-430, PEEP-10, rate-18. Patient does not open eyes or follow commands at this time but he does withdrawal from painful stimuli. Will continue to monitor.
[2021-02-17] MEDS: budesonide 0.5 mg/2 mL Neb INHALATION ×2 (08:10→19:53)
[2021-02-17] MEDS: aspirin 81 mg EC Tablet PO (08:40)
[2021-02-17] MEDS: zinc gluconate 50 mg Tablet PO (08:40)
[2021-02-17] MEDS: benzonatate 100 mg Capsule PO ×3 (08:40→20:39)
[2021-02-17] MEDS: ferrous gluconate 324 mg Tablet PO ×2 (08:40→18:04)
[2021-02-17] MEDS: ascorbic acid 500 mg Tablet PO (08:40)
[2021-02-17] MEDS: carvedilol 3.125 mg Tablet PO ×2 (08:40→18:04)
[2021-02-17] MEDS: tamsulosin 0.4 mg Capsule PO (08:40)
[2021-02-17] MEDS: enoxaparin 40 mg/0.4 mL Syringe SUBCUT (08:41)
[2021-02-17 08:45] LABS: Glucose Point of Care 182 mg/dL (70-110)
[2021-02-17] MEDS: insulin glargine 100 units/1 mL 25 UNIT SUBCUT ×2 (08:52→20:40)
[2021-02-17] MEDS: ezetimibe 10 mg Tablet PO (08:52)
[2021-02-17] MEDS: dextrose 5% 1,000 ML 75 ML IV (08:53)
[2021-02-17] MEDS: docusate sodium 100 mg Capsule PO ×2 (09:00→18:04)
--- NOTE | 2021-02-17 10:07 | PC.NURSE ---
Annita, , called for update. Spoke to her about Fentanyl , possible opiod withdrawal. 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 She verbalized understanding, she stated he sometimes has violent dreams on [place] and he did not want to be on the vent for an extended period of time. Dr Navarro informed about full conversation.
[2021-02-17 13:10] LABS: Glucose Point of Care 256 mg/dL (70-110)
--- NOTE | 2021-02-17 13:50 | PC.NURSE ---
Verito tang( video visit) done with at pt's bedside.
--- NOTE | 2021-02-17 14:00 | PC.NURSE ---
Art line removed while video chatting with . Pressure held until hemostasis obtained. Gauze and bioclusive dressing applied. Pt tolerated well.
--- NOTE | 2021-02-17 14:39 | PC.NUTR ---
Addendum entered by Tor Thornton 02/19/21 11:35: error on original note indicating recommendation for 40 ml/hr. Intended to recommend nepro goal of 45 ml/hr. Original Note: Tube feeding recommendations: Possible aspiration incident on 02/11 or 02/12 (exact time unclear) leading to feedings held 02/12-02/14. Feedings resumed 02/15 PM at 20 ml/hr, ran at 20 ml/hr part of 02/16, and remain at 20 ml/hr at this time (possibly 15 ml/hr per nurse). Feedings currently providing a max of 864 kcal/day, but typically less due to holds. Continue to recommend increasing TF rate to better meet nutritional needs. Recommend Nepro at 40 ml/hr with 150 ml H2O flushes q 6 hrs, to provide 1944 kcal, 87 g protein, 1383 ml H2O. No additional kcal from propofol at this time, would suggest holding at 35-40 ml/hr if propofol resumed. Recommend check Phos level when possible. If unable to safely increase TF rate to meet nutritional needs, recommend consideration of supplemental TPN. See RD assessment for further details.
--- NOTE | 2021-02-17 16:04 | P.PN_ITS ---
Subjective Subjective: Interval history: Intubated, weaning and sedation. Moving his head intermittently side to side. Moving his feet. Coughing. Vitals/I&O/Wt Last Vital Signs Temp 100.5 F H 02/17/21 13:00 Pulse 74 02/17/21 15:00 Resp 19 H 02/17/21 15:00 BP 125/69 02/17/21 13:00 Pulse Ox 94 02/17/21 15:00 02/17/21 02/17/21 02/17/21 06:59 14:59 22:59 Intake Total 542.254 / 1370.350 104 / 104 Output Total 750 / 1650 Balance -207.746 / -279.650 104 / 104 Weight last 48 hrs Weight 90.52 kg Weight 63.458 kg Physical Exam Const: COMMON NORMALS: no acute distress GENERAL APPEARANCE: patient mechanically ventilated OTHER: Weaning down on sedation. HENMT: COMMON NORMALS: oropharynx normal Neck/C-Spine: COMMON NORMALS: no JVD Resp: COMMON NORMALS: normal respiratory effort AUSCULTATION: crackles Laterality: left and rhonchi Cardio: COMMON NORMALS: no JVD, regular rhythm, S1 normal heart sound present, S2 normal heart sound present and No murmurs present (Cardio) RHYTHM: regular rhythm HEART SOUNDS: S1 normal heart sound present and S2 normal heart sound present GI: COMMON NORMALS: Normal to inspection, nondistended, normoactive bowel sounds present and Soft to palpation PALPATION: Yes Soft to palpation Extremity: COMMON NORMALS: no joint enlargement and no pedal edema Neuro: COMMON NORMALS: moves all extremities Skin: COMMON NORMALS: no rashes or lesions noted GENERAL SKIN EXAM: no rashes or lesions noted Urinary Catheter Management^: Ram: Cath Placed During This Visit: yes Reason for Continuing Indwelling Catheter: Accurate Measurement of Urinary Output in Critically Ill Patients Urinary Catheter Date of Insertion: 02/05/21 Urinary Catheter Time of Insertion: 18:34 Data : 02/17/21 04:00 02/17/21 04:00 Micro: Microbiology 02/15/21 05:35 Gram Stain - Final Sputum - Expectorated Sputum Sputum Culture - Preliminary Yeast A&P Assessment and plan (1) Pneumonia due to 2019-nCoV: Continue to wean sedation. Continues on low rate fentanyl as intermittently yawning, concern possible withdrawal. Do not increase rate if possible. Continue to wean down Precedex. Possible extubation if waking up well. Today low-grade temp 100.5 Fahrenheit. Secretions subsiding. Continue aztreonam. Yeast growing in sputum culture was started also on Diflucan. Caution with tube feeds due to episode of regurgitation on 02/12. Wean down steroids slowly due to underlying ILD. He has completed a course of remdesivir. Prophylactic Lovenox. Illness complicated by underlying ILD with possible exacerbation. Status: Acute (2) Idiopathic interstitial fibrosis: Continue dexamethasone. Azactam. Previously also on azithromycin prophylaxis. Status: Acute (3) ARDS (adult respiratory distress syndrome): As above. 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 Continue aspirin, Plavix, beta-too, statin. Status: Acute Qualifiers: Associated angina: unspecified whether angina present Coronary Disease- Associated Artery/Lesion type: [place] artery [place] vs. transplanted heart: [place] heart Qualified Code(s): I25.10 - Atherosclerotic heart disease of [place] coronary artery without angina pectoris (8) WHO group 2 pulmonary arterial hypertension: Status: Acute (9) Acute respiratory distress syndrome (ARDS) due to 2019 novel coronavirus: Status: Acute Additional A&P Information Hyperkalemia: Improved. Attestations Medical Necessity Statement*: Continue admission for weaning of sedation, mechanical ventilatory support, consideration of possibility of extubation and gentleman with severe COVID-19, improving ARDS, with underlying ILD with possible exacerbation. Coding Level of Care Code Acute Integrated Marketing Manager for [facility] Fwd Exam Comprehensive Diagnoses Pneumonia due to 2019-nCoV U07.1; J12.82 Idiopathic interstitial fibrosis J84.112 ARDS (adult respiratory distress syndrome) J80 COVID-19 vaccination not done Z28.9 HTN (hypertension) I10 Hypertension type: unspecified Type 2 diabetes mellitus E11.69 Diabetes mellitus complication status: with other specified complication Diabetes mellitus penitentiary insulin use: unspecified penitentiary insulin use status CAD (coronary artery disease) I25.10 Associated angina: unspecified whether angina present Coronary Disease-Associated Artery/Lesion type: [place] artery [place] vs. transplanted heart: [place] heart WHO group 2 pulmonary arterial hypertension I27.22 Acute respiratory distress syndrome (ARDS) due to 2019 novel coronavirus U07.1; J80
[2021-02-17 16:20] LABS: Anion Gap 11.9 (5-19); Blood Urea Nitrogen 50 mg/dL (8-23); Calcium 8.6 mg/dL (8.5-10.5); Carbon Dioxide 32 mmol/L (22-29); Chloride 112 mmol/L (98-107); Glucose 284 mg/dL (65-115); Osmolality Calculated 336 mOsm/kg (285-295); Potassium 4.9 mmol/L (3.5-5.1); Sodium 151 mmol/L (136-145)
--- NOTE | 2021-02-17 17:48 | PC.NURSE ---
Cris, , called for further update. Sodium level only decreased to 151 from 152. No changes in sedation gtts.
--- NOTE | 2021-02-17 17:56 | PC.RESP ---
RT Shift Note Frequent safety and respiratory rounds continue. Orders completed as indicated. Patient monitored pre and post treatments throughout shift. Patient tolerated treatments appropriately. Condition did not change. Patient and/or scheduling representative educated on respiratory treatment and medications. Patient and/or scheduling representative unable to comprehend. Will continue to monitor patient progress.
[2021-02-17 17:59] LABS: Glucose Point of Care 269 mg/dL (70-110)
--- NOTE | 2021-02-17 19:25 | P.PN_ITS ---
Subjective Subjective: Interval history: -Patient seen at bedside today morning -Off sedation but still appears drowsy; we will keep him off fentanyl and Versed -Sedated with Precedex -still no expected mentation -If no response by tomorrow-we will change CT head - labs and imaging reviewed Medications: Reviewed: Yes Vitals/I&O/Wt Last Vital Signs Temp 98.5 F 02/17/21 17:00 Pulse 68 02/17/21 18:00 Resp 18 02/17/21 18:00 BP 121/69 02/17/21 18:00 Pulse Ox 91 02/17/21 18:00 02/17/21 02/17/21 02/17/21 06:59 14:59 22:59 Intake Total 542.254 / 1370.350 104 / 104 584 / 688 Output Total 750 / 1650 1000 / 1000 Balance -207.746 / -279.650 104 / 104 -416 / -312 Weight last 48 hrs Weight 199 lb 9 oz Weight 139 lb 14.4 oz Physical Exam Narrative: EXAM NARRATIVE: General: lying in bed, sedated and intubated and proned. HEENT:NCAT, PERRLA, EOMI Neck: Supple Lungs: Bilateral coarse crepitations and intermittent crackles Heart: s1/s2, RRR Abd: soft, NT, ND, BS + Normoactive Extremities: No edema PILOT BOAT DECKHAND: sedated and limited PILOT BOAT DECKHAND exam possible. SKIN: no rash LDA: # CVC: Right IJ line 02/07/2021 # A line: Right radial arterial line 02/07/2021-can DC today Urinary Catheter Management^: Ram: Cath Placed During This Visit: yes Reason for Continuing Indwelling Catheter: Accurate Measurement of Urinary Output in Critically Ill Patients Urinary Catheter Date of Insertion: 02/05/21 Urinary Catheter Time of Insertion: 18:34 Data : 02/17/21 04:00 02/17/21 15:20 Other Labs: Laboratory Results WBC 11.0 10^3/uL (4.0-10.0) H 02/17/21 04:00 RBC 4.38 10^6/uL (4.1-5.3) 02/17/21 04:00 Hgb 12.8 g/dL (11.7-16.6) 02/17/21 04:00 Hct 42.2 % (42.0-52.0) 02/17/21 04:00 MCV 96.3 fl (80-94) H 02/17/21 04:00 MCH 29.2 pg (28.0-34.0) 02/17/21 04:00 MCHC 30.3 g/dL (30.0-36.0) 02/17/21 04:00 RDW 14.6 % (12.1-15.1) 02/17/21 04:00 Plt Count 145 10^3/cmm (130-400) 02/17/21 04:00 MPV 10.5 fL (7.4-10.4) H 02/17/21 04:00 Neut % (Auto) 92.1 % 02/17/21 04:00 Lymph % (Auto) 3.5 % 02/17/21 04:00 [place] % (Auto) 3.9 % 02/17/21 04:00 Eos % (Auto) 0.0 % 02/17/21 04:00 Baso % (Auto) 0.1 % 02/17/21 04:00 Neut # (Auto) 10.15 10^3/uL (1.8-7.7) H 02/17/21 04:00 Lymph # (Auto) 0.4 10^3/uL (0.8-4.8) L 02/17/21 04:00 [place] # (Auto) 0.4 10^3/uL (0.2-0.9) 02/17/21 04:00 Eos # (Auto) 0.0 10^3/uL (0.0-0.8) 02/17/21 04:00 Baso # (Auto) 0.0 10^3/uL (0.0-0.1) 02/17/21 04:00 Nucleated RBC % (auto) 0 % 02/17/21 04:00 Nucleated RBCs # 0.0 /100WBC 02/17/21 04:00 ESR 14 mm/hr (0-10) H 02/12/21 04:56 D-Dimer 1.38 ug/mIFEU (0-0.59) H 02/08/21 05:47 Specimen Type Arterial 02/16/21 04:40 Sample Site art line 02/16/21 04:40 ABG pH 7.42 (7.35-7.45) 02/16/21 04:40 ABG pCO2 60.3 mmHg (35-45) H* 02/16/21 04:40 ABG pO2 74.8 mmHg (80.0-100.0) L 02/16/21 04:40 ABG HCO3 38.9 mmol/L (22-26) H 02/16/21 04:40 ABG O2 Saturation 95.7 02/12/21 04:32 ABG Base Excess 11.5 mmol/L (-2.0-2.0) H 02/16/21 04:40 [place]ion Test Pos 02/16/21 04:40 A-a O2 Gradient 26.5 mmHg (5-10) H 02/12/21 04:32 Hematocrit 46.3 % (42-52) 02/16/21 04:40 Hgb O2 Saturation 94.8 % (95-100) L 02/12/21 04:32 Carboxyhemoglobin 0.5 %THgb (0.4-20.1) 02/12/21 04:32 Methemoglobin 0.5 % (0.4-1.5) 02/12/21 04:32 Total Hemoglobin 14.3 g/dL (14-18) 02/12/21 04:32 Sodium 146.0 mmol/L (131-143) H 02/12/21 04:32 Potassium 5.0 mmol/L (3.5-5.0) 02/12/21 04:32 Glucose 244.0 mg/dL (70-115) H 02/12/21 04:32 Ionized Calcium 1.2 mmol/L (1.1-1.4) 02/12/21 04:32 O2 Delivery Device Vent 02/16/21 04:40 O2 Liters/Min 55.0 % 02/06/21 09:30 Mechanical Rate 18.0 02/16/21 04:40 FiO2 45.0 % 02/16/21 04:40 Tidal Volume 0.43 02/16/21 04:40 PEEP 10.0 cmH20 02/16/21 04:40 Patients Transporter ID Drn 02/16/21 04:40 Sodium 151 mmol/L (136-145) H 02/17/21 15:20 Potassium 4.9 mmol/L (3.5-5.1) 02/17/21 15:20 Chloride 112 mmol/L (98-107) H 02/17/21 15:20 Carbon Dioxide 32 mmol/L (22-29) H 02/17/21 15:20 Anion Gap 11.9 (5-19) 02/17/21 15:20 BUN 50 mg/dL (8-23) H 02/17/21 15:20 Creatinine 1.0 mg/dL (0.7-1.2) 02/17/21 15:20 GFR Calculation Not Reportable 02/17/21 15:20 Glucose 284 mg/dL (65-115) H 02/17/21 15:20 POC Glucose 269 mg/dL (70-110) H 02/17/21 17:56 Estimat Average Glucose 223 02/06/21 05:45 Hemoglobin A1c 9.4 % (4.0-6.0) H 02/06/21 05:45 Calculated Osmolality 336 mOsm/kg (285-295) H 02/17/21 15:20 Lactic Acid 1.4 mmol/L (0.5-2.2) 02/05/21 12:42 Calcium 8.6 mg/dL (8.5-10.5) 02/17/21 15:20 Phosphorus 3.3 mg/dL (2.5-4.5) 02/06/21 05:45 Magnesium 3.2 mg/dL (1.7-2.3) H 02/14/21 03:37 Iron 37 ug/dL (59-158) L 02/05/21 12:42 TIBC 195 mcg/dl 02/05/21 12:42 % Saturation 18.9 % (20-50) L 02/05/21 12:42 Unsat Iron Binding 158 ug/dL (112-347) 02/05/21 12:42 Ferritin 654 ng/mL (30-400) H 02/08/21 05:47 Total Bilirubin 0.6 mg/dL (0.15-1.2) 02/17/21 04:00 AST 48 U/L (0-40) H 02/17/21 04:00 ALT 38 U/L (0-41) 02/17/21 04:00 Alkaline Phosphatase 101 IU/L (40-130) 02/17/21 04:00 Lactate Dehydrogenase 583 U/L (135-225) H 02/06/21 05:45 Creatine Kinase 113 U/L (39-308) 02/10/21 16:50 C-Reactive Protein 10.8 mg/L (0.0-4.9) H 02/12/21 04:56 NT-Pro-B Natriuret Pep 90 pg/mL (0-125) 02/12/21 04:56 Total Protein 5.4 g/dL (6.6-8.7) L 02/17/21 04:00 Albumin 2.3 g/dL (3.5-5.2) L 02/17/21 04:00 Globulin 3.1 g/dL (1.3-4.6) 02/17/21 04:00 Triglycerides 162 mg/dL (0-150) H 02/06/21 05:45 Cholesterol 142 mg/dL (0-200) 02/06/21 05:45 LDL Cholesterol, Calc 65 mg/dL (50-129) 02/06/21 05:45 Total VLDL Cholesterol 32 mg/dL (0-30) H 02/06/21 05:45 HDL Cholesterol 45 mg/dL (60-100) L 02/06/21 05:45 Cholesterol/HDL Ratio 3.16 mg/dL (1.0-5.00) 02/06/21 05:45 Procalcitonin 0.09 ng/mL (0-0.5) 02/10/21 03:16 TSH 1.72 uIU/mL (0.27-4.20) 02/05/21 12:42 Urine Color Straw (Yellow) 02/05/21 18:17 Urine Appearance Clear (CLEAR) 02/05/21 18:17 Urine pH 5 (5-7) 02/05/21 18:17 Ur Specific [place] 1.005 (1.005-1.030) 02/05/21 18:17 Urine Protein Neg (Negative) 02/05/21 18:17 Urine Glucose (UA) 2+ (Normal) 02/05/21 18:17 Urine Ketones Negative (Negative) 02/05/21 18:17 Urine Blood Neg (Negative) 02/05/21 18:17 Urine Nitrate Negative (Negative) 02/05/21 18:17 Urine Bilirubin Neg (Negative) 02/05/21 18:17 Urine Urobilinogen Norm mg/dL (Negative) 02/05/21 18:17 Ur Leukocyte Esterase Negative (Negative) 02/05/21 18:17 Ur Random Sodium 101 mmol/L 02/05/21 18:17 Ur Random Potassium 11 mmol/L 02/05/21 18:17 Ur Random Chloride 104 mmol/L 02/05/21 18:17 Histoplasma Antigen Urine 02/06/21 10:23 Histoplasma Ag (Qnt) None detected ng/mL 02/06/21 10:23 Histoplasma Ag Interp Negative 02/06/21 10:23 Pneumocystis Source Sputum 02/05/21 18:25 Pneumocyst jiroveci PCR Not detected 02/05/21 18:25 A. galactomannan Ag EIA Not detected 02/05/21 18:25 A. galactomannan Ag Idx <0.50 02/05/21 18:25 Beta-(1,3)-D-Glucan <31 pg/mL 02/07/21 05:30 B-(1,3)-D-Glucan Intrp Negative 02/07/21 05:30 Impressions Chest CTA 02/05/21 13:24 IMPRESSION: 1. No pulmonary embolism. 2. Diffusely abnormal lungs. Diffuse scattered groundglass attenuation, thic kened reticulations and honeycombing. Suspect superimposed Covid on chronic pulmonary fibrosis. 3. Bilateral hilar adenopathy with the largest lymph node on the LEFT measuring 12 mm. Probably reactive. Chest X-Ray 02/16/21 07:46 IMPRESSION: Imaging findings concerning for pneumonia, in a background of interstitial lung disease. Micro: Microbiology 02/15/21 05:35 Gram Stain - Final Sputum - Expectorated Sputum Sputum Culture - Preliminary Yeast A&P Assessment and plan (1) Acute respiratory failure with hypoxia: Status: Acute (2) Acute respiratory distress syndrome (ARDS) due to 2019 novel coronavirus: Status: Acute (3) Idiopathic interstitial fibrosis: Status: Acute (4) CAD (coronary artery disease): Status: Acute Qualifiers: Coronary Disease-Associated Artery/Lesion type: [place] artery [place] vs. transplanted heart: [place] heart Associated angina: unspecified whether angina present Qualified Code(s): I25.10 - Atherosclerotic heart disease of [place] coronary artery without angina pectoris (5) Type 2 diabetes mellitus: Status: Acute Qualifiers: Diabetes mellitus intermodal dispatcher insulin use: unspecified correction insulin use status Diabetes mellitus complication status: with other specified complication Qualified Code(s): E11.69 - Type 2 diabetes mellitus with other specified complication (6) HTN (hypertension): Status: Acute Qualifiers: Hypertension type: unspecified Qualified Code(s): I10 - Essential (primary) hypertension (7) COVID-19 vaccination not done: Status: Acute (8) WHO group 2 pulmonary arterial hypertension: Status: Acute (9) Hyperkalemia: Status: Acute (10) MIKA (acute kidney injury): Status: Acute -Intubated 02/07/2021 -Sedated and paralyzed and completed 4 proning sessions -Off Nimbex and Versed, taper of fentanyl and try not to increase-wanted to give [place] for withdrawal but patient reported patient is hallucinations previously with [place] -Continue low-dose Precedex for anxiety -ABG 7.4 //38 on CMV 18/45%/10 -With underlying idiopathic interstitial pulmonary fibrosis:-It will be challenging to extubate him - on home medication tadalafil 5 mg daily once for pulmonary hypertension and pirfenidone for his IPF -Started with prednisone 40 every 8 hours-gradually tapered to dexamethasone 6 mg IV daily changed back to Solu-Medrol 40 every 12 as patient is in metabolic alkalosis-probably due to adrenal insufficiency -Completed on remdesivir 5 days - DuoNebs every 4 hour, budesonide twice daily. - Monitor inflammatory markers including ferritin, ESR, CRP, D-dimer, fibrinogen every 48 hour - CTA negative for pulmonary embolism. - afebrile , Procalcitonin negative, urine Legionella bacterial antigen negative,Blood culture negative. - Sputum culture 02/13/2021 results-negative; - started on aztreonam as patient has significant aspiration event 02/14/2021- patient is allergic to penicillin could not give Zosyn; if repeat sputum culture is negative will DC aztreonam -Latest sputum yeast-started on sent Diflucan - Patient has a history of idiopathic pulmonary fibrosis and has been on steroids for last 6 months. He has history of recent travel to [place] and [place]. - PCP PCR, histoplasma antigen, Aspergillus antigen, beta D glucan negative - MIKA-likely secondary to COVID-19 pneumonia versus prerenal-improving - Given hypoxia will try to keep patient as negative as possible. - 265 cc over 24 hours /-2.7 L since admission -Sodium 152-Free water 150 every 6 hour; K4.6; patient receiving scale coverage insulin - Patient history of CAD Recent cardiac stent placement. Echocardiogram done shows an EF 60% with grade 1 diastolic dysfunction with moderate pulmonary hypertension with RVSP of 46. - Continue with aspirin, Plavix, statin.- -Monitor monitor input and output, daily weights - Hypertension: Goal blood pressure less than 140/90 mmHg. - Continue home dose of carvedilol - Type 2 diabetes mellitus: HbA1c 9.4.Insulin sliding scale at moderate dose. sugars controlled , Lantus 25 units twice daily Full code. Lovenox DVT prophylaxis Famotidine for PUD prophylaxis. To restart feeding when patient is in supine position Updated medical condition to the Recommendations conveyed to hospitalist, RN, RT taking care of the patient Attestations Medical Necessity Statement*: Acute hypoxic respiratory failure secondary to ARDS due to COVID-19 pneumonia in patient with underlying interstitial fibrosis requiring mechanical ventilation Time Spent in Patient Care: Greater than 35 minutes (>than 50% of time spent in counselling and/or direct pt care on unit) . Critical Care Time: The high probability of a clinically significant, sudden or life threatening deterioration of the patient's [pulmonary, endocrine, renal, neurological] system(s) required my full and direct attention, intervention and personal management. The critical care time is as shown. This time is in addition to time spent performing any reported procedures but includes the following: [x] Data and vital sign review and interpretation [x] Patient assessment, examination and intervention [x] Documentation [x] Medication orders and management Critical Care Time (min): 45 Coding Level of Care Code Established Pt Acute Manager Route for Chg Fwd Patient Type Established History Comprehensive Exam Comprehensive Medical Decision Making High Complexity Diagnoses Acute respiratory failure with hypoxia J96.01 Acute respiratory distress syndrome (ARDS) due to 2019 novel coronavirus U07.1; J80 Idiopathic interstitial fibrosis J84.112 CAD (coronary artery disease) I25.10 Coronary Disease-Associated Artery/Lesion type: [place] artery [place] vs. transplanted heart: [place] heart Associated angina: unspecified whether angina present Type 2 diabetes mellitus E11.69 Diabetes mellitus correction insulin use: unspecified intermodal dispatcher insulin use status Diabetes mellitus complication status: with other specified complication HTN (hypertension) I10 Hypertension type: unspecified COVID-19 vaccination not done Z28.9 WHO group 2 pulmonary arterial hypertension I27.22 Hyperkalemia E87.5 MIKA (acute kidney injury) N17.9 Time Spent (min) 45
--- NOTE | 2021-02-17 19:30 | PC.NURSE ---
Shift Note: Pt remains intubated and sedated. Fentanyl now at 10mcg/hr and Precedex remained at 0.5mcg/kg/hr. Pt still turning head side to side with an occasional yawn. Pt does not open eyes yet. This was discussed at length with today. Pt remains on Nepro tube feedings with free water flushes. Pt tolerated well with minimal residual. He has generalized edema on his extremities.. Restraints removed this afternoon. Urine output of 1000ml this shift. Frequent safety and comfort rounds continue. Orders and/or nursing care completed as indicated. Patient monitored for response to intervention and treatment(s). Education provided includes weaning sedation, mentation and responsiveness, ongoing vent care. Patient and/or veterans employment representative verbalized understanding.. Will continue to monitor.
[2021-02-17 19:40] LABS: Glucose Point of Care 235 mg/dL (70-110)
[2021-02-17] MEDS: fluconazole premix 400 MG/200 ML PIGGYBACK 200 MG IV (20:38)
[2021-02-17] MEDS: sennosides-docusate Tablet 1 TAB PO (20:39)
[2021-02-17 23:39] LABS: Glucose Point of Care 217 mg/dL (70-110)
[2021-02-18] VITALS (40 sets, daily range): BP systolic 127–172; BP diastolic 71–101; PULSE 71–115; RESP 10–24; TEMP 36.2–37.7; O2SAT 90–94; BMI 29.5
[2021-02-18] MEDS: ipratropium-albuterol 3 mL Neb INHALATION ×7 (00:01→23:37)
[2021-02-18 04:32] LABS: Glucose Point of Care 217 mg/dL (70-110)
[2021-02-18 05:48] LABS: Basophils % 0.2 %; Hematocrit 43.6 % (42.0-52.0); Hemoglobin 13.5 g/dL (11.7-16.6); Lymphocytes # 0.6 10^3/uL (0.8-4.8); Lymphocytes % 4.7 %; Mean Corpuscular Hemoglobin 29.4 pg (28.0-34.0); Mean Platelet Volume 10.5 fL (7.4-10.4); Monocytes # 0.9 10^3/uL (0.2-0.9); Monocytes % 6.8 %; Neutrophils # 11.69 10^3/uL (1.8-7.7); Neutrophils % 87.8 %; Nucleated Red Blood Cells % 0 %; Platelet Count 159 10^3/cmm (130-400); Red Blood Count 4.59 10^6/uL (4.1-5.3); Red Cell Distribution Width 14.4 % (12.1-15.1); White Blood Count 13.3 10^3/uL (4.0-10.0)
[2021-02-18] MEDS: famotidine 20 mg/2 mL INJ IVP ×2 (05:49→17:43)
[2021-02-18] MEDS: NON-FORMULARY MEDICATION (Tadalafil 5 mg tablet) 5 EACH PO (05:50)
[2021-02-18] MEDS: clopidogrel 75 mg Tablet PO (05:50)
[2021-02-18 06:09] LABS: Alanine Aminotransferase 35 U/L (0-41); Albumin Level 2.5 g/dL (3.5-5.2); Alkaline Phosphatase 110 IU/L (40-130); Anion Gap 12.5 (5-19); Aspartate Amino Transferase 44 U/L (0-40); Blood Urea Nitrogen 53 mg/dL (8-23); Calcium 8.7 mg/dL (8.5-10.5); Carbon Dioxide 32 mmol/L (22-29); Chloride 112 mmol/L (98-107); Globulin 3.1 g/dL (1.3-4.6); Glucose 233 mg/dL (65-115); Osmolality Calculated 336 mOsm/kg (285-295); Potassium 4.5 mmol/L (3.5-5.1); Sodium 152 mmol/L (136-145); Total Bilirubin 0.4 mg/dL (0.15-1.2); Total Protein 5.6 g/dL (6.6-8.7)
--- NOTE | 2021-02-18 06:47 | PC.NURSE ---
Shift Note Frequent safety and comfort rounds continue. Orders and/or nursing care completed as indicated. Patient monitored for response to intervention and treatment(s). Education provided includes treatment plan. Patient currently intubated and cannot verbalize understanding of teaching. Patients Annita, called, gave her an update on patient condition as well as current treatment plan to wean off Precedex. She verbalized understanding of treatment plan. Vent settings are as follows; mode-CMV, FiO2-45%, VT-430, PEEP-10, Rate-18. Right IJ central line has Fentanyl infusing at 10 mcg/hr. Right forearm IV site is saline locked at this time. Patient is more alert and oriented tonight than he has been, he will open eyes spontaneously and answer questions by shaking head yes or no. He has no ROM of any extremities currently. Bilateral wrist restraints were left off throughout the night. Nepro tube feeding is infusing with free water flushes every 6 hours, patient tolerating feeding well. Ram catheter drained 950 mls of clear dark yellow urine all evening. Will continue to monitor.
--- NOTE | 2021-02-18 07:45 | XR_ITS ---
WS: [id number] Exam: XR chest 1V portable [id number] Date/Time of Exam: 02/18/2021 7:46 AM Reason For Exam: pneumonia Comparison 02/16/2021. Improving diffuse interstitial infiltrates in the lower lung zones. The lungs are fully inflated. No pleural effusions. Heart size is normal. The mediastinum and osseous thorax are unremarkable. ET tube remains in satisfactory position ending at about the level of T3. An enteric tube enters the stomach ending in the gastric cardia. Right IJ catheter remains in good position. Monitoring leads superimpo se the chest. XR/XR chest 1V portable [id number] IMPRESSION: 1. Improving interstitial infiltrates since prior study. 2. ET tube and IJ catheter remain in good position. 3. Enteric tube ending in the stomach however the tube could be advanced anothe r 3 to 4 cm for optimal position.
[2021-02-18 08:14] LABS: Glucose Point of Care 179 mg/dL (70-110)
[2021-02-18] MEDS: budesonide 0.5 mg/2 mL Neb INHALATION ×2 (08:36→20:10)
[2021-02-18] MEDS: ferrous gluconate 324 mg Tablet PO ×2 (08:38→17:42)
[2021-02-18] MEDS: ascorbic acid 500 mg Tablet PO (08:38)
[2021-02-18] MEDS: benzonatate 100 mg Capsule PO ×2 (08:38→15:50)
[2021-02-18] MEDS: enoxaparin 40 mg/0.4 mL Syringe SUBCUT (08:39)
[2021-02-18] MEDS: carvedilol 3.125 mg Tablet PO ×2 (08:39→17:42)
[2021-02-18] MEDS: tamsulosin 0.4 mg Capsule PO (08:39)
[2021-02-18] MEDS: aspirin 81 mg EC Tablet PO (08:39)
[2021-02-18] MEDS: zinc gluconate 50 mg Tablet PO (08:39)
[2021-02-18] MEDS: docusate sodium 100 mg Capsule PO ×2 (08:39→17:42)
[2021-02-18] MEDS: ezetimibe 10 mg Tablet PO (08:43)
[2021-02-18] MEDS: insulin glargine 100 units/1 mL 25 UNIT SUBCUT ×2 (08:43→21:09)
--- NOTE | 2021-02-18 09:00 | PC.NURSE ---
, Annita, called for an update. Precedex stopped last night, he still remains on Fentanyl at 10mcg/hr. He was able to shake his head yes and no, but no other commands followed yet. He is not moving his arms yet.
--- NOTE | 2021-02-18 09:04 | PC.CHAP ---
Pastoral Care Encounter/Spiritual Assessment Type of Contact [] Declined cafeteria operator visit [] Patient/Family/Request visit [] Outpatient visit [] Follow-up visit [] Physician referral [] Code/Alert [x] Routine visit [] Staff referral [] Actively dying [] Patient sleeping [] Family support [] [] Out of room [] Palliative care [] [] Receiving care in room [] Pre-surgical visit [] Trauma [] Long length of stay [x] ICU visit [] Other: Relational/Emotional Strength [] Patient feels connected with others/family/visitors/staff [] Distress [] Loneliness/isolation [] Abandonment Spirituality of Patient [] Person of Heidy [] Attends Christian of their Heidy [] Believes in Prayer [] Reads Bible or Zoroastrian materials [] There are Spiritual issues to be addressed Therapist Speech Interventions x] Prayer [] Active listening [] Non-anxious presence [] Spiritual/emotional support [] Crisis/trauma care [] Spiritual counseling [] Bereavement support [] Provided bereavement packet [] Provided Bible/devotional materials [] Provided toy/stuffed animal, coloring book to patient or family member [] Provided Communion [] Anointing/[place] [] Salvation [x] Completed spiritual assessment [] Other: Impact on Illness or Injury [] Angry [] Fearful [] Anxious [] Often cries [] Exhaustion [] Unable to work [] Unable to attend tenriism [] Unable to walk/stand [] Unable to read [] Unable to drive [] Unable to eat/drink [] Unable to sleep [] Unable to be with family [] Patient intubated [] Other: Summary Time spent with patient
--- NOTE | 2021-02-18 09:05 | PC.SOCIAL ---
IMM update IMM not updated due to patient being intubated and not expected to DC in the next 24-48 hours.
--- NOTE | 2021-02-18 09:25 | PC.NURSE ---
Dr Navarro gave verbal order to stop Fentanyl gtt, and a PRN order for Dilaudid for withdrawals started.
[2021-02-18 10:01] LABS: ABG PCO2 45.3 mmHg (35-45); ABG PH Result 7.48 (7.35-7.45); Base Excess ABG 9.3 mmol/L (-2.0-2.0); Blood Gas Allen Test Pos; Blood Gas Operator Identificat CAK; Blood Gas Sample Site Radial, left; Blood Gas Sample Type Arterial; Oxygen Device VENT; PO2 ABG 66.7 mmHg (80.0-100.0)
[2021-02-18 10:02] LABS: Blood Gas Tidal Volume 0.43
[2021-02-18 11:56] LABS: Glucose Point of Care 139 mg/dL (70-110)
--- NOTE | 2021-02-18 12:15 | PC.NURSE ---
, Annita , called for progress update. Pt shook head no to pain. He tried to focus on nurse while he was being told we are trying to get that breathing tube out. WBC, Sodium level, ABGs and vent settings also discussed
--- NOTE | 2021-02-18 15:48 | PM.PN ---
Subjective Subjective: Interval history: History and physical reviewed. Patient awake, on the ventilator when I examined him this morning. Makes excellent eye contact, but could not follow commands with moving his extremities. Medications: Reviewed: Yes Vitals/I&O/Wt Last Vital Signs Temp 97.2 F L 02/18/21 09:00 Pulse 113 H 02/18/21 15:35 Resp 15 02/18/21 15:33 BP 144/86 02/18/21 12:00 Pulse Ox 92 02/18/21 15:33 02/18/21 02/18/21 02/18/21 06:59 14:59 22:59 Intake Total 639 / 2324.068 Output Total 950 / 1950 Balance -311 / 374.068 Weight last 48 hrs Weight 90.889 kg Weight 90.52 kg Physical Exam Narrative: EXAM NARRATIVE: General exam is an adult male on the ventilator. Endotracheal tube and orogastric tube noted Neck is supple Cardiovascular regular rate and rhythm without murmur Lungs clear no wheezing Abdomen is soft, positive bowel sounds Extremities no cyanosis clubbing or edema Ram Urinary Catheter Management^: Ram: Cath Placed During This Visit: yes Reason for Continuing Indwelling Catheter: Accurate Measurement of Urinary Output in Critically Ill Patients Urinary Catheter Date of Insertion: 02/05/21 Urinary Catheter Time of Insertion: 18:34 Data : 02/18/21 04:30 02/18/21 04:30 Micro: Microbiology 02/15/21 05:35 Gram Stain - Final Sputum - Expectorated Sputum Sputum Culture - Final Yeast A&P Assessment and plan (1) Pneumonia due to 2019-nCoV: Sedation weaned down today. He is becoming more alert. Pulmonary critical care is going to discuss with family today regarding further directives and care such as potential for extubation, or potential for tracheostomy/PEG, long-term care hospital. Currently on fluconazole Completed his course of, remdesivir Illness complicated by interstitial lung disease exacerbation so currently on IV steroids. Currently on aztreonam for possible aspiration pneumonitis, with event from February 14. Last sputum culture showing yeast. Status: Acute (2) Idiopathic interstitial fibrosis: Continue Solu-Medrol Status: Acute (3) ARDS (adult respiratory distress syndrome): As above. Status: Acute (4) COVID-19 vaccination not done: Status: Acute (5) HTN (hypertension): Status: Acute Qualifiers: Hypertension type: unspecified Qualified Code(s): I10 - Essential (primary) hypertension (6) Type 2 diabetes mellitus: Sliding scale insulin Status: Acute Qualifiers: Diabetes mellitus complication status: with other specified complication Diabetes mellitus emt intermediate insulin use: unspecified emt intermediate insulin use status Qualified Code(s): E11.69 - Type 2 diabetes mellitus with other specified complication (7) CAD (coronary artery disease): Recent stent placement. Continue aspirin, Plavix, beta-too, statin. Echo demonstrated preserved EF, 1/4 diastolic dysfunction. Moderate pulmonary hypertension with pulmonary artery pressure 46. Status: Acute Qualifiers: Associated angina: unspecified whether angina present Coronary Disease-Associated Artery/Lesion type: [place] artery [place] vs. transplanted heart: [place] heart Qualified Code(s): I25.10 - Atherosclerotic heart disease of [place] coronary artery without angina pectoris (8) WHO group 2 pulmonary arterial hypertension: Status: Acute (9) Acute respiratory distress syndrome (ARDS) due to 2019 novel coronavirus: Status: Acute Additional A&P Information Hyperkalemia, resolved Hypernatremia. Currently receiving D5W at 75 cc an hour Attestations Medical Necessity Statement*: Needs continued hospitalization secondary to COVID-19 pneumonia requiring mechanical ventilation as well as electrolyte abnormality. Critical Care Time: Critical Care Time (min): 32 Other Attestations: The high probability of a clinically significant, sudden or life threatening deterioration of the patient's [pulmonary, infectious disease, electrolyte, renal] system(s) required my full and direct attention, intervention and personal management. The critical care time is as shown. This time is in addition to time spent performing any reported procedures but includes the following: [x] Data and vital sign review and interpretation [x] Patient assessment, examination and intervention [x] Documentation [x] Medication orders and management Coding Level of Care Code Acute Glass Smoother for [facility] Fwd Diagnoses Pneumonia due to 2019-nCoV U07.1; J12.82 Idiopathic interstitial fibrosis J84.112 ARDS (adult respiratory distress syndrome) J80 COVID-19 vaccination not done Z28.9 HTN (hypertension) I10 Hypertension type: unspecified Type 2 diabetes mellitus E11.69 Diabetes mellitus complication status: with other specified complication Diabetes mellitus emt intermediate insulin use: unspecified mcfp insulin use status CAD (coronary artery disease) I25.10 Associated angina: unspecified whether angina present Coronary Disease-Associated Artery/Lesion type: [place] artery [place] vs. transplanted heart: [place] heart WHO group 2 pulmonary arterial hypertension I27.22 Acute respiratory distress syndrome (ARDS) due to 2019 novel coronavirus U07.1; J80
[2021-02-18 16:40] LABS: Glucose Point of Care 138 mg/dL (70-110)
--- NOTE | 2021-02-18 18:05 | PC.NURSE ---
Addendum entered by Scott Yun RN 02/18/21 18:06: witnessed Fentanyl waste Original Note: Fentanyl gtt wasted. 70ml, witnessed by Scott Yun RN
--- NOTE | 2021-02-18 18:09 | PC.NURSE ---
Pt extubated to non-rebreather. OG remove. at bedside. Rt replaced non-rebreather with Heated high flow at 40 liers and 65%. Pt tolerating very well.
--- NOTE | 2021-02-18 19:12 | P.PN_ITS ---
Subjective Subjective: Interval history: -Patient seen at bedside today morning -As a fever spike 100.5 and WBC 13 K -Saturating 92% on FiO2 45% -Extubated to high flow nasal cannula -Labs and imaging reviewed Medications: Reviewed: Yes Vitals/I&O/Wt Last Vital Signs Temp 99.8 F H 02/18/21 16:00 Pulse 89 02/18/21 18:21 Resp 20 H 02/18/21 18:21 BP 130/77 02/18/21 18:00 Pulse Ox 92 02/18/21 18:21 02/18/21 02/18/21 02/18/21 06:59 14:59 22:59 Intake Total 639 / 2324.068 83.05 / 83.05 50 / 133.05 Output Total 950 / 1950 Balance -311 / 374.068 83.05 / 83.05 50 / 133.05 Weight last 48 hrs Weight 200 lb 6 oz Weight 199 lb 9 oz Physical Exam Narrative: EXAM NARRATIVE: General: lying in bed, off sedation and patient following commands HEENT:NCAT, PERRLA, EOMI Neck: Supple Lungs: Bilateral coarse crepitations and intermittent crackles Heart: s1/s2, RRR Abd: soft, NT, ND, BS + Normoactive Extremities: No edema 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, 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, following commands, moving all his limbs SKIN: no rash LDA: # CVC: Right IJ line 02/07/2021 # A line: Right radial arterial line 02/07/2021-can DC today Urinary Catheter Management^: Ram: Cath Placed During This Visit: yes Reason for Continuing Indwelling Catheter: Accurate Measurement of Urinary Output in Critically Ill Patients Urinary Catheter Date of Insertion: 02/05/21 Urinary Catheter Time of Insertion: 18:34 Data : 02/19/21 04:10 02/19/21 04:10 Other Labs: Laboratory Results WBC 13.3 10^3/uL (4.0-10.0) H 02/18/21 04:30 RBC 4.59 10^6/uL (4.1-5.3) 02/18/21 04:30 Hgb 13.5 g/dL (11.7-16.6) 02/18/21 04:30 Hct 43.6 % (42.0-52.0) 02/18/21 04:30 MCV 95.0 fl (80-94) H 02/18/21 04:30 MCH 29.4 pg (28.0-34.0) 02/18/21 04:30 MCHC 31.0 g/dL (30.0-36.0) 02/18/21 04:30 RDW 14.4 % (12.1-15.1) 02/18/21 04:30 Plt Count 159 10^3/cmm (130-400) 02/18/21 04:30 MPV 10.5 fL (7.4-10.4) H 02/18/21 04:30 Neut % (Auto) 87.8 % 02/18/21 04:30 Lymph % (Auto) 4.7 % 02/18/21 04:30 [place] % (Auto) 6.8 % 02/18/21 04:30 Eos % (Auto) 0.0 % 02/18/21 04:30 Baso % (Auto) 0.2 % 02/18/21 04:30 Neut # (Auto) 11.69 10^3/uL (1.8-7.7) H 02/18/21 04:30 Lymph # (Auto) 0.6 10^3/uL (0.8-4.8) L 02/18/21 04:30 [place] # (Auto) 0.9 10^3/uL (0.2-0.9) 02/18/21 04:30 Eos # (Auto) 0.0 10^3/uL (0.0-0.8) 02/18/21 04:30 Baso # (Auto) 0.0 10^3/uL (0.0-0.1) 02/18/21 04:30 Nucleated RBC % (auto) 0 % 02/18/21 04:30 Nucleated RBCs # 0.0 /100WBC 02/18/21 04:30 ESR 14 mm/hr (0-10) H 02/12/21 04:56 D-Dimer 1.38 ug/mIFEU (0-0.59) H 02/08/21 05:47 Specimen Type Arterial 02/18/21 09:50 Sample Site Radial, left 02/18/21 09:50 ABG pH 7.48 (7.35-7.45) H 02/18/21 09:50 ABG pCO2 45.3 mmHg (35-45) H 02/18/21 09:50 ABG pO2 66.7 mmHg (80.0-100.0) L 02/18/21 09:50 ABG HCO3 34.0 mmol/L (22-26) H 02/18/21 09:50 ABG O2 Saturation 95.7 02/12/21 04:32 ABG Base Excess 9.3 mmol/L (-2.0-2.0) H 02/18/21 09:50 Davion Test Pos 02/18/21 09:50 A-a O2 Gradient 26.5 mmHg (5-10) H 02/12/21 04:32 Hematocrit 43.0 % (42-52) 02/18/21 09:50 Hgb O2 Saturation 94.8 % (95-100) L 02/12/21 04:32 Carboxyhemoglobin 0.5 %THgb (0.4-20.1) 02/12/21 04:32 Methemoglobin 0.5 % (0.4-1.5) 02/12/21 04:32 Total Hemoglobin 14.3 g/dL (14-18) 02/12/21 04:32 Sodium 146.0 mmol/L (131-143) H 02/12/21 04:32 Potassium 5.0 mmol/L (3.5-5.0) 02/12/21 04:32 Glucose 244.0 mg/dL (70-115) H 02/12/21 04:32 Ionized Calcium 1.2 mmol/L (1.1-1.4) 02/12/21 04:32 O2 Delivery Device Vent 02/18/21 09:50 O2 Liters/Min 55.0 % 02/06/21 09:30 Mechanical Rate 18.0 02/16/21 04:40 FiO2 45.0 % 02/18/21 09:50 Tidal Volume 0.43 02/18/21 09:50 PEEP 10.0 cmH20 02/18/21 09:50 Contact Lens Fitter ID Cak 02/18/21 09:50 Sodium 152 mmol/L (136-145) H 02/18/21 04:30 Potassium 4.5 mmol/L (3.5-5.1) 02/18/21 04:30 Chloride 112 mmol/L (98-107) H 02/18/21 04:30 Carbon Dioxide 32 mmol/L (22-29) H 02/18/21 04:30 Anion Gap 12.5 (5-19) 02/18/21 04:30 BUN 53 mg/dL (8-23) H 02/18/21 04:30 Creatinine 1.1 mg/dL (0.7-1.2) 02/18/21 04:30 GFR Calculation Not Reportable 02/18/21 04:30 Glucose 233 mg/dL (65-115) H 02/18/21 04:30 POC Glucose 138 mg/dL (70-110) H 02/18/21 16:37 Estimat Average Glucose 223 02/06/21 05:45 Hemoglobin A1c 9.4 % (4.0-6.0) H 02/06/21 05:45 Calculated Osmolality 336 mOsm/kg (285-295) H 02/18/21 04:30 Lactic Acid 1.4 mmol/L (0.5-2.2) 02/05/21 12:42 Calcium 8.7 mg/dL (8.5-10.5) 02/18/21 04:30 Phosphorus 3.3 mg/dL (2.5-4.5) 02/06/21 05:45 Magnesium 3.2 mg/dL (1.7-2.3) H 02/14/21 03:37 Iron 37 ug/dL (59-158) L 02/05/21 12:42 TIBC 195 mcg/dl 02/05/21 12:42 % Saturation 18.9 % (20-50) L 02/05/21 12:42 Unsat Iron Binding 158 ug/dL (112-347) 02/05/21 12:42 Ferritin 654 ng/mL (30-400) H 02/08/21 05:47 Total Bilirubin 0.4 mg/dL (0.15-1.2) 02/18/21 04:30 AST 44 U/L (0-40) H 02/18/21 04:30 ALT 35 U/L (0-41) 02/18/21 04:30 Alkaline Phosphatase 110 IU/L (40-130) 02/18/21 04:30 Lactate Dehydrogenase 583 U/L (135-225) H 02/06/21 05:45 Creatine Kinase 113 U/L (39-308) 02/10/21 16:50 C-Reactive Protein 10.8 mg/L (0.0-4.9) H 02/12/21 04:56 NT-Pro-B Natriuret Pep 90 pg/mL (0-125) 02/12/21 04:56 Total Protein 5.6 g/dL (6.6-8.7) L 02/18/21 04:30 Albumin 2.5 g/dL (3.5-5.2) L 02/18/21 04:30 Globulin 3.1 g/dL (1.3-4.6) 02/18/21 04:30 Triglycerides 162 mg/dL (0-150) H 02/06/21 05:45 Cholesterol 142 mg/dL (0-200) 02/06/21 05:45 LDL Cholesterol, Calc 65 mg/dL (50-129) 02/06/21 05:45 Total VLDL Cholesterol 32 mg/dL (0-30) H 02/06/21 05:45 HDL Cholesterol 45 mg/dL (60-100) L 02/06/21 05:45 Cholesterol/HDL Ratio 3.16 mg/dL (1.0-5.00) 02/06/21 05:45 Procalcitonin 0.09 ng/mL (0-0.5) 02/10/21 03:16 TSH 1.72 uIU/mL (0.27-4.20) 02/05/21 12:42 Urine Color Straw (Yellow) 02/05/21 18:17 Urine Appearance Clear (CLEAR) 02/05/21 18:17 Urine pH 5 (5-7) 02/05/21 18:17 Ur Specific [place] 1.005 (1.005-1.030) 02/05/21 18:17 Urine Protein Neg (Negative) 02/05/21 18:17 Urine Glucose (UA) 2+ (Normal) 02/05/21 18:17 Urine Ketones Negative (Negative) 02/05/21 18:17 Urine Blood Neg (Negative) 02/05/21 18:17 Urine Nitrate Negative (Negative) 02/05/21 18:17 Urine Bilirubin Neg (Negative) 02/05/21 18:17 Urine Urobilinogen Norm mg/dL (Negative) 02/05/21 18:17 Ur Leukocyte Esterase Negative (Negative) 02/05/21 18:17 Ur Random Sodium 101 mmol/L 02/05/21 18:17 Ur Random Potassium 11 mmol/L 02/05/21 18:17 Ur Random Chloride 104 mmol/L 02/05/21 18:17 Histoplasma Antigen Urine 02/06/21 10:23 Histoplasma Ag (Qnt) None detected ng/mL 02/06/21 10:23 Histoplasma Ag Interp Negative 02/06/21 10:23 Pneumocystis Source Sputum 02/05/21 18:25 Pneumocyst jiroveci PCR Not detected 02/05/21 18:25 A. galactomannan Ag EIA Not detected 02/05/21 18:25 A. galactomannan Ag Idx <0.50 02/05/21 18:25 Beta-(1,3)-D-Glucan <31 pg/mL 02/07/21 05:30 B-(1,3)-D-Glucan Intrp Negative 02/07/21 05:30 Impressions Chest CTA 02/05/21 13:24 IMPRESSION: 1. No pulmonary embolism. 2. Diffusely abnormal lungs. Diffuse scattered groundglass attenuation, thickened reticulations and honeycombing. Suspect superimposed Covid on chronic pulmonary fibrosis. 3. Bilateral hilar adenopathy with the largest lymph node on the LEFT measuring 12 mm. Probably reactive. Chest X-Ray 02/18/21 07:45 IMPRESSION: 1. Improving interstitial infiltrates since prior study. 2. ET tube and IJ catheter remain in good position. 3. Enteric tube ending in the stomach however the tube could be advanced another 3 to 4 cm for optimal position. Micro: Microbiology 02/18/21 13:40 Gram Stain - Final Sputum - Endotracheal Tube Aspirate 02/15/21 05:35 Gram Stain - Final Sputum - Expectorated Sputum Sputum Culture - Final Yeast A&P Assessment and plan (1) Acute respiratory failure with hypoxia: Status: Acute (2) Acute respiratory distress syndrome (ARDS) due to 2019 novel coronavirus: Status: Acute (3) Idiopathic interstitial fibrosis: Status: Acute (4) CAD (coronary artery disease): Status: Acute Qualifiers: Coronary Disease-Associated Artery/Lesion type: [place] artery [place] vs. transplanted heart: [place] heart Associated angina: unspecified whether angina present Qualified Code(s): I25.10 - Atherosclerotic heart disease of [place] coronary artery without angina pectoris (5) Type 2 diabetes mellitus: Status: Acute Qualifiers: Diabetes mellitus mcfp insulin use: unspecified long term care social worker insulin use status Diabetes mellitus complication status: with other specified complication Qualified Code(s): E11.69 - Type 2 diabetes mellitus with other specified complication (6) HTN (hypertension): Status: Acute Qualifiers: Hypertension type: unspecified Qualified Code(s): I10 - Essential (primary) hypertension (7) COVID-19 vaccination not done: Status: Acute (8) WHO group 2 pulmonary arterial hypertension: Status: Acute (9) Hyperkalemia: Status: Acute (10) MIKA (acute kidney injury): Status: Acute (11) Counseling regarding advance directives and goals of care: Status: Acute -Intubated 02/07/2021 -Sedated and paralyzed and completed 4 proning sessions -Off Nimbex and Versed, off fentanyl -wanted to give Chinle for withdrawal but patient reported patient is hallucinations previously with Chinle -Continue low-dose Precedex for anxiety and Dilaudid as needed for pain and opiate withdrawal -ABG 7.4 8/45/66/34/on CMV 18/430/45%/10 -After discussing goals of care-plan is to extubate patient to high flow nasal cannula -With underlying idiopathic interstitial pulmonary fibrosis:-It will be challenging to extubate him-but respecting patient wishes not to prolong intubation more than 1 week-and given improvement in FiO2 to 45%-discussed with patient's at bedside and will proceed with extubation. In case patient clinically worsens-decision is not to reintubate and resuscitate. Patient's wishes to take him to home for further recovery if he improves or comfort care if he worsens - on home medication tadalafil 5 mg daily once for pulmonary hypertension and pirfenidone for his IPF -Started with prednisone 40 every 8 hours-gradually tapered to dexamethasone 6 mg IV daily changed back to Solu-Medrol 40 every 12 as patient is in metabolic alkalosis-probably due to adrenal insufficiency -Completed on remdesivir 5 days - DuoNebs every 4 hour, budesonide twice daily. - Monitor inflammatory markers including ferritin, ESR, CRP, D-dimer, fibrinogen every 48 hour - CTA negative for pulmonary embolism. - afebrile , Procalcitonin negative, urine Legionella bacterial antigen negative,Blood culture negative. Sputum culture 02/13/2021 results-negative; -Received aztreonam for significant aspiration event 02/14/2021-patient is allergic to penicillin could not give Zosyn; repeat sputum culture negative and discontinued aztreonam -Latest sputum yeast-identification pending-currently on Diflucan - Patient has a history of idiopathic pulmonary fibrosis and has been on steroids for last 6 months. He has history of recent travel to [place] and [place]. - PCP PCR, histoplasma antigen, Aspergillus antigen, beta D glucan negative - MIKA-likely secondary to COVID-19 pneumonia versus prerenal-improving - Given hypoxia will try to keep patient as negative as possible. +374 cc over 24 hours /-2. 9 L since admission -Sodium 152-on D5 at 75 mL's per hour, Free water 150 every 6 hour; - Patient history of CAD Recent cardiac stent placement. Echocardiogram done shows an EF 60% with grade 1 diastolic dysfunction with moderate pulmonary hypertension with RVSP of 46. - Continue with aspirin, Plavix, statin.- -Monitor monitor input and output, daily weights - Hypertension: Goal blood pressure less than 140/90 mmHg. - Continue home dose of carvedilol - Type 2 diabetes mellitus: HbA1c 9.4.Insulin sliding scale at moderate dose. sugars controlled , Lantus 25 units twice daily Full code. Lovenox DVT prophylaxis Famotidine for PUD prophylaxis. After extubation bedside swallow and oral feeds as tolerated Updated medical condition to the Had extensive goals of care discussion with Ms. Annita Rios at bedside. She she reported having goals of care discussion on multiple occasions with Mr. Díaz since his diagnosis of interstitial pulmonary fibrosis 8 years ago. Based on his wishes patient would not want to be on ventilator for prolonged duration and did not want to be trach dependent. I clearly explained that today is a good chance for extubation as patient is requiring only 45% FiO2 and he may gradually improve or worst-case scenario with Covid pneumonia-he could worsen over next couple of days and might require increasing oxygen requirements. verbalized understanding and agreed to proceed with extubation with change in CODE STATUS to do not reintubate and DO NOT RESUSCITATE if patient does not improve. She also requested to take patient home, where he will have more family support, with home O2 supplementation and possible home health care. And if patient worsens-she would want to home hospice to keep him comfortable. Accordingly patient was extubated to high flow nasal cannula and mattress spring encaser was notified. Recommendations conveyed to hospitalist, RN, RT taking care of the patient Attestations 2 Medical Necessity Statement*: Acute hypoxic respiratory failure secondary to ARDS due to COVID-19 pneumonia in patient with underlying interstitial fibrosis requiring mechanical ventilation Time Spent in Patient Care: Greater than 35 minutes (>than 50% of time spent in counselling and/or direct pt care on unit) . Critical Care Time: The high probability of a clinically significant, sudden or life threatening deterioration of the patient's [pulmonary, endocrine, renal, neurological] system(s) required my full and direct attention, intervention and personal management. The critical care time is as shown. This time is in addition to time spent performing any reported procedures but includes the following: [x] Data and vital sign review and interpretation [x] Patient assessment, examination and intervention [x] Documentation [x] Medication orders and management Critical Care Time (min): 60 Coding Level of Care Code Established Pt Acute [place] Nailer for Chg Fwd Patient Type Established History Comprehensive Exam Comprehensive Medical Decision Making High Complexity Diagnoses Acute respiratory failure with hypoxia J96.01 Acute respiratory distress syndrome (ARDS) due to 2019 novel coronavirus U07.1; J80 Idiopathic interstitial fibrosis J84.112 CAD (coronary artery disease) I25.10 Coronary Disease-Associated Artery/Lesion type: [place] artery [place] vs. transplanted heart: [place] heart Associated angina: unspecified whether angina present Type 2 diabetes mellitus E11.69 Diabetes mellitus mcfp insulin use: unspecified long term care social worker insulin use status Diabetes mellitus complication status: with other specified complication HTN (hypertension) I10 Hypertension type: unspecified COVID-19 vaccination not done Z28.9 WHO group 2 pulmonary arterial hypertension I27.22 Hyperkalemia E87.5 MIKA (acute kidney injury) N17.9 Counseling regarding advance directives and goals of care Z71.89 Time Spent (min) 60
--- NOTE | 2021-02-18 19:34 | PC.NURSE ---
Shift Note: Pt moves head and does wiggle toes slightly on command. Pt does not move his arms yet. He demonstrates understanding of conversation by focusing harder and able to respond with yes and no. Dr Navarro spoke with at bedside about different directions his care could take. knowledgeable of possibilities and ongoing care. Pt extubated to F. Urine output of 950 ml. Frequent safety and comfort rounds continue. Orders and/or nursing care completed as indicated. Patient monitored for response to intervention and treatment(s). Education provided includes care post extubation. verbalized understanding of plan of care. Will continue to monitor.
[2021-02-18] MEDS: fluconazole premix 400 MG/200 ML PIGGYBACK 200 MG IV (21:09)
[2021-02-18 21:21] LABS: Glucose Point of Care 129 mg/dL (70-110)
--- NOTE | 2021-02-18 21:59 | PC.NURSE ---
Swallow Test Gave patient sip of water, after swallowing patient started coughing. Patient PO medications held at this time, will notify MD.
[2021-02-19] VITALS (29 sets, daily range): BP systolic 118–159; BP diastolic 83–106; PULSE 96–114; RESP 9–22; TEMP 36.8–38.1; O2SAT 91–95; BMI 29.5
[2021-02-19] MEDS: HYDROmorphone 1 mg/mL INJ 1 mL 0.5 MG IVP (01:18)
[2021-02-19] MEDS: ipratropium-albuterol 3 mL Neb INHALATION ×6 (03:14→23:32)
[2021-02-19 04:12] LABS: ABG PCO2 42.4 mmHg (35-45); ABG PH Result 7.49 (7.35-7.45); Arterial Blood Gas Hematocrit 42.2 % (42-52); Base Excess ABG 8.4 mmol/L (-2.0-2.0); Blood Gas Allen Test Pos; Blood Gas Operator Identificat JB; Blood Gas Sample Site Radial, right; Blood Gas Sample Type Arterial; HCO3 ABG 32.6 mmol/L (22-26); Oxygen Device HAG; PO2 ABG 73.5 mmHg (80.0-100.0)
[2021-02-19 04:32] LABS: Basophils % 0.1 %; Hematocrit 43.6 % (42.0-52.0); Hemoglobin 13.2 g/dL (11.7-16.6); Lymphocytes # 0.6 10^3/uL (0.8-4.8); Lymphocytes % 4.1 %; Mean Corpuscular HGB Conc 30.3 g/dL (30.0-36.0); Mean Corpuscular Hemoglobin 29.3 pg (28.0-34.0); Mean Corpuscular Volume 96.7 fl (80-94); Mean Platelet Volume 10.3 fL (7.4-10.4); Monocytes # 0.5 10^3/uL (0.2-0.9); Monocytes % 4.1 %; Neutrophils # 12.13 10^3/uL (1.8-7.7); Neutrophils % 91.2 %; Nucleated Red Blood Cells % 0 %; Platelet Count 159 10^3/cmm (130-400); Red Blood Count 4.51 10^6/uL (4.1-5.3); Red Cell Distribution Width 14.6 % (12.1-15.1); White Blood Count 13.3 10^3/uL (4.0-10.0)
[2021-02-19 04:59] LABS: Glucose Point of Care 170 mg/dL (70-110)
[2021-02-19 05:03] LABS: Alanine Aminotransferase 36 U/L (0-41); Albumin Level 2.6 g/dL (3.5-5.2); Alkaline Phosphatase 92 IU/L (40-130); Anion Gap 8.7 (5-19); Aspartate Amino Transferase 49 U/L (0-40); Blood Urea Nitrogen 51 mg/dL (8-23); Calcium 8.3 mg/dL (8.5-10.5); Carbon Dioxide 32 mmol/L (22-29); Chloride 117 mmol/L (98-107); Globulin 2.8 g/dL (1.3-4.6); Glucose 200 mg/dL (65-115); Osmolality Calculated 335 mOsm/kg (285-295); Potassium 4.7 mmol/L (3.5-5.1); Sodium 153 mmol/L (136-145); Total Bilirubin 0.5 mg/dL (0.15-1.2); Total Protein 5.4 g/dL (6.6-8.7)
[2021-02-19] MEDS: famotidine 20 mg/2 mL INJ IVP ×2 (05:05→18:17)
--- NOTE | 2021-02-19 07:00 | XRR_ITS ---
PROCEDURE INFORMATION: Exam: XR Chest Exam date and time: 02/19/2021 7:00 AM Age: 75 years old Clinical indication: Dyspnea; Additional info: Resp failure TECHNIQUE: Imaging protocol: XR of the chest. Views: 1 view. Total images: 1 COMPARISON: CR XR chest 1V portable [id number] 02/18/2021 7:54 AM FINDINGS: Tubes, catheters and devices: There has been interval removal of the endotracheal tube. There has been interval removal of the enteric tube. A right internal jugular central venous catheter is present, with its tip overlying the region of the superior vena cava. Lungs: Bilateral pulmonary opacities are again noted and appear unchanged. Pleural spaces: Unremarkable. No pleural effusion. No pneumothorax. Heart/Mediastinum: Heart size is stable when compared to the prior exam. Bones/joints: Osseous structures are unchanged from the prior exam. XR/XR chest 1V portable [id number] IMPRESSION: Bilateral pulmonary opacities are again noted and appear unchanged.
--- NOTE | 2021-02-19 07:16 | PC.NURSE ---
Shift Note Frequent safety and comfort rounds continue. Orders and/or nursing care completed as indicated. Patient monitored for response to intervention and treatment(s). Education provided includes heated high flow settings. Patient is still confused, patient Annita verbalized understanding of HHF settings. Patient is very confused and still has little to no ROM of extremities. Ram catheter drained 1050 mls of clear dark yellow urine all evening. Heated high flow settings remain at 40L and 65% FiO2, patient tolerating well. Patient is still nonverbal at this time but will answer questions by shaking head yes and no. He is also noted to look from side to side and blink eyes twice as if he is disoriented to time and place. Frequently reoriented patient to place and time throughout the shift. Will continue to monitor.
[2021-02-19 07:36] LABS: Glucose Point of Care 112 mg/dL (70-110)
--- NOTE | 2021-02-19 08:27 | PC.CHAP ---
Pastoral Care Encounter/Spiritual Assessment Type of Contact [] Declined clinical trial educator visit [] Patient/Family/Request visit [] Outpatient visit [] Follow-up visit [] Physician referral [] Code/Alert [x] Routine visit [] Staff referral [] Actively dying [] Patient sleeping [] Family support [] [] Out of room [] Palliative care [] [] Receiving care in room [] Pre-surgical visit [] Trauma [] Long length of stay [x] ICU visit [x] Other:vent Relational/Emotional Strength [] Patient feels connected with others/family/visitors/staff [] Distress [] Loneliness/isolation [] Abandonment Spirituality of Patient [] Person of Heidy [] Attends Protestant of their Heidy [] Believes in Prayer [] Reads Bible or Baptist materials [] There are Spiritual issues to be addressed Care Rep Interventions [x] Prayer [] Active listening [] Non-anxious presence [] Spiritual/emotional support [] Crisis/trauma care [] Spiritual counseling [] Bereavement support [] Provided bereavement packet [] Provided Bible/devotional materials [] Provided toy/stuffed animal, coloring book to patient or family member [] Provided Communion [] Anointing/[place] [] Salvation [x] Completed spiritual assessment [] Other: Impact on Illness or Injury [] Angry [] Fearful [] Anxious [] Often cries [] Exhaustion [] Unable to work [] Unable to attend anglican [] Unable to walk/stand [] Unable to read [] Unable to drive [] Unable to eat/drink [] Unable to sleep [] Unable to be with family [] Patient intubated [] Other: Summary Time spent with patient
--- NOTE | 2021-02-19 09:35 | PC.NURSE ---
Called Cris , , to give updat. Pt following commands, seems to understand better. bedside swallowing test to be done.
[2021-02-19] MEDS: budesonide 0.5 mg/2 mL Neb INHALATION ×2 (09:59→19:25)
[2021-02-19] MEDS: enoxaparin 40 mg/0.4 mL Syringe SUBCUT (10:04)
--- NOTE | 2021-02-19 10:15 | PC.NURSE ---
Pt unable to swallow water without coughing or clearing throat. He is able to manage ice chips, no coughing or clearing of throat noted after ice chips.
[2021-02-19] MEDS: fixodent 39 gm Tube 1 APPLIC DENTAL (10:17)
[2021-02-19] MEDS: insulin glargine 100 units/1 mL 25 UNIT SUBCUT ×2 (10:19→20:48)
[2021-02-19 11:29] LABS: Glucose Point of Care 121 mg/dL (70-110)
--- NOTE | 2021-02-19 13:05 | PC.NUTR ---
Nutrition follow up: Pt extubated 02/18/21. Recommend advance diet as tolerated when medically appropriate. Pt may benefit from soft diet and/or liquids initially given extended time period without po intake. See full RD assessment for further details.
--- NOTE | 2021-02-19 13:36 | PM.PN ---
Subjective Subjective: Interval history: Arjun was extubated yesterday. Pulmonary critical care has been visiting with regarding overall prognosis, and goals of care. He does not want to be reintubated. He does not want to go to a long-term care hospital. In my interview of the patient he is somewhat distant, can answer a few questions, but not reliably and appears somewhat confused. Symptom onset of Covid 01/29 with congestion and fever January 30. Medications: Reviewed: Yes Vitals/I&O/Wt Last Vital Signs Temp 100.6 F H 02/19/21 04:00 Pulse 100 02/19/21 12:52 Resp 20 H 02/19/21 12:49 BP 159/94 02/19/21 06:00 Pulse Ox 92 02/19/21 12:49 02/18/21 02/19/21 02/19/21 22:59 06:59 14:59 Intake Total 565 / 648.05 50 / 698.05 Output Total 950 / 950 1050 / 2000 Balance -385 / -301.95 -1000 / -1301.95 Weight last 48 hrs Weight 90.804 kg Weight 90.889 kg Physical Exam Narrative: EXAM NARRATIVE: General exam is an adult male who tracks with his eyes but seems significantly globally weak Neck is supple Cardiovascular regular rate and rhythm without murmur Lungs clear no wheezing Abdomen is soft, positive bowel sounds Extremities no cyanosis clubbing or edema Ram Urinary Catheter Management^: Ram: Cath Placed During This Visit: yes Reason for Continuing Indwelling Catheter: Accurate Measurement of Urinary Output in Critically Ill Patients Urinary Catheter Date of Insertion: 02/05/21 Urinary Catheter Time of Insertion: 18:34 Data : 02/19/21 04:10 02/19/21 04:10 Micro: Microbiology 02/18/21 13:40 Gram Stain - Final Sputum - Endotracheal Tube Aspirate 02/15/21 05:35 Gram Stain - Final Sputum - Expectorated Sputum Sputum Culture - Final Yeast A&P Assessment and plan (1) Pneumonia due to 2019-nCoV: Extubated yesterday Directive for no reintubation Currently on fluconazole Completed his course of, remdesivir Illness complicated by interstitial lung disease exacerbation so currently on IV steroids. Was on aztreonam for possible aspiration pneumonitis, with event from February 14. Last sputum culture showing yeast. This was discontinued yesterday. Fluconazole continues. Status: Acute (2) Idiopathic interstitial fibrosis: Reduce IV steroids, monitoring for any adrenal insufficiency. Status: Acute (3) ARDS (adult respiratory distress syndrome): As above. 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 Continue aspirin, Plavix, beta-too, statin. Echo demonstrated preserved EF, 1/4 diastolic dysfunction. Moderate pulmonary hypertension with pulmonary artery pressure 46. Status: Acute Qualifiers: Coronary Disease-Associated Artery/Lesion type: [place] artery [place] vs. transplanted heart: [place] heart Associated angina: unspecified whether angina present Qualified Code(s): I25.10 - Atherosclerotic heart disease of [place] coronary artery without angina pectoris (8) WHO group 2 pulmonary arterial hypertension: Status: Acute (9) Acute respiratory distress syndrome (ARDS) due to 2019 novel coronavirus: Status: Acute Additional A&P Information Hyperkalemia, resolved Hypernatremia. Trying to correct with D5W. Recheck sodium tomorrow. Attestations Medical Necessity Statement*: Needs continued hospitalization secondary to severe COVID-19 pneumonia requiring high flow oxygen. 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 transplanted heart: [place] heart Associated angina: unspecified whether angina present WHO group 2 pulmonary arterial hypertension I27.22 Acute respiratory distress syndrome (ARDS) due to 2019 novel coronavirus U07.1; J80
--- NOTE | 2021-02-19 16:30 | PC.NURSE ---
, in to visit, at bedside.
[2021-02-19 17:02] LABS: Glucose Point of Care 139 mg/dL (70-110)
[2021-02-19] MEDS: carvedilol 3.125 mg Tablet PO (18:17)
--- NOTE | 2021-02-19 19:54 | PC.NURSE ---
Shift Note: Pt alert. More able to communicate at the end of shift. His speech has become somewhat clearer. Coreg tablet attempted this evening, pt coughed afterwards. No other oral medications administered today due to his swallowing difficulties. He is still extremely weak but he is able to slightly move his arms at end of shift. Leg movement has increased today also. He finished the shift at 35 liters 60% on heated high flow. He had a complete bath and shave today. Skin under HHF strap reddened, gauze place under straps for comfort. Frequent safety and comfort rounds continue. Orders and/or nursing care completed as indicated. Patient monitored for response to intervention and treatment(s). Education provided include range of motion, Aspiration precautions, plan of care. Patient and/or telephone sales representative verbalized understanding. Will continue to monitor.
[2021-02-19] MEDS: fluconazole premix 400 MG/200 ML PIGGYBACK 200 MG IV (20:48)
[2021-02-19 20:57] LABS: Glucose Point of Care 134 mg/dL (70-110)
--- NOTE | 2021-02-19 21:54 | PM.PN ---
Subjective Subjective: Interval history: -Patient seen at bedside today -Appeared comfortable on high flow nasal cannula 35 L and 60% saturating 93% -Labs and imaging reviewed Medications: Reviewed: Yes Vitals/I&O/Wt Last Vital Signs Temp 98.3 F 02/19/21 16:00 Pulse 110 H 02/19/21 19:27 Resp 22 H 02/19/21 19:27 BP 124/94 02/19/21 18:00 Pulse Ox 93 02/19/21 19:27 02/19/21 02/19/21 02/19/21 06:59 14:59 22:59 Intake Total 50 / 698.05 50 / 50 Output Total 1050 / 2000 900 / 900 Balance -1000 / -1301.95 -850 / -850 Weight last 48 hrs Weight 200 lb 3 oz Weight 200 lb 6 oz Physical Exam Narrative: EXAM NARRATIVE: EXAM NARRATIVE: General: lying in bed, off sedation and patient following commands HEENT:NCAT, PERRLA, EOMI Neck: Supple Lungs: Bilateral coarse crepitations and intermittent crackles Heart: s1/s2, RRR Abd: soft, NT, ND, BS + Normoactive Extremities: No edema 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6 % (42.0-52.0) 02/19/21 04:10 MCV 96.7 fl (80-94) H 02/19/21 04:10 MCH 29.3 pg (28.0-34.0) 02/19/21 04:10 MCHC 30.3 g/dL (30.0-36.0) 02/19/21 04:10 RDW 14.6 % (12.1-15.1) 02/19/21 04:10 Plt Count 159 10^3/cmm (130-400) 02/19/21 04:10 MPV 10.3 fL (7.4-10.4) 02/19/21 04:10 Neut % (Auto) 91.2 % 02/19/21 04:10 Lymph % (Auto) 4.1 % 02/19/21 04:10 Teller % (Auto) 4.1 % 02/19/21 04:10 Eos % (Auto) 0.0 % 02/19/21 04:10 Baso % (Auto) 0.1 % 02/19/21 04:10 Neut # (Auto) 12.13 10^3/uL (1.8-7.7) H 02/19/21 04:10 Lymph # (Auto) 0.6 10^3/uL (0.8-4.8) L 02/19/21 04:10 Teller # (Auto) 0.5 10^3/uL (0.2-0.9) 02/19/21 04:10 Eos # (Auto) 0.0 10^3/uL (0.0-0.8) 02/19/21 04:10 Baso # (Auto) 0.0 10^3/uL (0.0-0.1) 02/19/21 04:10 Nucleated RBC % (auto) 0 % 02/19/21 04:10 Nucleated RBCs # 0.0 /100WBC 02/19/21 04:10 ESR 14 mm/hr (0-10) H 02/12/21 04:56 D-Dimer 1.38 ug/mIFEU (0-0.59) H 02/08/21 05:47 Specimen Type Arterial 02/19/21 03:58 Sample Site Radial, right 02/19/21 03:58 ABG pH 7.49 (7.35-7.45) H 02/19/21 03:58 ABG pCO2 42.4 mmHg (35-45) 02/19/21 03:58 ABG pO2 73.5 mmHg (80.0-100.0) L 02/19/21 03:58 ABG HCO3 32.6 mmol/L (22-26) H 02/19/21 03:58 ABG O2 Saturation 95.7 02/12/21 04:32 ABG Base Excess 8.4 mmol/L (-2.0-2.0) H 02/19/21 03:58 Davion Test Pos 02/19/21 03:58 A-a O2 Gradient 26.5 mmHg (5-10) H 02/12/21 04:32 Hematocrit 42.2 % (42-52) 02/19/21 03:58 Hgb O2 Saturation 94.8 % (95-100) L 02/12/21 04:32 Carboxyhemoglobin 0.5 %THgb (0.4-20.1) 02/12/21 04:32 Methemoglobin 0.5 % (0.4-1.5) 02/12/21 04:32 Total Hemoglobin 14.3 g/dL (14-18) 02/12/21 04:32 Sodium 146.0 mmol/L (131-143) H 02/12/21 04:32 Potassium 5.0 mmol/L (3.5-5.0) 02/12/21 04:32 Glucose 244.0 mg/dL (70-115) H 02/12/21 04:32 Ionized Calcium 1.2 mmol/L (1.1-1.4) 02/12/21 04:32 O2 Delivery Device Hag 02/19/21 03:58 O2 Liters/Min 40.0 % 02/19/21 03:58 Mechanical Rate 18.0 02/16/21 04:40 FiO2 65.0 % 02/19/21 03:58 Tidal Volume 0.43 02/18/21 09:50 PEEP 10.0 cmH20 02/18/21 09:50 Parts Facilitator ID Isaias 02/19/21 03:58 Sodium 153 mmol/L (136-145) H 02/19/21 04:10 Potassium 4.7 mmol/L (3.5-5.1) 02/19/21 04:10 Chloride 117 mmol/L (98-107) H 02/19/21 04:10 Carbon Dioxide 32 mmol/L (22-29) H 02/19/21 04:10 Anion Gap 8.7 (5-19) 02/19/21 04:10 BUN 51 mg/dL (8-23) H 02/19/21 04:10 Creatinine 1.1 mg/dL (0.7-1.2) 02/19/21 04:10 GFR Calculation Not Reportable 02/19/21 04:10 Glucose 200 mg/dL (65-115) H 02/19/21 04:10 POC Glucose 134 mg/dL (70-110) H 02/19/21 20:53 Estimat Average Glucose 223 02/06/21 05:45 Hemoglobin A1c 9.4 % (4.0-6.0) H 02/06/21 05:45 Calculated Osmolality 335 mOsm/kg (285-295) H 02/19/21 04:10 Lactic Acid 1.4 mmol/L (0.5-2.2) 02/05/21 12:42 Calcium 8.3 mg/dL (8.5-10.5) L 02/19/21 04:10 Phosphorus 3.3 mg/dL (2.5-4.5) 02/06/21 05:45 Magnesium 3.2 mg/dL (1.7-2.3) H 02/14/21 03:37 Iron 37 ug/dL (59-158) L 02/05/21 12:42 TIBC 195 mcg/dl 02/05/21 12:42 % Saturation 18.9 % (20-50) L 02/05/21 12:42 Unsat Iron Binding 158 ug/dL (112-347) 02/05/21 12:42 Ferritin 654 ng/mL (30-400) H 02/08/21 05:47 Total Bilirubin 0.5 mg/dL (0.15-1.2) 02/19/21 04:10 AST 49 U/L (0-40) H 02/19/21 04:10 ALT 36 U/L (0-41) 02/19/21 04:10 Alkaline Phosphatase 92 IU/L (40-130) 02/19/21 04:10 Lactate Dehydrogenase 583 U/L (135-225) H 02/06/21 05:45 Creatine Kinase 113 U/L (39-308) 02/10/21 16:50 C-Reactive Protein 10.8 mg/L (0.0-4.9) H 02/12/21 04:56 NT-Pro-B Natriuret Pep 90 pg/mL (0-125) 02/12/21 04:56 Total Protein 5.4 g/dL (6.6-8.7) L 02/19/21 04:10 Albumin 2.6 g/dL (3.5-5.2) L 02/19/21 04:10 Globulin 2.8 g/dL (1.3-4.6) 02/19/21 04:10 Triglycerides 162 mg/dL (0-150) H 02/06/21 05:45 Cholesterol 142 mg/dL (0-200) 02/06/21 05:45 LDL Cholesterol, Calc 65 mg/dL (50-129) 02/06/21 05:45 Total VLDL Cholesterol 32 mg/dL (0-30) H 02/06/21 05:45 HDL Cholesterol 45 mg/dL (60-100) L 02/06/21 05:45 Cholesterol/HDL Ratio 3.16 mg/dL (1.0-5.00) 02/06/21 05:45 Procalcitonin 0.09 ng/mL (0-0.5) 02/10/21 03:16 TSH 1.72 uIU/mL (0.27-4.20) 02/05/21 12:42 Urine Color Straw (Yellow) 02/05/21 18:17 Urine Appearance Clear (CLEAR) 02/05/21 18:17 Urine pH 5 (5-7) 02/05/21 18:17 Ur Specific [place] 1.005 (1.005-1.030) 02/05/21 18:17 Urine Protein Neg (Negative) 02/05/21 18:17 Urine Glucose (UA) 2+ (Normal) 02/05/21 18:17 Urine Ketones Negative (Negative) 02/05/21 18:17 Urine Blood Neg (Negative) 02/05/21 18:17 Urine Nitrate Negative (Negative) 02/05/21 18:17 Urine Bilirubin Neg (Negative) 02/05/21 18:17 Urine Urobilinogen Norm mg/dL (Negative) 02/05/21 18:17 Ur Leukocyte Esterase Negative (Negative) 02/05/21 18:17 Ur Random Sodium 101 mmol/L 02/05/21 18:17 Ur Random Potassium 11 mmol/L 02/05/21 18:17 Ur Random Chloride 104 mmol/L 02/05/21 18:17 Histoplasma Antigen Urine 02/06/21 10:23 Histoplasma Ag (Qnt) None detected ng/mL 02/06/21 10:23 Histoplasma Ag Interp Negative 02/06/21 10:23 Pneumocystis Source Sputum 02/05/21 18:25 Pneumocyst jiroveci PCR Not detected 02/05/21 18:25 A. galactomannan Ag EIA Not detected 02/05/21 18:25 A. galactomannan Ag Idx <0.50 02/05/21 18:25 Beta-(1,3)-D-Glucan <31 pg/mL 02/07/21 05:30 B-(1,3)-D-Glucan Intrp Negative 02/07/21 05:30 Impressions Chest CTA 02/05/21 13:24 IMPRESSION: 1. No pulmonary embolism. 2. Diffusely abnormal lungs. Diffuse scattered groundglass attenuation, thickened reticulations and honeycombing. Suspect superimposed Covid on chronic pulmonary fibrosis. 3. Bilateral hilar adenopathy with the largest lymph node on the LEFT measuring 12 mm. Probably reactive. Chest X-Ray 02/19/21 07:00 IMPRESSION: Bilateral pulmonary opacities are again noted and appear unchanged. Micro: Microbiology 02/18/21 13:40 Gram Stain - Final Sputum - Endotracheal Tube Aspirate A&P Assessment and plan (1) Acute respiratory failure with hypoxia: Status: Acute (2) Acute respiratory distress syndrome (ARDS) due to 2019 novel coronavirus: Status: Acute (3) Idiopathic interstitial fibrosis: Status: Acute (4) CAD (coronary artery disease): Status: Acute Qualifiers: Coronary Disease-Associated Artery/Lesion type: [place] artery [place] vs. 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 Diabetes mellitus complication status: with other specified complication Qualified Code(s): E11.69 - Type 2 diabetes mellitus with other specified complication (6) HTN (hypertension): Status: Acute Qualifiers: Hypertension type: unspecified Qualified Code(s): I10 - Essential (primary) hypertension (7) COVID-19 vaccination not done: Status: Acute (8) WHO group 2 pulmonary arterial hypertension: Status: Acute (9) Hyperkalemia: Status: Acute (10) MIKA (acute kidney injury): Status: Acute (11) Counseling regarding advance directives and goals of care: Status: Acute -Intubated 02/07/2021-extubated 02/18/2021 -Sedated and paralyzed and completed 4 proning sessions -Continue low-dose Precedex for anxiety and Dilaudid as needed for pain and opiate withdrawal -ABG 7.4 //32/on HFNC 40 L 65%-titrated down to 30 L and 60% -With underlying idiopathic interstitial pulmonary fibrosis:-Advanced directives not to reintubate. Patient's wishes to take him to home for further recovery if he improves or comfort care if he worsens - on home medication tadalafil 5 mg daily once for pulmonary hypertension and pirfenidone for his IPF -Taper Solu-Medrol to 30 every 12 monitor for adrenal insufficiency; Patient has a history of idiopathic pulmonary fibrosis and has been on steroids for last 6 months. -Completed on remdesivir 5 days - DuoNebs every 4 hour, budesonide twice daily. - Monitor inflammatory markers including ferritin, ESR, CRP, D-dimer, fibrinogen every 48 hour - CTA negative for pulmonary embolism. - afebrile , Procalcitonin negative, urine Legionella bacterial antigen negative,Blood culture negative. Sputum culture 02/13/2021 results-negative; -Received aztreonam for significant aspiration event 02/14/2021-patient is allergic to penicillin could not give Zosyn; repeat sputum culture negative and discontinued aztreonam -Latest sputum yeast-identification pending-currently on Diflucan started on 02/16/2021 - PCP PCR, histoplasma antigen, Aspergillus antigen, beta D glucan negative - MIKA-likely secondary to COVID-19 pneumonia versus prerenal-improving - Given hypoxia will try to keep patient as negative as possible. -1.3 L cc over 24 hours /- 5 L since admission -Sodium 153-on D5 at 75 mL's per hour, Free water 150 every 6 hour; - Patient history of CAD Recent cardiac stent placement. Echocardiogram done shows an EF 60% with grade 1 diastolic dysfunction with moderate pulmonary hypertension with RVSP of 46. - Continue with aspirin, Plavix, statin.- -Monitor monitor input and output, daily weights - Hypertension: Goal blood pressure less than 140/90 mmHg. - Continue home dose of carvedilol - Type 2 diabetes mellitus: HbA1c 9.4.Insulin sliding scale at moderate dose. sugars controlled , Lantus 25 units twice daily DNR/DNI Lovenox DVT prophylaxis Famotidine for PUD prophylaxis. Oral feeds-cardiac diet Updated medical condition to the 02/18/2021: Had extensive goals of care discussion with Ms. Annita Rios at bedside. She she reported having goals of care discussion on multiple occasions with Mr. Díaz since his diagnosis of interstitial pulmonary fibrosis 8 years ago. Based on his wishes patient would not want to be on ventilator for prolonged duration and did not want to be trach dependent. I clearly explained that today is a good chance for extubation as patient is requiring only 45% FiO2 and he may gradually improve or worst-case scenario with Covid pneumonia-he could worsen over next couple of days and might require increasing oxygen requirements. verbalized understanding and agreed to proceed with extubation with change in CODE STATUS to do not reintubate and DO NOT RESUSCITATE if patient does not improve. She also requested to take patient home, where he will have more family support, with home O2 supplementation and possible home health care. And if patient worsens-she would want to home hospice to keep him comfortable. Accordingly patient was extubated on 02/18/2021 to high flow nasal cannula and shoe caser was notified. Recommendations conveyed to hospitalist, RN, RT taking care of the patient Attestations Medical Necessity Statement*: Acute hypoxic respiratory failure secondary to ARDS due to COVID-19 pneumonia in patient with underlying interstitial fibrosis requiring mechanical ventilation Time Spent in Patient Care: Greater than 35 minutes (>than 50% of time spent in counselling and/or direct pt care on unit). Critical Care Time: The high probability of a clinically significant, sudden or life threatening deterioration of the patient's [pulmonary, endocrine, renal, neurological] system(s) required my full and direct attention, intervention and personal management. The critical care time is as shown. 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
[2021-02-20] VITALS (25 sets, daily range): BP systolic 98–147; BP diastolic 69–103; PULSE 92–117; RESP 11–24; TEMP 36.9–37.7; O2SAT 89–94; BMI 29.2
[2021-02-20 01:31] LABS: Glucose Point of Care 152 mg/dL (70-110)
[2021-02-20] MEDS: ipratropium-albuterol 3 mL Neb INHALATION ×5 (03:45→20:11)
--- NOTE | 2021-02-20 04:00 | PC.NURSE ---
The patient was taken down for a CT of the head at 1523
[2021-02-20 04:17] LABS: Glucose Point of Care 210 mg/dL (70-110)
[2021-02-20 04:21] LABS: Basophils % 0.1 %; Hematocrit 48.6 % (42.0-52.0); Hemoglobin 14.5 g/dL (11.7-16.6); Lymphocytes # 0.6 10^3/uL (0.8-4.8); Lymphocytes % 4.8 %; Mean Corpuscular HGB Conc 29.8 g/dL (30.0-36.0); Mean Corpuscular Hemoglobin 29.3 pg (28.0-34.0); Mean Corpuscular Volume 98.2 fl (80-94); Mean Platelet Volume 10.2 fL (7.4-10.4); Monocytes # 0.5 10^3/uL (0.2-0.9); Monocytes % 4.1 %; Neutrophils # 11.57 10^3/uL (1.8-7.7); Neutrophils % 90.5 %; Nucleated Red Blood Cells % 0 %; Platelet Count 152 10^3/cmm (130-400); Red Blood Count 4.95 10^6/uL (4.1-5.3); Red Cell Distribution Width 14.5 % (12.1-15.1); White Blood Count 12.8 10^3/uL (4.0-10.0)
[2021-02-20 04:43] LABS: Alanine Aminotransferase 44 U/L (0-41); Albumin Level 2.6 g/dL (3.5-5.2); Alkaline Phosphatase 111 IU/L (40-130); Aspartate Amino Transferase 51 U/L (0-40); Blood Urea Nitrogen 51 mg/dL (8-23); Calcium 8.4 mg/dL (8.5-10.5); Carbon Dioxide 32 mmol/L (22-29); Chloride 118 mmol/L (98-107); Globulin 3.1 g/dL (1.3-4.6); Glucose 192 mg/dL (65-115); Osmolality Calculated 341 mOsm/kg (285-295); Sodium 156 mmol/L (136-145); Total Bilirubin 0.6 mg/dL (0.15-1.2); Total Protein 5.7 g/dL (6.6-8.7)
[2021-02-20] MEDS: famotidine 20 mg/2 mL INJ IVP ×2 (05:17→19:10)
--- NOTE | 2021-02-20 07:20 | PC.NURSE ---
Shift Note Frequent safety and comfort rounds continue. Orders and/or nursing care completed as indicated. Patient monitored for response to intervention and treatment(s). Education provided includes treatment plan. Patient unable to verbalize understanding of teaching at this point in time. Patient Annita verbalizes understanding of treatment plan. Patient remains on heated high flow at 40 L and 60% FiO2. Right IJ central line remains saline locked at this time. No wounds or skin issues noted at this time. Patient remains non verbal but will follow commands. He still has no ROM of any extremities at this time. Will continue to monitor.
--- NOTE | 2021-02-20 07:32 | PM.PN ---
Subjective Subjective: Interval history: Patient follows with his eyes. When prompted to say hello he will say hello. No events overnight. It does not appear he has the D5W running as ordered. Medications: Reviewed: Yes Vitals/I&O/Wt Last Vital Signs Temp 99.1 F 02/20/21 04:00 Pulse 105 H 02/20/21 06:00 Resp 15 02/20/21 06:00 BP 136/93 02/20/21 06:00 Pulse Ox 93 02/20/21 06:00 02/19/21 02/20/21 02/20/21 22:59 06:59 14:59 Intake Total 250 / 250 Output Total 900 / 900 1150 / 0 Balance -650 / -650 -1150 / -1800 Weight last 48 hrs Weight 90.038 kg Weight 90.804 kg Physical Exam Narrative: EXAM NARRATIVE: General exam is an adult male who tracks with his eyes but who appears globally weak and confused. Neck is supple Cardiovascular regular rate and rhythm without murmur Lungs clear no wheezing Abdomen is soft, positive bowel sounds Extremities no cyanosis clubbing or edema Ram Urinary Catheter Management^: Ram: Cath Placed During This Visit: yes Reason for Continuing Indwelling Catheter: Accurate Measurement of Urinary Output in Critically Ill Patients Urinary Catheter Date of Insertion: 02/05/21 Urinary Catheter Time of Insertion: 18:34 Data : 02/20/21 04:03 02/20/21 04:03 A&P Assessment and plan (1) Pneumonia due to 2019-nCoV: Extubated February 18 Directive for no reintubation Currently on fluconazole Completed his course of, remdesivir Illness complicated by interstitial lung disease exacerbation so currently on IV steroids. Was on aztreonam for possible aspiration pneumonitis, with event from February 14. Last sputum culture showing yeast. This was discontinued yesterday. Fluconazole continues. Has continued confusion, severe weakness after extubation. CT scan of head will be completed today. Sodium may also be playing some role. Discussed with nurse starting D5W. Check sodium later this afternoon. Status: Acute (2) Idiopathic interstitial fibrosis: Reduce IV steroids, monitoring for any adrenal insufficiency. Plan to reduce this further tomorrow. Status: Acute (3) ARDS (adult respiratory distress syndrome): As above. Status: Acute (4) COVID-19 vaccination not done: Status: Acute (5) HTN (hypertension): Status: Acute Qualifiers: Hypertension type: unspecified Qualified Code(s): I10 - Essential (primary) hypertension (6) Type 2 diabetes mellitus: Sliding scale insulin, long acting insulin Status: Acute Qualifiers: Diabetes mellitus envelope machine adjuster insulin use: unspecified correction insulin use status Diabetes mellitus complication status: with other specified complication Qualified Code(s): E11.69 - Type 2 diabetes mellitus with other specified complication (7) CAD (coronary artery disease): Recent stent placement. Continue aspirin, Plavix, beta-too, statin. Echo demonstrated preserved EF, 1/4 diastolic dysfunction. Moderate pulmonary hypertension with pulmonary artery pressure 46. Status: Acute Qualifiers: Coronary Disease-Associated Artery/Lesion type: [place] artery [place] vs. transplanted heart: [place] heart Associated angina: unspecified whether angina present Qualified Code(s): I25.10 - Atherosclerotic heart disease of [place] coronary artery without angina pectoris (8) WHO group 2 pulmonary arterial hypertension: Status: Acute (9) Acute respiratory distress syndrome (ARDS) due to 2019 novel coronavirus: Status: Acute Additional A&P Information Hyperkalemia, resolved Hypernatremia. Has climbed higher. However, D5W was not administered as ordered. Discussed with nurse. Will recheck sodium later this afternoon. Possible transfer out of the ICU today. Attestations Medical Necessity Statement*: Needs continued hospital stay secondary to severe COVID-19 pneumonia requiring high flow oxygen. Critical Care Time: Critical Care Time (min): 33 Other Attestations: The high probability of a clinically significant, sudden or life threatening deterioration of the patient's [electrolyte, pulmonary, neurologic] system(s) required my full and direct attention, intervention and personal management. The critical care time is as shown. This time is in addition to time spent performing any reported procedures but includes the following: [x] Data and vital sign review and interpretation [x] Patient assessment, examination and intervention [x] Documentation [x] Medication orders and management Coding Level of Care Code Acute Hotel Server for [facility] Diagnoses Pneumonia due to 2019-nCoV U07.1; J12.82 Idiopathic interstitial fibrosis J84.112 ARDS (adult respiratory distress syndrome) J80 COVID-19 vaccination not done Z28.9 HTN (hypertension) I10 Hypertension type: unspecified Type 2 diabetes mellitus E11.69 Diabetes mellitus envelope machine adjuster insulin use: unspecified envelope machine adjuster insulin use status Diabetes mellitus complication status: with other specified complication CAD (coronary artery disease) I25.10 Coronary Disease-Associated Artery/Lesion type: [place] artery [place] vs. transplanted heart: [place] heart Associated angina: unspecified whether angina present WHO group 2 pulmonary arterial hypertension I27.22 Acute respiratory distress syndrome (ARDS) due to 2019 novel coronavirus U07.1; J80
--- NOTE | 2021-02-20 07:37 | CT_ITS ---
WS: [id number] CT HEAD TECHNIQUE: Noncontrast CT of the head obtained from the skullbase to the vertex. CLINICAL INFORMATION: confusion COMPARISON: None. DLP: 1792.[address] scans at [facility] use at least one of these dose optimization techniques: automat ed exposure control; mA and/or kV adjustment per patient size (includes targeted exams where dose is matched to clinical indication); or iterative reconstruction. FINDINGS: No evidence of intracranial hemorrhage or mass effect. Ventricular system and basal cisterns are lua nt. Mild small vessel changes with mild parenchymal volume loss. No extra-axial fluid collections. No evidence of mass or mass effect. Normal faith-white differentiation. Paranasal sinuses and mastoid air cells are well aerated. .Normal visualized soft tissues. CT/CT head wo con* [id number] IMPRESSION: 1. No evidence of intracranial hemorrhage or mass effect. 2. Mild small vessel changes. Mild parenchymal volume loss. 3. No acute intracranial findings.
[2021-02-20] MEDS: dextrose 5% 1,000 ML 75 ML IV (07:49)
[2021-02-20] MEDS: budesonide 0.5 mg/2 mL Neb INHALATION ×2 (08:12→20:11)
[2021-02-20 08:44] LABS: Glucose Point of Care 147 mg/dL (70-110)
[2021-02-20] MEDS: enoxaparin 40 mg/0.4 mL Syringe SUBCUT (08:53)
[2021-02-20] MEDS: insulin glargine 100 units/1 mL 25 UNIT SUBCUT ×2 (08:53→21:27)
--- NOTE | 2021-02-20 10:54 | PC.SOCIAL ---
IMM Updated Updated pt's on Pg 2 IMM. No questions voiced. Provided pt care nurse a copy to give to pt. Initialed, dated, & timed copy in chart.
[2021-02-20 13:40] LABS: Glucose Point of Care 116 mg/dL (70-110)
[2021-02-20 16:28] LABS: Anion Gap 12.8 (5-19); Blood Urea Nitrogen 47 mg/dL (8-23); Calcium 8.4 mg/dL (8.5-10.5); Carbon Dioxide 30 mmol/L (22-29); Chloride 116 mmol/L (98-107); Glucose 146 mg/dL (65-115); Osmolality Calculated 333 mOsm/kg (285-295); Potassium 4.8 mmol/L (3.5-5.1); Sodium 154 mmol/L (136-145)
[2021-02-20 18:47] LABS: Glucose Point of Care 168 mg/dL (70-110)
--- NOTE | 2021-02-20 20:20 | P.PN_ITS ---
Subjective Subjective: Interval history: - pt seen at bedside today - awake but confused; responds to few questions but need frequent reorientation - saturating 92% on 6L oxypendant - labs and imaging reviewed Medications: Reviewed: Yes Vitals/I&O/Wt Last Vital Signs Temp 99.0 F 02/20/21 16:00 Pulse 103 H 02/20/21 20:11 Resp 18 02/20/21 20:11 BP 132/87 02/20/21 20:00 Pulse Ox 92 02/20/21 20:11 02/20/21 02/20/21 02/20/21 06:59 14:59 22:59 Output Total 1150 / 2050 800 / 800 Balance -1150 / -1800 -800 / -800 Weight last 48 hrs Weight 198 lb 8 oz Weight 200 lb 3 oz Physical Exam Narrative: EXAM NARRATIVE: General: lying in bed, off sedation and patient following commands HEENT:NCAT, PERRLA, EOMI Neck: Supple Lungs: Bilateral coarse crepitations and intermittent crackles Heart: s1/s2, RRR Abd: soft, NT, ND, BS + Normoactive Extremities: No edema ACTUARIAL TRAINEE: Awake, drowsy, following commands, moving all his limbs SKIN: no rash LDA: # CVC: Right IJ line 02/07/2021-can discontinue today Urinary Catheter Management^: Ram: Cath Placed During This Visit: yes Reason for Continuing Indwelling Catheter: Accurate Measurement of Urinary Output in Critically Ill Patients Urinary Catheter Date of Insertion: 02/05/21 Urinary Catheter Time of Insertion: 18:34 Data : 02/20/21 04:03 02/20/21 15:05 Other Labs: Laboratory Results WBC 12.8 10^3/uL (4.0-10.0) H 02/20/21 04:03 RBC 4.95 10^6/uL (4.1-5.3) 02/20/21 04:03 Hgb 14.5 g/dL (11.7-16.6) 02/20/21 04:03 Hct 48.6 % (42.0-52.0) 02/20/21 04:03 MCV 98.2 fl (80-94) H 02/20/21 04:03 MCH 29.3 pg (28.0-34.0) 02/20/21 04:03 MCHC 29.8 g/dL (30.0-36.0) L 02/20/21 04:03 RDW 14.5 % (12.1-15.1) 02/20/21 04:03 Plt Count 152 10^3/cmm (130-400) 02/20/21 04:03 MPV 10.2 fL (7.4-10.4) 02/20/21 04:03 Neut % (Auto) 90.5 % 02/20/21 04:03 Lymph % (Auto) 4.8 % 02/20/21 04:03 [place] % (Auto) 4.1 % 02/20/21 04:03 Eos % (Auto) 0.0 % 02/20/21 04:03 Baso % (Auto) 0.1 % 02/20/21 04:03 Neut # (Auto) 11.57 10^3/uL (1.8-7.7) H 02/20/21 04:03 Lymph # (Auto) 0.6 10^3/uL (0.8-4.8) L 02/20/21 04:03 [place] # (Auto) 0.5 10^3/uL (0.2-0.9) 02/20/21 04:03 Eos # (Auto) 0.0 10^3/uL (0.0-0.8) 02/20/21 04:03 Baso # (Auto) 0.0 10^3/uL (0.0-0.1) 02/20/21 04:03 Nucleated RBC % (auto) 0 % 02/20/21 04:03 Nucleated RBCs # 0.0 /100WBC 02/20/21 04:03 ESR 14 mm/hr (0-10) H 02/12/21 04:56 D-Dimer 1.38 ug/mIFEU (0-0.59) H 02/08/21 05:47 Specimen Type Arterial 02/19/21 03:58 Sample Site Radial, right 02/19/21 03:58 ABG pH 7.49 (7.35-7.45) H 02/19/21 03:58 ABG pCO2 42.4 mmHg (35-45) 02/19/21 03:58 ABG pO2 73.5 mmHg (80.0-100.0) L 02/19/21 03:58 ABG HCO3 32.6 mmol/L (22-26) H 02/19/21 03:58 ABG O2 Saturation 95.7 02/12/21 04:32 ABG Base Excess 8.4 mmol/L (-2.0-2.0) H 02/19/21 03:58 Davion Test Pos 02/19/21 03:58 A-a O2 Gradient 26.5 mmHg (5-10) H 02/12/21 04:32 Hematocrit 42.2 % (42-52) 02/19/21 03:58 Hgb O2 Saturation 94.8 % (95-100) L 02/12/21 04:32 Carboxyhemoglobin 0.5 %THgb (0.4-20.1) 02/12/21 04:32 Methemoglobin 0.5 % (0.4-1.5) 02/12/21 04:32 Total Hemoglobin 14.3 g/dL (14-18) 02/12/21 04:32 Sodium 146.0 mmol/L (131-143) H 02/12/21 04:32 Potassium 5.0 mmol/L (3.5-5.0) 02/12/21 04:32 Glucose 244.0 mg/dL (70-115) H 02/12/21 04:32 Ionized Calcium 1.2 mmol/L (1.1-1.4) 02/12/21 04:32 O2 Delivery Device Hag 02/19/21 03:58 O2 Liters/Min 40.0 % 02/19/21 03:58 Mechanical Rate 18.0 02/16/21 04:40 FiO2 65.0 % 02/19/21 03:58 Tidal Volume 0.43 02/18/21 09:50 PEEP 10.0 cmH20 02/18/21 09:50 Business Representative ID Isaias 02/19/21 03:58 Sodium 154 mmol/L (136-145) H 02/20/21 15:05 Potassium 4.8 mmol/L (3.5-5.1) 02/20/21 15:05 Chloride 116 mmol/L (98-107) H 02/20/21 15:05 Carbon Dioxide 30 mmol/L (22-29) H 02/20/21 15:05 Anion Gap 12.8 (5-19) 02/20/21 15:05 BUN 47 mg/dL (8-23) H 02/20/21 15:05 Creatinine 1.0 mg/dL (0.7-1.2) 02/20/21 15:05 GFR Calculation Not Reportable 02/20/21 15:05 Glucose 146 mg/dL (65-115) H 02/20/21 15:05 POC Glucose 168 mg/dL (70-110) H 02/20/21 18:33 Estimat Average Glucose 223 02/06/21 05:45 Hemoglobin A1c 9.4 % (4.0-6.0) H 02/06/21 05:45 Calculated Osmolality 333 mOsm/kg (285-295) H 02/20/21 15:05 Lactic Acid 1.4 mmol/L (0.5-2.2) 02/05/21 12:42 Calcium 8.4 mg/dL (8.5-10.5) L 02/20/21 15:05 Phosphorus 3.3 mg/dL (2.5-4.5) 02/06/21 05:45 Magnesium 3.2 mg/dL (1.7-2.3) H 02/14/21 03:37 Iron 37 ug/dL (59-158) L 02/05/21 12:42 TIBC 195 mcg/dl 02/05/21 12:42 % Saturation 18.9 % (20-50) L 02/05/21 12:42 Unsat Iron Binding 158 ug/dL (112-347) 02/05/21 12:42 Ferritin 654 ng/mL (30-400) H 02/08/21 05:47 Total Bilirubin 0.6 mg/dL (0.15-1.2) 02/20/21 04:03 AST 51 U/L (0-40) H 02/20/21 04:03 ALT 44 U/L (0-41) H 02/20/21 04:03 Alkaline Phosphatase 111 IU/L (40-130) 02/20/21 04:03 Lactate Dehydrogenase 583 U/L (135-225) H 02/06/21 05:45 Creatine Kinase 113 U/L (39-308) 02/10/21 16:50 C-Reactive Protein 10.8 mg/L (0.0-4.9) H 02/12/21 04:56 NT-Pro-B Natriuret Pep 90 pg/mL (0-125) 02/12/21 04:56 Total Protein 5.7 g/dL (6.6-8.7) L 02/20/21 04:03 Albumin 2.6 g/dL (3.5-5.2) L 02/20/21 04:03 Globulin 3.1 g/dL (1.3-4.6) 02/20/21 04:03 Triglycerides 162 mg/dL (0-150) H 02/06/21 05:45 Cholesterol 142 mg/dL (0-200) 02/06/21 05:45 LDL Cholesterol, Calc 65 mg/dL (50-129) 02/06/21 05:45 Total VLDL Cholesterol 32 mg/dL (0-30) H 02/06/21 05:45 HDL Cholesterol 45 mg/dL (60-100) L 02/06/21 05:45 Cholesterol/HDL Ratio 3.16 mg/dL (1.0-5.00) 02/06/21 05:45 Procalcitonin 0.09 ng/mL (0-0.5) 02/10/21 03:16 TSH 1.72 uIU/mL (0.27-4.20) 02/05/21 12:42 Urine Color Straw (Yellow) 02/05/21 18:17 Urine Appearance Clear (CLEAR) 02/05/21 18:17 Urine pH 5 (5-7) 02/05/21 18:17 Ur Specific [place] 1.005 (1.005-1.030) 02/05/21 18:17 Urine Protein Neg (Negative) 02/05/21 18:17 Urine Glucose (UA) 2+ (Normal) 02/05/21 18:17 Urine Ketones Negative (Negative) 02/05/21 18:17 Urine Blood Neg (Negative) 02/05/21 18:17 Urine Nitrate Negative (Negative) 02/05/21 18:17 Urine Bilirubin Neg (Negative) 02/05/21 18:17 Urine Urobilinogen Norm mg/dL (Negative) 02/05/21 18:17 Ur Leukocyte Esterase Negative (Negative) 02/05/21 18:17 Ur Random Sodium 101 mmol/L 02/05/21 18:17 Ur Random Potassium 11 mmol/L 02/05/21 18:17 Ur Random Chloride 104 mmol/L 02/05/21 18:17 Histoplasma Antigen Urine 02/06/21 10:23 Histoplasma Ag (Qnt) None detected ng/mL 02/06/21 10:23 Histoplasma Ag Interp Negative 02/06/21 10:23 Pneumocystis Source Sputum 02/05/21 18:25 Pneumocyst jiroveci PCR Not detected 02/05/21 18:25 A. galactomannan Ag EIA Not detected 02/05/21 18:25 A. galactomannan Ag Idx <0.50 02/05/21 18:25 Beta-(1,3)-D-Glucan <31 pg/mL 02/07/21 05:30 B-(1,3)-D-Glucan Intrp Negative 02/07/21 05:30 Impressions Chest CTA 02/05/21 13:24 IMPRESSION: 1. No pulmonary embolism. 2. Diffusely abnormal lungs. Diffuse scattered groundglass attenuation, thickened reticulations and honeycombing. Suspect superimposed Covid on chronic pulmonary fibrosis. 3. Bilateral hilar adenopathy with the largest lymph node on the LEFT measuring 12 mm. Probably reactive. Chest X-Ray 02/19/21 07:00 IMPRESSION: Bilateral pulmonary opacities are again noted and appear unchanged. Head CT 02/20/21 07:37 IMPRESSION: 1. No evidence of intracranial hemorrhage or mass effect. 2. Mild small vessel changes. Mild parenchymal volume loss. 3. No acute intracranial findings. Micro: Microbiology 02/18/21 13:40 Gram Stain - Final Sputum - Endotracheal Tube Aspirate Sputum Culture - Preliminary Yeast species A&P Assessment and plan (1) Acute respiratory failure with hypoxia: Status: Acute (2) Acute respiratory distress syndrome (ARDS) due to 2019 novel coronavirus: Status: Acute (3) Idiopathic interstitial fibrosis: Status: Acute (4) CAD (coronary artery disease): Status: Acute Qualifiers: Coronary Disease-Associated Artery/Lesion type: [place] artery [place] vs. transplanted heart: [place] heart Associated angina: unspecified whether angina present Qualified Code(s): I25.10 - Atherosclerotic heart disease of [place] coronary artery without angina pectoris (5) Type 2 diabetes mellitus: Status: Acute Qualifiers: Diabetes mellitus intermodal dispatcher insulin use: unspecified senior living insulin use status Diabetes mellitus complication status: with other specified complication Qualified Code(s): E11.69 - Type 2 diabetes mellitus with other specified complication (6) HTN (hypertension): Status: Acute Qualifiers: Hypertension type: unspecified Qualified Code(s): I10 - Essential (primary) hypertension (7) COVID-19 vaccination not done: Status: Acute (8) WHO group 2 pulmonary arterial hypertension: Status: Acute (9) Hyperkalemia: Status: Acute (10) MIKA (acute kidney injury): Status: Acute (11) Counseling regarding advance directives and goals of care: Status: Acute -Intubated 02/07/2021-extubated 02/18/2021 -Sedated and paralyzed and completed 4 proning sessions -Continue low-dose Precedex for anxiety and Dilaudid as needed for pain and opiate withdrawal -Saturating 92% on 6L oxypendant -With underlying idiopathic interstitial pulmonary fibrosis:-Advanced directives not to reintubate. Patient's wishes to take him to home for further recovery if he improves or comfort care if he worsens - on home medication tadalafil 5 mg daily once for pulmonary hypertension and pirfenidone for his IPF -Taper Solu-Medrol to 30 every 12 monitor for adrenal insufficiency; Patient has a history of idiopathic pulmonary fibrosis and has been on steroids for last 6 months. -Completed on remdesivir 5 days - DuoNebs every 4 hour, budesonide twice daily. - Monitor inflammatory markers including ferritin, ESR, CRP, D-dimer, fibrinogen every 48 hour - CTA negative for pulmonary embolism. - afebrile , Procalcitonin negative, urine Legionella bacterial antigen negative,Blood culture negative. Sputum culture 02/13/2021 results-negative; -Received aztreonam for significant aspiration event 02/14/2021-patient is allergic to penicillin could not give Zosyn; repeat sputum culture negative and discontinued aztreonam -Latest sputum yeast-identification pending-currently on Diflucan started on 01/28 - PCP PCR, histoplasma antigen, Aspergillus antigen, beta D glucan negative - MIKA-likely secondary to COVID-19 pneumonia versus prerenal-improving - Given hypoxia will try to keep patient as negative as possible. -1.8 L cc over 24 hours /- 6.8 L since admission -Sodium 156- D5 at 75 mL's per hour order placed 2 days ago was not acknowledged for some reason - started today and also Free water 150 every 6 hour; BMP in the evening showed Na 154 - also sent for urine and serum osmolarity to rule out DI; - Patient history of CAD Recent cardiac stent placement. Echocardiogram done shows an EF 60% with grade 1 diastolic dysfunction with moderate pulmonary hypertension with RVSP of 46. - Continue with aspirin, Plavix, statin.- - monitor input and output, daily weights - Hypertension: Goal blood pressure less than 140/90 mmHg. - Continue home dose of carvedilol - Type 2 diabetes mellitus: HbA1c 9.4.Insulin sliding scale at moderate dose. sugars controlled , Lantus 25 units twice daily DNR/DNI Lovenox DVT prophylaxis Famotidine for PUD prophylaxis. Oral feeds-cardiac diet Updated medical condition to the 02/18/2021: Had extensive goals of care discussion with Ms. Annita Rios at bedside. She she reported having goals of care discussion on multiple occasions with Mr. Díaz since his diagnosis of interstitial pulmonary fibrosis 8 years ago. Based on his wishes patient would not want to be on ventilator for prolonged duration and did not want to be trach dependent. I clearly explained that today is a good chance for extubation as patient is requiring only 45% FiO2 and he may gradually improve or worst-case scenario with Covid pneumonia-he could worsen over next couple of days and might require increasing oxygen requirements. verbalized understanding and agreed to proceed with extubation with change in CODE STATUS to do not reintubate and DO NOT R ESUSCITATE if patient does not improve. She also requested to take patient home, where he will have more family support, with home O2 supplementation and possible home health care. And if patient worsens-she would want to home hospice to keep him comfortable. Accordingly patient was extubated on 02/18/2021 to high flow nasal cannula and business case analyst was notified. Recommendations conveyed to hospitalist, RN, RT taking care of the patient Attestations Medical Necessity Statement*: Acute hypoxic respiratory failure secondary to ARDS due to COVID-19 pneumonia in patient with underlying interstitial fibrosis requiring mechanical ventilation Time Spent in Patient Care: Greater than 35 minutes (>than 50% of time spent in counselling and/or direct pt care on unit) . Critical Care Time: The high probability of a clinically significant, sudden or life threatening deterioration of the patient's [pulmonary, endocrine, renal, neurological] system(s) required my full and direct attention, intervention and personal management. The critical care time is as shown. This time is in add ition to time spent performing any reported procedures but includes the following: [x] Data and vital sign review and interpretation [x] Patient assessment, examination and intervention [x] Documentation [x] Medication orders and management Critical Care Time (min): 45 Coding Level of Care Code Acute Twisting Frame Operator for [place] [employer] Diagnoses Acute respiratory failure with hypoxia J96.01 Acute respiratory distress syndrome (ARDS) due to 2019 novel coronavirus U07.1; J80 Idiopathic interstitial fibrosis J84.112 CAD (coronary artery disease) I25.10 Coronary Disease-Associated Artery/Lesion type: [place] artery [place] vs. transplanted heart: [place] heart Associated angina: unspecified whether angina present Type 2 diabetes mellitus E11.69 Diabetes mellitus intermodal dispatcher insulin use: unspecified intermodal dispatcher insulin use status Diabetes mellitus complication status: with other specified complication HTN (hypertension) I10 Hypertension type: unspecified COVID-19 vaccination not done Z28.9 WHO group 2 pulmonary arterial hypertension I27.22 Hyperkalemia E87.5 MIKA (acute kidney injury) N17.9 Counseling regarding advance directives and goals of care Z71.89
[2021-02-20 21:18] LABS: Glucose Point of Care 191 mg/dL (70-110)
[2021-02-20] MEDS: fluconazole premix 400 MG/200 ML PIGGYBACK 200 MG IV (21:26)
[2021-02-20] MEDS: sennosides-docusate Tablet 1 TAB PO (21:27)
[2021-02-21] VITALS (24 sets, daily range): BP systolic 111–139; BP diastolic 77–97; PULSE 92–107; RESP 12–30; TEMP 36.3–36.8; O2SAT 88–97
[2021-02-21] MEDS: ipratropium-albuterol 3 mL Neb INHALATION ×5 (00:02→21:00)
[2021-02-21 00:58] LABS: Glucose Point of Care 115 mg/dL (70-110)
[2021-02-21] MEDS: dextrose 5% 1,000 ML 75 ML IV ×2 (02:35→14:45)
[2021-02-21 05:07] LABS: Glucose Point of Care 131 mg/dL (70-110)
[2021-02-21] MEDS: famotidine 20 mg/2 mL INJ IVP ×2 (05:09→18:17)
[2021-02-21] MEDS: clopidogrel 75 mg Tablet PO (05:09)
[2021-02-21 06:18] LABS: Basophils % 0.1 %; Hematocrit 47.2 % (42.0-52.0); Hemoglobin 14.6 g/dL (11.7-16.6); Lymphocytes # 0.6 10^3/uL (0.8-4.8); Mean Corpuscular HGB Conc 30.9 g/dL (30.0-36.0); Mean Corpuscular Hemoglobin 29.3 pg (28.0-34.0); Mean Corpuscular Volume 94.6 fl (80-94); Mean Platelet Volume 10.9 fL (7.4-10.4); Monocytes # 0.7 10^3/uL (0.2-0.9); Monocytes % 4.7 %; Neutrophils # 12.82 10^3/uL (1.8-7.7); Neutrophils % 90.8 %; Nucleated Red Blood Cells % 0 %; Platelet Count 146 10^3/cmm (130-400); Red Blood Count 4.99 10^6/uL (4.1-5.3); Red Cell Distribution Width 13.9 % (12.1-15.1); White Blood Count 14.1 10^3/uL (4.0-10.0)
[2021-02-21 06:31] LABS: Anion Gap 9.7 (5-19); Blood Urea Nitrogen 42 mg/dL (8-23); Calcium 8.5 mg/dL (8.5-10.5); Carbon Dioxide 30 mmol/L (22-29); Chloride 115 mmol/L (98-107); Glucose 157 mg/dL (65-115); Osmolality Calculated 324 mOsm/kg (285-295); Potassium 4.7 mmol/L (3.5-5.1); Sodium 150 mmol/L (136-145)
--- NOTE | 2021-02-21 06:33 | PC.NURSE ---
Shift Note Frequent safety and comfort rounds continue. Orders and/or nursing care completed as indicated. Patient monitored for response to intervention and treatment(s). Education provided includes[Oxygen saftery]. Patient and/or containers sales representative [reported understing]. Will continue to monitor. 2 small black tarry stool during shift
[2021-02-21] MEDS: budesonide 0.5 mg/2 mL Neb INHALATION ×2 (08:38→21:00)
[2021-02-21] MEDS: tamsulosin 0.4 mg Capsule PO (09:19)
[2021-02-21] MEDS: aspirin 81 mg EC Tablet PO (09:19)
[2021-02-21 09:20] LABS: Glucose Point of Care 197 mg/dL (70-110)
[2021-02-21] MEDS: carvedilol 3.125 mg Tablet PO ×2 (09:20→18:17)
[2021-02-21] MEDS: docusate sodium 100 mg Capsule PO ×2 (09:20→18:17)
[2021-02-21] MEDS: enoxaparin 40 mg/0.4 mL Syringe SUBCUT (09:20)
[2021-02-21] MEDS: insulin glargine 100 units/1 mL 25 UNIT SUBCUT ×2 (09:20→20:09)
[2021-02-21 12:21] LABS: Glucose Point of Care 198 mg/dL (70-110)
--- NOTE | 2021-02-21 12:54 | PC.NURSE ---
Transfer Note Patient transferred to [facility] from ICU via bed. Report called to charge nurse. Patient oriented to environment and equipment. Covering service notified. at bedside.
[2021-02-21 15:47] LABS: Osmolality Serum 346 mOsm/kg (278-305)
--- NOTE | 2021-02-21 15:55 | PM.PN ---
Subjective Subjective: Interval history: Arjun is a little bit more alert today but still encephalopathic. is present at bedside the second time I saw him. Medications: Reviewed: Yes Vitals/I&O/Wt Last Vital Signs Temp 97.3 F L 02/21/21 15:00 Pulse 95 02/21/21 15:00 Resp 18 02/21/21 15:00 BP 118/78 02/21/21 15:00 Pulse Ox 97 02/21/21 15:00 02/21/21 02/21/21 02/21/21 06:59 14:59 22:59 Intake Total 1112.5 / 1112.5 Output Total 700 / 1500 Balance -700 / -500 1112.5 / 1112.5 Weight last 48 hrs Weight 87.543 kg Weight 90.038 kg Physical Exam Narrative: EXAM NARRATIVE: Seems more alert. Repeat some words I say. Tracks. Neck is supple no lymphadenopathy or thyromegaly. Central line has been removed Cardiovascular regular rate and rhythm Lungs clear Abdomen is soft with positive bowel sounds Extremities no cyanosis clubbing or edema Urinary Catheter Management^: Ram: Cath Placed During This Visit: yes Reason for Continuing Indwelling Catheter: Accurate Measurement of Urinary Output in Critically Ill Patients Urinary Catheter Date of Insertion: 02/05/21 Urinary Catheter Time of Insertion: 18:34 Data : 02/21/21 05:55 02/21/21 05:55 Micro: Microbiology 02/18/21 13:40 Gram Stain - Final Sputum - Endotracheal Tube Aspirate Sputum Culture - Preliminary Yeast species A&P Assessment and plan (1) Pneumonia due to 2019-nCoV: Extubated February 18 Directive for no reintubation Currently on fluconazole Completed his course of, remdesivir Illness complicated by interstitial lung disease exacerbation so currently on IV steroids. Was on aztreonam for possible aspiration pneumonitis, with event from February 14. Last sputum culture showing yeast. Fluconazole continues. Has continued confusion, severe weakness after extubation. CT scan of head demonstrated no acute findings. Sodium may also be playing some role. With D5W sodium level has been decreasing Status: Acute (2) Idiopathic interstitial fibrosis: Reduce IV steroids further, monitoring for any adrenal insufficiency. Status: Acute (3) ARDS (adult respiratory distress syndrome): As above. Status: Acute (4) COVID-19 vaccination not done: Status: Acute (5) HTN (hypertension): Status: Acute Qualifiers: Hypertension type: unspecified Qualified Code(s): I10 - Essential (primary) hypertension (6) Type 2 diabetes mellitus: Sliding scale insulin, long acting insulin Status: Acute Qualifiers: Diabetes mellitus half-way insulin use: unspecified half-way insulin use status Diabetes mellitus complication status: with other specified complication Qualified Code(s): E11.69 - Type 2 diabetes mellitus with other specified complication (7) CAD (coronary artery disease): Recent stent placement. Continue aspirin, Plavix, beta-too, statin. Echo demonstrated preserved EF, 1/4 diastolic dysfunction. Moderate pulmonary hypertension with pulmonary artery pressure 46. Status: Acute Qualifiers: Coronary Disease-Associated Artery/Lesion type: [place] artery [place] vs. transplanted heart: [place] heart Associated angina: unspecified whether angina present Qualified Code(s): I25.10 - Atherosclerotic heart disease of [place] coronary artery without angina pectoris (8) WHO group 2 pulmonary arterial hypertension: Status: Acute (9) Acute respiratory distress syndrome (ARDS) due to 2019 novel coronavirus: Status: Acute Attestations Medical Necessity Statement*: Needs continued hospital stay secondary to persistent encephalopathy post severe COVID-19 pneumonia as well as hyponatremia. 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 transplanted heart: [place] heart Associated angina: unspecified whether angina present WHO group 2 pulmonary arterial hypertension I27.22 Acute respiratory distress syndrome (ARDS) due to 2019 novel coronavirus U07.1; J80
[2021-02-21 16:21] LABS: Glucose Point of Care 140 mg/dL (70-110)
[2021-02-21 16:51] LABS: Glucose Point of Care 129 mg/dL (70-110)
[2021-02-21] MEDS: fluconazole premix 400 MG/200 ML PIGGYBACK 200 MG IV (20:09)
[2021-02-21 21:00] LABS: Glucose Point of Care 165 mg/dL (70-110)
[2021-02-21 23:35] LABS: Glucose Point of Care 158 mg/dL (70-110)
[2021-02-22] VITALS (17 sets, daily range): BP systolic 107–133; BP diastolic 73–84; PULSE 91–112; RESP 16–20; TEMP 36.4–36.9; O2SAT 90–97
[2021-02-22] MEDS: ipratropium-albuterol 3 mL Neb INHALATION ×6 (00:15→20:00)
[2021-02-22] MEDS: dextrose 5% 1,000 ML 75 ML IV (04:15)
[2021-02-22 04:27] LABS: Glucose Point of Care 115 mg/dL (70-110)
[2021-02-22] MEDS: famotidine 20 mg/2 mL INJ IVP ×2 (05:12→18:28)
[2021-02-22 06:18] LABS: Basophils % 0.1 %; Hematocrit 50.2 % (42.0-52.0); Hemoglobin 15.6 g/dL (11.7-16.6); Lymphocytes # 0.6 10^3/uL (0.8-4.8); Lymphocytes % 3.8 %; Mean Corpuscular HGB Conc 31.1 g/dL (30.0-36.0); Mean Corpuscular Hemoglobin 29.8 pg (28.0-34.0); Mean Platelet Volume 10.5 fL (7.4-10.4); Monocytes # 0.7 10^3/uL (0.2-0.9); Monocytes % 4.1 %; Neutrophils # 14.98 10^3/uL (1.8-7.7); Neutrophils % 91.5 %; Nucleated Red Blood Cells % 0 %; Platelet Count 126 10^3/cmm (130-400); Red Blood Count 5.23 10^6/uL (4.1-5.3); Red Cell Distribution Width 13.9 % (12.1-15.1); White Blood Count 16.4 10^3/uL (4.0-10.0)
[2021-02-22 06:53] LABS: Alanine Aminotransferase 98 U/L (0-41); Albumin Level 2.5 g/dL (3.5-5.2); Alkaline Phosphatase 105 IU/L (40-130); Anion Gap 11.7 (5-19); Aspartate Amino Transferase 105 U/L (0-40); Blood Urea Nitrogen 39 mg/dL (8-23); Calcium 8.1 mg/dL (8.5-10.5); Carbon Dioxide 27 mmol/L (22-29); Chloride 112 mmol/L (98-107); Globulin 2.9 g/dL (1.3-4.6); Glucose 133 mg/dL (65-115); Osmolality Calculated 313 mOsm/kg (285-295); Potassium 4.7 mmol/L (3.5-5.1); Sodium 146 mmol/L (136-145); Total Bilirubin 0.9 mg/dL (0.15-1.2); Total Protein 5.4 g/dL (6.6-8.7)
[2021-02-22] MEDS: enoxaparin 40 mg/0.4 mL Syringe SUBCUT (07:45)
[2021-02-22] MEDS: budesonide 0.5 mg/2 mL Neb INHALATION ×2 (07:50→20:00)
[2021-02-22 08:55] LABS: Glucose Point of Care 126 mg/dL (70-110)
[2021-02-22 11:03] LABS: Glucose Point of Care 142 mg/dL (70-110)
--- NOTE | 2021-02-22 11:15 | PC.SOCIAL ---
IMM Update IMM updated and copy left in the room. Initial, timed and dated and copy left in the chart.
--- NOTE | 2021-02-22 14:23 | P.PN_ITS ---
Subjective Subjective: Interval history: Arjun follows me with his eyes. Does not really communicate effectively. We will try to follow some commands. Medications: Reviewed: Yes Vitals/I&O/Wt Last Vital Signs Temp 97.5 F L 02/22/21 11:00 Pulse 101 H 02/22/21 12:28 Resp 18 02/22/21 11:00 BP 107/73 02/22/21 11:00 Pulse Ox 97 02/22/21 11:00 02/21/21 02/22/21 02/22/21 22:59 06:59 14:59 Intake Total 458.266 / 1923.241 5819 / 2570.766 Output Total 900 / 900 600 / 1500 Balance -441.734 / 670.766 400 / 1070.766 Weight last 48 hrs Weight 89.947 kg Weight 87.543 kg Physical Exam Narrative: EXAM NARRATIVE: Alert. Tries to follow some commands. Tracks. When asked him to say hello he will say it very softly. Neck is supple no lymphadenopathy or thyromegaly. Central line has been removed Cardiovascular regular rate and rhythm Lungs clear Abdomen is soft with positive bowel sounds Extremities no cyanosis clubbing or edema. Profoundly weak. Urinary Catheter Management^: Ram: Cath Placed During This Visit: yes Reason for Continuing Indwelling Catheter: Accurate Measurement of Urinary Output in Critically Ill Patients Urinary Catheter Date of Insertion: 02/05/21 Urinary Catheter Time of Insertion: 18:34 Data : 02/22/21 05:59 02/22/21 05:59 Micro: Microbiology 02/18/21 13:40 Gram Stain - Final Sputum - Endotracheal Tube Aspirate Sputum Culture - Preliminary Yeast species A&P Assessment and plan (1) Pneumonia due to 2019-nCoV: Extubated February 18 Directive for no reintubation Currently on fluconazole for Symone. Plan for 10 days total. Completed his course of, remdesivir Illness complicated by interstitial lung disease. Was given IV steroids. Attempting to wean these. Typically on 5 mg a day. Was on aztreonam for possible aspiration pneumonitis, with event from February 14. Last sputum culture showing yeast. Fluconazole continues. Has continued confusion, severe weakness after extubation. CT scan of head demonstrated no acute findings. Sodium may also be playing some role. Sodium is correcting nicely and only slightly elevated currently. Status: Acute (2) Idiopathic interstitial fibrosis: Reduce IV steroids further, monitoring for any adrenal insufficiency. Status: Acute (3) ARDS (adult respiratory distress syndrome): As above. 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 Continue aspirin, Plavix, beta-too, statin. Echo demonstrated preserved EF, 1/4 diastolic dysfunction. Moderate pulmonary hypertension with pulmonary artery pressure 46. Status: Acute Qualifiers: Coronary Disease-Associated Artery/Lesion type: [place] artery [place] vs. transplanted heart: [place] heart Associated angina: unspecified whether angina present Qualified Code(s): I25.10 - Atherosclerotic heart disease of [place] coronary artery without angina pectoris (8) WHO group 2 pulmonary arterial hypertension: Status: Acute (9) Acute respiratory distress syndrome (ARDS) due to 2019 novel coronavirus: Status: Acute Attestations Medical Necessity Statement*: Needs continued hospitalization following severe COVID-19 pneumonia in this patient requiring significant amount of oxygen with oxygen pendant, severe weakness, difficulty eating and drinking. 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 transplanted heart: [place] heart Associated angina: unspecified whether angina present WHO group 2 pulmonary arterial hypertension I27.22 Acute respiratory distress syndrome (ARDS) due to 2019 novel coronavirus U07.1; J80
--- NOTE | 2021-02-22 15:23 | PC.CHAP ---
Pastoral Care Encounter/Spiritual Assessment Type of Contact [] Declined remelt operator visit [] Patient/Family/Request visit [] Outpatient visit [xx] Follow-up visit [] Physician referral [] Code/Alert [xx] Routine visit [] Staff referral [] Actively dying [] Patient sleeping [] Family support [] [] Out of room [] Palliative care [] [] Receiving care in room [] Pre-surgical visit [] Trauma [xx] Long length of stay [] ICU visit [] Other: Relational/Emotional Strength [xx] Patient feels connected with others/family/visitors/staff [] Distress [] Loneliness/isolation [] Abandonment Spirituality of Patient [xx] Person of Heidy [xx] Attends Protestant of their Heidy [xx] Believes in Prayer [xx] Reads Bible or Yazdanism materials [] There are Spiritual issues to be addressed 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 Interventions [xx] Prayer [xx] Active listening [xx] Non-anxious presence [] Spiritual/emotional support [] Crisis/trauma care [] Spiritual counseling [] Bereavement support [] Provided bereavement packet [] Provided Bible/devotional materials [] Provided toy/stuffed animal, coloring book to patient or family member [] Provided Communion [] Anointing/[place] [] Salvation [xx] Completed spiritual assessment [] Other: Impact on Illness or Injury [] Angry [] Fearful [] Anxious [] Often cries [] Exhaustion [] Unable to work [] Unable to attend taoism [] Unable to walk/stand [] Unable to read [] Unable to drive [] Unable to eat/drink [] Unable to sleep [] Unable to be with family [] Patient intubated [] Other: Summary just arrived and concerned about visible changes since yesterday and wants to discuss them with doctor ramya. Patient was asleep and had for her to wake him up. She stated he is more lethargic than yesterday. Time spent with patient 4 minutes
[2021-02-22 15:47] LABS: Glucose Point of Care 139 mg/dL (70-110)
[2021-02-22 17:23] LABS: Glucose Point of Care 176 mg/dL (70-110)
--- NOTE | 2021-02-22 17:24 | PC.SLP ---
VISUAL LEAD went to room to work with the pt. The pt was sleeping, and the pt's spouse indicated that the pt was completely worn out. She reported good consumption with him today, with some coughing, throat clearing noted at the initiation of eating and improvement with continued intake.
--- NOTE | 2021-02-22 18:27 | PC.NURSE ---
Coreg and colace held due to patient being unable to swallow medications. Spouse aware. Consult for peg tube placement per hospitalist.
[2021-02-22] MEDS: insulin glargine 100 units/1 mL 25 UNIT SUBCUT (20:13)
[2021-02-22] MEDS: fluconazole premix 400 MG/200 ML PIGGYBACK 200 MG IV (20:16)
[2021-02-22 21:33] LABS: Glucose Point of Care 228 mg/dL (70-110)
[2021-02-23] VITALS (21 sets, daily range): BP systolic 100–144; BP diastolic 68–97; PULSE 80–116; RESP 15–28; TEMP 36–36.9; O2SAT 92–98
[2021-02-23 00:06] LABS: Glucose Point of Care 169 mg/dL (70-110)
[2021-02-23] MEDS: ipratropium-albuterol 3 mL Neb INHALATION ×5 (01:18→23:39)
[2021-02-23 04:30] LABS: Glucose Point of Care 147 mg/dL (70-110)
[2021-02-23] MEDS: famotidine 20 mg/2 mL INJ IVP ×2 (05:07→17:14)
[2021-02-23 07:38] LABS: Glucose Point of Care 140 mg/dL (70-110)
--- NOTE | 2021-02-23 07:41 | PM.PN ---
Subjective Subjective: Interval history: Arjun is more alert, talkative and appropriate in his responsiveness. He is still difficult to understand and profoundly weak. Medications: Reviewed: Yes Vitals/I&O/Wt Last Vital Signs Temp 97.8 F 02/23/21 07:36 Pulse 104 H 02/23/21 07:36 Resp 18 02/23/21 07:36 BP 139/95 02/23/21 07:36 Pulse Ox 96 02/23/21 07:36 02/22/21 02/23/21 02/23/21 22:59 06:59 14:59 Intake Total 1150 / 1150 120 / 1270 Output Total 550 / 550 550 / 1100 Balance 600 / 600 -430 / 170 Weight last 48 hrs Weight 90.537 kg Weight 89.947 kg Physical Exam Narrative: EXAM NARRATIVE: Alert. Able to answer few questions, and moving his upper extremities slightly better. Neck is supple no lymphadenopathy or thyromegaly. Central line has been removed Cardiovascular regular rate and rhythm Lungs clear Abdomen is soft with positive bowel sounds Extremities no cyanosis clubbing or edema. Profoundly weak. Urinary Catheter Management^: Ram: Cath Placed During This Visit: yes Reason for Continuing Indwelling Catheter: Accurate Measurement of Urinary Output in Critically Ill Patients Urinary Catheter Date of Insertion: 02/05/21 Urinary Catheter Time of Insertion: 18:34 Data : 02/22/21 05:59 02/22/21 05:59 Micro: Microbiology 02/18/21 13:40 Gram Stain - Final Sputum - Endotracheal Tube Aspirate Sputum Culture - Preliminary Yeast species Other data: Awaiting laboratory today. A&P Assessment and plan (1) Pneumonia due to 2019-nCoV: Extubated February 18 Directive for no reintubation Currently on fluconazole for Symone. Plan for 10 days total. Completed his course of, remdesivir Illness complicated by interstitial lung disease. Was given IV steroids. Dosing reduced to 10 mg IV every 12 hours. Typically on 5 mg a day. This could certainly contribute to weakness but reports it is often difficult to wean him from 20 mg. Was on aztreonam for possible aspiration pneumonitis, with event from February 14. Last sputum culture showing yeast. Fluconazole continues. Has continued confusion, severe weakness after extubation. CT scan of head demonstrated no acute findings. Sodium may also be playing some role. Sodium is correcting nicely and only slightly elevated currently. Laboratory pending today. Mental status improved today. Secondary to difficulties with p.o. intake PEG tube has been requested after much contemplation by family. They do not want placement of a group home facility, or long-term care facility preferring to go home for further care. Status: Acute (2) Idiopathic interstitial fibrosis: Is IV every 12 hours, monitoring for any adrenal insufficiency. Status: Acute (3) ARDS (adult respiratory distress syndrome): As above. Status: Acute (4) COVID-19 vaccination not done: Status: Acute (5) HTN (hypertension): Status: Acute Qualifiers: Hypertension type: unspecified Qualified Code(s): I10 - Essential (primary) hypertension (6) Type 2 diabetes mellitus: Sliding scale insulin, long acting insulin Status: Acute Qualifiers: Diabetes mellitus penitentiary insulin use: unspecified penitentiary insulin use status Diabetes mellitus complication status: with other specified complication Qualified Code(s): E11.69 - Type 2 diabetes mellitus with other specified complication (7) CAD (coronary artery disease): Recent stent placement. Continue aspirin, Plavix, beta-too, statin. Echo demonstrated preserved EF, 1/4 diastolic dysfunction. Moderate pulmonary hypertension with pulmonary artery pressure 46. Status: Acute Qualifiers: Coronary Disease-Associated Artery/Lesion type: [place] artery [place] vs. transplanted heart: [place] heart Associated angina: unspecified whether angina present Qualified Code(s): I25.10 - Atherosclerotic heart disease of [place] coronary artery without angina pectoris (8) WHO group 2 pulmonary arterial hypertension: Status: Acute (9) Acute respiratory distress syndrome (ARDS) due to 2019 novel coronavirus: Status: Acute Attestations Medical Necessity Statement*: Needs continued hospitalization for severe COVID-19 pneumonia requiring significant FiO2 as well as evaluation for PEG tube to ensure p.o. intake and route of administration of medications upon discharge. 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 transplanted heart: [place] heart Associated angina: unspecified whether angina present WHO group 2 pulmonary arterial hypertension I27.22 Acute respiratory distress syndrome (ARDS) due to 2019 novel coronavirus U07.1; J80
[2021-02-23] MEDS: budesonide 0.5 mg/2 mL Neb INHALATION ×2 (07:49→19:46)
[2021-02-23] MEDS: dextrose 5% 1,000 ML 75 ML IV (08:25)
[2021-02-23] MEDS: insulin glargine 100 units/1 mL 25 UNIT SUBCUT ×2 (08:34→21:36)
--- NOTE | 2021-02-23 09:13 | PM.CONSULT ---
Providers/Reason For Consult Consulting Physician/Specialty*: General Surgery Justin Britt MD Reason for Consult*: Requesting PEG tube. Attending Physician: Contreras Dennis MD Primary Care Provider: Ag Menjivar MD History of Present Illness History of Present Illness Arjun Rios is a 75 year old male currently hospitalized for COVID-19. He has become extremely weak and is unable to swallow solid food. Dr. Dennis has asked me to place a PEG tube for patient after discussing this with the family members. He indicates that he can take small amounts of clear liquids, but apparently cannot swallow much in the way of solid food. Review of Systems General: Reports: ROS unobtainable due to medical condition Meds/Allergies Home Medications and Allergies Home Medications Medication Instructions Recorded Confirmed Last Taken Type Colloidal Silver 1 ml PO BID 02/05/21 02/05/21 Unknown History Vitamin B-12 1 ml PO DAILY 02/05/21 02/05/21 Unknown History albuterol sulfate [Ventolin HFA] 2 puff INHALATION Q6H PRN 02/05/21 02/05/21 02/05/21 10:00 History 2 PUFFS alprazolam 0.25 mg PO BID PRN 02/05/21 02/05/21 02/04/21 History ascorbic acid (vitamin C) [Vitamin 500 mg PO DAILY 02/05/21 02/05/21 02/05/21 History C] aspirin [Aspir-81] 81 mg PO DAILY 02/05/21 02/05/21 Unknown History azithromycin 250 mg PO .MON,WED,FRI 02/05/21 02/05/21 02/04/21 History budesonide-formoterol [Symbicort] 2 puff INHALATION PRN 02/05/21 02/05/21 02/04/21 History carvedilol 3.125 mg PO BID 02/05/21 02/05/21 02/05/21 History cholecalciferol (vitamin D3) 125 mcg PO BID 02/05/21 02/05/21 02/04/21 History [Vitamin D3] clopidogrel 75 mg PO QAM 02/05/21 02/05/21 02/05/21 History cyanocobalamin (vitamin B-12) 1,000 mcg IM Q30D 02/05/21 02/05/21 Unknown History ezetimibe 10 mg PO DAILY 02/05/21 02/05/21 Unknown History guaifenesin 400 mg PO QID 02/05/21 02/05/21 Unknown History insulin NPH-regular hum s-syn See Rx Instructions .ROUTE .COMPLEX 02/05/21 02/05/21 Unknown History [Novolin 70/30 U-100 Insulin] insulin regular human [Novolin R See Rx Instructions .ROUTE .COMPLEX 02/05/21 02/05/21 Unknown History Regular U-100 Insuln] ipratropium-albuterol 3 ml INHALATION TID PRN 02/05/21 02/05/21 02/05/21 04:00 History levofloxacin 500 mg PO DAILY 02/05/21 02/05/21 02/05/21 History multivitamin 1 tab PO DAILY 02/05/21 02/05/21 02/05/21 History pramipexole 0.25 mg PO BEDTIME 02/05/21 02/05/21 Unknown History prednisone 5 mg PO .DAILY DIRECTED 02/05/21 02/05/21 Unknown History prednisone See Rx Instructions .ROUTE .COMPLEX 02/05/21 02/05/21 02/05/21 History 40 MG tadalafil 5 mg PO QAM 02/05/21 02/05/21 Unknown History tamsulosin 0.4 mg PO DAILY 02/05/21 02/05/21 Unknown History zinc acetate-sweetleaf [zinc 1 sarina PO DAILY 02/05/21 02/05/21 02/04/21 History (acetate) lozenges] Allergies Allergy/AdvReac Type Severity Reaction Status Date / Time coconut Allergy Intermediate Unknown Verified 02/07/21 12:21 Penicillins Allergy ALGY-Anaphy Verified 02/05/21 12:40 laxis Current Medications Current Medications Generic Name Dose Route Start Last Admin Trade Name Freq PRN Reason Stop Dose Admin Albuterol/Ipratropium 3 ml 02/06/21 12:00 02/23/21 07:49 Ipratropium-Albuterol 3 Ml Neb INHALATION 3 ml Q4H.RESPIRATORY CALLY Administration Artificial Tears 1 applic 02/13/21 09:49 02/16/21 13:07 Artificial Tears Op Oint 3.5 Gm EYE-BOTH 1 applic PRN PRN Administration DRY EYE(S) Aspirin 81 mg 02/06/21 09:00 02/22/21 13:44 Aspirin 81 Mg Ec Tablet PO Not Given DAILY [facility]ALLY Benzocaine 1 each 02/06/21 17:45 02/07/21 03:44 Cetylpyridinium Lozenge MUCOUS MEM 1 each Q2H PRN Administration SORE THROAT Budesonide 0.5 mg 02/05/21 18:00 02/23/21 07:49 Budesonide 0.5 Mg/2 Ml Neb INHALATION 0.5 mg BID [facility] Administration Carvedilol 3.125 mg 02/05/21 18:00 02/22/21 18:27 Carvedilol 3.125 Mg Tablet PO Not Given BID [facility]ALLY Clopidogrel Bisulfate 75 mg 02/06/21 06:00 02/23/21 05:20 Clopidogrel 75 Mg Tablet PO [facility] Denture Adhesive 1 applic 02/19/21 10:01 02/19/21 10:17 Fixodent 39 Gm Tube DENTAL 1 applic PRN PRN Administration denture adhesive Docusate Sodium 100 mg 02/11/21 09:00 02/22/21 18:27 Docusate Sodium 100 Mg Capsule PO Not Given BID [facility] Enoxaparin Sodium 40 mg 02/09/21 09:00 02/22/21 07:45 Enoxaparin 40 Mg/0.4 Ml Syringe SUBCUT 40 mg DAILY [facility] Administration Famotidine 20 mg 02/05/21 16:00 02/23/21 05:07 Famotidine 20 Mg/2 Ml Inj IVP 20 mg Q12H [facility] Administration Fluconazole 400 mg in 200 mls @ 200 mls/hr 02/16/21 20:00 02/22/21 21:22 Diflucan Premix IV Infused Q24H [facility] Infusion Dextrose 1,000 mls @ 75 mls/hr 02/17/21 08:00 02/23/21 08:25 D5w IV 75 mls/hr .[id number] [facility] Administration Insulin Aspart 0 unit 02/10/21 16:30 02/23/21 04:29 Insulin Aspart 100 Unit/1 Ml SUBCUT Not Given Q4H [facility] Protocol Insulin Glargine 25 unit 02/12/21 21:00 02/23/21 08:34 Insulin Glargine 100 Units/1 Ml SUBCUT 25 unit Q12H [facility] Administration Methylprednisolone Sodium Succinate 10 mg 02/22/21 20:00 02/23/21 08:34 Methylprednisolone Sod Succ 40 Mg/Ml Inj IVP 10 mg Q12H [facility] Administration Non-Formulary Medication 5 mg 02/06/21 06:00 02/23/21 05:21 Tadalafil PO Not Given QAM [facility] Senna/Docusate Sodium 1 tab 02/11/21 21:00 02/22/21 20:48 Sennosides-Docusate Tablet PO Not Given BEDTIME [facility]ALLY Tamsulosin HCl 0.4 mg 02/06/21 09:00 02/22/21 13:49 Tamsulosin 0.4 Mg Capsule PO Not Given DAILY [facility] PFSH Acute PFSH: Medical History CAD (coronary artery disease) HTN (hypertension) Type 2 diabetes mellitus Surgical History History of coronary artery stent placement Social History Smoking and tobacco status: never smoked Alcohol intake: never Substance/Drug Use: never Lives independently: Yes Household members: spouse Housing: House Vitals/I&O/Wt Last Vital Signs Temp 97.8 F 02/23/21 07:36 Pulse 107 H 02/23/21 07:54 Resp 18 02/23/21 07:49 BP 139/95 02/23/21 07:36 Pulse Ox 95 02/23/21 07:49 02/22/21 02/23/21 02/23/21 22:59 06:59 14:59 Intake Total 1150 / 1270 120 / 1270 60 / 60 Output Total 550 / 1100 550 / 1100 Balance 600 / 170 -430 / 170 60 / 60 Weight last 48 hrs Weight 199 lb 9.6 oz Weight 198 lb 4.8 oz Physical Exam Narrative: EXAM NARRATIVE: The patient was encountered in his hospital room. He does not appear to be in any distress but has difficulty communicating with me. He tries to whisper but cannot make any noises and seems a little bit confused, anyway. The pupils seem equal. No carotid bruits are heard. The heart seems regular. The abdomen reveals no obvious scars at its upper aspect. It is soft and nondistended. Bowel sounds are present. The extremities reveal no edema. Urinary Catheter Management^: Ram: Cath Placed During This Visit: yes Reason for Continuing Indwelling Catheter: Accurate Measurement of Urinary Output in Critically Ill Patients Urinary Catheter Date of Insertion: 02/05/21 Urinary Catheter Time of Insertion: 18:34 Data Micro: Micro: Microbiology 02/18/21 13:40 Gram Stain - Final Sputum - Endotrac heal Tube Aspirate Sputum Culture - P reliminary Yeast species A&P Assessment and plan (1) Acute respiratory distress syndrome (ARDS) due to 2019 novel coronavirus: The patient is very weak and is having difficulty swallowing. Apparently his family members would like to try to take care of him at home, but some type of nutritional support is going to be needed. I have discussed a PEG tube with him as best as I can. He seems to indicate to me that he knows it is going to be a necessity. The patient is on Plavix and Lovenox. His Lovenox has been held. I will make arrangements for an EGD and PEG tube placement later this morning. Status: Acute (2) Pneumonia due to 2019-nCoV: Status: Acute Consult Attestations Medical Necessity Statement: See admitting service's notation. Coding Level of Care Code Acute Record Changer for [facility] Diagnoses Acute respiratory distress syndrome (ARDS) due to 2019 novel coronavirus U07.1; J80 Pneumonia due to 2019-nCoV U07.1; J12.82
--- NOTE | 2021-02-23 10:11 | ANES.PREANE2 ---
Pre-Anesthetic Assessment Pre-Anesthetic Assessment: Height/Weight: Height 1.75 m Weight 90.537 kg Temp Pulse Resp BP Pulse Ox 97.8 F 107 H 18 139/95 95 02/23/21 07:36 02/23/21 07:54 02/23/21 07:49 02/23/21 07:36 02/23/21 07:49 Proposed Procedure: Operation Date: 02/23/21 10:00 Proposed Procedures p PEG Tube Insertion(Not Applicable) - Justin Britt MD Was Beta Ken taken within 24 hours: N/A Was Clonidine taken within 24 hours: N/A Social: Social History: No alcohol and No tobacco Exam: Pre-Anes Outpt Exam: alert, oriented x 3, clear to auscultation bilaterally and regular rate & rhythm Airway: Submandibular: WNL Cervical ROM: WNL MP: 2 Dentition: False Pulmonary: Comments: Pulmonary fibrosis, recent COVID, ARDS CV/HEM: CV/HEM: CAD (stent) and HTN Comments: PHTN : : Chronic renal Insufficiency Metabolic: Metabolic: DM Musc/skel: Musc/skel: Weakness Comments: Debilitated from long hospitalization Anesthetic Plan: ASA status: 4 Anesthesia: MAC Risk of > 500 ml blood loss (7ml/kg in children): No Meds/Allergies Current Medications: Current Medications Generic Name Dose Route Start Last Admin Trade Name Freq PRN Reason Stop Dose Admin Albuterol/Ipratrop ium 3 ml 02/06/21 12:00 02/23/21 07:49 Ipratropium-Albu terol 3 Ml Neb INHALATION 3 ml Q4H.RESPIRATORY [facility] Administration Artificial Tears 1 applic 02/13/21 09:49 02/16/21 13:07 Artificial Tears Op Oint 3.5 Gm EYE-BOTH 1 applic PRN PRN Administration DRY EYE(S) Aspirin 81 mg 02/06/21 09:00 02/22/21 13:44 Aspirin 81 Mg Ec Tablet PO Not Given DAILY CALLY Benzocaine 1 each 02/06/21 17:45 02/07/21 03:44 Cetylpyridinium Lozenge MUCOUS MEM 1 each Q2H PRN Administration SORE THROAT Budesonide 0.5 mg 02/05/21 18:00 02/23/21 07:49 Budesonide 0.5 M g/2 Ml Neb INHALATION 0.5 mg BID [facility]ALLY Administration Carvedilol 3.125 mg 02/05/21 18:00 02/22/21 18:27 Carvedilol 3.125 Mg Tablet PO Not Given BID [facility] Clopidogrel Bisulf ate 75 mg 02/06/21 06:00 02/23/21 05:20 Clopidogrel 75 M g Tablet PO Not Given QAM [facility] Denture Adhesive 1 applic 02/19/21 10:01 02/19/21 10:17 Fixodent 39 Gm T ube DENTAL 1 applic PRN PRN Administration denture adhesive Docusate Sodium 100 mg 02/11/21 09:00 02/22/21 18:27 Docusate Sodium 100 Mg Capsule PO Not Given BID [facility] Enoxaparin Sodium 40 mg 02/09/21 09:00 02/22/21 07:45 Enoxaparin 40 Mg /0.4 Ml Syringe SUBCUT 40 mg DAILY [facility] Administration Famotidine 20 mg 02/05/21 16:00 02/23/21 05:07 Famotidine 20 Mg /2 Ml Inj IVP 20 mg Q12H [facility] Administration Fluconazole 400 mg in 200 mls @ 200 mls/hr 02/16/21 20:00 02/22/21 21:22 Diflucan Premix IV Infused Q24H [facility] Infusion Dextrose 1,000 mls @ 75 ml s/hr 02/17/21 08:00 02/23/21 08:25 D5w IV 75 mls/hr .[id number] [facility] Administration Insulin Aspart 0 unit 02/10/21 16:30 02/23/21 04:29 Insulin Aspart 1 00 Unit/1 Ml SUBCUT Not Given Q4H [facility] Protocol Insulin Glargine 25 unit 02/12/21 21:00 02/23/21 08:34 Insulin Glargine 100 Units/1 Ml SUBCUT 25 unit Q12H [facility] Administration Methylprednisolone Sodium Succinate 10 mg 02/22/21 20:00 02/23/21 08:34 Methylprednisolo ne Sod Succ 40 Mg/ Ml Inj IVP 10 mg Q12H [facility] Administration Non-Formulary Medi cation 5 mg 02/06/21 06:00 02/23/21 05:21 Tadalafil PO Not Given QAM [facility] Senna/Docusate Sod ium 1 tab 02/11/21 21:00 02/22/21 20:48 Sennosides-Docus ate Tablet PO Not Given BEDTIME [facility] Tamsulosin HCl 0.4 mg 02/06/21 09:00 02/22/21 13:49 Tamsulosin 0.4 M g Capsule PO Not Given DAILY [facility] PFSH Anesthesia PFSH: Medical History CAD (coronary artery disease) HTN (hypertension) Type 2 diabetes mellitus Surgical History History of coronary artery stent placement Social History Smoking and tobacco status: never smoked Alcohol intake: never Substance/Drug Use: never Lives independently: Yes Household members: spouse Housing: House Data Anesthesia CBC & Chem 7: 02/22/21 05:59 02/22/21 05:59 Other Labs: Laboratory Results - last 48 hr 02/15/21 02/20/21 02/21/21 05:35 04:03 12:18 WBC RBC Hgb Hct MCV MCH MCHC RDW Plt Count MPV Neut % (Auto) Lymph % (Auto) Sawyer % (Auto) Eos % (Auto) Baso % (Auto) Neut # (Auto) Lymph # (Auto) Sawyer # (Auto) Eos # (Auto) Baso # (Auto) Nucleated RBC % (auto) Nucleated RBCs # Sodium Potassium Chloride Carbon Dioxide Anion Gap BUN Creatinine GFR Calculation Glucose POC Glucose 198 H Serum Osmolality 346 H Calculated Osmolality Calcium Total Bilirubin AST ALT Alkaline Phosphatase Total Protein Albumin Globulin Misc Test Reference See comment 02/21/21 02/21/21 02/21/21 16:15 16:35 20:41 WBC RBC Hgb Hct MCV MCH MCHC RDW Plt Count MPV Neut % (Auto) Lymph % (Auto) Sawyer % (Auto) Eos % (Auto) Baso % (Auto) Neut # (Auto) Lymph # (Auto) Sawyer # (Auto) Eos # (Auto) Baso # (Auto) Nucleated RBC % (auto) Nucleated RBCs # Sodium Potassium Chloride Carbon Dioxide Anion Gap BUN Creatinine GFR Calculation Glucose POC Glucose 140 H 129 H 165 H Serum Osmolality Calculated Osmolality Calcium Total Bilirubin AST ALT Alkaline Phosphatase Total Protein Albumin Globulin Misc Test Reference 02/21/21 02/22/21 02/22/21 23:32 04:24 05:59 WBC 16.4 H RBC 5.23 Hgb 15.6 Hct 50.2 MCV 96.0 H MCH 29.8 MCHC 31.1 RDW 13.9 Plt Count 126 L MPV 10.5 H Neut % (Auto) 91.5 Lymph % (Auto) 3.8 Sawyer % (Auto) 4.1 Eos % (Auto) 0.0 Baso % (Auto) 0.1 Neut # (Auto) 14.98 H Lymph # (Auto) 0.6 L Sawyer # (Auto) 0.7 Eos # (Auto) 0.0 Baso # (Auto) 0.0 Nucleated RBC % (auto) 0 Nucleated RBCs # 0.0 Sodium Potassium Chloride Carbon Dioxide Anion Gap BUN Creatinine GFR Calculation Glucose POC Glucose 158 H 115 H Serum Osmolality Calculated Osmolality Calcium Total Bilirubin AST ALT Alkaline Phosphatase Total Protein Albumin Globulin [facility] [place] 02/22/21 02/22/21 02/22/21 05:59 08:53 11:00 WBC RBC Hgb Hct MCV MCH MCHC RDW Plt Count MPV Neut % (Auto) Lymph % (Auto) Sawyer % (Auto) Eos % (Auto) Baso % (Auto) Neut # (Auto) Lymph # (Auto) Sawyer # (Auto) Eos # (Auto) Baso # (Auto) Nucleated RBC % (auto) Nucleated RBCs # Sodium 146 H Potassium 4.7 Chloride 112 H Carbon Dioxide 27 Anion Gap 11.7 BUN 39 H Creatinine 0.9 GFR Calculation Not Reportable Glucose 133 H POC Glucose 126 H 142 H Serum Osmolality Calculated Osmolality 313 H Calcium 8.1 L Total Bilirubin 0.9 AST 105 H ALT 98 H Alkaline Phosphatase 105 Total Protein 5.4 L Albumin 2.5 L Globulin 2.9 [facility] [place] 02/22/21 02/22/21 02/22/21 15:41 17:15 19:56 WBC RBC Hgb Hct MCV MCH MCHC RDW Plt Count MPV Neut % (Auto) Lymph % (Auto) Sawyer % (Auto) Eos % (Auto) Baso % (Auto) Neut # (Auto) Lymph # (Auto) Sawyer # (Auto) Eos # (Auto) Baso # (Auto) Nucleated RBC % (auto) Nucleated RBCs # Sodium Potassium Chloride Carbon Dioxide Anion Gap BUN Creatinine GFR Calculation Glucose POC Glucose 139 H 176 H 228 H Serum Osmolality Calculated Osmolality Calcium Total Bilirubin AST ALT Alkaline Phosphatase Total Protein Albumin Globulin Misc Test Reference 02/22/21 02/23/21 02/23/21 23:33 04:14 07:34 WBC RBC Hgb Hct MCV MCH MCHC RDW Plt Count MPV Neut % (Auto) Lymph % (Auto) Sawyer % (Auto) Eos % (Auto) Baso % (Auto) Neut # (Auto) Lymph # (Auto) Sawyer # (Auto) Eos # (Auto) Baso # (Auto) Nucleated RBC % (auto) Nucleated RBCs # Sodium Potassium Chloride Carbon Dioxide Anion Gap BUN Creatinine GFR Calculation Glucose POC Glucose 169 H 147 H 140 H Serum Osmolality Calculated Osmolality Calcium Total Bilirubin AST ALT Alkaline Phosphatase Total Protein Albumin Globulin Misc Test Reference Micro: Microbiology 02/18/21 13:40 Gram Stain - Final Sputum - Endotracheal Tube Aspirate Sputum Culture - Preliminary Yeast species Cardiac Studies: Echocardiogram 02/06/21
[2021-02-23] MEDS: sodium chloride 0.9% 1,000 ML 30 ML IV (10:24)
--- NOTE | 2021-02-23 11:08 | P.OP_ITS ---
Operative Report Date of procedure: February 23, 2021 Pre-op Diagnosis: Active COVID-19 infection, extreme weakness and malnutrition. Post-op diagnosis: same Procedure Done: PEG tube placement. Implants: 20 [place] PEG tube. Pathology: none sent Surgeon: Justin Britt Anesthesia: MAC Estimated blood loss (mL): 1 Complications: None. Condition: stable Disposition: PACU Procedure: The patient was brought to the operating room and was left in the supine position on his hospital bed. A monitored anesthetic was eventually initiated. While the endoscopy equipment was working, the associated computer had a short and one of the cords that would not allow it to boot up and keep a record of the procedure in the [employer] system. Endoscopy was carried out. A 20 [place] PEG tube was placed without difficulty using the standard PUSH technique. After the tube was in place the endoscope was passed back into the gastric lumen and showed good placement/location of the PEG tube without any ongoing bleeding or other complications. The tube was secured with the bolster externally and the site was dressed. The patient was taken to the recovery room in stable condition following the procedure. Following the procedure, the GI nurse (Mercedes) notified me she had just noticed that the PEG tube kit that they had opened for the procedure had just the previous evening at midnight. I told her to document that accordingly, but it obviously is not going to be changed out at this point.
--- NOTE | 2021-02-23 11:13 | ANE.PACU2 ---
Inpatient post-anesthesia follow up: Airway intact: Yes Vital signs: Temperature 98.4 F Pulse Rate [Monito r] 81 Pulse Rate [Curren t] 104 Pulse Rate 86 Respiratory Rate [ Current] 22 Respiratory Rate 16 Blood Pressure [Le ft Arm] 152/86 Blood Pressure 100/68 Pulse Oximetry [Cu rrent] 93 Pulse Oximetry 97 Oxygen Delivery Me thod Nasal Cannula Oxygen Flow Rate [ Current] 6 Oxygen Flow Rate 9 Fraction of Inspir ed Oxygen [ 55 Current] Fraction of Inspir ed Oxygen 50 Hydration adequate: Yes Nausea and vomiting: No Pain level: 1 Mental status: Baseline
--- NOTE | 2021-02-23 11:25 | PC.NURSE ---
IMPLANT PEG TUBE [employer] ENDOVIVE STANDARD PEG KIT 20 F GTIN [id number] REF [id number] LOT [id number] EXP 02/22/21
[2021-02-23 13:15] LABS: Basophils % 0.1 %; Hematocrit 43.4 % (42.0-52.0); Hemoglobin 13.8 g/dL (11.7-16.6); Lymphocytes # 0.4 10^3/uL (0.8-4.8); Lymphocytes % 3.5 %; Mean Corpuscular HGB Conc 31.8 g/dL (30.0-36.0); Mean Corpuscular Hemoglobin 29.2 pg (28.0-34.0); Mean Corpuscular Volume 91.8 fl (80-94); Monocytes # 0.4 10^3/uL (0.2-0.9); Monocytes % 3.2 %; Neutrophils # 11.71 10^3/uL (1.8-7.7); Neutrophils % 92.6 %; Nucleated Red Blood Cells % 0 %; Platelet Count 119 10^3/cmm (130-400); Red Blood Count 4.73 10^6/uL (4.1-5.3); Red Cell Distribution Width 13.3 % (12.1-15.1); White Blood Count 12.6 10^3/uL (4.0-10.0)
[2021-02-23 13:31] LABS: Alanine Aminotransferase 83 U/L (0-41); Albumin Level 2.3 g/dL (3.5-5.2); Alkaline Phosphatase 104 IU/L (40-130); Anion Gap 10.6 (5-19); Aspartate Amino Transferase 61 U/L (0-40); Blood Urea Nitrogen 30 mg/dL (8-23); Calcium 7.7 mg/dL (8.5-10.5); Carbon Dioxide 26 mmol/L (22-29); Chloride 108 mmol/L (98-107); Globulin 2.8 g/dL (1.3-4.6); Glucose 217 mg/dL (65-115); Osmolality Calculated 303 mOsm/kg (285-295); Potassium 4.6 mmol/L (3.5-5.1); Sodium 140 mmol/L (136-145); Total Bilirubin 0.8 mg/dL (0.15-1.2); Total Protein 5.1 g/dL (6.6-8.7)
[2021-02-23 15:34] LABS: Glucose Point of Care 215 mg/dL (70-110)
[2021-02-23] MEDS: oxyCODONE 5 mg IR Tab/Cap PO (17:52)
--- NOTE | 2021-02-23 18:34 | PC.NURSE ---
Morning medications held due to patient being unable to swallow. Doctor aware. Per Dr. Dennis medications ok to be administered through peg tube. Ice chips only- begin feedings tomorrow.
[2021-02-23 19:14] LABS: Glucose Point of Care 204 mg/dL (70-110)
[2021-02-23] MEDS: fluconazole premix 400 MG/200 ML PIGGYBACK 200 MG IV (20:29)
--- NOTE | 2021-02-23 21:02 | PC.NUTR ---
NUTR TF RECOMMENDATIONS: Glucerna with goal rate of 60 ml/hr providing 1728 kcal (85%), 86 g PRO (95%), and 1159 ml fluid (57%)(%NEEDS). Suggest startingTF at 20 ml/hr and increase by 10 ml Q6H as tolerated till goal rate is met. Suggest 115 ml H2O flushes Q4H to approach fluid needs or per physician. BOLUS FEEDINGS: 6 cans daily total over 3 feedings with 1 cup H2O flush after each feeding
[2021-02-23] MEDS: dextrose 5%-sod chloride 0.9% 1,000 ML 75 ML IV (21:37)
[2021-02-23] MEDS: sennosides-docusate Tablet 1 TAB PO (21:40)
[2021-02-23 23:09] LABS: Glucose Point of Care 191 mg/dL (70-110)
[2021-02-24] VITALS (15 sets, daily range): BP systolic 108–152; BP diastolic 66–89; PULSE 84–106; RESP 16–22; TEMP 36.6–36.8; O2SAT 91–95
[2021-02-24 01:25] LABS: Glucose Point of Care 166 mg/dL (70-110)
[2021-02-24] MEDS: oxyCODONE 5 mg IR Tab/Cap PO ×2 (03:51→20:21)
[2021-02-24 03:54] LABS: Glucose Point of Care 119 mg/dL (70-110)
[2021-02-24] MEDS: ipratropium-albuterol 3 mL Neb INHALATION ×3 (04:10→22:47)
[2021-02-24] MEDS: NON-FORMULARY MEDICATION (Tadalafil 5 mg tablet) 5 EACH PO (06:24)
[2021-02-24] MEDS: clopidogrel 75 mg Tablet PO (06:24)
[2021-02-24] MEDS: famotidine 20 mg/2 mL INJ IVP ×2 (06:30→17:21)
[2021-02-24 06:33] LABS: Basophils % 0.1 %; Hematocrit 39.3 % (42.0-52.0); Hemoglobin 12.3 g/dL (11.7-16.6); Lymphocytes # 0.4 10^3/uL (0.8-4.8); Lymphocytes % 3.7 %; Mean Corpuscular HGB Conc 31.3 g/dL (30.0-36.0); Mean Corpuscular Hemoglobin 29.1 pg (28.0-34.0); Mean Corpuscular Volume 92.9 fl (80-94); Mean Platelet Volume 11.2 fL (7.4-10.4); Monocytes # 0.4 10^3/uL (0.2-0.9); Monocytes % 3.2 %; Neutrophils # 9.97 10^3/uL (1.8-7.7); Neutrophils % 92.4 %; Nucleated Red Blood Cells % 0 %; Platelet Count 111 10^3/cmm (130-400); Red Blood Count 4.23 10^6/uL (4.1-5.3); Red Cell Distribution Width 13.4 % (12.1-15.1); White Blood Count 10.8 10^3/uL (4.0-10.0)
[2021-02-24 06:58] LABS: Blood Urea Nitrogen 23 mg/dL (8-23); Calcium 7.7 mg/dL (8.5-10.5); Carbon Dioxide 25 mmol/L (22-29); Chloride 106 mmol/L (98-107); Creatinine Clr Calc Pharmacy 88.5225; Glucose 110 mg/dL (65-115); Osmolality Calculated 288 mOsm/kg (285-295); Sodium 137 mmol/L (136-145)
[2021-02-24 07:48] LABS: Glucose Point of Care 90 mg/dL (70-110)
[2021-02-24 07:58] LABS: Anion Gap 10.6 (5-19); Potassium 4.6 mmol/L (3.5-5.1)
[2021-02-24] MEDS: budesonide 0.5 mg/2 mL Neb INHALATION ×2 (08:15→21:47)
[2021-02-24] MEDS: docusate sodium 100 mg Capsule PO ×2 (09:40→17:21)
--- NOTE | 2021-02-24 09:40 | PC.SOCIAL ---
IMM update IMM updated with patient. Verbalized an understanding. Copy Pg 2 provided. Initialled, dated, timed, and placed in chart.
[2021-02-24] MEDS: aspirin 81 mg EC Tablet PO (09:41)
[2021-02-24] MEDS: carvedilol 3.125 mg Tablet PO ×2 (09:41→17:20)
[2021-02-24] MEDS: tamsulosin 0.4 mg Capsule PO (09:41)
[2021-02-24] MEDS: enoxaparin 40 mg/0.4 mL Syringe SUBCUT (09:47)
[2021-02-24] MEDS: dextrose 5%-sod chloride 0.9% 1,000 ML 75 ML IV (10:39)
[2021-02-24 11:51] LABS: Glucose Point of Care 83 mg/dL (70-110)
--- NOTE | 2021-02-24 13:44 | PM.PN ---
Subjective Subjective: Interval history: He is very weak, although denies current complaints. Denies abdominal pain. Wishes he could be taken outside. Vitals/I&O/Wt Last Vital Signs Temp 98.2 F 02/24/21 11:52 Pulse 98 02/24/21 11:52 Resp 16 02/24/21 11:52 BP 122/86 02/24/21 11:52 Pulse Ox 92 02/24/21 11:52 02/23/21 02/24/21 02/24/21 22:59 06:59 14:59 Intake Total 200 / 660 977.5 / 977.5 Output Total 800 / 800 550 / 1350 Balance -800 / -340 -350 / -690 977.5 / 977.5 Weight last 48 hrs Weight 87.09 kg Weight 90.537 kg Physical Exam Const: COMMON NORMALS: no acute distress GENERAL APPEARANCE: patient mechanically ventilated OTHER: Very weak, but awake, cooperative, in good spirits. Dysphonia. HENMT: COMMON NORMALS: oropharynx normal Neck/C-Spine: COMMON NORMALS: no JVD Resp: COMMON NORMALS: normal respiratory effort and clear to auscultation bilaterally AUSCULTATION: clear to auscultation bilaterally Cardio: COMMON NORMALS: no JVD, regular rhythm, S1 normal heart sound present, S2 normal heart sound present and No murmurs present (Cardio) RHYTHM: regular rhythm HEART SOUNDS: S1 normal heart sound present and S2 normal heart sound present GI: COMMON NORMALS: Normal to inspection, nondistended, normoactive bowel sounds present and Soft to palpation PALPATION: Yes Soft to palpation Extremity: COMMON NORMALS: no joint enlargement GENERAL: Yes edema (Trace ankle edema) Neuro: COMMON NORMALS: moves all extremities Skin: COMMON NORMALS: no rashes or lesions noted GENERAL SKIN EXAM: no rashes or lesions noted Urinary Catheter Management^: Ram: Cath Placed During This Visit: yes Reason for Continuing Indwelling Catheter: Assist Healing of Perineal & Sacral Wounds- Incontinent Patients Urinary Catheter Date of Insertion: 02/05/21 Urinary Catheter Time of Insertion: 18:34 Data : 02/24/21 05:40 02/24/21 05:40 A&P Assessment and plan (1) Pneumonia due to 2019-nCoV: Remains on 8L oxy pendant. Very weak generally, but otherwise seems to be doing alright. S/p PEG. Arrangements to start TF. Spoke also w ST as surgery had entered CLD to allow some PO intake, so discussed to adjust to latest recommendations in terms of consistency. Extubated February 18 Directive for no reintubation Currently on fluconazole for Symone. Plan for 10 days total. Completed his course of, remdesivir Illness complicated by interstitial lung disease. Weaning down on IV steroids. Decrease to 5 mg every 12h. Typically on 5 mg a day. This could certainly contribute to weakness but reports it is often difficult to wean him from 20 mg. Off antibiotic. Has continued confusion, severe weakness after extubation. CT scan of head demonstrated no acute findings. Sodium normalized. Discussed with case management who will also reach out to his as per her request to also confirm that he will have other needed equipment ready by the time of discharge within the next 24-48 hours. states she will need equipment available to be able to take care of him at home where she will also have support from multiple other family members. Status: Acute (2) Idiopathic interstitial fibrosis: On tapering doses of Solu-Medrol. Monitoring for any adrenal insufficiency. Status: Acute (3) ARDS (adult respiratory distress syndrome): As above. Status: Acute (4) COVID-19 vaccination not done: Status: Acute (5) HTN (hypertension): Status: Acute Qualifiers: Hypertension type: unspecified Qualified Code(s): I10 - Essential (primary) hypertension (6) Type 2 diabetes mellitus: Sliding scale insulin, long acting insulin Status: Acute Qualifiers: Diabetes mellitus terminal make up operator insulin use: unspecified correction insulin use status Diabetes mellitus complication status: with other specified complication Qualified Code(s): E11.69 - Type 2 diabetes mellitus with other specified complication (7) CAD (coronary artery disease): Recent stent placement. Continue aspirin, Plavix, beta-too, statin. Echo demonstrated preserved EF, 1/4 diastolic dysfunction. Moderate pulmonary hypertension with pulmonary artery pressure 46. Status: Acute Qualifiers: Coronary Disease-Associated Artery/Lesion type: [place] artery [place] vs. transplanted heart: [place] heart Associated angina: unspecified whether angina present Qualified Code(s): I25.10 - Atherosclerotic heart disease of [place] coronary artery without angina pectoris (8) WHO group 2 pulmonary arterial hypertension: Status: Acute (9) Acute respiratory distress syndrome (ARDS) due to 2019 novel coronavirus: Status: Acute Attestations Medical Necessity Statement*: Continue admission for initiation of tube feeding after placement of PEG tube, reassessment and reinitiation of dysphagia diet by mouth, tapering off IV steroids, planning and preparations for him to be able to return home. Coding Level of Care Code Acute [employer] Diagnoses Pneumonia due to 2019-nCoV U07.1; J12.82 Idiopathic interstitial fibrosis J84.112 ARDS (adult respiratory distress syndrome) J80 COVID-19 vaccination not done Z28.9 HTN (hypertension) I10 Hypertension type: unspecified Type 2 diabetes mellitus E11.69 Diabetes mellitus terminal make up operator insulin use: unspecified correction insulin use status Diabetes mellitus complication status: with other specified complication CAD (coronary artery disease) I25.10 Coronary Disease-Associated Artery/Lesion type: [place] artery [place] vs. transplanted heart: [place] heart Associated angina: unspecified whether angina present WHO group 2 pulmonary arterial hypertension I27.22 Acute respiratory distress syndrome (ARDS) due to 2019 novel coronavirus U07.1; J80
[2021-02-24 15:38] LABS: Glucose Point of Care 95 mg/dL (70-110)
[2021-02-24] MEDS: fluconazole premix 400 MG/200 ML PIGGYBACK 200 MG IV (20:17)
[2021-02-24 21:40] LABS: Glucose Point of Care 171 mg/dL (70-110)
[2021-02-24] MEDS: sennosides-docusate Tablet 1 TAB PO (22:03)
[2021-02-24] MEDS: insulin glargine 100 units/1 mL 25 UNIT SUBCUT (22:06)
[2021-02-25] VITALS (15 sets, daily range): BP systolic 118–153; BP diastolic 72–88; PULSE 66–104; RESP 17–22; TEMP 36.5–36.9; O2SAT 92–99
[2021-02-25 00:12] LABS: Glucose Point of Care 149 mg/dL (70-110)
[2021-02-25] MEDS: dextrose 5%-sod chloride 0.9% 1,000 ML 75 ML IV ×2 (00:19→12:32)
[2021-02-25] MEDS: oxyCODONE 5 mg IR Tab/Cap PO (04:27)
[2021-02-25 04:29] LABS: Glucose Point of Care 87 mg/dL (70-110)
[2021-02-25] MEDS: clopidogrel 75 mg Tablet PO (05:13)
[2021-02-25] MEDS: NON-FORMULARY MEDICATION (Tadalafil 5 mg tablet) 5 EACH PO (05:13)
[2021-02-25] MEDS: famotidine 20 mg/2 mL INJ IVP (05:16)
[2021-02-25 06:23] LABS: Hematocrit 40.2 % (42.0-52.0); Hemoglobin 12.6 g/dL (11.7-16.6); Lymphocytes # 0.4 10^3/uL (0.8-4.8); Lymphocytes % 4.4 %; Mean Corpuscular HGB Conc 31.3 g/dL (30.0-36.0); Mean Corpuscular Volume 92.6 fl (80-94); Mean Platelet Volume 11.1 fL (7.4-10.4); Monocytes # 0.3 10^3/uL (0.2-0.9); Monocytes % 3.1 %; Neutrophils # 8.38 10^3/uL (1.8-7.7); Neutrophils % 92.1 %; Nucleated Red Blood Cells % 0 %; Platelet Count 141 10^3/cmm (130-400); Red Blood Count 4.34 10^6/uL (4.1-5.3); Red Cell Distribution Width 13.2 % (12.1-15.1); White Blood Count 9.1 10^3/uL (4.0-10.0)
[2021-02-25 06:43] LABS: Anion Gap 10.4 (5-19); Blood Urea Nitrogen 21 mg/dL (8-23); Calcium 7.6 mg/dL (8.5-10.5); Carbon Dioxide 24 mmol/L (22-29); Chloride 106 mmol/L (98-107); Glucose 92 mg/dL (65-115); Osmolality Calculated 285 mOsm/kg (285-295); Potassium 4.4 mmol/L (3.5-5.1); Sodium 136 mmol/L (136-145)
[2021-02-25] MEDS: budesonide 0.5 mg/2 mL Neb INHALATION ×2 (08:03→20:26)
[2021-02-25] MEDS: ipratropium-albuterol 3 mL Neb INHALATION ×3 (08:04→20:27)
[2021-02-25 08:21] LABS: Glucose Point of Care 118 mg/dL (70-110)
[2021-02-25] MEDS: tamsulosin 0.4 mg Capsule PO (08:24)
[2021-02-25] MEDS: carvedilol 3.125 mg Tablet PO ×2 (08:24→17:39)
[2021-02-25] MEDS: aspirin 81 mg EC Tablet PO (08:24)
[2021-02-25] MEDS: docusate sodium 100 mg Capsule PO ×2 (08:24→17:39)
[2021-02-25] MEDS: insulin glargine 100 units/1 mL 25 UNIT SUBCUT (08:24)
[2021-02-25] MEDS: enoxaparin 40 mg/0.4 mL Syringe SUBCUT (08:25)
--- NOTE | 2021-02-25 11:06 | PM.PN ---
Subjective Subjective: Interval history: Arjun awakens easily but appears tired. He quickly drifts off to sleep. Medications: Reviewed: Yes Vitals/I&O/Wt Last Vital Signs Temp 98.1 F 02/25/21 07:23 Pulse 73 02/25/21 08:10 Resp 20 H 02/25/21 08:04 BP 122/72 02/25/21 07:23 Pulse Ox 98 02/25/21 08:04 02/24/21 02/25/21 02/25/21 22:59 06:59 14:59 Intake Total 240 / 1217.5 1260 / 2477.5 240 / 240 Output Total 550 / 550 Balance 240 / 1217.5 710 / 1927.5 240 / 240 Weight last 48 hrs Weight 86.954 kg Weight 87.09 kg Physical Exam Narrative: EXAM NARRATIVE: Sleepy. Will move all extremities but very weak. Neck is supple no lymphadenopathy or thyromegaly. Central line has been removed Cardiovascular regular rate and rhythm Lungs clear Abdomen is soft with positive bowel sounds. PEG tube okay Extremities no cyanosis clubbing or edema. Profoundly weak. Urinary Catheter Management^: Ram: Cath Placed During This Visit: yes Reason for Continuing Indwelling Catheter: Assist Healing of Perineal & Sacral Wounds- Incontinent Patients Urinary Catheter Date of Insertion: 02/05/21 Urinary Catheter Time of Insertion: 18:34 Data : 02/25/21 05:49 02/25/21 05:49 A&P Assessment and plan (1) Pneumonia due to 2019-nCoV: Remains on 8L oxy pendant. Very weak. S/p PEG. Initiate tube feedings, goal of 20 cc an hour by tomorrow. We will get recommendations for bolus feedings. Extubated February 18 Directive for no reintubation Currently on fluconazole for Symone. Plan for 10 days total. Discontinue after tomorrow. Completed his course of, remdesivir Illness complicated by interstitial lung disease. Weaning down on IV steroids. Decrease to 5 mg every 12h. Typically on 5 mg a day. This could certainly contribute to weakness but reports it is often difficult to wean him from 20 mg. Discontinue IV today and change to per PEG Off antibiotic. Has continued confusion, severe weakness after extubation. CT scan of head demonstrated no acute findings. Sodium normalized. With increase feedings per PEG tube will reduce IV fluids. Discussed with case management who will also reach out to his as per her request to also confirm that he will have other needed equipment ready by the time of discharge within the next 24-48 hours. states she will need equipment available to be able to take care of him at home where she will also have support from multiple other family members. Lab holiday tomorrow. Discontinue Ram today. Status: Acute (2) Idiopathic interstitial fibrosis: On tapering doses of Solu-Medrol. Monitoring for any adrenal insufficiency. Status: Acute (3) ARDS (adult respiratory distress syndrome): As above. 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 Continue aspirin, Plavix, beta-too, statin. Echo demonstrated preserved EF, 1/4 diastolic dysfunction. Moderate pulmonary hypertension with pulmonary artery pressure 46. Status: Acute Qualifiers: Coronary Disease-Associated Artery/Lesion type: [place] artery [place] vs. transplanted heart: [place] heart Associated angina: unspecified whether angina present Qualified Code(s): I25.10 - Atherosclerotic heart disease of [place] coronary artery without angina pectoris (8) WHO group 2 pulmonary arterial hypertension: Status: Acute (9) Acute respiratory distress syndrome (ARDS) due to 2019 novel coronavirus: Status: Acute Attestations Medical Necessity Statement*: Attending hospitalization secondary to severe COVID-19 pneumonia requiring PEG tube, high flow oxygen. Coding Level of Care Code Acute Manager [employer] for [facility] Diagnoses Pneumonia due to 2019-nCoV U07.1; J12.82 Idiopathic interstitial fibrosis J84.112 ARDS (adult respiratory distress syndrome) J80 COVID-19 vaccination not done Z28.9 HTN (hypertension) I10 Hypertension type: unspecified Type 2 diabetes mellitus E11.69 Diabetes mellitus longwall headgate operator insulin use: unspecified longwall headgate operator insulin use status Diabetes mellitus complication status: with other specified complication CAD (coronary artery disease) I25.10 Coronary Disease-Associated Artery/Lesion type: [place] artery [place] vs. transplanted heart: [place] heart Associated angina: unspecified whether angina present WHO group 2 pulmonary arterial hypertension I27.22 Acute respiratory distress syndrome (ARDS) due to 2019 novel coronavirus U07.1; J80
[2021-02-25 11:30] LABS: Glucose Point of Care 149 mg/dL (70-110)
--- NOTE | 2021-02-25 12:11 | PC.NUTR ---
Tube feeding recommendations: Agree with previous RD recommendation from 02/23. Glucerna 1.2 at goal rate of 60 ml/hr, with 115 ml H2O flushes q 4 hours, providing 1728 kcal, 86 g PRO, and 1849 ml fluid. For bolus feedings, recommend 480 ml bolus (2 cans), with 240 ml (1 cup) H2O flush after each feeding, for 3 feedings per day. (6 cans Glucerna 1.2 and 3 cups water total per day). Recommend initiate bolus at half volume (only 1 can) and gradually increase as tolerated to goal of 2 cans per feeding, 3 feedings per day. Above recommendations will provide approximately 100% estimated protein needs, and 100% of lower end of kcal range. If unable to consume any po intake and wt trending down, would suggest one additional can (240 ml) per day to meet higher end of estimated kcal needs. Pt assessed by RD on 8 previous occasions, today being the 9th. See full assessments for further details.
[2021-02-25 17:05] LABS: Glucose Point of Care 153 mg/dL (70-110)
[2021-02-25] MEDS: famotidine 20 mg Tablet PO (17:39)
[2021-02-25] MEDS: predniSONE 5 mg Tablet 7.5 MG PEG-TUBE (17:39)
[2021-02-25 21:10] LABS: Glucose Point of Care 124 mg/dL (70-110)
[2021-02-25] MEDS: insulin glargine 100 units/1 mL 20 UNIT SUBCUT (21:31)
[2021-02-25] MEDS: sennosides-docusate Tablet 1 TAB PO (21:31)
[2021-02-25] MEDS: fluconazole premix 400 MG/200 ML PIGGYBACK 200 MG IV (21:33)
[2021-02-26] VITALS (10 sets, daily range): BP systolic 102–130; BP diastolic 71–81; PULSE 70–113; RESP 16–20; TEMP 36.4–36.8; O2SAT 86–100
[2021-02-26 00:42] LABS: Glucose Point of Care 85 mg/dL (70-110)
[2021-02-26] MEDS: ipratropium-albuterol 3 mL Neb INHALATION ×2 (03:04→08:00)
[2021-02-26 03:47] LABS: Glucose Point of Care 92 mg/dL (70-110)
[2021-02-26] MEDS: dextrose 5%-sod chloride 0.9% 1,000 ML 30 ML IV (04:20)
[2021-02-26] MEDS: NON-FORMULARY MEDICATION (Tadalafil 5 mg tablet) 5 EACH PO (05:38)
[2021-02-26] MEDS: clopidogrel 75 mg Tablet PO (05:38)
[2021-02-26 06:05] LABS: Glucose Point of Care 105 mg/dL (70-110)
[2021-02-26] MEDS: budesonide 0.5 mg/2 mL Neb INHALATION (08:00)
[2021-02-26] MEDS: aspirin 81 mg EC Tablet PO (09:24)
[2021-02-26] MEDS: carvedilol 3.125 mg Tablet PO (09:24)
[2021-02-26] MEDS: docusate sodium 100 mg Capsule PO (09:24)
[2021-02-26] MEDS: famotidine 20 mg Tablet PO (09:24)
[2021-02-26] MEDS: enoxaparin 40 mg/0.4 mL Syringe SUBCUT (09:25)
[2021-02-26] MEDS: predniSONE 5 mg Tablet 7.5 MG PEG-TUBE (09:25)
[2021-02-26] MEDS: tamsulosin 0.4 mg Capsule PO (09:25)
[2021-02-26] MEDS: insulin glargine 100 units/1 mL 20 UNIT SUBCUT (09:26)
--- NOTE | 2021-02-26 10:16 | P.DS_ITS ---
Discharge Providers Date of Admission: 02/05/21 17:02 Date of Discharge: February 26, 2021 Attending Provider at Admission: Jonny Sage MD Attending Provider at Discharge: Contreras Dennis MD Primary Care Provider: Ag Menjivar MD Diagnoses at Discharge Discharge Diagnosis (1) Pneumonia due to 2019-nCoV: Status: Acute (2) Idiopathic interstitial fibrosis: Status: Acute (3) ARDS (adult respiratory distress syndrome): Status: Acute (4) COVID-19 vaccination not done: Status: Acute (5) HTN (hypertension): Status: Acute Qualifiers: Hypertension type: unspecified Qualified Code(s): I10 - Essential (primary) hypertension (6) Type 2 diabetes mellitus: Status: Acute Qualifiers: 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 artery [place] vs. transplanted heart: [place] heart Associated angina: unspecified whether angina present Qualified Code(s): I25.10 - Atherosclerotic heart disease of [place] coronary artery without angina pectoris (8) WHO group 2 pulmonary arterial hypertension: Status: Acute (9) Acute respiratory distress syndrome (ARDS) due to 2019 novel coronavirus: Status: Acute Reason for Visit Reason for Visit: covid + low o2 Hospital Course Hospital Course Arjun is a 75-year-old white male with history of pulmonary fibrosis who presented to the hospital on February 05 with COVID-19 pneumonia. He received dexamethasone, remdesivir. CTA was negative for pulmonary embolism. Echocardiogram demonstrated EF of 60% with moderate pulmonary hypertension. With decompensation, he was intubated on February 07. He completed several sessions. IV steroids were increased for concerns of exacerbation of his interstitial lung disease. Antibiotics were switched during his hospital course to cover for concern of aspiration. He eventually improved to a point he was extubated on February 18. Profound weakness and encephalopathy were noted at that time. He was also treated for fluconazole secondary to yeast noted in his sputum culture. CT head was completed February 20 with no acute findings. He was also noted to be hypernatremic, and this was reversed with D5W over the interim. He improved slowly from encephalopathy but severe profound weakness continued to occur and he was not able to take adequate p.o. Therefore a PEG tube was placed February 23. During this time from admission to discharge multiple discussions occurred with family, , regarding goals. She wished for him to go home and would not place him in a nursing facility or long-term care facility. PEG tube was placed to facilitate this placement at home. Home health, home equipment was being arranged in the interim and patient eventually progressed to discharge on February 26. At that time he was still profoundly weak but slowly improving. He was tolerating tube feeds which were being changed to bolus. Home oxygen evaluation will be complete and he was on 7 L in the hospital prior to this being obtained. He will follow-up with his primary care provider in 3 to 5 days. He will receive Eliquis at home to prevent DVT. Instructions on diet of dysphagia level 1, nectar thick liquids and supplemental PEG tube feedings were discussed with his . Sodium had normalized at time of discharge. Steroid dose was down to 7.5 mg twice daily, and this will need to be tapered further by primary care provider. was able to understand all instructions and plans given, ask appropriate questions. Physical Exam Narrative: EXAM NARRATIVE: General exam weak male in no apparent distress Cardiovascular regular rate and rhythm Lungs clear but diminished breath sounds bilaterally Abdomen is soft, positive bowel sounds, PEG tube noted Extremities no cyanosis clubbing or edema Urinary Catheter Management^: Ram: Cath Placed During This Visit: yes, but has since been removed by the nurse Reason for Continuing Indwelling Catheter: Not indwelling catheter Urinary Catheter Date of Insertion: 02/05/21 Urinary Catheter Time of Insertion: 18:34 Date Urinary Catheter Removed: 02/25/21 Time Urinary Catheter Discontinued: 09:15 Discharge Data Data Completed and Pending: Completed Studies During Hospitalization Category Date Time Status CT angio chest PE protcl 78389 Stat Cat Scan 02/05/21 13:[address] head wo con* 7 0450 Routine Cat Scan 02/20/21 07:37 Completed XR chest 1V marilu ble 77852 Q48H Exams 02/06/21 06:00 Completed XR chest 1V marilu ble 92259 Q48H Exams 02/08/21 06:00 Completed XR chest 1V marilu ble 69533 Q48H Exams 02/10/21 06:00 Completed XR chest 1V marilu ble 63386 Q48H Exams 02/12/21 06:00 Completed XR chest 1V marilu ble 09200 Q48H Exams 02/14/21 15:00 Completed XR chest 1V marilu ble 08641 Routine Exams 02/09/21 09:03 Completed XR chest 1V marilu ble 00362 Routine Exams 02/12/21 11:07 Completed XR chest 1V marilu ble 40161 Routine Exams 02/12/21 12:18 Completed XR chest 1V marilu ble 65008 Routine Exams 02/16/21 07:46 Completed XR chest 1V marilu ble 27226 Routine Exams 02/18/21 07:45 Completed XR chest 1V marilu ble 57595 Routine Exams 02/19/21 07:00 Completed XR chest 1V marilu ble 20747 Stat Exams 02/05/21 12:38 Completed XR chest 1V marilu ble 28954 Stat Exams 02/07/21 15:32 Completed XR chest 1V marilu ble 05873 Stat Exams 02/07/21 21:47 Completed CV. echo complete * [id number] Routine Ultrasound 02/06/21 04:00 Completed Pending at discharge Category Date Time Status Miscellaneous Dora t Stat Lab 02/18/21 13:40 Received Osmolality Urine Stat Lab 02/20/21 07:36 Received Pneumocystis jiro vecii, QT PCR Rout ine Lab 02/06/21 08:34 Uncollected Sputum Culture an d Gram Stain Stat Lab 02/18/21 13:40 Results Labs from last 24 hours 02/26/21 02/26/21 02/26/21 05:56 03:43 00:39 POC Glucose 105 92 85 02/25/21 02/25/21 02/25/21 20:06 16:56 11:05 POC Glucose 124 H 153 H 149 H Vitals: Last Vital Signs Temp 97.5 F L 02/26/21 07:41 Pulse 113 H 02/26/21 08:15 Resp 20 H 02/26/21 08:05 BP 102/71 02/26/21 07:41 Pulse Ox 97 02/26/21 08:05 Discharge Plan Discharge Patient Disposition: Home Health Service Condition: Stable Prescriptions: New docusate sodium 100 mg Capsule 100 mg PO BID Qty: 60 RF: 0 Lantus U-100 Insulin 100 unit/mL Solution 20 unit SUBCUT Q12H Qty: 1 RF: 0 prednisone 5 mg Tablet 7.5 mg peg-tube BID Qty: 90 RF: 0 famotidine 20 mg Tablet 20 mg PO BID Qty: 60 RF: 0 oxycodone 5 mg Tablet 5 mg PO Q4H PRN (Reason: Moderate Pain) Qty: 20 RF: 0 Eliquis 2.5 mg tablet 2.5 mg PO BID Qty: 60 RF: 0 Continued multivitamin Tablet 1 tab PO DAILY RF: 0 ipratropium-albuterol 0.5 mg-3 mg(2.5 mg base)/3 mL solution for nebulization 3 ml INHALATION TID PRN (Reason: SEE PHARMACY COMMENTS) RF: 0 clopidogrel 75 mg tablet 75 mg PO QAM RF: 0 carvedilol 3.125 mg tablet 3.125 mg PO BID RF: 0 alprazolam 0.25 mg tablet 0.25 mg PO BID PRN (Reason: Anxiety) RF: 0 Vitamin C 500 mg Tablet 500 mg PO DAILY RF: 0 tamsulosin 0.4 mg capsule 0.4 mg PO DAILY RF: 0 cyanocobalamin (vitamin B-12) 1,000 mcg/mL solution 1,000 mcg IM Q30D RF: 0 Novolin R Regular U-100 Insuln 100 unit/mL Solution See Rx Instructions .ROUTE .COMPLEX RF: 0 pramipexole 0.25 mg tablet 0.25 mg PO BEDTIME RF: 0 Ventolin HFA 90 mcg/actuation HFA aerosol inhaler 2 puff INHALATION Q6H PRN (Reason: Shortness Of Breath) RF: 0 guaifenesin 400 mg Tablet 400 mg PO QID RF: 0 tadalafil 5 mg tablet 5 mg PO QAM RF: 0 Symbicort 160-4.5 mcg/actuation HFA aerosol inhaler 2 puff INHALATION PRN RF: 0 Vitamin D3 125 mcg (5,000 unit) Tablet 125 mcg PO BID RF: 0 Colloidal Silver 1 ml PO BID RF: 0 Discontinued azithromycin 250 mg tablet 250 mg PO .MON,WED,FRI RF: 0 zinc (acetate) lozenges 13.3-5 mg Lozenge 1 sarina PO DAILY RF: 0 prednisone 20 mg tablet See Rx Instructions .ROUTE .COMPLEX RF: 0 prednisone 5 mg tablet 5 mg PO .DAILY DIRECTED RF: 0 aspirin [Aspir-81] 81 mg Tablet,Delayed Release (Dr/Ec) 81 mg PO DAILY RF: 0 levofloxacin 500 mg tablet 500 mg PO DAILY RF: 0 Novolin 70/30 U-100 Insulin 100 unit/mL (70-30) Solution See Rx Instructions .ROUTE .COMPLEX RF: 0 ezetimibe 10 mg tablet 10 mg PO DAILY RF: 0 Vitamin B-12 1 ml PO DAILY RF: 0 Discharge Orders: Discharge Order (Routine); Ordered 02/26/21 Ordered By: Contreras Dennis Other Ambulatory Orders: DME: Miscellaneous (Order) Location: None Selected Ordered By: Daniel Rivera DME: Miscellaneous (Order) Location: None Selected Ordered By: Contreras Dennis DME: Wheelchair (Order) Location: None Selected Ordered By: Contreras Dennis Referrals: [facility] [Outside] [facility] [Outside] (Your tube feedings will come from [facility]. For any issues, please contact Kay Sierra, MPH, RD, LD at [phone].) Ag Menjivar MD [Primary Care Provider] - 4-7 days Patient Instructions: GI Discharge Instructions, Opioid Safety Activity Restrictions/Additional Instructions: .Dyspnagia level 1 diet with nectar thick liquids. Glucerna 1 can(240ml) TID first day with increase gradually to 2 cans TID per PEG tube. Water 1 cup, 240 cc, 3 times daily per PEG tube. Monitor sugar closely and call physician for changes if needed and Lantus. 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 artery [place] vs. transplanted heart: [place] heart Associated angina: unspecified whether angina present WHO group 2 pulmonary arterial hypertension I27.22 Acute respiratory distress syndrome (ARDS) due to 2019 novel coronavirus U07.1; J80
[2021-02-26 10:26] LABS: Glucose Point of Care 164 mg/dL (70-110)
--- NOTE | 2021-02-26 12:26 | PC.NURSE ---
patient left with EMS at 1225 belongings sent with patient including green bag that was in closet, shoes, electric razor, 2 small pillows, dentures and cup, [employer]ogen oxygen concentrator.
--- NOTE | 2021-02-28 11:39 | PC.SOCIAL ---
discharge follow up call made. spoke with patients . patient received all home equipment. continues to use O2. new prescriptions picked up and taking as prescribed. patient has follow up appointment scheduled with pcp. Home health has been to the home for nurse visit. continues with nectal thick liquids. Using Glucerna through peg tube for feeds.
== END 2021-02-26 12:28 | disposition home health service (06) | DRG 207 ==
LOC: ER 14:51 → MS 2A 18:00 → ICU 02-07 15:40 → MEDSURG 02-21 12:18
PROVIDERS: Internal Medicine; Internal Medicine Pulmonary Disease; Surgery; Admitting Provider Student in an Organized Health Care Education/Training Program; Emergency Provider Family Medicine; PCP Family Medicine; Visit Provider Internal Medicine
PROC: 0DH63UZ Insertion of Feeding Device into Stomach, Percutaneous Approach (ICD-10-PCS; CPT 43246; principal; 2021-02-23 10:00)
DX: U07.1 COVID-19 (principal); J12.82 Pneumonia due to coronavirus disease 2019; J80 Acute respiratory distress syndrome; J69.0 Pneumonitis due to inhalation of food and vomit; N17.9 Acute kidney failure, unspecified; E87.2 Acidosis; E27.40 Unspecified adrenocortical insufficiency; G93.40 Encephalopathy, unspecified; E87.1 Hypo-osmolality and hyponatremia; B37.0 Candidal stomatitis; J84.112 Idiopathic pulmonary fibrosis; I10 Essential (primary) hypertension; E11.65 Type 2 diabetes mellitus with hyperglycemia; I25.10 Atherosclerotic heart disease of native coronary artery without angina pectoris; Z95.5 Presence of coronary angioplasty implant and graft; I27.20 Pulmonary hypertension, unspecified; E87.5 Hyperkalemia; Z88.0 Allergy status to penicillin; Z79.51 Long term (current) use of inhaled steroids; Z79.4 Long term (current) use of insulin; Z79.02 Long term (current) use of antithrombotics/antiplatelets; Z66 Do not resuscitate
CPT/HCPCS: 36415; 36416; 36592; 36600; 43246; 51702; 70450; 71045; 71275; 80048; 80051; 80053; 80061; 81003; 82330; 82436; 82550; 82728; 82803; 82805; 82962; 83036; 83540; 83550; 83605; 83615; 83735; 83880; 83930; 83935; 84100; 84133; 84145; 84300; 84443; 85025; 85378; 85651; 86140; 86403; 87040; 87070; 87106; 87107; 87205; 87305; 87385; 87449; 87641; 87798; 92526; 92610; 93005; 93306; 94002; 94003; 94640; 94664; 94799; 96365; 96372; 96375; 97110; 97161; 97530; 99285; A4570; C1751; J0360; J0696; J1100; J1170; J1450; J1650; J1815 ×2; J1940; J2250; J2704; J2920; J3010; J3490; J7030; J7040; J7050; J7512; J7626; Q0144; Q9967

== ENCOUNTER 2021-03-15 19:06 | Outpatient (CLI) | payer MEDICARE, SELFPAY ==
[2021-03-15 19:44] LABS: Basophils % 0.5 %; Eosinophils % 0.4 %; Hematocrit 33.8 % (42.0-52.0); Lymphocytes # 3.4 10^3/uL (0.8-4.8); Lymphocytes % 42.3 %; Mean Corpuscular HGB Conc 32.5 g/dL (30.0-36.0); Mean Corpuscular Hemoglobin 29.6 pg (28.0-34.0); Mean Corpuscular Volume 90.9 fl (80-94); Mean Platelet Volume 9.1 fL (7.4-10.4); Monocytes # 0.5 10^3/uL (0.2-0.9); Monocytes % 5.9 %; Neutrophils # 4.01 10^3/uL (1.8-7.7); Nucleated Red Blood Cells % 0 %; Platelet Count 410 10^3/cmm (130-400); Red Blood Count 3.72 10^6/uL (4.1-5.3); Red Cell Distribution Width 14.7 % (12.1-15.1)
[2021-03-15 20:06] LABS: Alanine Aminotransferase 27 U/L (0-41); Albumin Level 2.8 g/dL (3.5-5.2); Alkaline Phosphatase 130 IU/L (40-130); Anion Gap 16.1 (5-19); Aspartate Amino Transferase 44 U/L (0-40); Blood Urea Nitrogen 16 mg/dL (8-23); Calcium 8.3 mg/dL (8.5-10.5); Carbon Dioxide 29 mmol/L (22-29); Chloride 94 mmol/L (98-107); Globulin 2.5 g/dL (1.3-4.6); Glucose 268 mg/dL (65-115); Osmolality Calculated 289 mOsm/kg (285-295); Potassium 5.1 mmol/L (3.5-5.1); Sodium 134 mmol/L (136-145); Total Bilirubin 0.2 mg/dL (0.15-1.2); Total Protein 5.3 g/dL (6.6-8.7)
== END 2021-03-15 19:07 | disposition home or self-care (01) ==
LOC: LAB 19:18
PROVIDERS: PCP Family Medicine; Visit Provider Family Medicine
DX: U07.1 COVID-19 (principal); J84.112 Idiopathic pulmonary fibrosis
CPT/HCPCS: 80053; 85025

== ENCOUNTER 2021-03-23 06:00 | Outpatient (RCR) | payer MEDICARE, SELFPAY | END 2021-03-28 23:59 | disposition home or self-care (01) | LOC: SST 06:00 | PROVIDERS: PCP Family Medicine; Referring Provider Family Medicine; Visit Provider Family Medicine | DX: F13.10 Sedative, hypnotic or anxiolytic abuse, uncomplicated (principal) | CPT/HCPCS: 92524; 92610 ==

== ENCOUNTER 2021-03-29 06:00 | Outpatient (RCR) | payer MEDICARE, SELFPAY | END 2021-04-28 23:59 | disposition home or self-care (01) | LOC: SST 06:00 | PROVIDERS: PCP Family Medicine; Referring Provider Family Medicine; Visit Provider Family Medicine | DX: R13.10 Dysphagia, unspecified (principal) | CPT/HCPCS: 92507 ==

== ENCOUNTER 2021-04-29 06:00 | Outpatient (RCR) | payer MEDICARE, SELFPAY | END 2021-05-28 23:59 | disposition home or self-care (01) | LOC: SST 06:00 | PROVIDERS: PCP Family Medicine; Referring Provider Family Medicine; Visit Provider Family Medicine | DX: R13.10 Dysphagia, unspecified (principal) | CPT/HCPCS: 92507 ==